=== PATIENT | female | born 1945 | race Caucasian/White ===

== ENCOUNTER → 2018-12-20 | Outpatient (CLI) | payer MEDICARE ==
--- NOTE | 2018-12-26 14:35 | MM ---
Reason for exam: screening (asymptomatic). Last mammogram was performed 18 years and 1 month ago. History: Patient is postmenopausal and has history of other cancer at age 53. Family history of breast cancer in cousin. 2 excisional biopsies of the right breast. Took estrogen for 6 years. Took progesterone for 6 years. Physical Findings: A clinical breast exam by your physician is recommended on an annual basis and results should be correlated with mammographic findings. MG 3D Screening Mammo W/Cad Bilateral CC and MLO view(s) were taken. Prior study comparison: November 30, 2017, mammogram. September 22, 2016, mammogram. The breast tissue is almost entirely fat. Secretory calcifications left breast. No significant changes when compared with prior studies. ASSESSMENT: Negative, BI-RAD 1 RECOMMENDATION: Routine screening mammogram of both breasts in 1 year.
== END | disposition home or self-care (01) ==
LOC: RADMAMWWP 10:19
PROVIDERS: ATTEND Obstetrics & Gynecology
DX: Z12.31 Encounter for screening mammogram for malignant neoplasm of breast (principal)
CPT/HCPCS: 77063; 77067

== ENCOUNTER → 2019-08-16 | Outpatient (CLI) | payer MEDICARE ==
[2019-08-16 16:51] LABS: Anion Gap 7.7 mmol/L (4.00-12.00); BUN/Creat Ratio 18.75 Ratio (12.00-20.00); Calcium 9.2 mg/dL (8.7-10.3); Carbon Dioxide 26.3 mmol/L (21.6-31.8); Chol/HDL Ratio 5.26; LDL Cholesterol,Calculated 108.6 mg/dL (0.0-131.0); Potassium 3.9 mmol/L (3.5-5.5); VLDL Calculation 57.4 mg/dL (5.00-40.00)
[2019-08-16 19:20] LABS: Hemoglobin A1C 7.6 % (4.0-6.0)
== END | disposition home or self-care (01) ==
LOC: LABWHC1 07:43
PROVIDERS: ATTEND Internal Medicine
DX: I10 Essential (primary) hypertension (principal); E11.9 Type 2 diabetes mellitus without complications; E78.5 Hyperlipidemia, unspecified
CPT/HCPCS: 36415; 80048; 80061; 83036

== ENCOUNTER → 2020-07-05 | Outpatient (CLI) | payer MEDICARE | END | disposition home or self-care (01) | LOC: LABWHC1 14:47 | PROVIDERS: ATTEND Internal Medicine | DX: Z20.828 Contact with and (suspected) exposure to other viral communicable diseases (principal) | CPT/HCPCS: U0003; C9803 ==

== ENCOUNTER 2020-11-27 17:14 | Emergency (ER) | payer MEDICARE ==
[2020-11-27 17:28] VITALS: BP 190/80; PULSE 88; RESP 18; TEMP 98.2
[2020-11-27] MEDS ORDERED: SODIUM CHLORIDE 0.9% 1,000 ML IV ONE (18:26)
--- NOTE | 2020-11-27 18:32 | ED ---
Abdominal Pain HPI - General Chief Complaint: Abdominal Pain Stated Complaint: Abd Pain Time Seen by Provider: 11/27/20 17:59 Source: patient Mode of arrival: wheelchair Limitations: no limitations - History of Present Illness Initial Comments: Patient is a 75 old female with past history of hypertension and diabetes who presents to the emergency department with reported abdominal pain. Patient states that she has had some lower abdominal cramping and abdominal distention over the past day. She took some milk of magnesia yesterday in an attempt to alleviate her symptoms. Reports that her pain has persisted through today. She did have a bowel movement she states was normal in color and consistency for her. She denies being constipated or having diarrhea. No black or bloody stools. Denies any changes in her urination. Denies any nausea or vomiting. Does have a history of previous bowel resection secondary to diverticulitis. No lower extremity numbness, tingling or weakness. No other alleviating, precipitating or modifying factors - Related Data Allergies Allergy/AdvReac Type Severity Reaction Status Date / Time azithromycin Allergy Unknown Verified 11/27/20 17:29 ciprofloxacin [From Cipro] Allergy Unknown Verified 11/27/20 17:29 meperidine [From Demerol] Allergy Unknown Verified 11/27/20 17:29 Penicillins Allergy Unknown Verified 11/27/20 17:29 Sulfa (Sulfonamide Allergy Unknown Verified 11/27/20 17:29 Antibiotics) Review of Systems ROS Statement: Those systems with pertinent positive or pertinent negative responses have been documented in the HPI. ROS Other: All systems not noted in ROS Statement are negative. Past Medical History Past Medical History: Diabetes Mellitus, Hypertension History of Any Multi-Drug Resistant Organisms: None Reported Past Surgical History: Cholecystectomy Past Psychological History: No Psychological Hx Reported Smoking Status: Former smoker Past Alcohol Use History: None Reported Past Drug Use History: None Reported General Exam Limitations: no limitations General appearance: alert, in no apparent distress Head exam: Present: atraumatic, normocephalic, normal inspection Eye exam: Present: normal appearance, PERRL, EOMI. Absent: scleral icterus, conjunctival injection, periorbital swelling ENT exam: Present: normal exam, mucous membranes moist Neck exam: Present: normal inspection. Absent: tenderness, meningismus, lymphadenopathy Respiratory exam: Present: normal lung sounds bilaterally. Absent: respiratory distress, wheezes, rales, rhonchi, stridor Cardiovascular Exam: Present: regular rate, normal rhythm, normal heart sounds. Absent: systolic murmur, diastolic murmur, rubs, gallop, clicks GI/Abdominal exam: Present: soft, tenderness (rlq, epigastric), normal bowel sounds. Absent: distended, guarding, rebound, rigid Extremities exam: Present: normal inspection, full ROM, normal capillary refill. Absent: tenderness, pedal edema, joint swelling, calf tenderness Back exam: Present: normal inspection Neurological exam: Present: alert, oriented X3, CN II-XII intact Psychiatric exam: Present: normal affect, normal mood Skin exam: Present: warm, dry, intact, normal color. Absent: rash Course Vital Signs 11/27/20 17:25 Temperature 98.2 F Pulse Rate 88 Respiratory 18 Rate Blood Pressure 190/80 O2 Sat by Pulse 96 Oximetry Medical Decision Making - Medical Decision Making Upon arrival patient was placed into room 10. A thorough history and physical e xam was performed. Peripheral IV is established and the patient is given 1 L of normal saline. I did offer the patient something for pain and nausea however she refused. Laboratory studies are conducted and reviewed. The patient's platelets are low at 96. Glucose 148. Urinalysis demonstrates 1+ protein. She is sent over for CT of her abdomen and pelvis without contrast as the patient reports that she cannot have contrast due to ALLERGY. CT demonstrates colonic diverticulosis without diverticulitis and a tiny amount of fluid around the spleen of uncertain significance. I did recommend hospital admission however the patient states that since she has been here she feels better and she wants to go home. I informed the patient that there could be some missed findings as the CT was performed without contrast. She does understand. Patient continues to want go home. She is instructed that she has a follow-up with her primary care physician in 2-4 days. If she has any new or worsening symptoms she needs to immediately back to the emergency department. Patient understood this. She was discharged home in stable condition - Lab Data Result diagrams: 11/27/20 18:47 11/27/20 18:47 Lab Results 11/27/20 11/27/20 11/27/20 Range/Units 18:40 18:47 18:47 WBC 5.8 (3.8-10.6) k/uL RBC 4.89 (3.80-5.40) m/uL Hgb 14.9 (11.4-16.0) gm/dL Hct 43.9 (34.0-46.0) % MCV 89.7 (80.0-100.0) fL MCH 30.5 (25.0-35.0) pg MCHC 34.0 (31.0-37.0) g/dL RDW 14.5 (11.5-15.5) % Plt Count 96 L (150-450) k/uL MPV 7.6 Neutrophils % 65 % Lymphocytes % 23 % Monocytes % 5 % Eosinophils % 2 % Basophils % 1 % Neutrophils # 3.8 (1.3-7.7) k/uL Lymphocytes # 1.4 (1.0-4.8) k/uL Monocytes # 0.3 (0-1.0) k/uL Eosinophils # 0.1 (0-0.7) k/uL Basophils # 0.1 (0-0.2) k/uL PT 10.9 (9.0-12.0) sec INR 1.1 (<1.2) APTT 24.2 (22.0-30.0) sec Sodium (137-145) mmol/L Potassium (3.5-5.1) mmol/L Chloride (98-107) mmol/L Carbon Dioxide (22-30) mmol/L Anion Gap mmol/L BUN (7-17) mg/dL Creatinine (0.52-1.04) mg/dL Est GFR (CKD-EPI)AfAm (>60 ml/min/1.73 sqM) Est GFR (CKD-EPI)NonAf (>60 ml/min/1.73 sqM) Glucose (74-99) mg/dL Plasma Lactic Acid Pipo (0.7-2.0) mmol/L Calcium (8.4-10.2) mg/dL Total Bilirubin (0.2-1.3) mg/dL AST (14-36) U/L ALT (4-34) U/L Alkaline Phosphatase (38-126) U/L Troponin I (0.000-0.034) ng/mL Total Protein (6.3-8.2) g/dL Albumin (3.5-5.0) g/dL Lipase (23-300) U/L Urine Color Light Yellow Urine Appearance Clear (Clear) Urine pH 6.5 (5.0-8.0) Ur Specific [place] 1.006 (1.001-1.035) Urine Protein 1+ H (Negative) Urine Glucose (UA) Negative (Negative) Urine Ketones Negative (Negative) Urine Blood Negative (Negative) Urine Nitrite Negative (Negative) Urine Bilirubin Negative (Negative) Urine Urobilinogen <2.0 (<2.0) mg/dL Ur Leukocyte Esterase Negative (Negative) Urine RBC 1 (0-5) /hpf Urine WBC 1 (0-5) /hpf Ur Squamous Epith Cells 1 (0-4) /hpf Amorphous Sediment Rare H (None) /hpf Hyaline Casts 1 (0-2) /lpf 11/27/20 11/27/20 11/27/20 Range/Units 18:47 18:47 18:47 WBC (3.8-10.6) k/uL RBC (3.80-5.40) m/uL Hgb (11.4-16.0) gm/dL Hct (34.0-46.0) % MCV (80.0-100.0) fL MCH (25.0-35.0) pg MCHC (31.0-37.0) g/dL RDW (11.5-15.5) % Plt Count (150-450) k/uL MPV Neutrophils % % Lymphocytes % % Monocytes % % Eosinophils % % Basophils % % Neutrophils # (1.3-7.7) k/uL Lymphocytes # (1.0-4.8) k/uL Monocytes # (0-1.0) k/uL Eosinophils # (0-0.7) k/uL Basophils # (0-0.2) k/uL PT (9.0-12.0) sec INR (<1.2) APTT (22.0-30.0) sec Sodium 138 (137-145) mmol/L Potassium 3.8 (3.5-5.1) mmol/L Chloride 101 (98-107) mmol/L Carbon Dioxide 26 (22-30) mmol/L Anion Gap 11 mmol/L BUN 13 (7-17) mg/dL Creatinine 0.61 (0.52-1.04) mg/dL Est GFR (CKD-EPI)AfAm >90 (>60 ml/min/1.73 sqM) Est GFR (CKD-EPI)NonAf 88 (>60 ml/min/1.73 sqM) Glucose 148 H (74-99) mg/dL Plasma Lactic Acid Pipo 1.8 (0.7-2.0) mmol/L Calcium 9.7 (8.4-10.2) mg/dL Total Bilirubin 1.1 (0.2-1.3) mg/dL AST 34 (14-36) U/L ALT 27 (4-34) U/L Alkaline Phosphatase 73 (38-126) U/L Troponin I <0.012 (0.000-0.034) ng/mL Total Protein 7.9 (6.3-8.2) g/dL Albumin 4.1 (3.5-5.0) g/dL Lipase 163 (23-300) U/L Urine Color Urine Appearance (Clear) Urine pH (5.0-8.0) Ur Specific [place] (1.001-1.035) Urine Protein (Negative) Urine Glucose (UA) (Negative) Urine Ketones (Negative) Urine Blood (Negative) Urine Nitrite (Negative) Urine Bilirubin (Negative) Urine Urobilinogen (<2.0) mg/dL Ur Leukocyte Esterase (Negative) Urine RBC (0-5) /hpf Urine WBC (0-5) /hpf Ur Squamous Epith Cells (0-4) /hpf Amorphous Sediment (None) /hpf Hyaline Casts (0-2) /lpf - EKG Data EKG Comments: EKG demonstrates a sinus rhythm with a ventricular rate of 81. ME interval 238. QRS 78. QTC of 457. No acute ST segment elevations or depressions Disposition Clinical Impression: Abdominal pain Disposition: HOME SELF-CARE Condition: Stable Instructions (If sedation given, give patient instructions): Abdominal Pain (ED) Additional Instructions: Please return to the emergency room should you have any new or worsening symptoms. Please follow-up with your doctor in 2-4 days Is patient prescribed a controlled substance at d/c from ED?: No Referrals: Maryuri Hollis MD [Primary Care Provider] - 1-2 days Time of Disposition: 20:11
[2020-11-27 18:50] LABS: Basophils # (A) 0.1 k/uL (0-0.2); Basophils % (A) 1 %; Eosinophils # (A) 0.1 k/uL (0-0.7); Eosinophils % (A) 2 %; HCT 43.9 % (34.0-46.0); HGB 14.9 gm/dL (11.4-16.0); Lymphocytes # (A) 1.4 k/uL (1.0-4.8); Lymphocytes % (A) 23 %; MCH 30.5 pg (25.0-35.0); MCV 89.7 fL (80.0-100.0); Mean Platelet Volume 7.6; Monocytes # (A) 0.3 k/uL (0-1.0); Monocytes % (A) 5 %; Neutrophils # (A) 3.8 k/uL (1.3-7.7); Neutrophils % (A) 65 %; RBC 4.89 m/uL (3.80-5.40); RDW 14.5 % (11.5-15.5); WBC 5.8 k/uL (3.8-10.6)
[2020-11-27 18:53] LABS: Amorphous Sediment,Urine Rare /hpf; Appearance,Urine Clear (Clear); Bilirubin,Urine Negative (Negative); Blood,Urine Negative (Negative); Color,Urine Light Yellow; Glucose,Urine (UA) Negative (Negative); Hyaline Casts,Urine 1 /lpf (0-2); Ketones,Urine Negative (Negative); Leukocyte Esterase,Urine Negative (Negative); Nitrite,Urine Negative (Negative); PH, Urine 6.5 (5.0-8.0); Protein,Urine 1+ (Negative); RBC,Urine 1 /hpf (0-5); Specific Gravity,Urine 1.006 (1.001-1.035); Squamous Epithelial Cell,Urine 1 /hpf (0-4); Urobilinogen,Urine <2.0 mg/dL (<2.0); WBC,Urine 1 /hpf (0-5)
[2020-11-27 18:56] LABS: Platelet Count 96 k/uL (150-450)
[2020-11-27 19:05] LABS: ALT 27 U/L (4-34); AST 34 U/L (14-36); African American GFR (CKD) >90 (>60 ml/min/1.73 sqM); Albumin 4.1 g/dL (3.5-5.0); Alkaline Phosphatase 73 U/L (38-126); Anion Gap 11 mmol/L; Blood Urea Nitrogen 13 mg/dL (7-17); Calcium 9.7 mg/dL (8.4-10.2); Carbon Dioxide 26 mmol/L (22-30); Chloride 101 mmol/L (98-107); Glucose 148 mg/dL (74-99); Lipase 163 U/L (23-300); Non-African American GFR(CKD) 88 (>60 ml/min/1.73 sqM); Potassium 3.8 mmol/L (3.5-5.1); Sodium 138 mmol/L (137-145); Total Bilirubin 1.1 mg/dL (0.2-1.3); Total Protein 7.9 g/dL (6.3-8.2)
[2020-11-27 19:06] LABS: INR 1.1 (<1.2); Partial Thromboplastin Time 24.2 sec (22.0-30.0); Prothrombin Time 10.9 sec (9.0-12.0)
--- NOTE | 2020-11-27 19:47 | CT ---
EXAMINATION TYPE: CT abdomen pelvis wo con DATE OF EXAM: 11/27/2020 COMPARISON: None HISTORY: abdominal discomfort CT DLP: 905.2 mGycm Automated exposure control for dose reduction was used. Images obtained from the diaphragm to the floor the pelvis without contrast. There is some patchy interstitial infiltrates at the lung bases. Heart is borderline enlarged. There is no pericardial effusion. There is no pleural effusion. There is interposition of the hepatic flexure of the colon. Liver shows no focal defect. Spleen is in tact. There is small calcified splenic granuloma. There is small amount of fluid around the spleen. T here is no pancreatic mass. The stomach is intact. There is no adrenal mass. Kidneys show normal size. There is no hydronephrosis. Ureters are not dilat ed. There is no retroperitoneal adenopathy. Bladder distends smoothly. There is no inguinal hernia. T here is no free fluid in the pelvis. There is no mesenteric edema. There is no ascites or free air. There are a few sigmoid diverticula and colonic diverticula without evidence of diverticulitis. Appen jovita is short and appears normal. There are spondylotic changes in the lumbar spine. There is lumbar levoscoliosis. There is no alba alpesh fracture. The bony pelvis is intact. Hip joints are intact. IMPRESSION: There is some colonic diverticulosis without diverticulitis. Tiny amount of fluid around the spleen o f uncertain significance.
== END 2020-11-27 20:59 | disposition home or self-care (01) ==
LOC: EC 17:14
DX: R10.30 Lower abdominal pain, unspecified (principal); K57.30 Diverticulosis of large intestine without perforation or abscess without bleeding; Z88.1 Allergy status to other antibiotic agents; Z88.5 Allergy status to narcotic agent; Z88.0 Allergy status to penicillin; Z88.2 Allergy status to sulfonamides; Z90.49 Acquired absence of other specified parts of digestive tract; Z87.891 Personal history of nicotine dependence
CPT/HCPCS: 36415; 74176; 80053; 81001; 83605; 83690; 84484; 85025; 85610; 85730; 93005; 96360; 99284

== ENCOUNTER → 2021-01-28 | Outpatient (CLI) | payer MEDICARE ==
--- NOTE | 2021-01-30 10:42 | MM ---
Reason for exam: screening (asymptomatic). Last mammogram was performed 2 years and 1 month ago. History: Patient is postmenopausal and has history of other cancer at age 53. Family history of breast cancer in cousin. 2 excisional biopsies of the right breast. Took estrogen for 6 years. Took progesterone for 6 years. Physical Findings: A clinical breast exam by your physician is recommended on an annual basis and results should be correlated with mammographic findings. MG 3D Screening Mammo W/Cad Bilateral CC and MLO view(s) were taken. Prior study comparison: December 20, 2018, bilateral MG 3d screening mammo w/cad. November 30, 2017, mammogram. There are scattered fibroglandular densities. Benign secretory calcifications on the left. No significant changes when compared with prior studies. ASSESSMENT: Negative, BI-RAD 1 RECOMMENDATION: Routine screening mammogram of both breasts in 1 year.
== END ==
LOC: RADMAMWWP 15:45
PROVIDERS: ATTEND Obstetrics & Gynecology
DX: Z12.31 Encounter for screening mammogram for malignant neoplasm of breast (principal); Z80.3 Family history of malignant neoplasm of breast
CPT/HCPCS: 77063; 77067

== ENCOUNTER → 2021-07-01 | Outpatient (CLI) | payer MEDICARE ==
[2021-07-01 15:30] LABS: HCT 42.7 % (34.0-46.0); HGB 14.8 gm/dL (11.4-16.0); MCH 32.1 pg (25.0-35.0); MCHC 34.6 g/dL (31.0-37.0); MCV 92.7 fL (80.0-100.0); Mean Platelet Volume 8.1; Platelet Count 116 k/uL (150-450); RDW 14.5 % (11.5-15.5); WBC 7.9 k/uL (3.8-10.6)
[2021-07-01 16:48] LABS: Band Neutrophils % 1 %; Eosinophils # (M) 0.24 k/uL (0-0.7); Lymphocytes # (M) 1.82 k/uL (1.0-4.8); Monocytes # (M) 0.47 k/uL (0-1.0); Neutrophils % (M) 67 %; Nucleated Red Blood Cells 0 /100 WBC (0-0); Total Cells Counted 100
== END | disposition home or self-care (01) ==
LOC: LABWHC1 14:13
PROVIDERS: ATTEND Internal Medicine
DX: D69.6 Thrombocytopenia, unspecified (principal)
CPT/HCPCS: 36415; 85025

== ENCOUNTER → 2021-08-18 | Outpatient (CLI) | payer MEDICARE ==
--- NOTE | 2021-08-18 08:00 | US ---
EXAMINATION TYPE: US abdomen complete DATE OF EXAM: 08/18/2021 COMPARISON: CT, US Aorta CLINICAL HISTORY: D69.6 Thrombocytopenia. Thrombocytopenia. Hx cholecystectomy, bowel resection. EXAM MEASUREMENTS: Liver Length: 12.0 cm Gallbladder Wall: Cholecystectomy. CBD: Not visualized. Spleen: 13.5 cm Right Kidney: 10.6 x 5.3 x 5.0 cm Left Kidney: 11.7 x 5.4 x 4.4 cm Very limited exam due to gas and patient body habitus. Pancreas: Obscured. Liver: Appears coarse. Limited visibility. Evidence for sonographic Crocker's sign: No Spleen: Appears slightly enlarged. Hyperechoic area seen: 0.5 x 0.5 x 0.6 cm. Right Kidney: Two anechoic areas seen laterally. #1: 1.8 x 1.7 x 1.5 cm. #2: 2.0 x 2.4 x 1.6 cm. Left Kidney: No hydronephrosis or masses seen Upper IVC: Appears wnl Abd Aorta: Prox visualized only, measures 2.5 cm, upper limits of normal. IMPRESSION: 1. Coarse hepatic echotexture may reflect a fatty hepatic infiltration. 2. Mild splenomegaly with a small hypoechoic area which is nonspecific. 3. Renal cystic lesions.
== END | disposition home or self-care (01) ==
LOC: RADUSWWP 06:54
PROVIDERS: ATTEND Internal Medicine Hematology & Oncology
DX: K76.89 Other specified diseases of liver (principal); R16.1 Splenomegaly, not elsewhere classified; N28.9 Disorder of kidney and ureter, unspecified; Z90.49 Acquired absence of other specified parts of digestive tract
CPT/HCPCS: 76700

== ENCOUNTER 2022-04-20 06:34 | Observation (INO) | payer MEDICARE ==
[2022-04-20] MEDS ORDERED: SODIUM CHLORIDE 0.9% 500 ML 500 ML IV STA (06:55)
--- NOTE | 2022-04-20 07:05 | ED ---
General Adult HPI - General Chief complaint: GI Bleed Stated complaint: Rectal bleeding Time Seen by Provider: 04/20/22 06:55 Source: patient, RN notes reviewed, old records reviewed Mode of arrival: wheelchair Limitations: no limitations - History of Present Illness Initial comments: 77-year-old female, alert and oriented 4, presents to the emergency room with complaints of bright red rectal bleeding. Patient states she got up to use the bathroom and the toilet bowl was full of blood. She states that this is happened twice. In between episodes she's had rectal bleeding and rectal pressure. She states walking to the bathroom she will have drips of blood on the floor. She denies any abdominal pain. No chest pain or shortness of breath. She states that she does have a history of hemorrhoids. She states she didn't feel rectal pressure and did try milk of magnesia thinking it may be constipation. She does have a history of thrombocytopenia with diverticulosis. Last colonoscopy was 2006 with no polyps. -: hour(s) Severity scale (1-10): 0 Associated Symptoms: denies other symptoms Treatments Prior to Arrival: other (Milk of magnesia) - Related Data Home Medications Medication Instructions Recorded Confirmed LORazepam [Ativan] 0.5 mg PO Q12H PRN 04/20/22 04/20/22 Magnesium Oxide 400 mg PO DAILY 04/20/22 04/20/22 Montelukast [Singulair] 10 mg PO HS 04/20/22 04/20/22 Multivitamins, Thera [Multivitamin 1 tab PO PC-SUPPER 04/20/22 04/20/22 (formulary)] Pioglitazone [Actos] 15 mg PO DAILY 04/20/22 04/20/22 atenoloL [Tenormin] 25 mg PO BID 04/20/22 04/20/22 hydroCHLOROthiazide 25 mg PO Q48H 04/20/22 04/20/22 metFORMIN HCL [Glucophage] 1,000 mg PO HS 04/20/22 04/20/22 Allergies Allergy/AdvReac Type Severity Reaction Status Date / Time azithromycin Allergy Unknown Verified 04/20/22 06:42 ciprofloxacin [From Cipro] Allergy Unknown Verified 04/20/22 06:42 meperidine [From Demerol] Allergy Unknown Verified 04/20/22 06:42 Penicillins Allergy Unknown Verified 04/20/22 06:42 sulfite Allergy Rash/Hives Verified 04/20/22 06:43 Review of Systems ROS Statement: Those systems with pertinent positive or pertinent negative responses have been documented in the HPI. ROS Other: All systems not noted in ROS Statement are negative. Past Medical History Past Medical History: Diabetes Mellitus, Hypertension Additional Past Medical History / Comment(s): cirrhosis, thrombocytopenia History of Any Multi-Drug Resistant Organisms: None Reported Past Surgical History: Cholecystectomy Past Psychological History: No Psychological Hx Reported Smoking Status: Former smoker Past Alcohol Use History: None Reported Past Drug Use History: None Reported General Exam Limitations: no limitations General appearance: alert, in no apparent distress Head exam: Present: atraumatic Eye exam: Present: normal appearance, EOMI. Absent: scleral icterus, conjunctival injection Neck exam: Present: normal inspection. Absent: tenderness, meningismus, lymphadenopathy, thyromegaly Respiratory exam: Present: normal lung sounds bilaterally. Absent: respiratory distress, accessory muscle use Cardiovascular Exam: Present: regular rate, normal rhythm GI/Abdominal exam: Present: soft, distended. Absent: tenderness, guarding, rebound, rigid Rectal exam: Present: normal rectal tone, bloody stool, hemorrhoids. Absent: fecal impaction, mass, tenderness Extremities exam: Present: normal capillary refill Back exam: Present: normal inspection. Absent: tenderness, CVA tenderness (R), CVA tenderness (L) Neurological exam: Present: alert, oriented X3 Psychiatric exam: Present: normal affect, normal mood Skin exam: Present: warm, dry, normal color. Absent: cyanosis, diaphoretic Course Vital Signs 04/20/22 06:35 Temperature 98.0 F Pulse Rate 89 Respiratory 18 Rate Blood Pressure 178/84 O2 Sat by Pulse 95 Oximetry EKG Findings - EKG Results: EKG: sinus rhythm (Ventricular rate of 78, NC interval 0.217, QRS 0.94, QTC 0.436) Medical Decision Making - Medical Decision Making Patient's hemoglobin is 14, hematocrit 43, occult blood positive. She does have a history of thrombocytopenia. Patient will be admitted with GI consult. She is agreeable to this plan of care. - Lab Data Result diagrams: 04/20/22 07:50 04/20/22 07:50 Lab Results 04/20/22 04/20/22 04/20/22 Range/Units 07:50 07:50 07:50 WBC 6.8 (3.8-10.6) k/uL RBC 4.63 (3.80-5.40) m/uL Hgb 14.6 (11.4-16.0) gm/dL Hct 43.2 (34.0-46.0) % MCV 93.4 (80.0-100.0) fL MCH 31.5 (25.0-35.0) pg MCHC 33.7 (31.0-37.0) g/dL RDW 14.6 (11.5-15.5) % Plt Count 97 L (150-450) k/uL MPV 8.2 Neutrophils % 72 % Lymphocytes % 15 % Monocytes % 5 % Eosinophils % 4 % Basophils % 1 % Neutrophils # 4.9 (1.3-7.7) k/uL Lymphocytes # 1.0 (1.0-4.8) k/uL Monocytes # 0.3 (0-1.0) k/uL Eosinophils # 0.3 (0-0.7) k/uL Basophils # 0.1 (0-0.2) k/uL Manual Slide Review Performed RBC Morphology Normal APTT 25.2 (22.0-30.0) sec Sodium (137-145) mmol/L Potassium (3.5-5.1) mmol/L Chloride (98-107) mmol/L Carbon Dioxide (22-30) mmol/L Anion Gap mmol/L BUN (7-17) mg/dL Creatinine (0.52-1.04) mg/dL Est GFR (CKD-EPI)AfAm (>60 ml/min/1.73 sqM) Est GFR (CKD-EPI)NonAf (>60 ml/min/1.73 sqM) Glucose (74-99) mg/dL Calcium (8.4-10.2) mg/dL Magnesium (1.6-2.3) mg/dL Total Bilirubin (0.2-1.3) mg/dL AST (14-36) U/L ALT (4-34) U/L Alkaline Phosphatase (38-126) U/L Troponin I (0.000-0.034) ng/mL Total Protein (6.3-8.2) g/dL Albumin (3.5-5.0) g/dL Stool Occult Blood Positive H (Negative) 04/20/22 04/20/22 Range/Units 07:50 07:50 WBC (3.8-10.6) k/uL RBC (3.80-5.40) m/uL Hgb (11.4-16.0) gm/dL Hct (34.0-46.0) % MCV (80.0-100.0) fL MCH (25.0-35.0) pg MCHC (31.0-37.0) g/dL RDW (11.5-15.5) % Plt Count (150-450) k/uL MPV Neutrophils % % Lymphocytes % % Monocytes % % Eosinophils % % Basophils % % Neutrophils # (1.3-7.7) k/uL Lymphocytes # (1.0-4.8) k/uL Monocytes # (0-1.0) k/uL Eosinophils # (0-0.7) k/uL Basophils # (0-0.2) k/uL Manual Slide Review RBC Morphology APTT (22.0-30.0) sec Sodium 134 L (137-145) mmol/L Potassium 3.8 (3.5-5.1) mmol/L Chloride 100 (98-107) mmol/L Carbon Dioxide 26 (22-30) mmol/L Anion Gap 8 mmol/L BUN 13 (7-17) mg/dL Creatinine 0.51 L (0.52-1.04) mg/dL Est GFR (CKD-EPI)AfAm >90 (>60 ml/min/1.73 sqM) Est GFR (CKD-EPI)NonAf >90 (>60 ml/min/1.73 sqM) Glucose 196 H (74-99) mg/dL Calcium 8.6 (8.4-10.2) mg/dL Magnesium 1.9 (1.6-2.3) mg/dL Total Bilirubin 1.4 H (0.2-1.3) mg/dL AST 33 (14-36) U/L ALT 27 (4-34) U/L Alkaline Phosphatase 67 (38-126) U/L Troponin I <0.012 (0.000-0.034) ng/mL Total Protein 6.9 (6.3-8.2) g/dL Albumin 3.8 (3.5-5.0) g/dL Stool Occult Blood (Negative) Disposition Clinical Impression: Gastrointestinal hemorrhage Disposition: ADMITTED IP TO THIS [facility] Condition: Good Decision Date: 04/20/22 Decision Time: 07:46
[2022-04-20 08:17] LABS: ALT 27 U/L (4-34); AST 33 U/L (14-36); African American GFR (CKD) >90 (>60 ml/min/1.73 sqM); Albumin 3.8 g/dL (3.5-5.0); Alkaline Phosphatase 67 U/L (38-126); Anion Gap 8 mmol/L; Blood Urea Nitrogen 13 mg/dL (7-17); Calcium 8.6 mg/dL (8.4-10.2); Carbon Dioxide 26 mmol/L (22-30); Chloride 100 mmol/L (98-107); Glucose 196 mg/dL (74-99); Magnesium 1.9 mg/dL (1.6-2.3); Non-African American GFR(CKD) >90 (>60 ml/min/1.73 sqM); Potassium 3.8 mmol/L (3.5-5.1); Sodium 134 mmol/L (137-145); Total Bilirubin 1.4 mg/dL (0.2-1.3); Total Protein 6.9 g/dL (6.3-8.2)
[2022-04-20 08:21] LABS: Basophils # (A) 0.1 k/uL (0-0.2); Basophils % (A) 1 %; Eosinophils # (A) 0.3 k/uL (0-0.7); Eosinophils % (A) 4 %; HCT 43.2 % (34.0-46.0); HGB 14.6 gm/dL (11.4-16.0); Lymphocytes % (A) 15 %; MCH 31.5 pg (25.0-35.0); MCHC 33.7 g/dL (31.0-37.0); MCV 93.4 fL (80.0-100.0); Mean Platelet Volume 8.2; Monocytes # (A) 0.3 k/uL (0-1.0); Monocytes % (A) 5 %; Neutrophils # (A) 4.9 k/uL (1.3-7.7); Neutrophils % (A) 72 %; RBC 4.63 m/uL (3.80-5.40); RDW 14.6 % (11.5-15.5); WBC 6.8 k/uL (3.8-10.6)
[2022-04-20] MEDS ORDERED: ACETAMINOPHEN TAB 325 MG TAB PO PRN (08:37)
[2022-04-20] MEDS ORDERED: NALOXONE 0.4 MG/ML 1 ML VIAL IV PRN (08:37)
[2022-04-20] MEDS ORDERED: SODIUM CHLORIDE 0.9% 1,000 ML IV SCH (08:45)
[2022-04-20 08:50] LABS: Platelet Count 97 k/uL (150-450); RBC Morphology Normal
[2022-04-20 12:07] LABS: Glucose,Whole Blood 235 mg/dL (75-99)
[2022-04-20] MEDS ORDERED: PEG 3350-NA SULF,BICARB,CL/KCL 4,000 ML BOTTLE PO ONE (14:02)
[2022-04-20 15:11] VITALS: BP 165/73; PULSE 63; RESP 18; TEMP 98.1
--- NOTE | 2022-04-20 15:33 | P.CONS ---
History of Present Illness - Reason for Consult Consult date: 04/20/22 Rectal bleeding Requesting physician: Howard Rankin - Chief Complaint Rectal bleeding - History of Present Illness This a pleasant 77-year-old female who presented to the emergency department this morning after having rectal bleeding. States that she has a history of constipation and yesterday took milk of magnesia and had several bowel movements. This morning she woke up felt like she had to go so she started straining and then noticed that she had bright red blood in the toilet and then some dripping on the floor. Patient does state that she has a history of hemor rhoids and recently saw Dr. Ricci for them. She states no plans on surgery. Her last colonoscopy she believes was in 2007. She denied any abdominal pain or cramping associated with the rectal bleeding. Denies any anticoagulation patient does have a history of cirrhosis of the liver from underlying fatty liver disease. WBC 6.8 hemoglobin 14.6 hematocrit 43 platelet count 97,000 total bilirubin 1.4 AST 33 ALT 27 alkaline phosphatase 67 stool occult blood positive Review of Systems REVIEW OF SYSTEMS: CARDIOPULMONARY: No chest pain or shortness of breath. Gastrointestinal: No abdominal pain or cramping.. No nausea or vomiting. No hematemesis, coffee-ground emesis. Bright red blood per rectum this morning after straining from her bowel movement. GENITOURINARY: No dysuria or hematuria. MUSCULOSKELETAL: Reports normal range of motion., Joint pain. SKIN: No rashes. No jaundice. ENDOCRINE: No chills, fevers. No excessive weight gain or loss. No polydipsia or polyuria. PSYCHIATRIC: Unremarkable. NEUROLOGY: No change in mental status. Denies dizziness, headache. ENT: Vision unremarkable. CONSTITUTIONAL: No recent weight loss. No fever, chills, night sweats. Past Medical History Past Medical History: Diabetes Mellitus, Hypertension Additional Past Medical History / Comment(s): cirrhosis, thrombocytopenia History of Any Multi-Drug Resistant Organisms: None Reported Past Surgical History: Cholecystectomy Past Psychological History: No Psychological Hx Reported Smoking Status: Former smoker Past Alcohol Use History: None Reported Past Drug Use History: None Reported Medications and Allergies Home Medications Medication Instructions Recorded Confirmed Type LORazepam [Ativan] 0.5 mg PO Q12H PRN 04/20/22 04/20/22 History Magnesium Oxide 400 mg PO DAILY 04/20/22 04/20/22 History Montelukast [Singulair] 10 mg PO HS 04/20/22 04/20/22 History Multivitamins, Thera [Multivitamin 1 tab PO PC-SUPPER 04/20/22 04/20/22 History (formulary)] Pioglitazone [Actos] 15 mg PO DAILY 04/20/22 04/20/22 History atenoloL [Tenormin] 25 mg PO BID 04/20/22 04/20/22 History hydroCHLOROthiazide 25 mg PO Q48H 04/20/22 04/20/22 History metFORMIN HCL [Glucophage] 1,000 mg PO HS 04/20/22 04/20/22 History Allergies Allergy/AdvReac Type Severity Reaction Status Date / Time azithromycin Allergy Unknown Verified 04/20/22 06:42 ciprofloxacin [From Cipro] Allergy Unknown Verified 04/20/22 06:42 meperidine [From Demerol] Allergy Unknown Verified 04/20/22 06:42 Penicillins Allergy Unknown Verified 04/20/22 06:42 sulfite Allergy Rash/Hives Verified 04/20/22 06:43 Physical Exam Vitals: Vital Signs Temp Pulse Resp BP Pulse Ox 04/20/22 06:35 98.0 F 89 18 178/84 95 Intake and Output 04/19/22 04/20/22 04/20/22 22:59 06:59 14:59 Other: Weight 89.811 kg General appearance: The patient is alert, oriented, appears in no acute di stress. HET: Head is normocephalic and atraumatic. Conjunctiva pink. Sclera anicteric. Neck: Supple without lymphadenopathy. Trachea midline. Heart: S1 S2. Regular rate and rhythm. Lungs: Clear to auscultation. Abdomen: Soft, nontender, nondistended with bowel sounds. No guarding or rigidity. Skin: No rashes. No jaundice. Extremities: Normal skin color and turgor. No pedal edema. Neurological: No focal deficits. Alert and oriented x3. Results CBC & Chem 7: 04/20/22 07:50 04/20/22 07:50 Labs: Abnormal Lab Results - Last 24 Hours (Table) 04/20/22 04/20/22 04/20/22 Range/Units 07:50 07:50 07:50 Plt Count 97 L (150-450) k/uL Sodium 134 L (137-145) mmol/L Creatinine 0.51 L (0.52-1.04) mg/dL Glucose 196 H (74-99) mg/dL Total Bilirubin 1.4 H (0.2-1.3) mg/dL Stool Occult Blood Positive H (Negative) Assessment and Plan (1) Rectal bleeding Narrative/Plan: 77-year-old female with a history of chronic constipation who used milk of magnesia yesterday with several bowel movements woke this morning when to go to the bathroom and had to strain. States after that she's noticed bright red blood in the toilet and 3-4 drops on the floor. She was concerned and came to the emergency department for further evaluation. Patient's last colonoscopy was in 2007. She recently was seen by Dr. Ricci for hemorrhoids however no planned surgery. Since her admission she had no further bleeding. She is not on any anticoagulation. Hemoglobin was stable at 14.6. Likely rectal bleeding is related to hemorrhoid, and or fissure however other possible etiologies need to be considered. And was to proceed with colonoscopy, however apparently patient had COVID-19 vaccine with ALLERGIC reaction causing swelling in her eyes and redness. It is advised by the CDC that if there is a cold vaccine ALLERGIC reaction no products with PEG should be given. This was discussed with the pharmacist. There is no other prep available at the hospital. Recommend outpatient colonoscopy as patient is stable and has not had any further rectal bleeding and again hemoglobin 14.6. Current Visit: Yes Status: Acute Code(s): K62.5 - HEMORRHAGE OF ANUS AND RECTUM SNOMED Code(s): 52850481 (2) Constipation Current Visit: Yes Status: Acute Code(s): K59.00 - CONSTIPATION, UNSPECIFIED SNOMED Code(s): 54059306 (3) Hemorrhoids Current Visit: Yes Status: Acute Code(s): K64.9 - UNSPECIFIED HEMORRHOIDS SNOMED Code(s): 06943211 Plan: 1. Continue symptomatic and supportive care 2. Patient may have regular diet 3. Avoid straining with bowel movements 4. Stool softener twice a day 5. Will plan for outpatient colonoscopy as patient is ALLERGIC to PEG solution prep for colonoscopy 6. Patient is cleared by gastroenterology for discharge Thank you for this consultation, we will continue to follow. Dr. Dylon Talamantes I agree with the dictator's note, documented as a scribe by Mary Coon.
[2022-04-20 16:24] LABS: HCT 43.6 % (34.0-46.0); HGB 14.3 gm/dL (11.4-16.0); MCH 31.2 pg (25.0-35.0); MCHC 32.8 g/dL (31.0-37.0); Mean Platelet Volume 8.1; Platelet Count 101 k/uL (150-450); RBC 4.59 m/uL (3.80-5.40); RDW 14.1 % (11.5-15.5); WBC 7.9 k/uL (3.8-10.6)
--- NOTE | 2022-04-20 17:10 | P.HPIM ---
History of Present Illness H&P Date: 04/20/22 Chief Complaint: BloodRectum Patient is a 77-year-old female with a past medical history of thrombus cytopenia, diabetes, hypertension, diverticulitis status post bowel resection who presents to the ED with bright red blood per rectum. Patient states that she was having constipation so took stool softeners. Then she had multiple bowel movements. She states that this morning she had to strain for a bowel movement. Then she noticed some bright red blood per rectum. Patient states that she does have a history of hemorrhoids and she recently saw general surgery who said no intervention. In the ED patient's hemoglobin was 14.8. Repeat hemoglobin was 14.6. Patient denies any further bright red blood per rectum. Patient has been seen by GI who said the road do a outpatient colonoscopy. Patient is requesting to be discharged. Patient is deemed stable for discharge. Patient was instructed following gastric oncology. Review of Systems 10 ROS reviewed and are negative except as noted in HPI Past Medical History Past Medical History: Diabetes Mellitus, Hypertension Additional Past Medical History / Comment(s): cirrhosis, thrombocytopenia History of Any Multi-Drug Resistant Organisms: None Reported Past Surgical History: Cholecystectomy Past Psychological History: No Psychological Hx Reported Smoking Status: Former smoker Past Alcohol Use History: None Reported Past Drug Use History: None Reported Medications and Allergies Home Medications Medication Instructions Recorded Confirmed Type LORazepam [Ativan] 0.5 mg PO Q12H PRN 04/20/22 04/20/22 History Magnesium Oxide 400 mg PO DAILY 04/20/22 04/20/22 History Montelukast [Singulair] 10 mg PO HS 04/20/22 04/20/22 History Multivitamins, Thera [Multivitamin 1 tab PO PC-SUPPER 04/20/22 04/20/22 History (formulary)] Pioglitazone [Actos] 15 mg PO DAILY 04/20/22 04/20/22 History atenoloL [Tenormin] 25 mg PO BID 04/20/22 04/20/22 History hydroCHLOROthiazide 25 mg PO Q48H 04/20/22 04/20/22 History metFORMIN HCL [Glucophage] 1,000 mg PO HS 04/20/22 04/20/22 History Allergies Allergy/AdvReac Type Severity Reaction Status Date / Time azithromycin Allergy Unknown Verified 04/20/22 06:42 ciprofloxacin [From Cipro] Allergy Unknown Verified 04/20/22 06:42 meperidine [From Demerol] Allergy Unknown Verified 04/20/22 06:42 Penicillins Allergy Unknown Verified 04/20/22 06:42 sulfite Allergy Rash/Hives Verified 04/20/22 06:43 Physical Exam Osteopathic Statement: *. No significant issues noted on an osteopathic structural exam other than those noted in the History and Physical/Consult. Vitals: Vital Signs Temp Pulse Pulse Resp BP BP Pulse Ox 04/20/22 15:00 98.1 F 63 18 165/73 98 04/20/22 11:45 97.7 F 77 16 173/71 95 04/20/22 06:35 98.0 F 89 18 178/84 95 Intake and Output 04/20/22 04/20/22 04/20/22 06:59 14:59 22:59 Intake Total 180 Balance 180 Intake: Oral 180 Other: Weight 89.811 kg 89.811 kg General: [Alert and oriented, well nourished, no acute distress]. Eye: [PERRL, EOMI, normal conjunctiva]. HENT: [Normocephalic, clear tympanic membranes, normal hearing, moist oral mucosa, no scleral icterus, no sinus tenderness]. Neck: [Supple, non-tender, no carotid bruits, no JVD, no lymphadenopathy]. Lungs: [Clear to auscultation and percussion, non-labored respiration]. Heart: [Normal rate, regular rhythm, no murmur, gallop or edema]. Abdomen: [Soft, non-tender, non-distended, normal bowel sounds, no masses]. Musculoskeletal: [Normal range of motion and strength, no tenderness or swelling]. Skin: [Skin is warm, dry and pink, no rashes or lesions]. Neurologic: [Awake, alert, and oriented X3, CN II-XII intact]. Psychiatric: [Cooperative, appropriate mood and affect]. Results CBC & Chem 7: 04/20/22 16:05 04/20/22 07:50 Labs: Abnormal Lab Results - Last 24 Hours (Table) 04/20/22 04/20/22 04/20/22 Range/Units 07:50 07:50 07:50 Plt Count 97 L (150-450) k/uL Sodium 134 L (137-145) mmol/L Creatinine 0.51 L (0.52-1.04) mg/dL Glucose 196 H (74-99) mg/dL POC Glucose (mg/dL) (75-99) mg/dL Total Bilirubin 1.4 H (0.2-1.3) mg/dL Stool Occult Blood Positive H (Negative) 04/20/22 04/20/22 Range/Units 12:03 16:05 Plt Count 101 L (150-450) k/uL Sodium (137-145) mmol/L Creatinine (0.52-1.04) mg/dL Glucose (74-99) mg/dL POC Glucose (mg/dL) 235 H (75-99) mg/dL Total Bilirubin (0.2-1.3) mg/dL Stool Occult Blood (Negative) Thrombosis Risk Factor Assmnt - Choose All That Apply Any of the Below Risk Factors Present?: Yes Each Factor Represents 1 point: Obesity (BMI >25) Other Risk Factors: Yes Each Risk Factor Represents 3 Points: Age 75 years or older Other congenital or acquired thrombophilia - If yes, enter type in comment: No Thrombosis Risk Factor Assessment Total Risk Factor Score: 4 Thrombosis Risk Factor Assessment Level: Moderate Risk Assessment and Plan Assessment: Bright red blood per rectum likely due to hemorrhoids -Hemoglobin stable -Patient cleared by GI for discharge Chronic conditions -Diabetes, thrombocytopenia, hypertension, and diverticulitis status post bowel resection Stable and patient will resume her home meds on discharge CODE STATUS:full code DVT prophylaxis: mechanical Discussed with: Patient, ER, rn Anticipated length of stay : same day discharge Anticipated discharge place: home A total of 30 minutes was spent on the care of this complex patient more than 50% of the time was spent in counseling and care coordination.
--- NOTE | 2022-04-20 17:11 | P.DS ---
Providers Date of admission: 04/20/22 09:36 Expected date of discharge: 04/20/22 Attending physician: Calli Erazo DO Consults: 04/20/22 08:37 Consult Physician Routine Consulting Provider: Karla Talamantes Consult Reason/Comments: GIB Do you want consulting provider notified?: Yes Primary care physician: Maryuri Hollis MD Hospital Course: Discharge Diagnosis: Rectal bleeding likely due to hemorrhoids Darvocet opinion Diabetes Hypertension Diverticulitis status post resection Hospital Course: Patient is a 77-year-old female with a past medical history of thrombus cytopenia, diabetes, hypertension, diverticulitis status post bowel resection who presents to the ED with bright red blood per rectum. Patient states that she was having constipation so took stool softeners. Then she had multiple bowel movements. She states that this morning she had to strain for a bowel movement. Then she noticed some bright red blood per rectum. Patient states that she does have a history of hemorrhoids and she recently saw general surgery who said no intervention. In the ED patient's hemoglobin was 14.8. Repeat hemoglobin was 14.6. Patient denies any further bright red blood per rectum. Patient has been seen by GI who said the road do a outpatient colonoscopy. Patient is requesting to be discharged. Patient is deemed stable for discharge. Patient was instructed following gastric oncology. Patient seen and examined at bedside.[] Vital signs reviewed and stable. General: [non toxic], [no distress], [appears at stated age] Derm: [warm], [dry] Head: [atraumatic], [normocephalic], [symmetric] Eyes: [EOMI], [no lid lag], [anicteric sclera] Mouth: [no lip lesion], [mucus membranes moist] Cardiovascular: [S1S2 reg], [no murmur], [positive posterior tibial pulse bilateral], Lungs: [CTA bilateral], [no rhonchi, no rales] , [no accessory muscle use] Abdominal: [soft], [ nontender to palpation], [no guarding], [no appreciable organomegaly] Ext: [no gross muscle atrophy], [no edema], [no contractures] Neuro: [ CN II-XI grossly intact], [no focal neuro deficits] Psych: [Alert], [oriented], [appropriate affect] A total of [25] minutes of time were spent preparing this complex discharge summary . Patient Condition at Discharge: Good Plan - Discharge Summary Discharge Rx Participant: Yes New Discharge Prescriptions: Continue Magnesium Oxide 400 mg PO DAILY LORazepam [Ativan] 0.5 mg PO Q12H PRN PRN Reason: Anxiety Multivitamins, Thera [Multivitamin (formulary)] 1 tab PO PC-SUPPER Montelukast [Singulair] 10 mg PO HS metFORMIN HCL [Glucophage] 1,000 mg PO HS hydroCHLOROthiazide 25 mg PO Q48H atenoloL [Tenormin] 25 mg PO BID Pioglitazone [Actos] 15 mg PO DAILY Discharge Medication List LORazepam [Ativan] 0.5 mg PO Q12H PRN 04/20/22 [History] Magnesium Oxide 400 mg PO DAILY 04/20/22 [History] Montelukast [Singulair] 10 mg PO HS 04/20/22 [History] Multivitamins, Thera [Multivitamin (formulary)] 1 tab PO PC-SUPPER 04/20/22 [History] Pioglitazone [Actos] 15 mg PO DAILY 04/20/22 [History] atenoloL [Tenormin] 25 mg PO BID 04/20/22 [History] hydroCHLOROthiazide 25 mg PO Q48H 04/20/22 [History] metFORMIN HCL [Glucophage] 1,000 mg PO HS 04/20/22 [History] Follow up Appointment(s)/Referral(s): Maryuri Hollis MD [Primary Care Provider] - 1-2 days (Office closed please call to make follow up appointment. Thank you!) Karla Talamantes MD [STAFF PHYSICIAN] - 1 Week (Office closed please call to make follow up appointment. Thank you!) Patient Instructions/Handouts: Rectal Bleeding (DC) Discharge Disposition: HOME SELF-CARE
[2022-04-20] MEDS ORDERED: DOCUSATE 100 MG CAP PO SCH (21:00)
== END 2022-04-20 17:37 | disposition home or self-care (01) ==
LOC: EC 06:34 → 6NMEDSUR 09:36
PROVIDERS: ADMIT Internal Medicine; ATTEND Internal Medicine
DX: K62.5 Hemorrhage of anus and rectum (principal); K64.9 Unspecified hemorrhoids; K59.09 Other constipation; D69.6 Thrombocytopenia, unspecified; E11.9 Type 2 diabetes mellitus without complications; I10 Essential (primary) hypertension; K74.60 Unspecified cirrhosis of liver; K76.0 Fatty (change of) liver, not elsewhere classified; E66.9 Obesity, unspecified; Z68.32 Body mass index [BMI] 32.0-32.9, adult; Z79.84 Long term (current) use of oral hypoglycemic drugs; Z79.899 Other long term (current) drug therapy; Z88.0 Allergy status to penicillin; Z88.1 Allergy status to other antibiotic agents; Z88.5 Allergy status to narcotic agent; Z91.048 Other nonmedicinal substance allergy status; Z90.49 Acquired absence of other specified parts of digestive tract; Z87.891 Personal history of nicotine dependence; Z88.7 Allergy status to serum and vaccine; Z87.19 Personal history of other diseases of the digestive system
CPT/HCPCS: 96360; 96361; 99285; 36415; 93005; 86900; 86901; 80053; 83735; 84484; 85025; 85027; 85730; 86850; 82272; G0378

== ENCOUNTER 2022-04-24 22:33 | Emergency (ER) | payer MEDICARE ==
[2022-04-24 22:45] VITALS: PULSE 74; RESP 16; TEMP 97.9
[2022-04-25 00:07] LABS: ALT 28 U/L (4-34); AST 32 U/L (14-36); African American GFR (CKD) >90 (>60 ml/min/1.73 sqM); Alkaline Phosphatase 75 U/L (38-126); Anion Gap 10 mmol/L; Basophils # (A) 0.1 k/uL (0-0.2); Basophils % (A) 1 %; Blood Urea Nitrogen 12 mg/dL (7-17); Calcium 9.1 mg/dL (8.4-10.2); Carbon Dioxide 24 mmol/L (22-30); Chloride 100 mmol/L (98-107); Eosinophils # (A) 0.4 k/uL (0-0.7); Eosinophils % (A) 5 %; Glucose 201 mg/dL (74-99); HCT 41.9 % (34.0-46.0); HGB 14.3 gm/dL (11.4-16.0); Lymphocytes # (A) 1.8 k/uL (1.0-4.8); Lymphocytes % (A) 25 %; MCH 31.7 pg (25.0-35.0); MCHC 34.1 g/dL (31.0-37.0); MCV 93.1 fL (80.0-100.0); Mean Platelet Volume 7.9; Monocytes # (A) 0.5 k/uL (0-1.0); Monocytes % (A) 6 %; Neutrophils # (A) 4.2 k/uL (1.3-7.7); Neutrophils % (A) 58 %; Non-African American GFR(CKD) 89 (>60 ml/min/1.73 sqM); Platelet Count 106 k/uL (150-450); Potassium 3.6 mmol/L (3.5-5.1); RDW 14.7 % (11.5-15.5); Sodium 134 mmol/L (137-145); Total Bilirubin 1.2 mg/dL (0.2-1.3); Total Protein 7.3 g/dL (6.3-8.2); WBC 7.2 k/uL (3.8-10.6)
--- NOTE | 2022-04-25 04:20 | ED ---
GI Bleed HPI - General Chief complaint: GI Bleed Stated complaint: Rectal Bleeding Time Seen by Provider: 04/25/22 02:52 Source: patient Mode of arrival: wheelchair Limitations: no limitations - History of Present Illness Initial comments: This patient is 77-year-old woman who presents to be evaluated for passing bright red blood with bowel movements. She was seen here 2 days ago for similar. The patient states she believes she has hemorrhoid that is bleeding with each bowel movement. She denies abdominal pain. No diarrhea or constipation. No perianal pain. She denies symptoms of anemia. There is no chest pain, dyspnea, palpitations, lightheadedness or orthostasis symptoms. Patient returns today basically because she has had a number of episodes of bleeding and is concerned her counts have dropped MD complaint: blood on toilet paper -: days(s) Severity scale (1-10): 0 Quality: painless Consistency: intermittent Improves with: none Worsens with: none Context: hemorrhoids Associated Symptoms: denies other symptoms Treatments Prior to Arrival: none - Related Data Home Medications Medication Instructions Recorded Confirmed LORazepam [Ativan] 0.5 mg PO Q12H PRN 04/20/22 04/20/22 Magnesium Oxide 400 mg PO DAILY 04/20/22 04/20/22 Montelukast [Singulair] 10 mg PO HS 04/20/22 04/20/22 Multivitamins, Thera [Multivitamin 1 tab PO PC-SUPPER 04/20/22 04/20/22 (formulary)] Pioglitazone [Actos] 15 mg PO DAILY 04/20/22 04/20/22 atenoloL [Tenormin] 25 mg PO BID 04/20/22 04/20/22 hydroCHLOROthiazide 25 mg PO Q48H 04/20/22 04/20/22 metFORMIN HCL [Glucophage] 1,000 mg PO HS 04/20/22 04/20/22 Previous Rx's Medication Instructions Recorded Hydrocortisone Pr Cream 1 applic RECTAL BID #28 gm 04/25/22 [Proctosol-Hc 2.5%] Allergies Allergy/AdvReac Type Severity Reaction Status Date / Time azithromycin Allergy Unknown Verified 04/24/22 22:42 ciprofloxacin [From Cipro] Allergy Unknown Verified 04/24/22 22:42 meperidine [From Demerol] Allergy Unknown Verified 04/24/22 22:42 Penicillins Allergy Unknown Verified 04/24/22 22:42 sulfite Allergy Rash/Hives Verified 04/24/22 22:42 Review of Systems ROS Statement: Those systems with pertinent positive or pertinent negative responses have been documented in the HPI. ROS Other: All systems not noted in ROS Statement are negative. Constitutional: Denies: fever, chills, weakness Respiratory: Denies: cough, dyspnea Cardiovascular: Denies: chest pain, palpitations, edema Gastrointestinal: Denies: abdominal pain, nausea, vomiting Musculoskeletal: Denies: back pain Skin: Denies: rash Neurological: Denies: headache Hematological/Lymphatic: Denies: easy bleeding Past Medical History Past Medical History: Diabetes Mellitus, Hypertension Additional Past Medical History / Comment(s): cirrhosis, thrombocytopenia History of Any Multi-Drug Resistant Organisms: None Reported Past Surgical History: Cholecystectomy Past Psychological History: No Psychological Hx Reported Smoking Status: Former smoker Past Alcohol Use History: None Reported Past Drug Use History: None Reported General Exam Limitations: no limitations General appearance: alert, in no apparent distress Head exam: Present: atraumatic, normocephalic Eye exam: Present: normal appearance. Absent: scleral icterus, conjunctival injection Neck exam: Present: normal inspection Respiratory exam: Present: normal lung sounds bilaterally. Absent: respiratory distress, wheezes, rales, rhonchi, stridor Cardiovascular Exam: Present: regular rate, normal rhythm, normal heart sounds. Absent: systolic murmur, diastolic murmur, rubs, gallop GI/Abdominal exam: Present: soft. Absent: distended, tenderness, guarding, rebound, rigid, mass Rectal exam: Present: normal rectal tone, hemorrhoids. Absent: black stool, bloody stool, fecal impaction, mass, tenderness Extremities exam: Present: normal inspection, normal capillary refill. Absent: pedal edema, calf tenderness Back exam: Present: normal inspection. Absent: CVA tenderness (R), CVA tenderness (L) Neurological exam: Present: alert Skin exam: Present: warm, dry, intact, normal color. Absent: rash Course Vital Signs 04/24/22 04/25/22 04/25/22 22:42 02:00 05:00 Temperature 97.9 F Pulse Rate 74 74 74 Respiratory 16 16 Rate Blood Pressure 197/85 182/84 178/74 O2 Sat by Pulse 97 96 Oximetry Medical Decision Making - Lab Data Result diagrams: 04/25/22 04:12 04/25/22 04:12 Lab Results 04/24/22 04/24/22 04/24/22 Range/Units 23:28 23:28 23:28 WBC 7.2 (3.8-10.6) k/uL RBC 4.50 (3.80-5.40) m/uL Hgb 14.3 (11.4-16.0) gm/dL Hct 41.9 (34.0-46.0) % MCV 93.1 (80.0-100.0) fL MCH 31.7 (25.0-35.0) pg MCHC 34.1 (31.0-37.0) g/dL RDW 14.7 (11.5-15.5) % Plt Count 106 L (150-450) k/uL MPV 7.9 Neutrophils % 58 % Lymphocytes % 25 % Monocytes % 6 % Eosinophils % 5 % Basophils % 1 % Neutrophils # 4.2 (1.3-7.7) k/uL Lymphocytes # 1.8 (1.0-4.8) k/uL Monocytes # 0.5 (0-1.0) k/uL Eosinophils # 0.4 (0-0.7) k/uL Basophils # 0.1 (0-0.2) k/uL APTT 25.3 (22.0-30.0) sec Sodium 134 L (137-145) mmol/L Potassium 3.6 (3.5-5.1) mmol/L Chloride 100 (98-107) mmol/L Carbon Dioxide 24 (22-30) mmol/L Anion Gap 10 mmol/L BUN 12 (7-17) mg/dL Creatinine 0.56 (0.52-1.04) mg/dL Est GFR (CKD-EPI)AfAm >90 (>60 ml/min/1.73 sqM) Est GFR (CKD-EPI)NonAf 89 (>60 ml/min/1.73 sqM) Glucose 201 H (74-99) mg/dL Calcium 9.1 (8.4-10.2) mg/dL Total Bilirubin 1.2 (0.2-1.3) mg/dL AST 32 (14-36) U/L ALT 28 (4-34) U/L Alkaline Phosphatase 75 (38-126) U/L Troponin I (0.000-0.034) ng/mL Total Protein 7.3 (6.3-8.2) g/dL Albumin 4.0 (3.5-5.0) g/dL Blood Type Blood Type Recheck Bld Type Recheck Status Antibody Screen Spec Expiration Date 04/24/22 04/25/22 04/25/22 Range/Units 23:28 04:12 04:12 WBC 8.3 (3.8-10.6) k/uL RBC 4.64 (3.80-5.40) m/uL Hgb 14.4 (11.4-16.0) gm/dL Hct 43.4 (34.0-46.0) % MCV 93.6 (80.0-100.0) fL MCH 31.0 (25.0-35.0) pg MCHC 33.2 (31.0-37.0) g/dL RDW 14.7 (11.5-15.5) % Plt Count 105 L (150-450) k/uL MPV 8.2 Neutrophils % 61 % Lymphocytes % 25 % Monocytes % 6 % Eosinophils % 4 % Basophils % 1 % Neutrophils # 5.0 (1.3-7.7) k/uL Lymphocytes # 2.0 (1.0-4.8) k/uL Monocytes # 0.5 (0-1.0) k/uL Eosinophils # 0.4 (0-0.7) k/uL Basophils # 0.1 (0-0.2) k/uL APTT 24.1 (22.0-30.0) sec Sodium (137-145) mmol/L Potassium (3.5-5.1) mmol/L Chloride (98-107) mmol/L Carbon Dioxide (22-30) mmol/L Anion Gap mmol/L BUN (7-17) mg/dL Creatinine (0.52-1.04) mg/dL Est GFR (CKD-EPI)AfAm (>60 ml/min/1.73 sqM) Est GFR (CKD-EPI)NonAf (>60 ml/min/1.73 sqM) Glucose (74-99) mg/dL Calcium (8.4-10.2) mg/dL Total Bilirubin (0.2-1.3) mg/dL AST (14-36) U/L ALT (4-34) U/L Alkaline Phosphatase (38-126) U/L Troponin I <0.012 (0.000-0.034) ng/mL Total Protein (6.3-8.2) g/dL Albumin (3.5-5.0) g/dL Blood Type Blood Type Recheck Bld Type Recheck Status Antibody Screen Spec Expiration Date 04/25/22 04/25/22 04/25/22 Range/Units 04:12 04:12 04:12 WBC (3.8-10.6) k/uL RBC (3.80-5.40) m/uL Hgb (11.4-16.0) gm/dL Hct (34.0-46.0) % MCV (80.0-100.0) fL MCH (25.0-35.0) pg MCHC (31.0-37.0) g/dL RDW (11.5-15.5) % Plt Count (150-450) k/uL MPV Neutrophils % % Lymphocytes % % Monocytes % % Eosinophils % % Basophils % % Neutrophils # (1.3-7.7) k/uL Lymphocytes # (1.0-4.8) k/uL Monocytes # (0-1.0) k/uL Eosinophils # (0-0.7) k/uL Basophils # (0-0.2) k/uL APTT (22.0-30.0) sec Sodium 136 L (137-145) mmol/L Potassium 3.4 L (3.5-5.1) mmol/L Chloride 101 (98-107) mmol/L Carbon Dioxide 27 (22-30) mmol/L Anion Gap 8 mmol/L BUN 10 (7-17) mg/dL Creatinine 0.53 (0.52-1.04) mg/dL Est GFR (CKD-EPI)AfAm >90 (>60 ml/min/1.73 sqM) Est GFR (CKD-EPI)NonAf >90 (>60 ml/min/1.73 sqM) Glucose 168 H (74-99) mg/dL Calcium 9.1 (8.4-10.2) mg/dL Total Bilirubin 1.4 H (0.2-1.3) mg/dL AST 35 (14-36) U/L ALT 29 (4-34) U/L Alkaline Phosphatase 77 (38-126) U/L Troponin I <0.012 (0.000-0.034) ng/mL Total Protein 7.7 (6.3-8.2) g/dL Albumin 4.2 (3.5-5.0) g/dL Blood Type A Negative Blood Type Recheck A Neg Bld Type Recheck Status No Antibody Screen NEGATIVE Spec Expiration Date 04/28/2022 - 2311 Disposition Clinical Impression: Hemorrhoids, Rectal bleeding Disposition: HOME SELF-CARE Condition: Poor Instructions (If sedation given, give patient instructions): Hemorrhoids (ED) Prescriptions: Hydrocortisone Pr Cream [Proctosol-Hc 2.5%] 1 applic RECTAL BID #28 gm Is patient prescribed a controlled substance at d/c from ED?: No Referrals: Maryuri Hollis MD [Primary Care Provider] - 1-2 days Marimar Osei DO [Doctor of Osteopathic Medicine] - 1-2 days
[2022-04-25 04:25] LABS: Basophils # (A) 0.1 k/uL (0-0.2); Basophils % (A) 1 %; Eosinophils # (A) 0.4 k/uL (0-0.7); Eosinophils % (A) 4 %; HCT 43.4 % (34.0-46.0); HGB 14.4 gm/dL (11.4-16.0); Lymphocytes % (A) 25 %; MCHC 33.2 g/dL (31.0-37.0); MCV 93.6 fL (80.0-100.0); Mean Platelet Volume 8.2; Monocytes # (A) 0.5 k/uL (0-1.0); Monocytes % (A) 6 %; Neutrophils % (A) 61 %; Platelet Count 105 k/uL (150-450); RBC 4.64 m/uL (3.80-5.40); RDW 14.7 % (11.5-15.5); WBC 8.3 k/uL (3.8-10.6)
[2022-04-25 04:40] LABS: ALT 29 U/L (4-34); AST 35 U/L (14-36); African American GFR (CKD) >90 (>60 ml/min/1.73 sqM); Albumin 4.2 g/dL (3.5-5.0); Alkaline Phosphatase 77 U/L (38-126); Anion Gap 8 mmol/L; Blood Urea Nitrogen 10 mg/dL (7-17); Calcium 9.1 mg/dL (8.4-10.2); Carbon Dioxide 27 mmol/L (22-30); Chloride 101 mmol/L (98-107); Glucose 168 mg/dL (74-99); Non-African American GFR(CKD) >90 (>60 ml/min/1.73 sqM); Potassium 3.4 mmol/L (3.5-5.1); Sodium 136 mmol/L (137-145); Total Bilirubin 1.4 mg/dL (0.2-1.3); Total Protein 7.7 g/dL (6.3-8.2)
[2022-04-25 05:44] VITALS: BP 178/74
== END 2022-04-25 05:44 | disposition home or self-care (01) ==
LOC: EC 22:33
DX: K62.5 Hemorrhage of anus and rectum (principal); K64.9 Unspecified hemorrhoids; E11.9 Type 2 diabetes mellitus without complications; I10 Essential (primary) hypertension; Z87.891 Personal history of nicotine dependence; Z88.1 Allergy status to other antibiotic agents; Z88.5 Allergy status to narcotic agent; Z88.0 Allergy status to penicillin; Z88.2 Allergy status to sulfonamides
CPT/HCPCS: 36415; 80053; 84484; 85025; 85730; 86850; 86900; 86901

== ENCOUNTER → 2022-05-08 | Day surgery (SDC) | payer MEDICARE ==
[2022-05-07 12:27] VITALS: BMI 31.9
[~2022-05-08] MED LIST: LACTATED RINGERS 1,000 ML IV SCH; LIDOCAINE 1% (10MG/ML) FOR IV START INTRADERMA PRN; LIDOCAINE 2% INJ 20 MG/ML (2 ML VIAL) ONE; PROPOFOL 10 MG/ML 20 ML VIAL IV ONE
[2022-05-08 13:24] VITALS: TEMP 97.5
[2022-05-08 13:30] LABS: Glucose,Whole Blood 124 mg/dL (75-99)
--- NOTE | 2022-05-08 14:33 | P.PCN ---
Date of Procedure: 05/08/22 Procedure(s) Performed: BRIEF HISTORY: Patient is a 77-year-old pleasant white female scheduled for an elective colonoscopy as a part of evaluation of recent episode of rectal bleeding that happened 2 weeks ago. She denies any in bowel habits. . PROCEDURE PERFORMED: Colonoscopy With snare polypectomy. PREOPERATIVE DIAGNOSIS [Intermittent rectal bleeding IV sedation per Anesthesia. PROCEDURE: After informed consent was obtained, the patient, was brought into the endoscopy unit. IV sedation was administered by Anesthesia under continuous monitoring. Digital rectal examination was normal. Initially the Olympus CF-160 flexible video colonoscope was then inserted in the rectum, gradually advanced into the cecum without any difficulty. Careful examination was performed as the scope was gradually being withdrawn. Ileocecal valve and the appendiceal orifice were visualized and appeared normal. Prep was fair. There was some sticky stool noted in several areas of the colon. . Mucosa of the cecum, appeared normal. In the ascending colon there was a 3 mm and 5 mm polyps removed by snare polypectomy. Rest of the ascending colon, transverse colon, descending colon, sigmoid colon, and rectum appeared normal. In the proximal rectum there was a 7 mm polyp removed by snare polypectomy. Scattered left sided diverticulosis seen. Retroflexion was performed in the rectum and small internal hemorrhoids were seen. The patient tolerated the procedure well. IMPRESSION: 4 mm and 5 mm ascending colon polyp status post polypectomy 7 mm rectal polyp status post polypectomy Scattered sigmoid diverticulosis Small internal. RECOMMENDATIONS: Findings of this examination were discussed with the patient [as well as a family. She was advised to follow with the biopsy results. She'll be on diet and take fiber supplements a regular basis. Follow-up in office if she has rectal bleeding
[2022-05-08 15:02] VITALS: BP 155/77; PULSE 69; RESP 17
== END ==
LOC: ORWHC2ENDO 11:18
PROVIDERS: ATTEND Internal Medicine Gastroenterology
DX: Z12.11 Encounter for screening for malignant neoplasm of colon (principal); K62.5 Hemorrhage of anus and rectum; D12.2 Benign neoplasm of ascending colon; K57.30 Diverticulosis of large intestine without perforation or abscess without bleeding; K62.1 Rectal polyp; K63.5 Polyp of colon
CPT/HCPCS: 45385; 88305; J2704; J2001

== ENCOUNTER → 2022-11-02 | Outpatient (CLI) | payer MEDICARE ==
--- NOTE | 2022-11-02 11:04 | US ---
EXAMINATION TYPE: US liver DATE OF EXAM: 11/02/2022 COMPARISON: CLINICAL HISTORY: K74.60 Unspecified cirrhosis of liver. GB removed. TECHNIQUE: Multiple sonographic images of the right upper quadrant are obtained. FINDINGS: EXAM MEASUREMENTS: Liver Length: 10.3 cm Right Kidney: 10.1 x 5.0 x 5.6 cm ASSOCIATE DIRECTOR FINANCE NOTES:Very limited exam due to patient body habitus and overlying bowel gas Pancreas: Head and tail not well seen. Echogenic in appearance. Body = 2.2 cm. Main pancreatic du ct= 4.4 mm Liver: Limited exam, suboptimal visualization of right lobe. Appears small in size Gallbladder: Surgically absent Evidence for sonographic Crocker's sign: neg CBD: Obscured by overlying bowel gas Right Kidney: Two cystic lesions seen. 1= Mid lower pole = 1.8 x 1.7 x 1.8 cm. 2- Upper lateral faviola e = 1.6 x 1.5 x 1.5 cm. IMPRESSION: 1. Limited visualization of the pancreas although the main pancreatic duct appears mildly prominent. Consider CT correlation with contrast. 2. Simple cysts of the kidneys.
== END | disposition home or self-care (01) ==
LOC: RADUSWWP 10:25
PROVIDERS: ATTEND Internal Medicine Gastroenterology
DX: K74.60 Unspecified cirrhosis of liver (principal); N28.1 Cyst of kidney, acquired; K86.89 Other specified diseases of pancreas
CPT/HCPCS: 76705

== ENCOUNTER → 2023-06-09 | Outpatient (CLI) | payer MEDICARE ==
--- NOTE | 2023-06-09 11:43 | US ---
EXAMINATION TYPE: US liver DATE OF EXAM: 06/09/2023 COMPARISON: CT 11/27/2020, 11/02/2022 CLINICAL INDICATION: Female, 78 years old with history of K74.60 cirrhosis liver; liver cirrhosis TECHNIQUE: Multiple sonographic images of the right upper quadrant are obtained. FINDINGS: EXAM MEASUREMENTS: Liver Length: 12.2 Gallbladder Wall: Surgically absent cm CBD: 0.4cm Right Kidney: 8.8x5.1x5.3cm MANAGER ACADEMIC NOTES: Pancreas: Tail obscured by overlying bowel gas, duct visualized again Liver: area noted within left/caudate lobe: 1.7x1.5x1.5cm cyst vs AV malformation (see previous exam ) difficult to assess due to limited cooperation with deep inspiration. Free fluid noted around liver Gallbladder: Surgically absent Evidence for sonographic Crocker's sign: No CBD: wnl Right Kidney: anechoic areas again seen sup/lat: 2.0x1.7x2.5cm mid/mid: 2.0x1.7x2.5cm exam slightly limited due to pt. limited mobility and cooperation with deep inspiration. IMPRESSION: 1. Abnormality within the which is indeterminate based on ultrasound imaging which measures up to 1. 7 cm is not definitively have a CT correlate on 11/27/2020. Unclear if this represents the inferior v mely cava or within the liver itself. Given cirrhosis further evaluation with MRI is recommended. Cons ider multiphase MRI liver mass protocol examination for complete characterization. 2. Hepatic cirrhosis.
== END | disposition home or self-care (01) ==
LOC: RADUSWWP 09:25
PROVIDERS: ATTEND Internal Medicine Gastroenterology
DX: K74.60 Unspecified cirrhosis of liver (principal)
CPT/HCPCS: 76705

== ENCOUNTER 2023-07-20 18:00 | Emergency (ER) | payer MEDICARE ==
[2023-07-20 18:09] VITALS: TEMP 98.9
[2023-07-20] MEDS ORDERED: FUROSEMIDE 10 MG/ML 4 ML VIAL IV STA (18:42)
--- NOTE | 2023-07-20 18:49 | ED ---
General Adult HPI - General Chief complaint: Extremity Problem,Nontraumatic Stated complaint: leg swelling, fluid leaking, dehydrated feeling Time Seen by Provider: 07/20/23 18:12 Source: patient, RN notes reviewed Mode of arrival: wheelchair Limitations: no limitations - History of Present Illness Initial comments: Patient is a pleasant 78-year-old female presenting to the emergency department with concerns for leg edema. Patient does have chronic leg edema that has been worse the last couple months. Patient now is expressing weeping from her legs. No pain. Patient denies shortness of breath or cough. Patient is on diuretic. No calf pain. - Related Data Home Medications Medication Instructions Recorded Confirmed LORazepam [Ativan] 0.5 mg PO Q12H PRN 04/20/22 03/11/23 Montelukast [Singulair] 10 mg PO HS 04/20/22 03/11/23 Multivitamins, Thera [Multivitamin 1 tab PO DAILY 04/20/22 03/11/23 (formulary)] Pioglitazone [Actos] 15 mg PO DAILY 04/20/22 03/11/23 atenoloL [Tenormin] 25 mg PO BID 04/20/22 03/11/23 hydroCHLOROthiazide 25 mg PO Q48H 04/20/22 03/11/23 metFORMIN HCL [Glucophage] 1,000 mg PO HS 04/20/22 03/11/23 Ibuprofen Oral Susp [Motrin Oral 200 mg PO DAILY PRN 05/07/22 03/11/23 Susp] Magnesium 200 mg PO DAILY 05/07/22 03/11/23 Previous Rx's Medication Instructions Recorded Furosemide [Lasix] 20 mg PO BID #5 tab 07/20/23 Allergies Allergy/AdvReac Type Severity Reaction Status Date / Time Iodinated Contrast Media Allergy Unknown face Verified 03/11/23 09:22 bright red and did not feel right. neomycin Allergy Unknown red face Verified 03/11/23 09:22 shellfish derived [Shrimp] Allergy Unknown face Verified 03/11/23 09:22 bright red, -felt funny. azithromycin Allergy red face Verified 03/11/23 09:22 ciprofloxacin [From Cipro] Allergy red face Verified 03/11/23 09:22 meperidine [From Demerol] Allergy red face Verified 03/11/23 09:22 Penicillins Allergy red face Verified 03/11/23 09:22 sulfite Allergy red face Verified 03/11/23 09:22 polyethylene glycol AdvReac Unknown Nausea & Verified 03/11/23 09:22 [From Golytely] Vomiting polyethylene glycol 3350 AdvReac Unknown Nausea & Verified 03/11/23 09:22 [From Golytely] Vomiting potassium chloride AdvReac Unknown Nausea & Verified 03/11/23 09:22 [From Golytely] Vomiting sodium [From Golytely] AdvReac Unknown Nausea & Verified 03/11/23 09:22 Vomiting sodium bicarbonate AdvReac Unknown Nausea & Verified 03/11/23 09:22 [From Golytely] Vomiting sodium chloride AdvReac Unknown Nausea & Verified 03/11/23 09:22 [From Golytely] Vomiting sodium sulfate AdvReac Unknown Nausea & Verified 03/11/23 09:22 [From Golytely] Vomiting COVID phizer vaccine Allergy Unknown Swelling Uncoded 03/11/23 09:22 face & eyes & red face. lobster Allergy Unknown bright Uncoded 03/11/23 09:22 red, "feels funny" Review of Systems ROS Statement: Those systems with pertinent positive or pertinent negative responses have been documented in the HPI. ROS Other: All systems not noted in ROS Statement are negative. Constitutional: Denies: fever Eyes: Denies: eye pain ENT: Denies: ear pain Respiratory: Reports: as per HPI. Denies: dyspnea Cardiovascular: Reports: edema. Denies: chest pain Endocrine: Reports: fatigue Gastrointestinal: Denies: abdominal pain Genitourinary: Denies: dysuria Neurological: Denies: weakness Past Medical History Past Medical History: Diabetes Mellitus, Hypertension Additional Past Medical History / Comment(s): cirrhosis, thrombocytopenia History of Any Multi-Drug Resistant Organisms: None Reported Past Surgical History: Cholecystectomy Past Psychological History: No Psychological Hx Reported Smoking Status: Former smoker Past Alcohol Use History: None Reported Past Drug Use History: None Reported General Exam Limitations: no limitations General appearance: alert, in no apparent distress Head exam: Present: normocephalic Eye exam: Present: normal appearance Neck exam: Present: normal inspection Respiratory exam: Present: rales Cardiovascular Exam: Present: regular rate, normal rhythm, systolic murmur GI/Abdominal exam: Present: soft. Absent: tenderness Extremities exam: Present: pedal edema (+4 bilateral). Absent: calf tenderness Neurological exam: Present: alert Psychiatric exam: Present: normal affect, normal mood Skin exam: Present: normal color Course Vital Signs 07/20/23 07/20/23 18:06 19:06 Temperature 98.9 F Pulse Rate 72 78 Respiratory 20 18 Rate Blood Pressure 178/90 166/74 O2 Sat by Pulse 99 95 Oximetry EKG Findings - EKG Results: EKG: interpreted by ERMD, sinus rhythm, normal axis, normal QRS, normal ST/T Medical Decision Making - Medical Decision Making Was pt. sent in by a medical professional or institution (, PA, EXTENSION COURSE COUNSELOR, urgent care, hospital, or snf...) When possible be specific @ -No Did you speak to anyone other than the patient for history (EMS, parent, family, police, friend...)? What history was obtained from this source @ -No Did you review nursing and triage notes (agree or disagree)? Why? @ -I reviewed and agree with nursing and triage notes Were old charts reviewed (outside hosp., previous admission, EMS record, old EKG, old radiological studies, urgent care reports/EKG's, snf records)? Report findings @ -His chest x-rays reviewed from 2010. Differential Diagnosis (chest pain, altered mental status, abdominal pain women, abdominal pain men, vaginal bleeding, weakness, fever, dyspnea, syncope, headache, dizziness, GI bleed, back pain, seizure, CVA, palpatations, mental health, musculoskeletal)? @ -Differential Weakness: Hypoglycemia, shock, sepsis, hyponatremia, anemia, infection, NV, ETOH, adverse medicine reaction, overdose, stroke, this is not meant to be an all-inclusive list. EKG interpreted by me (3pts min.). @ -As above X-rays interpreted by me (1pt min.). @ -Chest x-ray does show some coarse lung markings. Older x-rays reviewed. CT interpreted by me (1pt min.). @ -None done U/S interpreted by me (1pt. min.). @ -None done What testing was considered but not performed or refused? (CT, X-rays, U/S, la bs)? Why? @ -None What meds were considered but not given or refused? Why? @ -None Did you discuss the management of the patient with other professionals (professionals i.e. , PA, EXTENSION COURSE COUNSELOR, lab, RT, psych nurse, social service worker, radiographic technologist, teacher, donor relations officer, case management coordinator)? Give summary @ -No Was smoking cessation discussed for >3mins.? @ -No Was critical care preformed (if so, how long)? @ -No Were there social determinants of health that impacted care today? How? (Homelessness, low income, unemployed, alcoholism, drug addiction, transportation, low edu. Level, literacy, decrease access to med. care, half-way, rehab)? @ -No Was there de-escalation of care discussed even if they declined (Discuss DNR or withdrawal of care, Hospice)? DNR status @ -No What co-morbidities impacted this encounter? (DM, HTN, Smoking, COPD, CAD, Cancer, CVA, ARF, Chemo, Hep., AIDS, mental health diagnosis, sleep apnea, morbid obesity)? @ -None Was patient admitted / discharged? Hospital course, mention meds given and route, prescriptions, significant lab abnormalities, going to OR and other pertinent info. @ -Patient reevaluated and resting comfortably in bed. Patient still denies dyspnea. Patient offered hospital admission however refuses not feels necessary. Patient states she does have an appointment with her doctor in less than 2 days and will keep this. Patient is receptive to outpatient Lasix until follow-up. Undiagnosed new problem with uncertain prognosis? @ -No Drug Therapy requiring intensive monitoring for toxicity (Heparin, Nitro, Insulin, Cardizem)? @ -No Were any procedures done? @ -No Diagnosis/symptom? @ -Leg edema Acute, or Chronic, or Acute on Chronic? @ -Acute on chronic Uncomplicated (without systemic symptoms) or Complicated (systemic symptoms)? @ -default Side effects of treatment? @ -No Exacerbation, Progression, or Severe Exacerbation? @ -No Poses a threat to life or bodily function? How? (Chest pain, USA, NV, pneumonia, PE, COPD, DKA, ARF, appy, cholecystitis, CVA, Diverticulitis, Homicidal, Suicidal, threat to staff... and all critical care pts) @ -No - Lab Data Result diagrams: 07/20/23 18:52 07/20/23 18:52 Lab Results 07/20/23 07/20/23 07/20/23 Range/Units 18:52 18:52 18:52 WBC 5.5 (3.8-10.6) k/uL RBC 4.39 (3.80-5.40) m/uL Hgb 13.8 (11.4-16.0) gm/dL Hct 40.3 (34.0-46.0) % MCV 91.8 (80.0-100.0) fL MCH 31.5 (25.0-35.0) pg MCHC 34.3 (31.0-37.0) g/dL RDW 15.2 (11.5-15.5) % Plt Count 100 L (150-450) k/uL MPV 8.1 Neutrophils % 57 % Lymphocytes % 28 % Monocytes % 7 % Eosinophils % 4 % Basophils % 1 % Neutrophils # 3.1 (1.3-7.7) k/uL Lymphocytes # 1.5 (1.0-4.8) k/uL Monocytes # 0.4 (0-1.0) k/uL Eosinophils # 0.2 (0-0.7) k/uL Basophils # 0.0 (0-0.2) k/uL PT 12.2 H (9.0-12.0) sec INR 1.2 H (<1.2) APTT 26.4 (22.0-30.0) sec Sodium 130 L (137-145) mmol/L Potassium 3.6 (3.5-5.1) mmol/L Chloride 93 L (98-107) mmol/L Carbon Dioxide 28 (22-30) mmol/L Anion Gap 9 mmol/L BUN 11 (7-17) mg/dL Creatinine 0.46 L (0.52-1.04) mg/dL Est GFR (CKD-EPI)AfAm >90 (>60 ml/min/1.73 sqM) Est GFR (CKD-EPI)NonAf >90 (>60 ml/min/1.73 sqM) Glucose 148 H (74-99) mg/dL Plasma Lactic Acid Pipo (0.7-2.0) mmol/L Calcium 8.9 (8.4-10.2) mg/dL Magnesium 1.8 (1.6-2.3) mg/dL Total Bilirubin 1.4 H (0.2-1.3) mg/dL AST 42 H (14-36) U/L ALT 31 (4-34) U/L Alkaline Phosphatase 82 (38-126) U/L Troponin I (0.000-0.034) ng/mL NT-Pro-B Natriuret Pep 324 pg/mL Total Protein 7.4 (6.3-8.2) g/dL Albumin 3.6 (3.5-5.0) g/dL 07/20/23 07/20/23 Range/Units 18:52 18:52 WBC (3.8-10.6) k/uL RBC (3.80-5.40) m/uL Hgb (11.4-16.0) gm/dL Hct (34.0-46.0) % MCV (80.0-100.0) fL MCH (25.0-35.0) pg MCHC (31.0-37.0) g/dL RDW (11.5-15.5) % Plt Count (150-450) k/uL MPV Neutrophils % % Lymphocytes % % Monocytes % % Eosinophils % % Basophils % % Neutrophils # (1.3-7.7) k/uL Lymphocytes # (1.0-4.8) k/uL Monocytes # (0-1.0) k/uL Eosinophils # (0-0.7) k/uL Basophils # (0-0.2) k/uL PT (9.0-12.0) sec INR (<1.2) APTT (22.0-30.0) sec Sodium (137-145) mmol/L Potassium (3.5-5.1) mmol/L Chloride (98-107) mmol/L Carbon Dioxide (22-30) mmol/L Anion Gap mmol/L BUN (7-17) mg/dL Creatinine (0.52-1.04) mg/dL Est GFR (CKD-EPI)AfAm (>60 ml/min/1.73 sqM) Est GFR (CKD-EPI)NonAf (>60 ml/min/1.73 sqM) Glucose (74-99) mg/dL Plasma Lactic Acid Pipo 1.7 (0.7-2.0) mmol/L Calcium (8.4-10.2) mg/dL Magnesium (1.6-2.3) mg/dL Total Bilirubin (0.2-1.3) mg/dL AST (14-36) U/L ALT (4-34) U/L Alkaline Phosphatase (38-126) U/L Troponin I <0.012 (0.000-0.034) ng/mL NT-Pro-B Natriuret Pep pg/mL Total Protein (6.3-8.2) g/dL Albumin (3.5-5.0) g/dL Disposition Clinical Impression: Leg edema Disposition: HOME SELF-CARE Condition: Stable Instructions (If sedation given, give patient instructions): Leg Edema (ED) Additional Instructions: Prescription sent to pharmacy. Please do follow-up with your doctor morning as planned. Return for difficulty in breathing, fevers, increased leg swelling or redness or drainage, worsening symptoms or any other concerns. Prescriptions: Furosemide [Lasix] 20 mg PO BID #5 tab Is patient prescribed a controlled substance at d/c from ED?: No Referrals: None,Stated [Primary Care Provider] - 1-2 days Time of Disposition: 19:54
[2023-07-20 19:16] LABS: ALT 31 U/L (4-34); AST 42 U/L (14-36); African American GFR (CKD) >90 (>60 ml/min/1.73 sqM); Albumin 3.6 g/dL (3.5-5.0); Alkaline Phosphatase 82 U/L (38-126); Anion Gap 9 mmol/L; Blood Urea Nitrogen 11 mg/dL (7-17); Calcium 8.9 mg/dL (8.4-10.2); Carbon Dioxide 28 mmol/L (22-30); Chloride 93 mmol/L (98-107); Glucose 148 mg/dL (74-99); Magnesium 1.8 mg/dL (1.6-2.3); Non-African American GFR(CKD) >90 (>60 ml/min/1.73 sqM); Potassium 3.6 mmol/L (3.5-5.1); Sodium 130 mmol/L (137-145); Total Bilirubin 1.4 mg/dL (0.2-1.3); Total Protein 7.4 g/dL (6.3-8.2)
[2023-07-20 19:23] LABS: INR 1.2 (<1.2); Partial Thromboplastin Time 26.4 sec (22.0-30.0); Prothrombin Time 12.2 sec (9.0-12.0)
[2023-07-20 19:26] LABS: NT-Pro-B-Type Natriuretic Pept 324 pg/mL
[2023-07-20 19:30] LABS: Basophils % (A) 1 %; Eosinophils # (A) 0.2 k/uL (0-0.7); Eosinophils % (A) 4 %; HCT 40.3 % (34.0-46.0); HGB 13.8 gm/dL (11.4-16.0); Lymphocytes # (A) 1.5 k/uL (1.0-4.8); Lymphocytes % (A) 28 %; MCH 31.5 pg (25.0-35.0); MCHC 34.3 g/dL (31.0-37.0); MCV 91.8 fL (80.0-100.0); Mean Platelet Volume 8.1; Monocytes # (A) 0.4 k/uL (0-1.0); Monocytes % (A) 7 %; Neutrophils # (A) 3.1 k/uL (1.3-7.7); Neutrophils % (A) 57 %; Platelet Count 100 k/uL (150-450); RBC 4.39 m/uL (3.80-5.40); RDW 15.2 % (11.5-15.5); WBC 5.5 k/uL (3.8-10.6)
--- NOTE | 2023-07-20 19:39 | XR ---
EXAMINATION TYPE: XR chest 1V DATE OF EXAM: 07/20/2023 HISTORY: Shortness of breath. COMPARISON: 05/04/2011 TECHNIQUE: Single view of the chest is submitted. FINDINGS: Demonstrated are scattered senescent parenchymal change. Coarse markings are seen throughout both lung ferris some of which appear to be chronic in nature alt agnes superimposed atypical pneumonia is difficult to exclude. Correlate clinically. The heart is stable. Hilar and mediastinal structures are within normal limits. Degenerative changes are seen of the dorsal spine. IMPRESSION: 1. Coarse markings are seen throughout both lung ferris some of which appear to be chronic in nature although superimposed atypical pneumonia is difficult to exclude. Correlate clinically.
[2023-07-20 20:15] VITALS: BP 137/69; PULSE 64; RESP 16
== END 2023-07-20 20:34 | disposition home or self-care (01) ==
LOC: EC 18:00
DX: R60.0 Localized edema (principal); I10 Essential (primary) hypertension; E11.9 Type 2 diabetes mellitus without complications; Z79.84 Long term (current) use of oral hypoglycemic drugs; Z79.899 Other long term (current) drug therapy; Z87.891 Personal history of nicotine dependence; Z88.0 Allergy status to penicillin; Z88.1 Allergy status to other antibiotic agents; Z88.5 Allergy status to narcotic agent; Z88.8 Allergy status to other drugs, medicaments and biological substances; Z91.013 Allergy to seafood
CPT/HCPCS: 36415; 93005; 83880; 80053; 83605; 83735; 84484; 85025; 85610; 85730; 71045; 99284; 96374; J1940

== ENCOUNTER 2023-09-25 07:05 | Observation (INO) | payer MEDICARE ==
--- NOTE | 2023-09-25 07:25 | ED ---
Weakness HPI - General Chief complaint: Weakness Stated complaint: Weakness, Difficulty urinating, Constipation Time Seen by Provider: 09/25/23 07:12 Source: patient Mode of arrival: EMS - History of Present Illness Initial comments: 78-year-old female presents to the emergency room with complaints of increased weakness and bilateral lower extremity swelling for the past 2 weeks. Did see her primary care Dr Pedraza 2 days ago and had labs drawn. Patient states that she reviewed her labs this morning and found she has a sodium level of 126 with an elevated creatinine. Patient states increased weakness and shortness of breath prompted her to come to the emergency room today. She denies any chest pain. No fevers. No abdominal pain however does endorse constipation and difficulty urinating. Patient does have a history of diabetes, hypertension, thrombocytopenia, fatty liver disease. Does take hydrochlorothiazide daily, is ALLERGIC to Lasix. MD Complaint: generalized weakness -: week(s) (2) Location: generalized Severity scale (1-10): 0 Associated Symptoms: other (BLLE edema, SOB, constipation, difficulty urinating, gen weakness) - Related Data Home Medications Medication Instructions Recorded Confirmed LORazepam [Ativan] 0.5 mg PO Q12H PRN 04/20/22 03/11/23 Montelukast [Singulair] 10 mg PO HS 04/20/22 03/11/23 Multivitamins, Thera [Multivitamin 1 tab PO DAILY 04/20/22 03/11/23 (formulary)] Pioglitazone [Actos] 15 mg PO DAILY 04/20/22 03/11/23 atenoloL [Tenormin] 25 mg PO BID 04/20/22 03/11/23 hydroCHLOROthiazide 25 mg PO Q48H 04/20/22 03/11/23 metFORMIN HCL [Glucophage] 1,000 mg PO HS 04/20/22 03/11/23 Ibuprofen Oral Susp [Motrin Oral 200 mg PO DAILY PRN 05/07/22 03/11/23 Susp] Magnesium 200 mg PO DAILY 05/07/22 03/11/23 Previous Rx's Medication Instructions Recorded Furosemide [Lasix] 20 mg PO BID #5 tab 07/20/23 Allergies Allergy/AdvReac Type Severity Reaction Status Date / Time Iodinated Contrast Media Allergy Unknown face Verified 03/11/23 09:22 bright red and did not feel right. neomycin Allergy Unknown red face Verified 03/11/23 09:22 shellfish derived [Shrimp] Allergy Unknown face Verified 03/11/23 09:22 bright red, -felt funny. azithromycin Allergy red face Verified 03/11/23 09:22 ciprofloxacin [From Cipro] Allergy red face Verified 03/11/23 09:22 meperidine [From Demerol] Allergy red face Verified 03/11/23 09:22 Penicillins Allergy red face Verified 03/11/23 09:22 sulfite Allergy red face Verified 03/11/23 09:22 polyethylene glycol AdvReac Unknown Nausea & Verified 03/11/23 09:22 [From Golytely] Vomiting polyethylene glycol 3350 AdvReac Unknown Nausea & Verified 03/11/23 09:22 [From Golytely] Vomiting potassium chloride AdvReac Unknown Nausea & Verified 03/11/23 09:22 [From Golytely] Vomiting sodium [From Golytely] AdvReac Unknown Nausea & Verified 03/11/23 09:22 Vomiting sodium bicarbonate AdvReac Unknown Nausea & Verified 03/11/23 09:22 [From Golytely] Vomiting sodium chloride AdvReac Unknown Nausea & Verified 03/11/23 09:22 [From Golytely] Vomiting sodium sulfate AdvReac Unknown Nausea & Verified 03/11/23 09:22 [From Golytely] Vomiting COVID phizer vaccine Allergy Unknown Swelling Uncoded 03/11/23 09:22 face & eyes & red face. lobster Allergy Unknown bright Uncoded 03/11/23 09:22 red, "feels funny" Review of Systems ROS Statement: Those systems with pertinent positive or pertinent negative responses have been documented in the HPI. ROS Other: All systems not noted in ROS Statement are negative. Past Medical History Past Medical History: Diabetes Mellitus, Hypertension Additional Past Medical History / Comment(s): cirrhosis, thrombocytopenia History of Any Multi-Drug Resistant Organisms: None Reported Past Surgical History: Cholecystectomy Past Psychological History: No Psychological Hx Reported Smoking Status: Former smoker Past Alcohol Use History: None Reported Past Drug Use History: None Reported General Exam Limitations: no limitations General appearance: alert, in no apparent distress Head exam: Present: atraumatic Eye exam: Present: normal appearance. Absent: scleral icterus, conjunctival injection, periorbital swelling ENT exam: Present: mucous membranes moist Neck exam: Absent: tenderness, meningismus Respiratory exam: Present: rales. Absent: respiratory distress, chest wall tenderness, accessory muscle use Cardiovascular Exam: Present: regular rate GI/Abdominal exam: Present: soft. Absent: distended, tenderness Extremities exam: Present: normal capillary refill, pedal edema (pitting to thigh), other (bruising to left great toe, states stubbed toe) Back exam: Absent: tenderness, rash noted Neurological exam: Present: alert, oriented X3 Psychiatric exam: Present: normal affect, normal mood Skin exam: Present: warm, dry, normal color. Absent: cyanosis, diaphoretic Course Vital Signs 09/25/23 09/25/23 07:06 07:18 Temperature 97.5 F L Pulse Rate 81 Respiratory 21 24 Rate Blood Pressure 186/82 O2 Sat by Pulse 93 L Oximetry Medical Decision Making - Medical Decision Making Case discussed with Dr. Erazo who recommended CT of the abdomen. Patient will be admitted for diuresis. Case discussed with Dr. Schulz Was pt. sent in by a medical professional or institution (, PA, SET DECORATOR, urgent care, hospital, or penitentiary...) When possible be specific @ -[No] Did you speak to anyone other than the patient for history (EMS, parent, family, police, friend...)? What history was obtained from this source @ -[No] Did you review nursing and triage notes (agree or disagree)? Why? @ -[I reviewed and agree with nursing and triage notes] Were old charts reviewed (outside hosp., previous admission, EMS record, old EKG, old radiological studies, urgent care reports/EKG's, penitentiary records)? Report findings @ -Previous labs ultrasound and chest x-ray Differential Diagnosis (chest pain, altered mental status, abdominal pain women, abdominal pain men, vaginal bleeding, weakness, fever, dyspnea, syncope, he adache, dizziness, GI bleed, back pain, seizure, CVA, palpatations, mental health, musculoskeletal)? @ Differential Weakness: Hypoglycemia, shock, sepsis, hyponatremia, anemia, infection, ID, ETOH, adverse medicine reaction, overdose, stroke, this is not meant to be an all-inclusive list. EKG interpreted by me (3pts min.). @ -yes EKG interpreted by me shows sinus rhythm with first-degree block, ventricular rate of 72, MD interval 0.220, QRS 0.83, QTC 0.421 X-rays interpreted by me (1pt min.). @ -Yes bilateral pulmonary congestion CT interpreted by me (1pt min.). @ -[None done] U/S interpreted by me (1pt. min.). @ -[None done] What testing was considered but not performed or refused? (CT, X-rays, U/S, labs)? Why? @ -Ultrasound was treated however patient was unable to tolerate last exam therefore CT was ordered What meds were considered but not given or refused? Why? @ -[None] Did you discuss the management of the patient with other professionals (professionals i.e. , PA, SET DECORATOR, lab, RT, psych nurse, social media analyst, churn driller helper, teacher, casino surveillance officer, case resolution specialist)? Give summary @ -[No] Was smoking cessation discussed for >3mins.? @ -[No] Was critical care preformed (if so, how long)? @ -[No] Were there social determinants of health that impacted care today? How? (Homelessness, low income, unemployed, alcoholism, drug addiction, transportation, low edu. Level, literacy, decrease access to med. care, [facility], rehab)? @ -[No] Was there de-escalation of care discussed even if they declined (Discuss DNR or withdrawal of care, Hospice)? DNR status @ -[No] What co-morbidities impacted this encounter? (DM, HTN, Smoking, COPD, CAD, Cancer, CVA, ARF, Chemo, Hep., AIDS, mental health diagnosis, sleep apnea, morbid obesity)? @ -Patient does have a history of diabetes, hypertension, thrombocytopenia, fatty liver disease. Was patient admitted / discharged? Hospital course, mention meds given and route, prescriptions, significant lab abnormalities, going to OR and other pertinent info. @ -Admitted 78-year-old female presents to the emergency room with complaints of increased weakness and bilateral lower extremity swelling for the past 2 weeks. Did see her primary care Dr Pedraza 2 days ago and had labs drawn. Patient states that she reviewed her labs this morning and found she has a sodium level of 126 with an elevated creatinine. Patient states increased weakness and shortness of breath prompted her to come to the emergency room today. She denies any chest pain. No fevers. No abdominal pain however does endorse constipation and difficulty urinating. Patient does have a history of diabetes, hypertension, thrombocytopenia, fatty liver disease. Does take hydrochlorothiazide daily, is ALLERGIC to Lasix. States in the past has had IV Lasix and had no problem however when she was prescribed Lasix at home developed facial swelling and redness. EKG shows sinus rhythm with first-degree block, ventricular rate of 72, MD interval 0.220, QRS 0.83, QTC 0.421 Chest xr interpreted by me shows bilateral pulmonary vascular congestion consistent with congestive heart failure. Labs drawn on 09/23/2023 show sodium of 126, chloride 90, BNP 324 Labs today show sodium 127, chloride 88, creatinine 0.44, INR 1.2, total bili 2.4, BNP 614, albumin 3.9. Patient states has been diagnosed with cirrhosis for approximately a year. Ultrasound of the liver performed for Dr. Jones on 06/09/2023 reviewed noting abnormality within the liver 1.7 x 1.5 x 1.5 cm cyst versus AV malformation difficult to assess due to limited cooperation with deep inspiration. Free fluid noted around the liver. Gallbladder surgically absent. Child-Paula score 6 MELD- Na score 21 Undiagnosed new problem with uncertain prognosis? @ -[No] Drug Therapy requiring intensive monitoring for toxicity (Heparin, Nitro, Insulin, Cardizem)? @ -[No] Were any procedures done? @ -[No] Diagnosis/symptom? @ -Cirrhosis, hyponatremia, shortness of breath, weakness, thrombocytopenia Acute, or Chronic, or Acute on Chronic? @ -Acute on chronic Uncomplicated (without systemic symptoms) or Complicated (systemic symptoms)? @ -Complicated Side effects of treatment? @ -[No] Exacerbation, Progression, or Severe Exacerbation? @ -[No] Poses a threat to life or bodily function? How? (Chest pain, USA, ID, pneumonia, PE, COPD, DKA, ARF, appy, cholecystitis, CVA, Diverticulitis, Homicidal, Suicidal, threat to staff... and all critical care pts) @ -Yes shortness of breath could worsen to respiratory failure and - Lab Data Result diagrams: 09/25/23 07:18 09/25/23 07:18 Lab Results 09/25/23 09/25/23 09/25/23 Range/Units 07:18 07:18 07:18 WBC 7.5 (3.8-10.6) k/uL RBC 4.53 (3.80-5.40) m/uL Hgb 14.2 (11.4-16.0) gm/dL Hct 41.0 (34.0-46.0) % MCV 90.4 (80.0-100.0) fL MCH 31.3 (25.0-35.0) pg MCHC 34.6 (31.0-37.0) g/dL RDW 14.8 (11.5-15.5) % Plt Count 134 L (150-450) k/uL MPV 7.8 Neutrophils % 73 % Lymphocytes % 16 % Monocytes % 7 % Eosinophils % 2 % Basophils % 0 % Neutrophils # 5.4 (1.3-7.7) k/uL Lymphocytes # 1.2 (1.0-4.8) k/uL Monocytes # 0.5 (0-1.0) k/uL Eosinophils # 0.1 (0-0.7) k/uL Basophils # 0.0 (0-0.2) k/uL PT 12.7 H (10.0-12.5) sec INR 1.2 H (<1.2) APTT 25.5 (22.0-30.0) sec Sodium 127 L (137-145) mmol/L Potassium 3.7 (3.5-5.1) mmol/L Chloride 88 L (98-107) mmol/L Carbon Dioxide 29 (22-30) mmol/L Anion Gap 10 mmol/L BUN 14 (7-17) mg/dL Creatinine 0.44 L (0.52-1.04) mg/dL Est GFR (CKD-EPI)AfAm >90 (>60 ml/min/1.73 sqM) Est GFR (CKD-EPI)NonAf >90 (>60 ml/min/1.73 sqM) Glucose 116 H (74-99) mg/dL Calcium 9.4 (8.4-10.2) mg/dL Magnesium 1.9 (1.6-2.3) mg/dL Total Bilirubin 2.4 H (0.2-1.3) mg/dL AST 44 H (14-36) U/L ALT 37 H (4-34) U/L Alkaline Phosphatase 80 (38-126) U/L Troponin I (0.000-0.034) ng/mL NT-Pro-B Natriuret Pep 614 pg/mL Total Protein 7.9 (6.3-8.2) g/dL Albumin 3.9 (3.5-5.0) g/dL 09/25/23 Range/Units 07:18 WBC (3.8-10.6) k/uL RBC (3.80-5.40) m/uL Hgb (11.4-16.0) gm/dL Hct (34.0-46.0) % MCV (80.0-100.0) fL MCH (25.0-35.0) pg MCHC (31.0-37.0) g/dL RDW (11.5-15.5) % Plt Count (150-450) k/uL MPV Neutrophils % % Lymphocytes % % Monocytes % % Eosinophils % % Basophils % % Neutrophils # (1.3-7.7) k/uL Lymphocytes # (1.0-4.8) k/uL Monocytes # (0-1.0) k/uL Eosinophils # (0-0.7) k/uL Basophils # (0-0.2) k/uL PT (10.0-12.5) sec INR (<1.2) APTT (22.0-30.0) sec Sodium (137-145) mmol/L Potassium (3.5-5.1) mmol/L Chloride (98-107) mmol/L Carbon Dioxide (22-30) mmol/L Anion Gap mmol/L BUN (7-17) mg/dL Creatinine (0.52-1.04) mg/dL Est GFR (CKD-EPI)AfAm (>60 ml/min/1.73 sqM) Est GFR (CKD-EPI)NonAf (>60 ml/min/1.73 sqM) Glucose (74-99) mg/dL Calcium (8.4-10.2) mg/dL Magnesium (1.6-2.3) mg/dL Total Bilirubin (0.2-1.3) mg/dL AST (14-36) U/L ALT (4-34) U/L Alkaline Phosphatase (38-126) U/L Troponin I <0.012 (0.000-0.034) ng/mL NT-Pro-B Natriuret Pep pg/mL Total Protein (6.3-8.2) g/dL Albumin (3.5-5.0) g/dL - EKG Data -: EKG Interpreted by Me EKG shows normal: sinus rhythm (EKG shows sinus rhythm with first-degree block, ventricular rate of 72, MD interval 0.220, QRS 0.83, QTC 0.421; ) Disposition Clinical Impression: Hyponatremia, Thrombocytopenia, Cirrhosis of liver, Shortness of breath, Weakness Disposition: ADMITTED IP TO THIS HOSP Referrals: Manohar Pedraza MD [Primary Care Provider] - 1-2 days Decision Date: 09/25/23 Decision Time: 09:16
[2023-09-25 08:05] LABS: Basophils % (A) 0 %; Eosinophils # (A) 0.1 k/uL (0-0.7); Eosinophils % (A) 2 %; HGB 14.2 gm/dL (11.4-16.0); Lymphocytes # (A) 1.2 k/uL (1.0-4.8); Lymphocytes % (A) 16 %; MCH 31.3 pg (25.0-35.0); MCHC 34.6 g/dL (31.0-37.0); MCV 90.4 fL (80.0-100.0); Mean Platelet Volume 7.8; Monocytes # (A) 0.5 k/uL (0-1.0); Monocytes % (A) 7 %; Neutrophils # (A) 5.4 k/uL (1.3-7.7); Neutrophils % (A) 73 %; Platelet Count 134 k/uL (150-450); RBC 4.53 m/uL (3.80-5.40); RDW 14.8 % (11.5-15.5); WBC 7.5 k/uL (3.8-10.6)
[2023-09-25 08:23] LABS: ALT 37 U/L (4-34); AST 44 U/L (14-36); African American GFR (CKD) >90 (>60 ml/min/1.73 sqM); Albumin 3.9 g/dL (3.5-5.0); Alkaline Phosphatase 80 U/L (38-126); Anion Gap 10 mmol/L; Blood Urea Nitrogen 14 mg/dL (7-17); Calcium 9.4 mg/dL (8.4-10.2); Carbon Dioxide 29 mmol/L (22-30); Chloride 88 mmol/L (98-107); Glucose 116 mg/dL (74-99); Magnesium 1.9 mg/dL (1.6-2.3); Non-African American GFR(CKD) >90 (>60 ml/min/1.73 sqM); Potassium 3.7 mmol/L (3.5-5.1); Sodium 127 mmol/L (137-145); Total Bilirubin 2.4 mg/dL (0.2-1.3); Total Protein 7.9 g/dL (6.3-8.2)
[2023-09-25 08:24] LABS: INR 1.2 (<1.2); Partial Thromboplastin Time 25.5 sec (22.0-30.0); Prothrombin Time 12.7 sec (10.0-12.5)
[2023-09-25 08:30] LABS: NT-Pro-B-Type Natriuretic Pept 614 pg/mL
[2023-09-25] MEDS ORDERED: FUROSEMIDE 10 MG/ML 4 ML VIAL IV STA (09:15)
--- NOTE | 2023-09-25 09:56 | XR ---
EXAMINATION TYPE: XR chest 2V DATE OF EXAM: 09/25/2023 8:18 AM CLINICAL INDICATION:Female, 78 years old with history of Weakness; [facility] COMPARISON: 07/20/2023 and before TECHNIQUE: XR chest 2V Frontal and lateral views of the chest. FINDINGS: Lines/Tubes: EKG leads overlie the chest. No indwelling lines are seen. Lungs/Pleura: Coarsened interstitial markings diffusely, similar to previous, likely chronic changes. No definite consolidation, sizable effusion, or pneumothorax. Pulmonary vascularity: Unremarkable. Heart/mediastinum: Stable cardiomediastinal silhouette. Heart size upper normal. Partially calcified aorta. Musculoskeletal: No acute osseous abnormality suggested. Degenerative changes of the spine, and right more so than left shoulder. Asymmetric elevation right hemidiaphragm again seen.. Other findings: None IMPRESSION: Overall stable exam, with likely chronic lung changes. No clear evidence of acute cardiopulmonary dis ease.
[2023-09-25 10:33] LABS: Appearance,Urine Cloudy (Clear); Bacteria,Urine Rare /hpf; Bilirubin,Urine Negative (Negative); Blood,Urine Negative (Negative); Color,Urine Colorless; Glucose,Urine (UA) Negative (Negative); Ketones,Urine Negative (Negative); Leukocyte Esterase,Urine Trace (Negative); Nitrite,Urine Negative (Negative); PH, Urine 7.5 (5.0-8.0); Protein,Urine Negative (Negative); RBC,Urine 2 /hpf (0-5); Specific Gravity,Urine 1.009 (1.001-1.035); Urobilinogen,Urine <2.0 mg/dL (<2.0); WBC,Urine 11 /hpf (0-5)
[2023-09-25] MEDS ORDERED: NALOXONE 0.4 MG/ML 1 ML VIAL IV PRN (10:57)
--- NOTE | 2023-09-25 11:45 | CT ---
EXAMINATION TYPE: CT abdomen pelvis wo con CT DLP: 1175.4 mGycm, Automated exposure control for dose reduction was used. DATE OF EXAM: 09/25/2023 10:09 AM COMPARISON: None CLINICAL INDICATION:Female, 78 years old with history of cirrhosis; cirrhosis, trouble urinating, con stipation TECHNIQUE: Axial CT of the abdomen and pelvis. Sagittal and coronal reformats were created on a [employer] workstation. Contrast used: mL of , (none if empty) Oral contrast used: without Oral Contrast (none if empty) FINDINGS: Exam is limited by lack of contrast. Contrast LOWER CHEST: Heart is mildly enlarged. Heavy calcification of the mitral valve and to a lesser degree aortic valve. Moderate coronary arterial calcifications. Moderately severe fibrotic changes in the [place]. A few calcified nodules/lymph nodes are seen consistent with remote granulomatous disease. A few small emphysematous bullae are seen. ABDOMEN LIVER: Cirrhotic hepatic morphology. Colonic interposition again noted. GALLBLADDER AND BILE DUCTS: Gallbladder appears absent without clear pathologic dilatation of the erik iary tree. PANCREAS: Mild generalized haziness in the mesentery, including the peripancreatic fat. A coarse 2.1 x 1.1 cm calcification in the region of the pancreatic head, could be in the parenchyma or duct. Main pancreatic duct appears mildly prominent. SPLEEN: Scattered calcified granulomas. ADRENAL GLANDS: Unremarkable. KIDNEYS AND URETERS: No evidence of hydronephrosis or renal calculus. The ureters are unremarkable. A 1.9 cm exophytic hypodensity from the posterior right kidney again seen, most likely a cyst. There is probably a subtle parapelvic cyst in the posterior right kidney as well, grossly stable. Left-side d extrarenal pelvis again noted. PELVIS BLADDER: Unremarkable REPRODUCTIVE: Unremarkable. ABDOMEN & PELVIS STOMACH AND BOWEL: Stomach and duodenum appear nondistended. There is a small hiatal hernia with prom inent paraesophageal varices. Moderate stool throughout the proximal colon, with greater stool distal ly; the rectum is packed and distended with stool up to 7.9 cm. Appendix is not readily visualized. C olonic diverticula are present without definite evidence of diverticulitis currently.. PERITONEUM/RETROPERITONEUM: Moderate volume of abdominal pelvic ascites, greatest in the right and le ft upper quadrants. General haziness of the mesentery, could be related to edema. No free air is seen . VASCULATURE: Moderate calcification of the aorta and major branches. Aorta is tortuous without eviden ce of AAA. MUSCULOSKELETAL: Moderate multilevel degenerative disc disease throughout the spine with mild S-shape d scoliosis. No clearly acute bony abnormalities. LYMPH NODES: No gross evidence for lymphadenopathy. SOFT TISSUE/ABDOMINAL WALL: Moderate diffuse subcutaneous fat stranding consistent with body wall alfredo ma/anasarca. IMPRESSION: 1. Cirrhotic hepatic morphology. 2. Moderate volume of abdominopelvic ascites. 3. Mild generalized haziness in the mesentery, including the peripancreatic fat, could be related to edema. Correlate to exclude pancreatitis. 4. A coarse 2.1 x 1.1 cm calcification in the region of the pancreatic head, could be in the parench yma or duct. Main pancreatic duct appears mildly prominent. 5. Small hiatal hernia with prominent paraesophageal varices. 6. Moderate to large amount of colonic stool, greatest distally in the rectum. Correlate for constip ation/fecal impaction. 7. Moderate diffuse subcutaneous fat stranding consistent with body wall edema/anasarca. 8. Other chronic and likely incidental findings, as described above.
[2023-09-25] MEDS ORDERED: BUMETANIDE 1 MG TAB PO SCH (14:00)
[2023-09-25] MEDS ORDERED: DEXTROSE 50% SYRINGE 50 ML IVP PRN ×2 (16:54)
[2023-09-25] MEDS ORDERED: LACTULOSE 20 GM/30 ML CUP PO PRN (17:06)
[2023-09-25 17:07] LABS: Glucose,Whole Blood 161 mg/dL (70-110)
--- NOTE | 2023-09-25 17:09 | P.HPIM ---
History of Present Illness H&P Date: 09/25/23 78-year-old female with PMH of hypertension, diabetes mellitus, anxiety, cirrhosis presents to the ED for generalized weakness and increased lower extremity swelling that is being progressively getting worse over the past 2 weeks. 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 She reports constipation, last bowel movement 2 days ago. This prompted her to come to the ED. In the ED, vital signs were stable, BP elevated at 186/82. CBC showed platelet count of 134. INR was 1.2. CMP showed sodium of 127, chloride of 88, creatinine of 0.44, glucose of 116, total bilirubin of 2.4, AST of 44, ALT of 37. Troponin was less than 0.012. BNP 614. Urinalysis showed trace leukocyte esterase with 11 WBCs. Influenza, RSV, COVID-19 negative. EKG showed sinus rhythm with first-degree AV block. Chest x-ray showed no acute process. CT AP showed cirrhosis, ascites, 2.1 x 1.1 cm calcification in the pancreatic head, hiatal hernia, moderate to large amount of colonic stool. Patient is admitted for further management and workup of symptoms. Pertinent positives and negatives as discussed in HPI, a complete review of systems was performed and all other systems are negative. General: non toxic, no distress, appears at stated age Derm: warm, dry Head: atraumatic, normocephalic, symmetric Eyes: EOMI, no lid lag, anicteric sclera Mouth: no lip lesion, mucus membranes moist Cardiovascular: S1S2 reg, no murmur Lungs: Decreased breath sounds bilateral, no rhonchi, no rales , no accessory muscle use Abdominal: soft, distended, nontender to palpation, no guarding, no appreciable organomegaly Ext: no gross muscle atrophy, 2+ bilateral lower extremity edema, no contractures Neuro: no focal neuro deficits Psych: Alert, oriented, appropriate affect Decompensated cirrhosis Hypochloremic hyponatremia Constipation Chronic conditions: Hypertension, diabetes mellitus, anxiety Based on my assessment of this patient, this patient meets a high complexity level of care. Patient has a history of cirrhosis with severe exacerbation or progression of disease which poses a threat to life or bodily function. She presents with extensive LE edema along with hyponatremia and generalized weakness. Also has large stool burden on CT. Decompensated cirrhosis: Start Lasix 40 mg IV QD. Start Aldactone 25 mg PO QD. Continue Atenolol 25 mg PO QD. Hypochloremic hyponatremia: Appears chronically low. Likely SIADH. Discontinue HCTZ. Monitor carefully while on diuretics. Possible trial of vaptan drugs if continues to drop. Constipation: Lactulose or Milk of Mag PRN for constipation. Lovenox for DVT prophylaxis. FULL CODE. I have reviewed the following insurance consultant notes: I have reviewed the results of the following tests: As above. I have ordered the following tests: BMP. I have discussed the care of this patient with the following independent historian: I have independently interpreted the following test below: EKG as above. I have discussed the management of this patient with the following physician: Past Medical History Past Medical History: Diabetes Mellitus, Hypertension Additional Past Medical History / Comment(s): cirrhosis, thrombocytopenia History of Any Multi-Drug Resistant Organisms: None Reported Past Surgical History: Cholecystectomy Past Psychological History: No Psychological Hx Reported Smoking Status: Former smoker Past Alcohol Use History: None Reported Past Drug Use History: None Reported Medications and Allergies Home Medications Medication Instructions Recorded Confirmed Type LORazepam [Ativan] 0.25 mg PO DAILY 04/20/22 09/25/23 History Montelukast [Singulair] 10 mg PO DAILY 04/20/22 09/25/23 History Multivitamins, Thera [Multivitamin 1 tab PO DAILY 04/20/22 09/25/23 History (formulary)] atenoloL [Tenormin] 25 mg PO BID 04/20/22 09/25/23 History hydroCHLOROthiazide 25 mg PO Q48H 04/20/22 09/25/23 History metFORMIN HCL [Glucophage] 1,000 mg PO DAILY 04/20/22 09/25/23 History Magnesium 200 mg PO DAILY 05/07/22 09/25/23 History Bumetanide [Bumex] 1 mg PO DIRECTED 09/25/23 09/25/23 History LORazepam [Ativan] 0.5 mg PO HS 09/25/23 09/25/23 History Allergies Allergy/AdvReac Type Severity Reaction Status Date / Time Iodinated Contrast Media Allergy Unknown face Verified 09/25/23 12:47 bright red and did not feel right. neomycin Allergy Unknown red face Verified 09/25/23 12:47 shellfish derived [Shrimp] Allergy Unknown face Verified 09/25/23 12:47 bright red, -felt funny. azithromycin Allergy red face Verified 09/25/23 12:47 ciprofloxacin [From Cipro] Allergy red face Verified 09/25/23 12:47 meperidine [From Demerol] Allergy red face Verified 09/25/23 12:47 Penicillins Allergy red face Verified 09/25/23 12:47 sulfite Allergy red face Verified 09/25/23 12:47 polyethylene glycol AdvReac Unknown Nausea & Verified 09/25/23 12:47 [From Golytely] Vomiting polyethylene glycol 3350 AdvReac Unknown Nausea & Verified 09/25/23 12:47 [From Golytely] Vomiting potassium chloride AdvReac Unknown Nausea & Verified 09/25/23 12:47 [From Golytely] Vomiting sodium [From Golytely] AdvReac Unknown Nausea & Verified 09/25/23 12:47 Vomiting sodium bicarbonate AdvReac Unknown Nausea & Verified 09/25/23 12:47 [From Golytely] Vomiting sodium chloride AdvReac Unknown Nausea & Verified 09/25/23 12:47 [From Golytely] Vomiting sodium sulfate AdvReac Unknown Nausea & Verified 09/25/23 12:47 [From Golytely] Vomiting COVID phizer vaccine Allergy Unknown Swelling Uncoded 03/11/23 09:22 face & eyes & red face. lobster Allergy Unknown bright Uncoded 03/11/23 09:22 red, "feels funny" Physical Exam Vitals: Vital Signs Temp Pulse Resp BP Pulse Ox 09/25/23 16:49 97.7 F 75 18 171/73 94 L 09/25/23 11:49 65 18 144/69 99 09/25/23 10:11 65 22 165/88 96 09/25/23 07:18 24 09/25/23 07:06 97.5 F L 81 21 186/82 93 L Intake and Output 09/25/23 09/25/23 09/25/23 06:59 14:59 22:59 Other: Weight 90.718 kg Results CBC & Chem 7: 09/25/23 07:18 09/25/23 07:18 Labs: Abnormal Lab Results - Last 24 Hours (Table) 09/25/23 09/25/23 09/25/23 Range/Units 07:18 07:18 07:18 Plt Count 134 L (150-450) k/uL PT 12.7 H (10.0-12.5) sec INR 1.2 H (<1.2) Sodium 127 L (137-145) mmol/L Chloride 88 L (98-107) mmol/L Creatinine 0.44 L (0.52-1.04) mg/dL Glucose 116 H (74-99) mg/dL POC Glucose (mg/dL) (70-110) mg/dL Total Bilirubin 2.4 H (0.2-1.3) mg/dL AST 44 H (14-36) U/L ALT 37 H (4-34) U/L Urine Appearance (Clear) Ur Leukocyte Esterase (Negative) Urine WBC (0-5) /hpf Urine Bacteria (None) /hpf 09/25/23 09/25/23 Range/Units 07:33 17:04 Plt Count (150-450) k/uL PT (10.0-12.5) sec INR (<1.2) Sodium (137-145) mmol/L Chloride (98-107) mmol/L Creatinine (0.52-1.04) mg/dL Glucose (74-99) mg/dL POC Glucose (mg/dL) 161 H (70-110) mg/dL Total Bilirubin (0.2-1.3) mg/dL AST (14-36) U/L ALT (4-34) U/L Urine Appearance Cloudy H (Clear) Ur Leukocyte Esterase Trace H (Negative) Urine WBC 11 H (0-5) /hpf Urine Bacteria Rare H (None) /hpf
[2023-09-25] MEDS: INSULIN ASPART (NovoLOG) 100 UNIT/ML VIAL SQ SCH ×2 (17:19→21:10)
[2023-09-25] MEDS: LORazepam 0.5 MG TAB PO SCH (17:26)
[2023-09-25] MEDS: atenoloL 25 MG TAB PO SCH (17:26)
[2023-09-25 20:39] LABS: Glucose,Whole Blood 162 mg/dL (70-110)
[2023-09-26 05:43] LABS: Glucose,Whole Blood 126 mg/dL (70-110)
[2023-09-26] MEDS: INSULIN ASPART (NovoLOG) 100 UNIT/ML VIAL SQ SCH ×4 (05:53→20:36)
[2023-09-26] MEDS: atenoloL 25 MG TAB PO SCH ×2 (08:13→17:58)
[2023-09-26] MEDS: MONTELUKAST 10 MG TAB PO SCH (08:15)
[2023-09-26] MEDS: MULTIVITAMINS, THERA 1 EACH TAB PO SCH (08:15)
[2023-09-26] MEDS: MAGNESIUM OXIDE 400 MG TAB PO SCH (08:15)
[2023-09-26] MEDS: ENOXAPARIN 40 MG/0.4 ML SYRINGE SQ SCH (08:17)
[2023-09-26] MEDS: LORazepam 0.5 MG TAB PO SCH ×2 (08:20→17:57)
[2023-09-26] MEDS ORDERED: FUROSEMIDE 10 MG/ML 4 ML VIAL IV SCH (09:00)
[2023-09-26] MEDS ORDERED: metFORMIN 500 MG TAB PO SCH (09:00)
[2023-09-26] MEDS ORDERED: SPIRONOLACTONE 25 MG TAB PO SCH (09:00)
[2023-09-26] MEDS ORDERED: hydroCHLOROthiazide 25 MG TAB PO SCH (09:00)
[2023-09-26 12:33] LABS: African American GFR (CKD) >90 (>60 ml/min/1.73 sqM); Anion Gap 10 mmol/L; Blood Urea Nitrogen 15 mg/dL (7-17); Calcium 8.6 mg/dL (8.4-10.2); Carbon Dioxide 28 mmol/L (22-30); Chloride 87 mmol/L (98-107); Glucose 181 mg/dL (74-99); Non-African American GFR(CKD) >90 (>60 ml/min/1.73 sqM); Sodium 125 mmol/L (137-145)
[2023-09-26 12:35] LABS: Potassium 3.9 mmol/L (3.5-5.1)
[2023-09-26 12:43] LABS: Glucose,Whole Blood 168 mg/dL (70-110)
[2023-09-26] MEDS ORDERED: TOLVAPTAN 15 MG TABLET PO ONE (13:18)
--- NOTE | 2023-09-26 13:22 | P.PN ---
Subjective Progress Note Date: 09/26/23 78-year-old female with PMH of hypertension, diabetes mellitus, anxiety, cirrhosis presents to the ED for generalized weakness and increased lower extremity swelling that is being progressively getting worse over the past 2 weeks. 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 She reports constipation, last bowel movement 2 days ago. This prompted her to come to the ED. In the ED, vital signs were stable, BP elevated at 186/82. CBC showed platelet count of 134. INR was 1.2. CMP showed sodium of 127, chloride of 88, creatinine of 0.44, glucose of 116, total bilirubin of 2.4, AST of 44, ALT of 37. Troponin was less than 0.012. BNP 614. Urinalysis showed trace leukocyte esterase with 11 WBCs. Influenza, RSV, COVID-19 negative. EKG showed sinus rhythm with first-degree AV block. Chest x-ray showed no acute process. CT AP showed cirrhosis, ascites, 2.1 x 1.1 cm calcification in the pancreatic head, hiatal hernia, moderate to large amount of colonic stool. Patient is admitted for further management and workup of symptoms. 09/26 Patient was seen and examined. She continues to report constipation. Last BM 6 days ago. LE swelling slightly improved. Generally doing well. BMP Na 125, Cl 87, Cr 0.36, glucose 181. General: non toxic, no distress, appears at stated age Derm: warm, dry Head: atraumatic, normocephalic, symmetric Eyes: EOMI, no lid lag, anicteric sclera Mouth: no lip lesion, mucus membranes moist Cardiovascular: S1S2 reg, no murmur Lungs: Decreased breath sounds bilateral, no rhonchi, no rales , no accessory muscle use Abdominal: soft, distended, nontender to palpation, no guarding, no appreciable organomegaly Ext: no gross muscle atrophy, 2+ bilateral lower extremity edema, no contractures Neuro: no focal neuro deficits Psych: Alert, oriented, appropriate affect Decompensated cirrhosis Hypochloremic hyponatremia Constipation Chronic conditions: Hypertension, diabetes mellitus, anxiety Based on my assessment of this patient, this patient meets a moderate complexity level of care. Patient has a history of cirrhosis with severe exacerbation or progression of disease which poses a threat to life or bodily function. She presents with extensive LE edema along with hyponatremia and generalized weakness. Also has large stool burden on CT. Decompensated cirrhosis: Lasix 40 mg IV given today will discontinue due to hypoNa. Start Aldactone 25 mg PO QD. Continue Atenolol 25 mg PO QD. Hypochloremic hyponatremia: Appears chronically low. Likely SIADH. Discontinue HCTZ. DC Lasix after today's dose. Tolvaptan 15 mg PO x 1 today. Obtain U and SOsm, Ana. Constipation: Lactulose or Milk of Mag PRN for constipation. Lovenox for DVT prophylaxis. FULL CODE. I have reviewed the following weight loss sales consultant notes: I have reviewed the results of the following tests: As above. I have ordered the following tests: Serum and Urine Osm. Urine Na. BMP I have discussed the care of this patient with the following independent historian: I have independently interpreted the following test below: I have discussed the management of this patient with the following physician: Objective - Vital Signs Vital signs: Vital Signs Temp 98 F 09/26/23 07:15 Pulse 72 09/26/23 07:15 Resp 17 09/26/23 07:15 BP 154/79 09/26/23 07:15 Pulse Ox 94 L 09/26/23 07:15 FiO2 Intake & Output 09/25/23 09/26/23 09/26/23 18:59 06:59 18:59 Intake Total 680 Output Total 3000 375 Balance -3000 -375 680 Weight 90.718 kg 90.718 kg Intake: Oral 680 Output: Urine 3000 375 Other: Voiding Method Diaper External Catheter # Voids 2 - Labs CBC & Chem 7: 09/25/23 07:18 09/26/23 12:05 Labs: Abnormal Lab Results - Last 24 Hours (Table) 09/25/23 09/25/23 09/26/23 Range/Units 17:04 20:37 05:41 Sodium (137-145) mmol/L Chloride (98-107) mmol/L Creatinine (0.52-1.04) mg/dL Glucose (74-99) mg/dL POC Glucose (mg/dL) 161 H 162 H 126 H (70-110) mg/dL 09/26/23 09/26/23 Range/Units 12:05 12:34 Sodium 125 L (137-145) mmol/L Chloride 87 L (98-107) mmol/L Creatinine 0.36 L (0.52-1.04) mg/dL Glucose 181 H (74-99) mg/dL POC Glucose (mg/dL) 168 H (70-110) mg/dL
[2023-09-26] MEDS: LACTULOSE 20 GM/30 ML CUP PO SCH ×4 (13:32→20:41)
--- NOTE | 2023-09-26 16:14 | P.NPCON ---
History of Present Illness - Reason for Consult Consult date: 09/26/23 hyponatremia - Chief Complaint Generalized weakness - History of Present Illness 78-year-old female admitted to the hospital with the above complaints. Nephrology was consulted for hyponatremia. She has chronic hyponatremia with a baseline sodium of 130 to 134. On admission serum sodium was 127, dropped to 125 today. Normal renal function. Chest x-ray no pulmonary vascular congestion. Computed tomography scan shows ascites and anasarca along with liver cirrhosis. She was taking hydrochlorothiazide at home which was recently changed to Bumex which she never started as outpatient. She got one dose of Lasix yesterday made 3.5 L of urine. No history of malignancy or antipsychotics or antidepressant use. Review of Systems Constitutional: Reports as per HPI Past Medical History Past Medical History: Diabetes Mellitus, Hypertension Additional Past Medical History / Comment(s): cirrhosis, thrombocytopenia, scoliosis History of Any Multi-Drug Resistant Organisms: None Reported Past Surgical History: Cholecystectomy Past Psychological History: No Psychological Hx Reported Smoking Status: Former smoker Past Alcohol Use History: None Reported Past Drug Use History: None Reported Medications and Allergies Home Medications Medication Instructions Recorded Confirmed Type LORazepam [Ativan] 0.25 mg PO DAILY 04/20/22 09/25/23 History Montelukast [Singulair] 10 mg PO DAILY 04/20/22 09/25/23 History Multivitamins, Thera [Multivitamin 1 tab PO DAILY 04/20/22 09/25/23 History (formulary)] atenoloL [Tenormin] 25 mg PO BID 04/20/22 09/25/23 History hydroCHLOROthiazide 25 mg PO Q48H 04/20/22 09/25/23 History metFORMIN HCL [Glucophage] 1,000 mg PO DAILY 04/20/22 09/25/23 History Magnesium 200 mg PO DAILY 05/07/22 09/25/23 History Bumetanide [Bumex] 1 mg PO DIRECTED 09/25/23 09/25/23 History LORazepam [Ativan] 0.5 mg PO HS 09/25/23 09/25/23 History Allergies Allergy/AdvReac Type Severity Reaction Status Date / Time Iodinated Contrast Media Allergy Unknown face Verified 09/25/23 12:47 bright red and did not feel right. neomycin Allergy Unknown red face Verified 09/25/23 12:47 shellfish derived [Shrimp] Allergy Unknown face Verified 09/25/23 12:47 bright red, -felt funny. azithromycin Allergy red face Verified 09/25/23 12:47 ciprofloxacin [From Cipro] Allergy red face Verified 09/25/23 12:47 meperidine [From Demerol] Allergy red face Verified 09/25/23 12:47 Penicillins Allergy red face Verified 09/25/23 12:47 sulfite Allergy red face Verified 09/25/23 12:47 polyethylene glycol AdvReac Unknown Nausea & Verified 09/25/23 12:47 [From Golytely] Vomiting polyethylene glycol 3350 AdvReac Unknown Nausea & Verified 09/25/23 12:47 [From Golytely] Vomiting potassium chloride AdvReac Unknown Nausea & Verified 09/25/23 12:47 [From Golytely] Vomiting sodium [From Golytely] AdvReac Unknown Nausea & Verified 09/25/23 12:47 Vomiting sodium bicarbonate AdvReac Unknown Nausea & Verified 09/25/23 12:47 [From Golytely] Vomiting sodium chloride AdvReac Unknown Nausea & Verified 09/25/23 12:47 [From Golytely] Vomiting sodium sulfate AdvReac Unknown Nausea & Verified 09/25/23 12:47 [From Golytely] Vomiting COVID phizer vaccine Allergy Unknown Swelling Uncoded 03/11/23 09:22 face & eyes & red face. lobster Allergy Unknown bright Uncoded 03/11/23 09:22 red, "feels funny" Physical Exam Vitals: Vital Signs Temp Pulse Pulse Resp BP BP Pulse Ox 09/26/23 14:51 97.6 F 67 19 163/88 94 L 09/26/23 07:15 98 F 72 17 154/79 94 L 09/26/23 02:06 98.1 F 71 16 158/75 95 09/25/23 21:53 97.7 F 70 15 159/82 94 L 09/25/23 21:12 66 18 149/68 92 L 09/25/23 20:15 167/76 09/25/23 16:49 97.7 F 75 18 171/73 94 L Intake and Output 09/26/23 09/26/23 09/26/23 06:59 14:59 22:59 Intake Total 1180 Output Total 375 Balance -375 1180 Intake: Oral 1180 Output: Urine 375 Other: Voiding Method Diaper External Catheter # Voids 2 No acute distress S1-S2 heard Decreased breath sounds Abdomen soft, distended Edema Results - Lab Results Most recent lab results Calcium 8.6 mg/dL (8.4-10.2) 09/26/23 12:05 Magnesium 1.9 mg/dL (1.6-2.3) 09/25/23 07:18 09/25/23 07:18 09/26/23 12:05 Assessment and Plan Assessment: #1 acute on chronic hypervolemic hypotonic hyponatremia. -Worsen with hydrochlorothiazide. #2 chronic liver disease with ascites #3 essential hypertension Plan: #1 continue with Lasix, decrease to 20 mg IV twice a day. #2 continue with Aldactone for now #3 check urine electrolytes including urine osmolality. #4 labs in the morning
[2023-09-26 17:42] LABS: Glucose,Whole Blood 202 mg/dL (70-110)
[2023-09-26] MEDS: MAGNESIUM HYDROXIDE 2,400 MG/30 ML CUP PO PRN (17:57)
[2023-09-26 18:13] LABS: African American GFR (CKD) >90 (>60 ml/min/1.73 sqM); Anion Gap 9 mmol/L; Blood Urea Nitrogen 16 mg/dL (7-17); Calcium 8.8 mg/dL (8.4-10.2); Carbon Dioxide 29 mmol/L (22-30); Chloride 88 mmol/L (98-107); Glucose 178 mg/dL (74-99); Non-African American GFR(CKD) >90 (>60 ml/min/1.73 sqM); Potassium 3.6 mmol/L (3.5-5.1); Sodium 126 mmol/L (137-145); Uric Acid 2.8 mg/dL (3.7-7.4)
[2023-09-26] MEDS: FUROSEMIDE 10 MG/ML 2 ML VIAL IV SCH (20:35)
[2023-09-26 20:36] LABS: Glucose,Whole Blood 148 mg/dL (70-110)
[2023-09-27 06:11] LABS: Glucose,Whole Blood 114 mg/dL (70-110)
[2023-09-27] MEDS: INSULIN ASPART (NovoLOG) 100 UNIT/ML VIAL SQ SCH ×4 (06:12→22:19)
--- NOTE | 2023-09-27 08:42 | US ---
EXAMINATION TYPE: US abdomen limited DATE OF EXAM: 09/27/2023 COMPARISON: CT 09/25/2023 CLINICAL INDICATION: Female, 78 years old with history of ascites; Ascites TECHNIQUE: Multiple grayscale ultrasound images of both flanks were obtained for assessment of ascite s. FINDINGS/IMPRESSION: Small volume ascites identified.
--- NOTE | 2023-09-27 08:49 | P.PN ---
Subjective Patient is seen in follow-up for hyponatremia. Sodium level 126 yesterday. On IV Lasix. Also on Aldactone. Nonoliguric. Denies chest pain or shortness of breath. Vital signs are stable. General: No acute distress. HEENT: Head exam is unremarkable. LUNGS: No audible rhonchi or wheezes. HEART: Rate and Rhythm are regular. ABDOMEN: Distention noted. EXTREMITITES: 1+ edema. Objective - Vital Signs Vital signs: Vital Signs Temp 97.5 F L 09/27/23 07:20 Pulse 72 09/27/23 07:20 Resp 16 09/27/23 07:20 BP 163/80 09/27/23 07:20 Pulse Ox 98 09/27/23 07:20 FiO2 Intake & Output 09/26/23 09/27/23 09/27/23 18:59 06:59 18:59 Intake Total 1180 Output Total 500 Balance 1180 -500 Intake: Oral 1180 Output: Urine 500 Other: Voiding Method Diaper External Catheter # Voids 2 2 - Labs CBC & Chem 7: 09/25/23 07:18 09/26/23 17:14 Labs: Abnormal Lab Results - Last 24 Hours (Table) 09/26/23 09/26/23 09/26/23 Range/Units 12:05 12:05 12:34 Sodium 125 L (137-145) mmol/L Chloride 87 L (98-107) mmol/L Creatinine 0.36 L (0.52-1.04) mg/dL Glucose 181 H (74-99) mg/dL POC Glucose (mg/dL) 168 H (70-110) mg/dL Osmolality 268 L (280-301) mosm/kg Uric Acid (3.7-7.4) mg/dL 09/26/23 09/26/23 09/26/23 Range/Units 17:14 17:37 20:34 Sodium 126 L (137-145) mmol/L Chloride 88 L (98-107) mmol/L Creatinine 0.42 L (0.52-1.04) mg/dL Glucose 178 H (74-99) mg/dL POC Glucose (mg/dL) 202 H 148 H (70-110) mg/dL Osmolality 272 L (280-301) mosm/kg Uric Acid 2.8 L (3.7-7.4) mg/dL 09/27/23 Range/Units 06:10 Sodium (137-145) mmol/L Chloride (98-107) mmol/L Creatinine (0.52-1.04) mg/dL Glucose (74-99) mg/dL POC Glucose (mg/dL) 114 H (70-110) mg/dL Osmolality (280-301) mosm/kg Uric Acid (3.7-7.4) mg/dL Assessment and Plan Plan: Assessment: 1. Hypervolemic hyponatremia. Worsened with use of thiazide diuretic. Improving with diuresis. Urine osmolality 306 and repeat 403. 2. Nonalcoholic liver cirrhosis. 3. Volume overload. 4. Diabetes mellitus. 5. Benign hypertension. Plan: Maintain IV Lasix. Increase spironolactone to 25 mg twice daily. Low-salt diet and 1500 mL fluid restriction. Check abdominal ultrasound for ascites. Avoid thiazide diuretics. Follow-up morning labs. Add hydralazine 50 mg twice daily. Hold for systolic blood pressure less than 120.
[2023-09-27 08:52] LABS: Potassium,Urine Random 36.1 mmol/L (25.0-125.0)
[2023-09-27] MEDS: FUROSEMIDE 10 MG/ML 2 ML VIAL IV SCH ×2 (09:45→22:10)
[2023-09-27] MEDS: LORazepam 0.5 MG TAB PO SCH ×2 (09:45→18:18)
[2023-09-27] MEDS: atenoloL 25 MG TAB PO SCH ×2 (09:46→22:10)
[2023-09-27] MEDS: LACTULOSE 20 GM/30 ML CUP PO SCH ×2 (09:47→22:10)
[2023-09-27] MEDS: MAGNESIUM OXIDE 400 MG TAB PO SCH (09:49)
[2023-09-27] MEDS: MULTIVITAMINS, THERA 1 EACH TAB PO SCH (09:49)
[2023-09-27] MEDS: SPIRONOLACTONE 25 MG TAB PO SCH ×2 (09:49→22:10)
[2023-09-27 09:57] LABS: African American GFR (CKD) >90 (>60 ml/min/1.73 sqM); Anion Gap 8 mmol/L; Blood Urea Nitrogen 16 mg/dL (7-17); Calcium 8.7 mg/dL (8.4-10.2); Carbon Dioxide 31 mmol/L (22-30); Chloride 89 mmol/L (98-107); Glucose 130 mg/dL (74-99); Magnesium 1.9 mg/dL (1.6-2.3); Non-African American GFR(CKD) >90 (>60 ml/min/1.73 sqM); Potassium 3.4 mmol/L (3.5-5.1); Sodium 128 mmol/L (137-145)
[2023-09-27] MEDS ORDERED: POTASSIUM CHLORIDE ER 20 MEQ TAB.ER PO STA (10:19)
[2023-09-27] MEDS: hydrALAZINE HCL 50 MG TAB PO SCH ×2 (11:35→22:10)
[2023-09-27] MEDS: ENOXAPARIN 40 MG/0.4 ML SYRINGE SQ SCH (11:40)
[2023-09-27] MEDS: MONTELUKAST 10 MG TAB PO SCH (11:44)
[2023-09-27 12:23] LABS: Glucose,Whole Blood 175 mg/dL (70-110)
--- NOTE | 2023-09-27 12:50 | XR ---
EXAMINATION TYPE: XR chest 1V portable DATE OF EXAM: 09/27/2023 12:45 PM COMPARISON: Chest radiographs from 09/25/2023 TECHNIQUE: XR chest 1V portable Portable AP radiograph of the chest. CLINICAL INDICATION:Female, 78 years old with history of hypoxia; FINDINGS: Lungs/Pleura: No pneumothorax or pleural effusion. Linear scarring within the right midlung. Elevatio n of the right hemidiaphragm. Coarsened interstitial lung markings bilaterally again demonstrated. Pulmonary vascularity: Unremarkable. Heart/mediastinum: Cardiomediastinal silhouette is enlarged and stable. Atherosclerotic calcificatio ns are seen in the aorta. Musculoskeletal: No acute osseous pathology. IMPRESSION: Chronic changes without evidence for acute process.
[2023-09-27] MEDS ORDERED: diphenhydrAMINE 50 MG/ML 1 ML VIAL IVP STA (14:00)
[2023-09-27] MEDS ORDERED: methylPREDNISolone SOD SUCCI 125 MG/2 ML VIAL IV STA (14:00)
[2023-09-27] MEDS ORDERED: FAMOTIDINE 20 MG/2 ML VIAL IV STA (14:00)
--- NOTE | 2023-09-27 14:12 | P.PN ---
Subjective Progress Note Date: 09/27/23 78-year-old female with PMH of hypertension, diabetes mellitus, anxiety, cirrhosis presents to the ED for generalized weakness and increased lower extremity swelling that is being progressively getting worse over the past 2 weeks. 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 She reports constipation, last bowel movement 2 days ago. This prompted her to come to the ED. In the ED, vital signs were stable, BP elevated at 186/82. CBC showed platelet count of 134. INR was 1.2. CMP showed sodium of 127, chloride of 88, creatinine of 0.44, glucose of 116, total bilirubin of 2.4, AST of 44, ALT of 37. Troponin was less than 0.012. BNP 614. Urinalysis showed trace leukocyte esterase with 11 WBCs. Influenza, RSV, COVID-19 negative. EKG showed sinus rhythm with first-degree AV block. Chest x-ray showed no acute process. CT AP showed cirrhosis, ascites, 2.1 x 1.1 cm calcification in the pancreatic head, hiatal hernia, moderate to large amount of colonic stool. Patient is admitted for further management and workup of symptoms. 09/26 Patient was seen and examined. She continues to report constipation. Last BM 6 days ago. LE swelling slightly improved. Generally doing well. BMP Na 125, Cl 87, Cr 0.36, glucose 181. 09/27 Patient was seen and examined. Refused Lactulose yesterday for constipation. States she is feeling well. She was comfortable with discharge. Home O2 eval performed showing that she desaturates to 86% on RA. D-Dimer elevated at 5.85, plans for CTA chest with premedication for iodine allergy if patient will allow. CXR negative for acute pathology. Abd US shows small amount of ascites. BMP shows Na 128, K 3.4, Cl 89, bicarb 31, Cr 0.37, glu 130. UOsm 403. Ana < 20. General: non toxic, no distress, appears at stated age Derm: warm, dry Head: atraumatic, normocephalic, symmetric Eyes: EOMI, no lid lag, anicteric sclera Mouth: no lip lesion, mucus membranes moist Cardiovascular: S1S2 reg, no murmur Lungs: Decreased breath sounds bilateral, no rhonchi, no rales , no accessory muscle use Abdominal: soft, distended, nontender to palpation, no guarding, no appreciable organomegaly Ext: no gross muscle atrophy, 2+ bilateral lower extremity edema, no contractures Neuro: no focal neuro deficits Psych: Alert, oriented, appropriate affect Acute hypoxic respiratory failure Elevated D-Dimer Decompensated cirrhosis Hypochloremic hyponatremia Constipation Chronic conditions: Hypertension, diabetes mellitus, anxiety Based on my assessment of this patient, this patient meets a high complexity level of care. Patient has a history of cirrhosis with severe exacerbation or progression of disease which poses a threat to life or bodily function. She presents with extensive LE edema along with hyponatremia and generalized weakness. Also has large stool burden on CT. Acute hypoxic respiratory failure: Obtain CTA chest to rule out PE. Elevated D-Dimer Decompensated cirrhosis: Lasix 20 mg IV BID. Increase Aldactone to 25 mg PO BID. Continue Atenolol 25 mg PO QD. Hypochloremic hyponatremia: Appears chronically low. Likely SIADH. Discontinue HCTZ. Improving. Nephrology on board. Constipation: Lactulose or Milk of Mag PRN for constipation. Lovenox for DVT prophylaxis. FULL CODE. I have reviewed the following sales enablement consultant notes: Nephro note. I have reviewed the results of the following tests: BMP, D-Dimer, UOsm, SOsm, Ana. I have ordered the following tests: BMP. CTA chest. D-Dimer I have discussed the care of this patient with the following independent historian: I have independently interpreted the following test below: CXR as above. I have discussed the management of this patient with the following physician: Objective - Vital Signs Vital signs: Vital Signs Temp 97.5 F L 09/27/23 07:20 Pulse 72 09/27/23 07:20 Resp 16 09/27/23 07:20 BP 163/80 09/27/23 07:20 Pulse Ox 98 09/27/23 07:20 FiO2 Intake & Output 09/26/23 09/27/23 09/27/23 18:59 06:59 18:59 Intake Total 1180 118 Output Total 500 Balance 1180 -500 118 Intake: Oral 1180 118 Output: Urine 500 Other: Voiding Method Diaper External Catheter # Voids 2 2 - Labs CBC & Chem 7: 09/25/23 07:18 09/27/23 08:53 Labs: Abnormal Lab Results - Last 24 Hours (Table) 09/26/23 09/26/23 09/26/23 Range/Units 17:14 17:37 18:30 D-Dimer (<0.60) mg/L FEU Sodium 126 L (137-145) mmol/L Potassium (3.5-5.1) mmol/L Chloride 88 L (98-107) mmol/L Carbon Dioxide (22-30) mmol/L Creatinine 0.42 L (0.52-1.04) mg/dL Glucose 178 H (74-99) mg/dL POC Glucose (mg/dL) 202 H (70-110) mg/dL Osmolality 272 L (280-301) mosm/kg Uric Acid 2.8 L (3.7-7.4) mg/dL Ur Random Sodium <20 L (40-220) mmol/L 09/26/23 09/27/23 09/27/23 Range/Units 20:34 06:10 08:53 D-Dimer (<0.60) mg/L FEU Sodium 128 L (137-145) mmol/L Potassium 3.4 L (3.5-5.1) mmol/L Chloride 89 L (98-107) mmol/L Carbon Dioxide 31 H (22-30) mmol/L Creatinine 0.37 L (0.52-1.04) mg/dL Glucose 130 H (74-99) mg/dL POC Glucose (mg/dL) 148 H 114 H (70-110) mg/dL Osmolality (280-301) mosm/kg Uric Acid (3.7-7.4) mg/dL Ur Random Sodium (40-220) mmol/L 09/27/23 09/27/23 Range/Units 12:21 12:25 D-Dimer 5.85 H (<0.60) mg/L FEU Sodium (137-145) mmol/L Potassium (3.5-5.1) mmol/L Chloride (98-107) mmol/L Carbon Dioxide (22-30) mmol/L Creatinine (0.52-1.04) mg/dL Glucose (74-99) mg/dL POC Glucose (mg/dL) 175 H (70-110) mg/dL Osmolality (280-301) mosm/kg Uric Acid (3.7-7.4) mg/dL Ur Random Sodium (40-220) mmol/L
[2023-09-27 17:18] LABS: Glucose,Whole Blood 161 mg/dL (70-110)
[2023-09-27] MEDS ORDERED: MONTELUKAST 10 MG TAB PO SCH (21:00)
[2023-09-27 22:19] LABS: Glucose,Whole Blood 204 mg/dL (70-110)
[2023-09-28 06:35] LABS: Glucose,Whole Blood 121 mg/dL (70-110)
[2023-09-28] MEDS: INSULIN ASPART (NovoLOG) 100 UNIT/ML VIAL SQ SCH ×2 (06:39→12:32)
[2023-09-28 06:41] LABS: African American GFR (CKD) >90 (>60 ml/min/1.73 sqM); Anion Gap 6 mmol/L; Blood Urea Nitrogen 17 mg/dL (7-17); Calcium 8.6 mg/dL (8.4-10.2); Carbon Dioxide 31 mmol/L (22-30); Chloride 89 mmol/L (98-107); Glucose 122 mg/dL (74-99); Magnesium 2.1 mg/dL (1.6-2.3); Non-African American GFR(CKD) >90 (>60 ml/min/1.73 sqM); Potassium 3.6 mmol/L (3.5-5.1); Sodium 126 mmol/L (137-145)
[2023-09-28] MEDS: FUROSEMIDE 10 MG/ML 2 ML VIAL IV SCH (08:57)
[2023-09-28] MEDS: hydrALAZINE HCL 50 MG TAB PO SCH (08:58)
[2023-09-28] MEDS: LACTULOSE 20 GM/30 ML CUP PO SCH (08:58)
[2023-09-28] MEDS: MAGNESIUM OXIDE 400 MG TAB PO SCH (08:59)
[2023-09-28] MEDS: SPIRONOLACTONE 25 MG TAB PO SCH (08:59)
[2023-09-28] MEDS: MULTIVITAMINS, THERA 1 EACH TAB PO SCH (08:59)
[2023-09-28] MEDS: ENOXAPARIN 40 MG/0.4 ML SYRINGE SQ SCH (09:00)
[2023-09-28] MEDS: atenoloL 25 MG TAB PO SCH (09:06)
[2023-09-28] MEDS: LORazepam 0.5 MG TAB PO SCH (09:07)
--- NOTE | 2023-09-28 11:30 | P.DS ---
Providers Date of admission: 09/25/23 11:17 Expected date of discharge: 09/28/23 Attending physician: Calli Erazo, Consults: 09/26/23 13:32 Consult Physician Routine Consulting Provider: Coy Wilson Consult Reason/Comments: hypnatremia Do you want consulting provider notified?: Yes Primary care physician: Manohar Pedraza MD Hospital Course: 78-year-old female with PMH of hypertension, diabetes mellitus, anxiety, cirrhosis presents to the ED for generalized weakness and increased lower extremity swelling that is being progressively getting worse over the past 2 weeks. 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 She reports constipation, last bowel movement 2 days ago. This prompted her to come to the ED. In the ED, vital signs were stable, BP elevated at 186/82. CBC showed platelet count of 134. INR was 1.2. CMP showed sodium of 127, chloride of 88, creatinine of 0.44, glucose of 116, total bilirubin of 2.4, AST of 44, ALT of 37. Troponin was less than 0.012. BNP 614. Urinalysis showed trace leukocyte esterase with 11 WBCs. Influenza, RSV, COVID-19 negative. EKG showed sinus rhythm with first-degree AV block. Chest x-ray showed no acute process. CT AP showed cirrhosis, ascites, 2.1 x 1.1 cm calcification in the pancreatic head, hiatal hernia, moderate to large amount of colonic stool. Patient is admitted for further management and workup of symptoms. Patient was started on Lasix IV and admitted for further management and workup of hyponatremia and lower extremity swelling. 09/26 Patient was seen and examined. She continues to report constipation. Last BM 6 days ago. LE swelling slightly improved. Generally doing well. BMP Na 125, Cl 87, Cr 0.36, glucose 181. 09/27 Patient was seen and examined. Refused Lactulose yesterday for constipation. States she is feeling well. She was comfortable with discharge. Home O2 eval performed showing that she desaturates to 86% on RA. D-Dimer elevated at 5.85, plans for CTA chest with premedication for iodine allergy if patient will allow. CXR negative for acute pathology. Abd US shows small amount of ascites. BMP shows Na 128, K 3.4, Cl 89, bicarb 31, Cr 0.37, glu 130. UOsm 403. Ana < 20. Nephrology recommends continued diuresis, Hydralazine PRN for elevated BP, fluid restriction. 09/28 Patient was seen and examined. Refused CTA chest with premedication (iodine allergy) yesterday. Unable to lay flat for V/Q scan. She understands without additional workup she may have an untreated PE and is OK with that. We will order venous doppler to rule out DVT. Refusing Lactulose, Aldactone, Lovenox, insulin, Hydralazine and Lasix due to fear of allergy to new meds. We will repeat home O2 eval again today. Plans to discharge home after venous doppler. Advised fluid restriction and to continue Bumex at home. Discussed with Dr. Wilson at bedside as well. Pertinent studies include EKG, CXR, CT AP, Abd US. General: non toxic, no distress, appears at stated age Derm: warm, dry Head: atraumatic, normocephalic, symmetric Eyes: EOMI, no lid lag, anicteric sclera Mouth: no lip lesion, mucus membranes moist Cardiovascular: S1S2 reg, no murmur Lungs: Decreased breath sounds bilateral, no rhonchi, no rales , no accessory muscle use Ext: no gross muscle atrophy, 2+ bilateral lower extremity edema, no contractures Neuro: no focal neuro deficits Psych: Alert, oriented, appropriate affect Discharge Diagnosis: Acute hypoxic respiratory failure Elevated D-Dimer Decompensated cirrhosis Hypochloremic hyponatremia Constipation Chronic conditions: Hypertension, diabetes mellitus, anxiety This complex discharge took 35 minutes to complete. Patient Condition at Discharge: Fair Plan - Discharge Summary New Discharge Prescriptions: No Action LORazepam [Ativan] 0.25 mg PO DAILY Magnesium 200 mg PO DAILY LORazepam [Ativan] 0.5 mg PO HS Bumetanide [Bumex] 1 mg PO DIRECTED Multivitamins, Thera [Multivitamin (formulary)] 1 tab PO DAILY Montelukast [Singulair] 10 mg PO DAILY metFORMIN HCL [Glucophage] 1,000 mg PO DAILY hydroCHLOROthiazide 25 mg PO Q48H atenoloL [Tenormin] 25 mg PO BID Discharge Medication List LORazepam [Ativan] 0.25 mg PO DAILY 04/20/22 [History] Montelukast [Singulair] 10 mg PO DAILY 04/20/22 [History] Multivitamins, Thera [Multivitamin (formulary)] 1 tab PO DAILY 04/20/22 [History] atenoloL [Tenormin] 25 mg PO BID 04/20/22 [History] hydroCHLOROthiazide 25 mg PO Q48H 04/20/22 [History] metFORMIN HCL [Glucophage] 1,000 mg PO DAILY 04/20/22 [History] Magnesium 200 mg PO DAILY 05/07/22 [History] Bumetanide [Bumex] 1 mg PO DIRECTED 09/25/23 [History] LORazepam [Ativan] 0.5 mg PO HS 09/25/23 [History] Follow up Appointment(s)/Referral(s): Manohar Pedraza MD [Primary Care Provider] - 1-2 days
--- NOTE | 2023-09-28 12:04 | P.PN ---
Subjective Patient is seen in follow-up for hyponatremia. Sodium level stable at 126.. On IV Lasix and Aldactone but refusing to take due to concern for ALLERGIC reaction. Nonoliguric. Denies chest pain or shortness of breath. Vital signs are stable. General: No acute distress. HEENT: Head exam is unremarkable. LUNGS: No audible rhonchi or wheezes. HEART: Rate and Rhythm are regular. ABDOMEN: Distention noted. EXTREMITITES: 1+ edema. Objective - Vital Signs Vital signs: Vital Signs Temp 97.6 F 09/28/23 07:00 Pulse 61 09/28/23 07:00 Resp 18 09/28/23 07:00 BP 154/74 09/28/23 07:00 Pulse Ox 88 L 09/28/23 11:35 FiO2 Intake & Output 09/27/23 09/28/23 09/28/23 18:59 06:59 18:59 Intake Total 118 118 Output Total 600 Balance 118 -600 118 Intake: Oral 118 118 Output: Urine 600 Other: Voiding Method External Catheter Diaper External Catheter # Voids 3 1 - Labs CBC & Chem 7: 09/25/23 07:18 09/28/23 05:47 Labs: Abnormal Lab Results - Last 24 Hours (Table) 09/27/23 09/27/23 09/27/23 Range/Units 12:21 12:25 17:16 D-Dimer 5.85 H (<0.60) mg/L FEU Sodium (137-145) mmol/L Chloride (98-107) mmol/L Carbon Dioxide (22-30) mmol/L Creatinine (0.52-1.04) mg/dL Glucose (74-99) mg/dL POC Glucose (mg/dL) 175 H 161 H (70-110) mg/dL 09/27/23 09/28/23 09/28/23 Range/Units 22:18 05:47 06:33 D-Dimer (<0.60) mg/L FEU Sodium 126 L (137-145) mmol/L Chloride 89 L (98-107) mmol/L Carbon Dioxide 31 H (22-30) mmol/L Creatinine 0.40 L (0.52-1.04) mg/dL Glucose 122 H (74-99) mg/dL POC Glucose (mg/dL) 204 H 121 H (70-110) mg/dL Assessment and Plan Plan: Assessment: 1. Hypervolemic hyponatremia. Worsened with use of thiazide diuretic. Urine osmolality 306 and repeat 403. 2. Nonalcoholic liver cirrhosis. 3. Volume overload. 4. Diabetes mellitus. 5. Benign hypertension. Stable. Plan: Stop IV Lasix as patient refusing to take. Add Bumex 1 mg twice daily. Discussed importance of spironolactone with liver cirrhosis and volume overload. Refusing at this time. Low-salt diet and 1500 mL fluid restriction. Avoid thiazide diuretics. Check TSH. Also refusing Samsca. Discussed at length with attending physician.
[2023-09-28 12:07] LABS: Glucose,Whole Blood 191 mg/dL (70-110)
--- NOTE | 2023-09-28 12:55 | US ---
EXAMINATION TYPE: US venous doppler duplex LE BI DATE OF EXAM: 09/28/2023 11:55 AM COMPARISON: NONE CLINICAL INDICATION: Female, 78 years old with history of swelling ddimer; bilateal leg swelling x 1 year SIDE PERFORMED: Bilateral TECHNIQUE: The lower extremity deep venous system is examined utilizing real time linear array sonog nat with graded compression, doppler sonography and color-flow sonography. VESSELS IMAGED: Common Femoral Vein Deep Femoral Vein Greater Saphenous Vein * Femoral Vein Popliteal Vein Small Saphenous Vein * Proximal Calf Veins (* superficial vessels) Right Leg: Negative for DVT Left Leg: Negative for DVT edema noted throughout, post prominently at the posterior knee. Exam limited by body habitus and mark a IMPRESSION: 1. Bilateral lower extremity ultrasound negative for deep venous thrombosis. Facial soft tissue swell ing
[2023-09-28] MEDS ORDERED: MAGNESIUM HYDROXIDE 2,400 MG/30 ML CUP PO PRN (13:44)
[2023-09-28] MEDS: MAGNESIUM HYDROXIDE 2,400 MG/30 ML CUP PO PRN (13:51)
[2023-09-28 14:09] VITALS: BP 155/74; PULSE 68; RESP 17; TEMP 98
[2023-09-28] MEDS ORDERED: BUMETANIDE 1 MG TAB PO SCH (16:00)
== END 2023-09-28 16:45 | disposition home or self-care (01) ==
LOC: EC 07:05 → 6NMEDSUR 11:17
PROVIDERS: ADMIT Internal Medicine; ATTEND Internal Medicine
DX: J96.01 Acute respiratory failure with hypoxia (principal); E87.1 Hypo-osmolality and hyponatremia; D69.6 Thrombocytopenia, unspecified; K74.60 Unspecified cirrhosis of liver; R53.1 Weakness; R18.8 Other ascites; E11.9 Type 2 diabetes mellitus without complications; I10 Essential (primary) hypertension; F41.9 Anxiety disorder, unspecified; K59.00 Constipation, unspecified; R77.8 Other specified abnormalities of plasma proteins; Z20.822 Contact with and (suspected) exposure to COVID-19; Z87.891 Personal history of nicotine dependence; Z79.899 Other long term (current) drug therapy; Z79.84 Long term (current) use of oral hypoglycemic drugs; Z88.0 Allergy status to penicillin; Z88.1 Allergy status to other antibiotic agents
CPT/HCPCS: 96376 ×2; 96372 ×2; 96374; 99285; 36415; 94760; 93005; 97530; 97162; 97166; 85379; 84300; 83930; 83880; 80053; 80048 ×3; 84443; 84133; 83735 ×3; 84550; 84484; 85025; 85610; 85730; 81001; 83935; 87636; 71045; 71046; 76705; 93970; 74176; G0378 ×4; J1940 ×4; J1650 ×2

== ENCOUNTER 2023-12-05 20:13 | Inpatient (IN) | payer MEDICARE ==
[2023-12-05] MEDS ORDERED: FUROSEMIDE 10 MG/ML 4 ML VIAL IV STA (20:21)
[2023-12-05] MEDS ORDERED: NITROGLYCERIN OINT 1 INCH/GM PACKET TOPICAL STA (20:21)
--- NOTE | 2023-12-05 20:48 | ED ---
SOB HPI - General Chief Complaint: Shortness of Breath Stated Complaint: SOB Time Seen by Provider: 12/05/23 20:13 Source: EMS, RN notes reviewed Mode of arrival: EMS - History of Present Illness Initial Comments: 78-year-old female history of cirrhosis history of hypertension history diabetes history of thrombocytopenia history of peripheral edema in the past who presents today with complaints of shortness of breath with increasing peripheral edema going on for the past week or so. Shortness of breath got worse today. No fevers chills nausea vomiting sweats no chest pain. Is found to be hypoxemic on room air was placed on oxygen with improvement to 95% saturation. Per EMS report the lung sounds are clear but the patient does complain of exertional dyspnea and dyspnea at rest. This is a patient states she's had a rash on her left leg which she believes happened after getting picked by the clasp on an Leonel wrap within the last week. She's been cleaning it with Dial soap. MD Complaint: shortness of breath - Related Data Home Medications Medication Instructions Recorded Confirmed LORazepam [Ativan] 0.25 mg PO DAILY 04/20/22 12/05/23 Montelukast [Singulair] 10 mg PO HS 04/20/22 12/05/23 Multivitamins, Thera [Multivitamin 1 tab PO PC-SUPPER 04/20/22 12/05/23 (formulary)] atenoloL [Tenormin] 25 mg PO BID 04/20/22 12/05/23 metFORMIN HCL [Glucophage] 1,000 mg PO HS 04/20/22 12/05/23 Magnesium 200 mg PO DAILY 05/07/22 12/05/23 LORazepam [Ativan] 0.5 mg PO HS 09/25/23 12/05/23 Ibuprofen [Motrin Ib] 200 mg PO DAILY 12/05/23 12/05/23 hydroCHLOROthiazide [Hydrodiuril] 25 mg PO Q2D 12/05/23 12/05/23 Allergies Allergy/AdvReac Type Severity Reaction Status Date / Time Iodinated Contrast Media Allergy Unknown face Verified 12/05/23 21:14 bright red and did not feel right. neomycin Allergy Unknown red face Verified 12/05/23 21:14 shellfish derived [Shrimp] Allergy Unknown face Verified 12/05/23 21:14 bright red, -felt funny. azithromycin Allergy red face Verified 12/05/23 21:14 ciprofloxacin [From Cipro] Allergy red face Verified 12/05/23 21:14 meperidine [From Demerol] Allergy red face Verified 12/05/23 21:14 Penicillins Allergy red face Verified 12/05/23 21:14 sulfite Allergy red face Verified 12/05/23 21:14 polyethylene glycol AdvReac Unknown Nausea & Verified 12/05/23 21:14 [From Golytely] Vomiting polyethylene glycol 3350 AdvReac Unknown Nausea & Verified 12/05/23 21:14 [From Golytely] Vomiting potassium chloride AdvReac Unknown Nausea & Verified 12/05/23 21:14 [From Golytely] Vomiting sodium [From Golytely] AdvReac Unknown Nausea & Verified 12/05/23 21:14 Vomiting sodium bicarbonate AdvReac Unknown Nausea & Verified 12/05/23 21:14 [From Golytely] Vomiting sodium chloride AdvReac Unknown Nausea & Verified 12/05/23 21:14 [From Golytely] Vomiting sodium sulfate AdvReac Unknown Nausea & Verified 12/05/23 21:14 [From Golytely] Vomiting COVID phizer vaccine Allergy Unknown Swelling Uncoded 12/05/23 21:14 face & eyes & red face. lobster Allergy Unknown bright Uncoded 12/05/23 21:14 red, "feels funny" Review of Systems ROS Statement: Those systems with pertinent positive or pertinent negative responses have been documented in the HPI. ROS Other: All systems not noted in ROS Statement are negative. Past Medical History Past Medical History: Diabetes Mellitus, Hypertension Additional Past Medical History / Comment(s): cirrhosis, thrombocytopenia, scoliosis History of Any Multi-Drug Resistant Organisms: None Reported Past Surgical History: Cholecystectomy Past Psychological History: No Psychological Hx Reported Smoking Status: Former smoker Past Alcohol Use History: None Reported Past Drug Use History: None Reported General Exam - General Exam Comments Initial Comments: Physical well-developed well-nourished awake alert oriented 4 female General appearance: alert, in no apparent distress Head exam: Present: atraumatic, normocephalic, normal inspection Eye exam: Present: normal appearance, PERRL, EOMI. Absent: scleral icterus, co njunctival injection, periorbital swelling ENT exam: Present: normal exam, mucous membranes moist Neck exam: Present: normal inspection, full ROM, other (No stridor JVD or bruits). Absent: tenderness, meningismus, lymphadenopathy Respiratory exam: Present: rales, accessory muscle use, decreased breath sounds. Absent: respiratory distress, wheezes, rhonchi, stridor Cardiovascular Exam: Present: regular rate, normal rhythm, normal heart sounds. Absent: systolic murmur, diastolic murmur, rubs, gallop, clicks GI/Abdominal exam: Present: soft, normal bowel sounds. Absent: distended, tenderness, guarding, rebound, rigid Extremities exam: Present: full ROM, normal capillary refill, pedal edema, other (Erythematous rash seen to the left leg no increased temperature. Some weeping). Absent: tenderness, joint swelling, calf tenderness Back exam: Present: normal inspection Neurological exam: Present: alert, oriented X3, CN II-XII intact Psychiatric exam: Present: normal affect, normal mood Skin exam: Present: warm, dry, intact, normal color. Absent: rash Course Vital Signs 12/05/23 12/05/23 20:15 21:08 Temperature 98.0 F Pulse Rate 98 80 Respiratory 22 20 Rate Blood Pressure 170/87 155/64 O2 Sat by Pulse 95 100 Oximetry Medical Decision Making - Medical Decision Making I did discuss the findings the patient and her was present my recommendation the patient was that she come into the hospital for IV Lasix she states that she has problems oral with Lasix for now with IV Lasix. She does not want any antibiotics for her leg at this time. I did discuss case with Dr. Carr patient will be admitted. Clinically patient appears be consistent with congestive heart failure. BMP was within normal limits however. X-rays and clinical findings however correlate.Was pt. sent in by a medical professional or institution (, PA, COMMODITY MERCHANT, urgent care, hospital, or shelter...) When pos sible be specific @ -No Did you speak to anyone other than the patient for history (EMS, parent, family, police, friend...)? What history was obtained from this source @ -EMS personnel Did you review nursing and triage notes (agree or disagree)? Why? @ -I reviewed and agree with nursing and triage notes Were old charts reviewed (outside hosp., previous admission, EMS record, old E KG, old radiological studies, urgent care reports/EKG's, shelter records)? Report findings @ -Recent old charts were reviewed Differential Diagnosis (chest pain, altered mental status, abdominal pain women, abdominal pain men, vaginal bleeding, weakness, fever, dyspnea, syncope, headache, dizziness, GI bleed, back pain, seizure, CVA, palpatations, mental health, musculoskeletal)? @ -CHF, renal insufficiency, infectious etiology. EKG interpreted by me (3pts min.). @ -EKG interpreted by me sinus rhythm with first-degree AV block ventricular rate of 88 [place] interval 232. QRS duration 76 QT since QTC 335/401 X-rays interpreted by me (1pt min.). @ -Chest x-ray interpreted by me evidence of increased pulmonary vascular congestion CT interpreted by me (1pt min.). @ -None done U/S interpreted by me (1pt. min.). @ -None done What testing was considered but not performed or refused? (CT, X-rays, U/S, labs)? Why? @ -None What meds were considered but not given or refused? Why? @ -None Did you discuss the management of the patient with other professionals (professionals i.e. , PA, COMMODITY MERCHANT, lab, RT, psych nurse, director social welfare, detective captain, teacher, licensing officer, telephonic case manager)? Give summary @ -Dr. Carr Was smoking cessation discussed for >3mins.? @ -No Was critical care preformed (if so, how long)? @ -No Were there social determinants of health that impacted care today? How? (Homelessness, low income, unemployed, alcoholism, drug addiction, transportation, low edu. Level, literacy, decrease access to med. care, skilled nursing, rehab)? @ -No Was there de-escalation of care discussed even if they declined (Discuss DNR or withdrawal of care, Hospice)? DNR status @ -No What co-morbidities impacted this encounter? (DM, HTN, Smoking, COPD, CAD, Cancer, CVA, ARF, Chemo, Hep., AIDS, mental health diagnosis, sleep apnea, morbid obesity)? @ -Type 2 diabetes, hypertension, prior history of peripheral edema, forward smoker Was patient admitted / discharged? Hospital course, mention meds given and route, prescriptions, significant lab abnormalities, going to OR and other pertinent info. @ -hospital course patient was admitted for inpatient evaluation and treatment of fluid retention evidence of pulmonary edema/CHF hyponatremia. Lactic acid elevation is likely due to fluid status. No infectious etiology is identified at this time. Undiagnosed new problem with uncertain prognosis? @ -No Drug Therapy requiring intensive monitoring for toxicity (Heparin, Nitro, Insulin, Cardizem)? @ -No Were any procedures done? @ -No Diagnosis/symptom? @ -Congestive heart failure, acute hyponatremia dyspnea peripheral edema lower extremity rash Acute, or Chronic, or Acute on Chronic? @ -Acute Uncomplicated (without systemic symptoms) or Complicated (systemic symptoms)? @ -default Side effects of treatment? @ -No Exacerbation, Progression, or Severe Exacerbation? @ -No Poses a threat to life or bodily function? How? (Chest pain, USA, AR, pneumonia, PE, COPD, DKA, ARF, appy, cholecystitis, CVA, Diverticulitis, Homicidal, S uicidal, threat to staff... and all critical care pts) @ -Potential, CHF, dyspnea hyponatremia - Lab Data Result diagrams: 12/05/23 20:35 12/05/23 20:35 Lab Results 12/05/23 12/05/23 12/05/23 Range/Units 20:35 20:35 20:35 WBC 5.5 (3.8-10.6) k/uL RBC 4.48 (3.80-5.40) m/uL Hgb 14.1 (11.4-16.0) gm/dL Hct 40.4 (34.0-46.0) % MCV 90.3 (80.0-100.0) fL MCH 31.5 (25.0-35.0) pg MCHC 34.9 (31.0-37.0) g/dL RDW 15.1 (11.5-15.5) % Plt Count 107 L (150-450) k/uL MPV 7.4 Neutrophils % 73 % Lymphocytes % 16 % Monocytes % 6 % Eosinophils % 1 % Basophils % 1 % Neutrophils # 4.0 (1.3-7.7) k/uL Lymphocytes # 0.9 L (1.0-4.8) k/uL Monocytes # 0.3 (0-1.0) k/uL Eosinophils # 0.1 (0-0.7) k/uL Basophils # 0.0 (0-0.2) k/uL Poikilocytosis Slight PT 13.3 H (10.0-12.5) sec INR 1.3 H (<1.2) APTT 22.8 (22.0-30.0) sec Sodium 124 L (137-145) mmol/L Potassium 4.2 (3.5-5.1) mmol/L Chloride 91 L (98-107) mmol/L Carbon Dioxide 24 (22-30) mmol/L Anion Gap 9 mmol/L BUN 18 H (7-17) mg/dL Creatinine 0.43 L (0.52-1.04) mg/dL Est GFR (CKD-EPI)AfAm >90 (>60 ml/min/1.73 sqM) Est GFR (CKD-EPI)NonAf >90 (>60 ml/min/1.73 sqM) Glucose 219 H (74-99) mg/dL Plasma Lactic Acid Pipo (0.7-2.0) mmol/L Calcium 8.6 (8.4-10.2) mg/dL Magnesium 1.8 (1.6-2.3) mg/dL Total Bilirubin 1.7 H (0.2-1.3) mg/dL AST 38 H (14-36) U/L ALT 35 H (4-34) U/L Alkaline Phosphatase 85 (38-126) U/L Troponin I (0.000-0.034) ng/mL NT-Pro-B Natriuret Pep 381 pg/mL Total Protein 6.9 (6.3-8.2) g/dL Albumin 3.1 L (3.5-5.0) g/dL Influenza Type A (PCR) (Not Detectd) Influenza Type B (PCR) (Not Detectd) RSV (PCR) (Not Detectd) SARS-CoV-2 (PCR) (Not Detectd) 12/05/23 12/05/23 12/05/23 Range/Units 20:35 20:35 20:35 WBC (3.8-10.6) k/uL RBC (3.80-5.40) m/uL Hgb (11.4-16.0) gm/dL Hct (34.0-46.0) % MCV (80.0-100.0) fL MCH (25.0-35.0) pg MCHC (31.0-37.0) g/dL RDW (11.5-15.5) % Plt Count (150-450) k/uL MPV Neutrophils % % Lymphocytes % % Monocytes % % Eosinophils % % Basophils % % Neutrophils # (1.3-7.7) k/uL Lymphocytes # (1.0-4.8) k/uL Monocytes # (0-1.0) k/uL Eosinophils # (0-0.7) k/uL Basophils # (0-0.2) k/uL Poikilocytosis PT (10.0-12.5) sec INR (<1.2) APTT (22.0-30.0) sec Sodium (137-145) mmol/L Potassium (3.5-5.1) mmol/L Chloride (98-107) mmol/L Carbon Dioxide (22-30) mmol/L Anion Gap mmol/L BUN (7-17) mg/dL Creatinine (0.52-1.04) mg/dL Est GFR (CKD-EPI)AfAm (>60 ml/min/1.73 sqM) Est GFR (CKD-EPI)NonAf (>60 ml/min/1.73 sqM) Glucose (74-99) mg/dL Plasma Lactic Acid Pipo 2.2 H* (0.7-2.0) mmol/L Calcium (8.4-10.2) mg/dL Magnesium (1.6-2.3) mg/dL Total Bilirubin (0.2-1.3) mg/dL AST (14-36) U/L ALT (4-34) U/L Alkaline Phosphatase (38-126) U/L Troponin I <0.012 (0.000-0.034) ng/mL NT-Pro-B Natriuret Pep pg/mL Total Protein (6.3-8.2) g/dL Albumin (3.5-5.0) g/dL Influenza Type A (PCR) Not Detected (Not Detectd) Influenza Type B (PCR) Not Detected (Not Detectd) RSV (PCR) Not Detected (Not Detectd) SARS-CoV-2 (PCR) Not Detected (Not Detectd) - EKG Data -: EKG Interpreted by Me EKG Comments: EKG interpreted by me sinus rhythm with first-degree AV block rate 88 [place] interval 232 QRS duration 76 QT/QTC 355/401 - Radiology Data Interpreted by me: Imaging troponin I immediate evidence of increased pulmonary vascular congestion Disposition Clinical Impression: Acute dyspnea, Acute congestive heart failure, Acute hyponatremia, Peripheral edema, Rash Disposition: ADMITTED IP TO THIS HOSP Condition: Fair Referrals: Manohar Pedraza MD [Primary Care Provider] - 1-2 days Decision Date: 12/05/23 Decision Time: 22:49
--- NOTE | 2023-12-05 21:00 | XR ---
EXAMINATION TYPE: XR chest 2V DATE OF EXAM: 12/05/2023 COMPARISON: 09/27/2023 HISTORY: 78 year-old female shortness of breath, difficulty breathing TECHNIQUE: AP and lateral views FINDINGS: Low lung volumes. Heart mildly enlarged. Diffuse interstitial opacities. No pleural effusion. IMPRESSION: Diffuse interstitial opacities and mild cardiomegaly. Correlate for CHF versus atypical pneumonias. T here may be a component of underlying chronic interstitial lung disease.
[2023-12-05 21:08] LABS: Basophils % (A) 1 %; Eosinophils # (A) 0.1 k/uL (0-0.7); Eosinophils % (A) 1 %; HCT 40.4 % (34.0-46.0); HGB 14.1 gm/dL (11.4-16.0); Lymphocytes # (A) 0.9 k/uL (1.0-4.8); Lymphocytes % (A) 16 %; MCH 31.5 pg (25.0-35.0); MCHC 34.9 g/dL (31.0-37.0); MCV 90.3 fL (80.0-100.0); Mean Platelet Volume 7.4; Monocytes # (A) 0.3 k/uL (0-1.0); Monocytes % (A) 6 %; Neutrophils % (A) 73 %; Platelet Count 107 k/uL (150-450); Poikilocytosis Slight; RBC 4.48 m/uL (3.80-5.40); RDW 15.1 % (11.5-15.5); WBC 5.5 k/uL (3.8-10.6)
[2023-12-05 21:27] LABS: ALT 35 U/L (4-34); AST 38 U/L (14-36); African American GFR (CKD) >90 (>60 ml/min/1.73 sqM); Albumin 3.1 g/dL (3.5-5.0); Alkaline Phosphatase 85 U/L (38-126); Anion Gap 9 mmol/L; Blood Urea Nitrogen 18 mg/dL (7-17); Calcium 8.6 mg/dL (8.4-10.2); Carbon Dioxide 24 mmol/L (22-30); Chloride 91 mmol/L (98-107); Glucose 219 mg/dL (74-99); Magnesium 1.8 mg/dL (1.6-2.3); Non-African American GFR(CKD) >90 (>60 ml/min/1.73 sqM); Potassium 4.2 mmol/L (3.5-5.1); Sodium 124 mmol/L (137-145); Total Bilirubin 1.7 mg/dL (0.2-1.3); Total Protein 6.9 g/dL (6.3-8.2)
[2023-12-05 21:35] LABS: NT-Pro-B-Type Natriuretic Pept 381 pg/mL
[2023-12-05 21:46] LABS: INR 1.3 (<1.2); Partial Thromboplastin Time 22.8 sec (22.0-30.0); Prothrombin Time 13.3 sec (10.0-12.5)
[2023-12-05] MEDS ORDERED: diphenhydrAMINE 50 MG/ML 1 ML VIAL IVP STA (22:53)
[2023-12-05] MEDS: FUROSEMIDE 10 MG/ML 4 ML VIAL IV SCH (22:56)
[2023-12-05] MEDS ORDERED: hydroCHLOROthiazide 25 MG TAB PO SCH (23:00)
[2023-12-05] MEDS: SODIUM CHLORIDE 0.9% 1,000 ML IV SCH (23:24)
[2023-12-06] MEDS ORDERED: DEXTROSE 50% SYRINGE 50 ML IVP PRN ×2 (02:05)
[2023-12-06] MEDS ORDERED: LORazepam 0.5 MG TAB PO STA (02:13)
[2023-12-06 02:41] LABS: Glucose,Whole Blood 178 mg/dL (70-110)
--- NOTE | 2023-12-06 02:52 | P.HPIM ---
History of Present Illness H&P Date: 12/06/23 Chief Complaint: exertional dyspnea 78 year old female with RODRIGUEZ, DM patient brought in by EMS due to worsening progressive exertional dyspnea over the past couple days, she reports worsening swelling of her legs bilaterally with weeping edema , increase dyspnea with exertion, and unable to lay flat (orthopnea) denies any chest pain , cough, fever, chills, nausea vomiting, or falls. she uses a walker normally to ambulate. she takes diuretics at home, but claims to be allergic to oral lasix. she claims to eat very low salt diet. she denies history of congestive heart failure , reports history of RODRIGUEZ with cirrhosis , denies any GI bleeding she is unaware of a rash on her face, and believes it started after coming to the hospital , however her RN noticed it upon arrival of the patient . patient denies any facial pain or trauma. patient claims having no urine output for the past 2 days. denies abd pain , or changes in bowel habits. denies any known sick contacts, recent travel or hospital stay denies tobacco smoking, illicit drugs or alcohol review of systems Pertinent positives as noted in HPI. All other systems were reviewed and are negative on exam Constitutional: No acute distress, conversant, pleasant Eyes: scleral jaundice , moist conjunctiva, Pupils equal round reactive to light ENMT: NC/AT Oropharynx clear, no erythema, or exudates Neck: Supple, no masses, positive JVD No carotid bruits No thyromegaly Lungs: decrease breath sounds at lung bases with inspiratory rales over mid and lower lungs bilaterally Clear to percussion Normal respiratory effort, no accessory muscle use Cardiovascular: Heart regular in rate and rhythm, No murmurs, gallops, or rubs +3 bilateral peripheral edema Abdominal: mild abd distention Nontender, no guarding, rebound or rigidity Abdomen moving with respiration Normoactive bowel sounds Skin: erythematus rash with scaling over bialteral mid face, extending from around the eyes down into her midface and cheeks. bilaterally , no open wound , no drainage Extremities: No digital cyanosis No clubbing Pedal pulses difficult to assess due to pedal edema , capillary refill immediate Radial pulses intact and symmetrical No calf tenderness Psychiatric: Alert and oriented to person, place and time Appropriate affect Neuro Muscles Strength 4/5 in bilateral upper extremities and 3/5 in bilateral lower extremities Sensation to light touch grossly present throughout Cranial nerves II-XII grossly intact Past Medical History Past Medical History: Diabetes Mellitus, Hypertension Additional Past Medical History / Comment(s): cirrhosis, thrombocytopenia, scoliosis History of Any Multi-Drug Resistant Organisms: None Reported Past Surgical History: Cholecystectomy Past Psychological History: No Psychological Hx Reported Smoking Status: Former smoker Past Alcohol Use History: None Reported Past Drug Use History: None Reported Medications and Allergies Home Medications Medication Instructions Recorded Confirmed Type LORazepam [Ativan] 0.25 mg PO DAILY 04/20/22 12/05/23 History Montelukast [Singulair] 10 mg PO HS 04/20/22 12/05/23 History Multivitamins, Thera [Multivitamin 1 tab PO PC-SUPPER 04/20/22 12/05/23 History (formulary)] atenoloL [Tenormin] 25 mg PO BID 04/20/22 12/05/23 History metFORMIN HCL [Glucophage] 1,000 mg PO HS 04/20/22 12/05/23 History Magnesium 200 mg PO DAILY 05/07/22 12/05/23 History LORazepam [Ativan] 0.5 mg PO HS 09/25/23 12/05/23 History Ibuprofen [Motrin Ib] 200 mg PO DAILY 12/05/23 12/05/23 History hydroCHLOROthiazide [Hydrodiuril] 25 mg PO Q2D 12/05/23 12/05/23 History Allergies Allergy/AdvReac Type Severity Reaction Status Date / Time Iodinated Contrast Media Allergy Unknown face Verified 12/05/23 21:14 bright red and did not feel right. neomycin Allergy Unknown red face Verified 12/05/23 21:14 shellfish derived [Shrimp] Allergy Unknown face Verified 12/05/23 21:14 bright red, -felt funny. azithromycin Allergy red face Verified 12/05/23 21:14 ciprofloxacin [From Cipro] Allergy red face Verified 12/05/23 21:14 meperidine [From Demerol] Allergy red face Verified 12/05/23 21:14 Penicillins Allergy red face Verified 12/05/23 21:14 sulfite Allergy red face Verified 12/05/23 21:14 polyethylene glycol AdvReac Unknown Nausea & Verified 12/05/23 21:14 [From Golytely] Vomiting polyethylene glycol 3350 AdvReac Unknown Nausea & Verified 12/05/23 21:14 [From Golytely] Vomiting potassium chloride AdvReac Unknown Nausea & Verified 12/05/23 21:14 [From Golytely] Vomiting sodium [From Golytely] AdvReac Unknown Nausea & Verified 12/05/23 21:14 Vomiting sodium bicarbonate AdvReac Unknown Nausea & Verified 12/05/23 21:14 [From Golytely] Vomiting sodium chloride AdvReac Unknown Nausea & Verified 12/05/23 21:14 [From Golytely] Vomiting sodium sulfate AdvReac Unknown Nausea & Verified 12/05/23 21:14 [From Golytely] Vomiting COVID phizer vaccine Allergy Unknown Swelling Uncoded 12/05/23 21:14 face & eyes & red face. lobster Allergy Unknown bright Uncoded 12/05/23 21:14 red, "feels funny" Physical Exam Vitals: Vital Signs Temp Pulse Resp BP Pulse Ox 12/06/23 02:00 77 20 119/54 98 12/05/23 23:00 70 20 119/54 99 12/05/23 21:08 80 20 155/64 100 12/05/23 20:15 98.0 F 98 22 170/87 95 Intake and Output 12/05/23 12/05/23 12/06/23 14:59 22:59 06:59 Other: Weight 99.79 kg Results CBC & Chem 7: 12/05/23 20:35 12/05/23 20:35 Labs: Abnormal Lab Results - Last 24 Hours (Table) 12/05/23 12/05/23 12/05/23 Range/Units 20:35 20:35 20:35 Plt Count 107 L (150-450) k/uL Lymphocytes # 0.9 L (1.0-4.8) k/uL PT 13.3 H (10.0-12.5) sec INR 1.3 H (<1.2) Sodium 124 L (137-145) mmol/L Chloride 91 L (98-107) mmol/L BUN 18 H (7-17) mg/dL Creatinine 0.43 L (0.52-1.04) mg/dL Glucose 219 H (74-99) mg/dL Plasma Lactic Acid Pipo (0.7-2.0) mmol/L Total Bilirubin 1.7 H (0.2-1.3) mg/dL AST 38 H (14-36) U/L ALT 35 H (4-34) U/L Albumin 3.1 L (3.5-5.0) g/dL 12/05/23 Range/Units 20:35 Plt Count (150-450) k/uL Lymphocytes # (1.0-4.8) k/uL PT (10.0-12.5) sec INR (<1.2) Sodium (137-145) mmol/L Chloride (98-107) mmol/L BUN (7-17) mg/dL Creatinine (0.52-1.04) mg/dL Glucose (74-99) mg/dL Plasma Lactic Acid Pipo 2.2 H* (0.7-2.0) mmol/L Total Bilirubin (0.2-1.3) mg/dL AST (14-36) U/L ALT (4-34) U/L Albumin (3.5-5.0) g/dL Assessment and Plan Assessment: 78 year old female with chronic hyponatremia , liver cirrhosis due to RODRIGUEZ, DM , coming in with progressive exertional dyspnea , I discussed the case with ED doc and I accepted the admission for acute on chronic hypoxemia , advanced liver cirrhosis , hyponatremia and fluid overload with anticipated length of stay > 2 midnights acute on chronic hypoxic respiratory failure 2/2 fluid overload and pulmonary edema fluid overload , pulmonary edema , hypervolemic hyponatremia liver cirrhosis 2/2 RODRIGUEZ fluid restriction to 1.5 L daily IV lasix 40 mg q8hr daily weight check echocardiogram bilirubin 1.7 AST 38 ALT 35 Na 124 , K 4.2 bun 18 Cr 0.4 acute respiratory viral panel negative for covid , flu and RSV CXR suggestive of pulmonary edema EKG no acute ST changes trops negative add spironolactone 25 mg po daily DC HCTZ WBC 5.5 , Hgb 14 unremarkable dermatitis of the face hydrocortisone 1% cream trial no fever, no leukocytosis DM , insulin sliding scale full code DVT PPX heparin sc tid
[2023-12-06] MEDS: HYDROCORTISONE 1% CREAM 30 GM TUBE TOPICAL PRN ×2 (06:39→08:30)
[2023-12-06] MEDS: FUROSEMIDE 10 MG/ML 4 ML VIAL IV SCH ×3 (06:39→22:47)
[2023-12-06 06:42] LABS: Glucose,Whole Blood 140 mg/dL (70-110)
[2023-12-06] MEDS: INSULIN ASPART (NovoLOG) 100 UNIT/ML VIAL SQ SCH ×4 (06:49→22:41)
[2023-12-06 08:03] LABS: African American GFR (CKD) >90 (>60 ml/min/1.73 sqM); Anion Gap 10 mmol/L; Blood Urea Nitrogen 17 mg/dL (7-17); Calcium 8.6 mg/dL (8.4-10.2); Carbon Dioxide 26 mmol/L (22-30); Chloride 92 mmol/L (98-107); Glucose 147 mg/dL (74-99); Non-African American GFR(CKD) >90 (>60 ml/min/1.73 sqM); Potassium 3.6 mmol/L (3.5-5.1); Sodium 128 mmol/L (137-145)
[2023-12-06] MEDS: MAGNESIUM OXIDE 400 MG TAB PO SCH (08:26)
[2023-12-06] MEDS: atenoloL 25 MG TAB PO SCH ×2 (08:26→21:16)
[2023-12-06] MEDS: HEPARIN SODIUM,PORCINE 5,000 UNIT/ML 1 ML VIAL SQ SCH ×3 (08:26→15:49)
[2023-12-06] MEDS: LORazepam 0.5 MG TAB PO SCH (08:27)
[2023-12-06] MEDS: IBUPROFEN 200 MG TAB PO SCH (08:42)
[2023-12-06] MEDS: SPIRONOLACTONE 25 MG TAB PO SCH (08:42)
[2023-12-06 12:24] LABS: Glucose,Whole Blood 209 mg/dL (70-110)
--- NOTE | 2023-12-06 14:11 | P.PN ---
Subjective Progress Note Date: 12/06/23 Hospital course: Patient is a very pleasant 78-year-old female with a past medical history of liver cirrhosis secondary to RODRIGUEZ, hypertension, and phy-wmddrfy-bstcavnbj diabetes mellitus. She presented to the emergency department on 12/05/23 with a chief complaint of shortness of breath. Patient reported progressively worsening exertional dyspnea over the past few days accompanied by increased swelling in bilateral lower extremities. Patient reports lower extremity edema so severe in her legs continuously weeping and her shortness of breath is now resulted in orthopnea. She underwent full evaluation in the emergency department. Vital signs upon arrival show blood pressure 170/87, heart rate 98, respiratory rate 20, temp 98.0F, and SpO2 of 95% on 3 L O2 via nasal cannula. EKG completed showing normal sinus rhythm at 80 bpm with a first-degree AV block with FL interval of 232 ms otherwise no significant T-wave or ST abnormalities showing no signs of acute ischemia. Chest x-ray completed in radiology report stating diffuse interstitial opacities with cardiomegaly concerning for CHF versus atypical pneumonia with a component of underlying chronic interstitial lung disease. Labs completed and reviewed. CBC showing thrombocytopenia with platelet count of 107, this is chronic and at baseline levels. BMP showing hyponatremia with sodium 124, hypochloremia with chloride of 91, bicarb of 24, and anion gap of 9 with renal function is follows BUN 18, creatinine 0.43, GFR greater than 90. Initially lactic acid elevated at 2.2 with repeat of 1.4. Liver profile showing elevated total bili of 1.7, AST 38, ALT of 35, alkaline phosphatase of 85. Troponin less than 0.012 and proBNP of 381. Coagulation profile showing elevated PT of 13.3 and INR 1.3. Patient was admitted under our services. MELD score upon arrival 11 points showing a 6% estimated 3 month mort ality. Physical exam: Vital signs reviewed and stable. General: Nontoxic, no distress and appears stated age. Derm: Skin warm and dry, normal coloration for ethnicity. Rash on face/upper cheeks with scaling Head: Atraumatic, normocephalic and symmetric. Eyes: EOMs intact, no lid lag, and anicteric sclera Mouth: no lip lesions, mucus membranes moist Cardiovascular: regular rate and rhythm with normal S1S2, no murmur, positive posterior tibial pulses bilaterally, and cap refill < 2 seconds. Lungs: Respirations even, regular, and unlabored on room air. Lungs diminished with no rhonchi, no rales, no wheezing, and no accessory muscle usage. Abdominal: soft, nontender to palpation, no guarding, no appreciable organomegaly Ext: ROM intact. No gross muscle atrophy, 3+ pitting bilateral lower extremity edema, no contractures Neuro: Speech clear, face symmetrical and CN II-XII grossly intact with no noted focal neuro deficits Psych: Alert and oriented to person, place, time, and situation. Appropriate and pleasant affect. Assessment and Plan of Care: 78 year old female with chronic hyponatremia secondary to liver cirrhosis due to RDORIGUEZ. Patient presented to the emergency department with a chief complaint of progressive exertional dyspnea. Patient was admitted for acute on chronic hypoxia, decompensated liver cirrhosis, and acute on chronic hyponatremia resulting from fluid overload with anticipated length of stay > 2 midnights Acute on chronic hypoxic respiratory failure secondary to fluid overload and pulmonary edema Fluid overload , pulmonary edema , hypervolemic hyponatremia Decompensated Liver cirrhosis secondary to RODRIGUEZ Acute on chronic hyponatremia secondary to fluid volume overload, improving with diuresis and fluid restriction -Continue fluid restriction 1.5 L daily -Continue IV lasix 40 mg IVP q8hr along with Aldactone 25 mg daily -Continued close monitoring of I's and O's and daily weights -Echocardiogram to be completed Dermatitis of the face -Continue hydrocortisone 1% cream 3 times daily [id number]-[id number] diabetes mellitus with hyperglycemia -Metformin was held and patient placed on glycemic protocol with NovoLog sliding scale. Morning glucose improved currently 147. CODE STATUS: Full code DVT prophylaxis: Heparin Anticipated discharge date: Clinical course to determine Anticipated discharge place: Clinical course to determine Patient was seen independently by Nurse Pracitioner. This document was prepared using [employer] dictation software. Please allow for errors in flat ironer, while rare they do occur. Objective - Vital Signs Vital signs: Vital Signs Temp 97.5 F L 12/06/23 08:42 Pulse 80 12/06/23 08:42 Resp 20 12/06/23 08:42 BP 153/74 12/06/23 08:42 Pulse Ox 97 12/06/23 08:42 FiO2 Intake & Output 12/05/23 12/06/23 12/06/23 18:59 06:59 18:59 Weight 99.79 kg - Labs CBC & Chem 7: 12/05/23 20:35 12/06/23 07:33 Labs: Abnormal Lab Results - Last 24 Hours (Table) 12/05/23 12/05/23 12/05/23 Range/Units 20:35 20:35 20:35 Plt Count 107 L (150-450) k/uL Lymphocytes # 0.9 L (1.0-4.8) k/uL PT 13.3 H (10.0-12.5) sec INR 1.3 H (<1.2) Sodium 124 L (137-145) mmol/L Chloride 91 L (98-107) mmol/L BUN 18 H (7-17) mg/dL Creatinine 0.43 L (0.52-1.04) mg/dL Glucose 219 H (74-99) mg/dL POC Glucose (mg/dL) (70-110) mg/dL Plasma Lactic Acid Pipo (0.7-2.0) mmol/L Total Bilirubin 1.7 H (0.2-1.3) mg/dL AST 38 H (14-36) U/L ALT 35 H (4-34) U/L Albumin 3.1 L (3.5-5.0) g/dL 12/05/23 12/06/23 12/06/23 Range/Units 20:35 02:35 06:38 Plt Count (150-450) k/uL Lymphocytes # (1.0-4.8) k/uL PT (10.0-12.5) sec INR (<1.2) Sodium (137-145) mmol/L Chloride (98-107) mmol/L BUN (7-17) mg/dL Creatinine (0.52-1.04) mg/dL Glucose (74-99) mg/dL POC Glucose (mg/dL) 178 H 140 H (70-110) mg/dL Plasma Lactic Acid Pipo 2.2 H* (0.7-2.0) mmol/L Total Bilirubin (0.2-1.3) mg/dL AST (14-36) U/L ALT (4-34) U/L Albumin (3.5-5.0) g/dL 12/06/23 Range/Units 07:33 Plt Count (150-450) k/uL Lymphocytes # (1.0-4.8) k/uL PT (10.0-12.5) sec INR (<1.2) Sodium 128 L (137-145) mmol/L Chloride 92 L (98-107) mmol/L BUN (7-17) mg/dL Creatinine 0.42 L (0.52-1.04) mg/dL Glucose 147 H (74-99) mg/dL POC Glucose (mg/dL) (70-110) mg/dL Plasma Lactic Acid Pipo (0.7-2.0) mmol/L Total Bilirubin (0.2-1.3) mg/dL AST (14-36) U/L ALT (4-34) U/L Albumin (3.5-5.0) g/dL
[2023-12-06 16:09] LABS: Glucose,Whole Blood 226 mg/dL (70-110)
[2023-12-06] MEDS ORDERED: LORazepam 1 MG TAB PO STA (17:09)
[2023-12-06] MEDS: MULTIVITAMINS, THERA 1 EACH TAB PO SCH (18:14)
[2023-12-06 19:11] LABS: African American GFR (CKD) >90 (>60 ml/min/1.73 sqM); Anion Gap 9 mmol/L; Blood Urea Nitrogen 19 mg/dL (7-17); Calcium 8.5 mg/dL (8.4-10.2); Carbon Dioxide 27 mmol/L (22-30); Chloride 89 mmol/L (98-107); Glucose 209 mg/dL (74-99); Non-African American GFR(CKD) >90 (>60 ml/min/1.73 sqM); Potassium 3.9 mmol/L (3.5-5.1); Sodium 125 mmol/L (137-145)
[2023-12-06] MEDS ORDERED: metFORMIN 500 MG TAB PO SCH (21:00)
[2023-12-06] MEDS: MONTELUKAST 10 MG TAB PO SCH (21:16)
[2023-12-06] MEDS: SODIUM CHLORIDE 0.9% 1,000 ML IV SCH (22:47)
[2023-12-07] MEDS: HEPARIN SODIUM,PORCINE 5,000 UNIT/ML 1 ML VIAL SQ SCH ×3 (00:02→17:07)
[2023-12-07] MEDS: LORazepam 0.5 MG TAB PO SCH ×3 (00:47→19:46)
[2023-12-07 06:49] LABS: Glucose,Whole Blood 129 mg/dL (70-110)
[2023-12-07] MEDS: INSULIN ASPART (NovoLOG) 100 UNIT/ML VIAL SQ SCH ×4 (07:00→21:30)
[2023-12-07] MEDS: FUROSEMIDE 10 MG/ML 4 ML VIAL IV SCH ×3 (08:47→19:29)
[2023-12-07 09:01] LABS: HCT 32.5 % (34.0-46.0); HGB 11.3 gm/dL (11.4-16.0); MCH 31.8 pg (25.0-35.0); MCHC 34.8 g/dL (31.0-37.0); MCV 91.4 fL (80.0-100.0); Platelet Count 147 k/uL (150-450); Poikilocytosis Slight; RBC 3.56 m/uL (3.80-5.40); RDW 15.6 % (11.5-15.5); WBC 10.5 k/uL (3.8-10.6)
[2023-12-07 09:02] LABS: ALT 40 U/L (4-34); AST 58 U/L (14-36); African American GFR (CKD) >90 (>60 ml/min/1.73 sqM); Albumin 2.8 g/dL (3.5-5.0); Alkaline Phosphatase 73 U/L (38-126); Anion Gap 6 mmol/L; Blood Urea Nitrogen 20 mg/dL (7-17); Calcium 8.5 mg/dL (8.4-10.2); Carbon Dioxide 30 mmol/L (22-30); Chloride 90 mmol/L (98-107); Glucose 154 mg/dL (74-99); Magnesium 1.8 mg/dL (1.6-2.3); Non-African American GFR(CKD) >90 (>60 ml/min/1.73 sqM); Potassium 3.9 mmol/L (3.5-5.1); Sodium 126 mmol/L (137-145); Total Protein 6.4 g/dL (6.3-8.2)
[2023-12-07] MEDS: MAGNESIUM OXIDE 400 MG TAB PO SCH (10:56)
[2023-12-07] MEDS: SPIRONOLACTONE 25 MG TAB PO SCH (10:56)
[2023-12-07] MEDS: atenoloL 25 MG TAB PO SCH ×2 (10:56→19:45)
[2023-12-07] MEDS: IBUPROFEN 200 MG TAB PO SCH (10:56)
[2023-12-07 12:25] LABS: Glucose,Whole Blood 184 mg/dL (70-110)
--- NOTE | 2023-12-07 13:20 | P.PN ---
Subjective Progress Note Date: 12/07/23 Hospital course: Patient is a very pleasant 78-year-old female with a past medical history of liver cirrhosis secondary to RODRIGUEZ, hypertension, and blt-fcnffcx-yxwvjwrgd diabetes mellitus. She presented to the emergency department on 12/05/23 with a chief complaint of shortness of breath. Patient reported progressively worsening exertional dyspnea over the past few days accompanied by increased swelling in bilateral lower extremities. Patient reports lower extremity edema so severe in her legs continuously weeping and her shortness of breath is now resulted in orthopnea. She underwent full evaluation in the emergency department. Vital signs upon arrival show blood pressure 170/87, heart rate 98, respiratory rate 20, temp 98.0F, and SpO2 of 95% on 3 L O2 via nasal cannula. EKG completed showing normal sinus rhythm at 80 bpm with a first-degree AV block with VT interval of 232 ms otherwise no significant T-wave or ST abnormalities showing no signs of acute ischemia. Chest x-ray completed in radiology report stating diffuse interstitial opacities with cardiomegaly concerning for CHF versus atypical pneumonia with a component of underlying chronic interstitial lung disease. Labs completed and reviewed. CBC showing thrombocytopenia with platelet count of 107, this is chronic and at baseline levels. BMP showing hyponatremia with sodium 124, hypochloremia with chloride of 91, bicarb of 24, and anion gap of 9 with renal function is follows BUN 18, creatinine 0.43, GFR greater than 90. Initially lactic acid elevated at 2.2 with repeat of 1.4. Liver profile showing elevated total bili of 1.7, AST 38, ALT of 35, alkaline phosphatase of 85. Troponin less than 0.012 and proBNP of 381. Coagulation profile showing elevated PT of 13.3 and INR 1.3. Patient was admitted under our services. MELD score upon arrival 11 points showing a 6% estimated 3 month mort ality. Physical exam: Patient seen and fully evaluated at bedside this morning. Patient reports feeling anxious, patient has been refusing many medications throughout her hospitalization. Discussed with patient and patient's stating she does not like the way they make her feel and that they make her eyes feel puffy. Patient educated on the importance of medication compliance and risks of noncompliance to and including as patient is in significant fluid overload and in need of diuretics. Vital signs reviewed and stable. General: Nontoxic, no distress and appears stated age. Derm: Skin warm and dry, normal coloration for ethnicity. Rash on face/upper cheeks with scaling Head: Atraumatic, normocephalic and symmetric. Eyes: EOMs intact, no lid lag, and anicteric sclera Mouth: no lip lesions, mucus membranes moist Cardiovascular: regular rate and rhythm with normal S1S2, no murmur, positive posterior tibial pulses bilaterally, and cap refill < 2 seconds. Lungs: Respirations even, regular, and unlabored on room air. Lungs diminished with diffuse crackles bilaterally. Abdominal: soft, nontender to palpation, no guarding, no appreciable organomegaly Ext: ROM intact. No gross muscle atrophy, 3+ pitting bilateral lower extremity edema, no contractures Neuro: Speech clear, face symmetrical and CN II-XII grossly intact with no noted focal neuro deficits Psych: Alert and oriented to person, place, time, and situation. Appropriate and pleasant affect. Assessment and Plan of Care: 78 year old female with chronic hyponatremia secondary to liver cirrhosis due to RODRIGUEZ. Patient presented to the emergency department with a chief complaint of progressive exertional dyspnea. Patient was admitted for acute on chronic hypoxia, decompensated liver cirrhosis, and acute on chronic hyponatremia resulting from fluid overload. Acute on chronic hypoxic respiratory failure secondary to fluid overload and pulmonary edema Fluid overload , pulmonary edema , hypervolemic hyponatremia Decompensated Liver cirrhosis secondary to RODRIGUEZ Acute on chronic hyponatremia secondary to fluid volume overload, improving with diuresis and fluid restriction Hyperbilirubinemia with Elevated liver enzymes secondary to RODRIGUEZ Bicytopenia secondary to above -Continue fluid restriction 1.5 L daily -Continue IV lasix 40 mg IVP q8hr along with Aldactone 25 mg daily -Continued close monitoring of I's and O's and daily weights -Awaiting Echocardiogram to be completed -Cardiology consulted, appreciate recommendations Dermatitis of the face -Continue hydrocortisone 1% cream 3 times daily Iqz-fhwmdsi-abugjgwtu diabetes mellitus with hyperglycemia -Metformin was held and patient placed on glycemic protocol with NovoLog sliding scale. Morning glucose improved currently 154. Data reviewed: Morning labs reviewed. CBC showing continued bicytopenia with hemoglobin of 11.3 and platelet count of 147. BMP showing sodium 126, chloride 90, BUN 20, creatinine 0.46, GFR greater than 90. Liver profile showing elevated total bili of 3.0, AST of 58, and ALT of 40. Vital signs reviewed and stable. Blood pressure 130/70, heart rate 75, respiratory rate 24, temp 98.2F, SpO2 is 96% on 2 L. CODE STATUS: Full code DVT prophylaxis: Heparin Anticipated discharge date: Clinical course to determine Anticipated discharge place: Clinical course to determine Patient was seen independently by Nurse Pracitioner. This document was prepared using [employer] dictation software. Please allow for errors in bass mechanism maker, while rare they do occur. Objective - Vital Signs Vital signs: Vital Signs Temp 98.7 F 12/07/23 03:00 Pulse 71 12/07/23 03:00 Resp 24 12/07/23 03:00 BP 132/61 12/07/23 03:00 Pulse Ox 96 12/07/23 03:00 FiO2 Intake & Output 12/06/23 12/07/23 12/07/23 18:59 06:59 18:59 Output Total 1500 Balance -1500 Output: Urine 1500 - Labs CBC & Chem 7: 12/07/23 08:18 12/07/23 08:18 Labs: Abnormal Lab Results - Last 24 Hours (Table) 12/06/23 12/06/23 12/06/23 Range/Units 07:33 12:23 15:51 Sodium 128 L (137-145) mmol/L Chloride 92 L (98-107) mmol/L BUN (7-17) mg/dL Creatinine 0.42 L (0.52-1.04) mg/dL Glucose 147 H (74-99) mg/dL POC Glucose (mg/dL) 209 H 226 H (70-110) mg/dL 12/06/23 12/07/23 Range/Units 18:20 06:47 Sodium 125 L (137-145) mmol/L Chloride 89 L (98-107) mmol/L BUN 19 H (7-17) mg/dL Creatinine 0.47 L (0.52-1.04) mg/dL Glucose 209 H (74-99) mg/dL POC Glucose (mg/dL) 129 H (70-110) mg/dL
--- NOTE | 2023-12-07 16:35 | CA ---
Transthoracic Echo Report Name: Estee Campuzano Age: 78 Gender: F : 1945 Exam Date: 12/07/2023 12:00 Exam Location: [facility] Ht (in): 63 Wt (lb): 220 Ordering Physician: Val Bateman MD Attending/Referring Phys: [id number], Bhavana Bindery Machine Feeder Offbearer Charlee Nieves RDCS Procedure CPT: Indications: lvef Cardiac Hx: Technical Quality: Good Contrast 1: Total Dose (mL): Contrast 2: Total Dose (mL): MEASUREMENTS (Male / Female) Normal Values 2D ECHO LV Diastolic Diameter PLAX 5.3 cm 4.2 - 5.9 / 3.9 - 5.3 cm LV Systolic Diameter PLAX 3.3 cm IVS Diastolic Thickness 1.1 cm 0.6 - 1.0 / 0.6 - 0.9 cm LVPW Diastolic Thickness 1.3 cm 0.6 - 1.0 / 0.6 - 0.9 cm LV Relative Wall Thickness 0.5 RV Internal Dim ED PLAX 3.0 cm LA Systolic Diameter LX 4.1 cm 3.0 - 4.0 / 2.7 - 3.8 cm LV Diastolic Volume MOD 4C 107.9 cm??? LV Systolic Volume MOD 4C 32.3 cm??? LV Ejection Fraction MOD 4C 70.1 % LV Cardiac Index MOD 4C 1964.8 cm???/min???m??? LV Diastolic Length 4C 8.4 cm LV Systolic Length 4C 6.4 cm LV Diastolic Volume MOD 2C 87.8 cm??? LV Systolic Volume MOD 2C 31.2 cm??? LV Ejection Fraction MOD 2C 64.5 % LV Cardiac Index MOD 2C 1470.3 cm???/min???m??? LV Diastolic Length 2C 8.0 cm LV Systolic Length 2C 6.4 cm LA Volume 74.0 cm??? 18 - 58 / 22 - 52 cm??? LA Volume Index 34.3 cm???/m??? 16 - 28 cm???/m??? M-MODE Aortic Root Diameter MM 3.2 cm MV E Point Septal Separation 1.1 cm DOPPLER AV Peak Velocity 220.8 cm/s AV Peak Gradient 19.5 mmHg AV Mean Velocity 145.3 cm/s AV Mean Gradient 9.8 mmHg AV Velocity Time Integral 57.0 cm LVOT Peak Velocity 143.0 cm/s LVOT Peak Gradient 8.2 mmHg MV Peak Velocity 192.6 cm/s MV Peak Gradient 14.8 mmHg MV Mean Velocity 99.2 cm/s MV Mean Gradient 4.7 mmHg MV Velocity Time Integral 64.1 cm MV Area PHT 2.3 cm??? Mitral E Point Velocity 166.7 cm/s Mitral A Point Velocity 102.5 cm/s Mitral E to A Ratio 1.6 MV Deceleration Time 331.6 ms MV E' Velocity 4.3 cm/s Mitral E to MV E' Ratio 38.9 TR Peak Velocity 325.9 cm/s TR Peak Gradient 42.5 mmHg Right Ventricular Systolic Press 45.3 mmHg FINDINGS Left Ventricle Left ventricular ejection fraction is estimated at 55-60 %. Left ventricular cavity size normal. Mildly increased septal wall thickness. Mildly increased posterior wall thickness. Right Ventricle Normal right ventricular size. Moderate pulmonary hypertension. Right Atrium Normal right atrial size. Left Atrium Mildly increased left atrial diameter. Moderately increased left atrial volume. Mildly increased left atrial area. Mitral Valve Mitral valve thickened. Mild mitral annular calcification. Mild mitral regurgitation. Aortic Valve Trileaflet aortic valve. Aortic valve sclerosis. Mild aortic stenosis with a peak gradient of 20 mmHg and a mean gradient of 10 mmHg. Tricuspid Valve Structurally normal tricuspid valve. [id number] tricuspid regurgitation. Pulmonic Valve Structurally normal pulmonic valve. Mild pulmonic regurgitation. Pericardium No pericardial effusion. Aorta Normal size aortic root and proximal ascending aorta. CONCLUSIONS Normal LV systolic function Mild mitral regurgitation Mild aortic stenosis Mild to moderate tricuspid regurgitation Moderate pulmonary hypertension Previewed by: Dr. Hilario Talamantes MD (Electronically Signed) Final Date: 07 December 2023 16:35
[2023-12-07 16:45] LABS: Glucose,Whole Blood 301 mg/dL (70-110)
[2023-12-07] MEDS: MULTIVITAMINS, THERA 1 EACH TAB PO SCH (17:06)
[2023-12-07] MEDS ORDERED: PETROLATUM, WHITE OINT 50 GM TUBE TOPICAL PRN (18:26)
[2023-12-07] MEDS: MONTELUKAST 10 MG TAB PO SCH (19:47)
[2023-12-07] MEDS: HYDROCORTISONE 1% CREAM 30 GM TUBE TOPICAL PRN (19:48)
[2023-12-07 20:06] LABS: Glucose,Whole Blood 119 mg/dL (70-110)
[2023-12-08] MEDS: HEPARIN SODIUM,PORCINE 5,000 UNIT/ML 1 ML VIAL SQ SCH ×4 (00:19→23:43)
[2023-12-08 06:20] LABS: Glucose,Whole Blood 80 mg/dL (70-110)
[2023-12-08] MEDS: FUROSEMIDE 10 MG/ML 4 ML VIAL IV SCH (06:25)
[2023-12-08] MEDS: INSULIN ASPART (NovoLOG) 100 UNIT/ML VIAL SQ SCH ×4 (06:25→20:17)
[2023-12-08] MEDS: MAGNESIUM OXIDE 400 MG TAB PO SCH ×2 (08:45→10:22)
[2023-12-08] MEDS: atenoloL 25 MG TAB PO SCH ×2 (08:46→20:17)
[2023-12-08] MEDS: IBUPROFEN 200 MG TAB PO SCH ×2 (08:46→08:50)
[2023-12-08] MEDS: LORazepam 0.5 MG TAB PO SCH ×2 (08:46→20:17)
[2023-12-08] MEDS: TORSEMIDE 20 MG TAB PO SCH (08:47)
--- NOTE | 2023-12-08 11:06 | P.CRDCN ---
History of Present Illness History of present illness: HISTORY OF PRESENT ILLNESS: This is a 78-year-old female with a past medical history significant for liver cirrhosis, chronic hypoxic respiratory failure on home oxygen, hypertension, and diabetes. 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 We have been asked to see the patient in consultation for congestive heart failure. Patient examined at the bedside. Patient presented to the hospital with a chief complaint of shortness of breath and increased lower extremity edema. The patient was started on IV Lasix. The patient received one dose of IV Lasix and states that she had began to have puffy eyes afterwards. She states that she took her own Benadryl out of her purse afterwards. She has since refused all IV Lasix. The patient states that she is unable to tolerate Bumex or Aldactone. She states that she has not been on Demadex before and is willing to try this. The patient states that she has been taking hydrochlorothiazide at home and is able to tolerate this. However she is hyponatremic this admission. She also reports following a low-sodium diet at home. * EKG reveals sinus mechanism with no signs of acute ischemia * Chest xray diffuse interstitial opacities and mild primarily. Correlate for CHF versus atypical pneumonia. * Laboratory data: Pro BNP 381. Troponin negative 1. * Current home cardiac medications include atenolol 25 mg twice a day and he scored thiazide 25 mg every 2 days * Echocardiogram completed revealing ejection fraction 55-60%, mild MR, mild AST, [id number] tricuspid regurgitation, moderate pulmonary hypertension REVIEW OF SYSTEMS: At the time of my exam: CONSTITUTIONAL: Denies fever or chills. HEENT: Denies blurred vision, vision changes, or eye pain. Denies hemoptysis CARDIOVASCULAR: Denies chest pain. Denies orthopnea. Denies PND. Denies palpitations RESPIRATORY: Denies shortness of breath. GASTROINTESTINAL: Denies abdominal pain. Denies nausea or vomiting. HEMATOLOGIC: Denies bleeding disorders. GENITOURINARY: Denies any blood in urine. SKIN: Denies pruitis. Denies rash. PHYSICAL EXAM: VITAL SIGNS: Reviewed. GENERAL: Well-developed in no acute distress. HEENT: Head is normocephalic. Pupils are equal, round. Sclerae anicteric. Mucous membranes of the mouth are moist. Neck supple. No JVD or thyromegaly LUNGS: Respirations even and unlabored. Lungs essentially clear to auscultation bilaterally. HEART: Regular rate and rhythm. S1 and S2 heard. Systolic murmur noted. ABDOMEN: Soft. Nondistended. Nontender. EXTREMITIES: Normal range of motion. No clubbing or cyanosis. Peripheral pulses intact. 2+ bilateral lower extremity edema with erythema noted NEUROLOGIC: Awake and alert. Oriented x 3. ASSESSMENT: Shortness of breath with increased lower extremity edema Acute heart failure with preserved ejection fraction History of liver cirrhosis Chronic hypoxic respiratory failure on home oxygen Hypertension Diabetes PLAN: The patient received one dose of IV Lasix and states that she had began to have puffy eyes afterwards. She states that she took her own Benadryl out of her purse afterwards. She has since refused all IV Lasix. The patient states that she is unable to tolerate Bumex or Aldactone. She states that she has not been on Demadex before and is willing to try this. However after rounding, the patient refused to take Demadex. She is also refusing to have her lower extremities wrapped. There are limited options as the patient is refusing all medications and is refusing to try new medications that she has not received before. Medication compliance discussed with the patient who verbalized understanding. We will follow as needed. Please with questions or concerns Nurse practitioner note has been reviewed by physician. Signing provider agrees with the documented findings, assessment, and plan of care. Past Medical History Past Medical History: Diabetes Mellitus, Hypertension Additional Past Medical History / Comment(s): cirrhosis, thrombocytopenia, s coliosis, diveticulosis History of Any Multi-Drug Resistant Organisms: None Reported Past Surgical History: Cholecystectomy Additional Past Surgical History / Comment(s): colectomy Past Anesthesia/Blood Transfusion Reactions: No Reported Reaction Past Psychological History: No Psychological Hx Reported Smoking Status: Former smoker Past Alcohol Use History: None Reported Past Drug Use History: None Reported Medications and Allergies Home Medications Medication Instructions Recorded Confirmed Type LORazepam [Ativan] 0.25 mg PO DAILY 04/20/22 12/05/23 History Montelukast [Singulair] 10 mg PO HS 04/20/22 12/05/23 History Multivitamins, Thera [Multivitamin 1 tab PO PC-SUPPER 04/20/22 12/05/23 History (formulary)] atenoloL [Tenormin] 25 mg PO BID 04/20/22 12/05/23 History metFORMIN HCL [Glucophage] 1,000 mg PO HS 04/20/22 12/05/23 History Magnesium 200 mg PO DAILY 05/07/22 12/05/23 History LORazepam [Ativan] 0.5 mg PO HS 09/25/23 12/05/23 History Ibuprofen [Motrin Ib] 200 mg PO DAILY 12/05/23 12/05/23 History hydroCHLOROthiazide [Hydrodiuril] 25 mg PO Q2D 12/05/23 12/05/23 History Allergies Allergy/AdvReac Type Severity Reaction Status Date / Time Iodinated Contrast Media Allergy Unknown face Verified 12/05/23 21:14 bright red and did not feel right. neomycin Allergy Unknown red face Verified 12/05/23 21:14 shellfish derived [Shrimp] Allergy Unknown face Verified 12/05/23 21:14 bright red, -felt funny. azithromycin Allergy red face Verified 12/05/23 21:14 ciprofloxacin [From Cipro] Allergy red face Verified 12/05/23 21:14 meperidine [From Demerol] Allergy red face Verified 12/05/23 21:14 Penicillins Allergy red face Verified 12/05/23 21:14 sulfite Allergy red face Verified 12/05/23 21:14 polyethylene glycol AdvReac Unknown Nausea & Verified 12/05/23 21:14 [From Golytely] Vomiting polyethylene glycol 3350 AdvReac Unknown Nausea & Verified 12/05/23 21:14 [From Golytely] Vomiting potassium chloride AdvReac Unknown Nausea & Verified 12/05/23 21:14 [From Golytely] Vomiting sodium [From Golytely] AdvReac Unknown Nausea & Verified 12/05/23 21:14 Vomiting sodium bicarbonate AdvReac Unknown Nausea & Verified 12/05/23 21:14 [From Golytely] Vomiting sodium chloride AdvReac Unknown Nausea & Verified 12/05/23 21:14 [From Golytely] Vomiting sodium sulfate AdvReac Unknown Nausea & Verified 12/05/23 21:14 [From Golytely] Vomiting COVID phizer vaccine Allergy Unknown Swelling Uncoded 12/05/23 21:14 face & eyes & red face. lobster Allergy Unknown bright Uncoded 12/05/23 21:14 red, "feels funny" Physical Exam Vitals: Vital Signs Temp Pulse Resp BP BP Pulse Ox 12/08/23 04:00 98.1 F 69 16 147/73 100 12/07/23 23:37 98.3 F 59 L 18 136/71 98 12/07/23 19:33 98.1 F 74 18 183/46 94 L 12/07/23 16:00 98.2 F 74 28 H 166/79 98 12/07/23 12:00 88 24 158/84 90 L 12/07/23 07:59 75 24 Intake and Output 12/07/23 12/08/23 12/08/23 22:59 06:59 14:59 Intake Total 180 540 Balance 180 540 Intake: Oral 180 540 Other: Voiding Method External Catheter External Catheter # Voids 0 1 # Bowel Movements 0 Weight 99.79 kg 94.5 kg Results 12/07/23 08:18 12/07/23 08:18 Cardiac Enzymes 12/07/23 Range/Units 08:18 AST 58 H (14-36) U/L CBC 12/07/23 Range/Units 08:18 WBC 10.5 (3.8-10.6) k/uL RBC 3.56 L (3.80-5.40) m/uL Hgb 11.3 L (11.4-16.0) gm/dL Hct 32.5 L (34.0-46.0) % Plt Count 147 L (150-450) k/uL Comprehensive Metabolic Panel 12/07/23 Range/Units 08:18 Sodium 126 L (137-145) mmol/L Potassium 3.9 (3.5-5.1) mmol/L Chloride 90 L (98-107) mmol/L Carbon Dioxide 30 (22-30) mmol/L BUN 20 H (7-17) mg/dL Creatinine 0.46 L (0.52-1.04) mg/dL Glucose 154 H (74-99) mg/dL Calcium 8.5 (8.4-10.2) mg/dL AST 58 H (14-36) U/L ALT 40 H (4-34) U/L Alkaline Phosphatase 73 (38-126) U/L Total Protein 6.4 (6.3-8.2) g/dL Albumin 2.8 L (3.5-5.0) g/dL Current Medications Generic Name Dose Route Start Last Admin Trade Name Freq PRN Reason Stop Dose Admin Atenolol 25 mg 12/06/23 09:00 12/07/23 19:45 Atenolol 25 Mg Tab PO 25 mg BID [place] Administration Dextrose/Water 25 ml 12/06/23 02:05 Dextrose 50% Syringe 50 Ml IVP PER PROTOCOL PRN Hypoglycemia Protocol Dextrose/Water 50 ml 12/06/23 02:05 Dextrose 50% Syringe 50 Ml IVP PER PROTOCOL PRN Hypoglycemia Protocol Furosemide 40 mg 12/05/23 23:00 12/08/23 06:25 Furosemide 10 Mg/Ml 4 Ml Vial IV Not Given Q8H [place] Heparin Sodium (Porcine) 5,000 unit 12/06/23 08:00 12/08/23 00:19 Heparin Sodium,Porcine 5,000 Unit/Ml 1 Ml Vial SQ Not Given Q8HR [place] Hydrocortisone 1 applic 12/06/23 09:00 12/07/23 19:48 Hydrocortisone 1% Cream 30 Gm Tube TOPICAL 1 applic TID PRN Administration Skin Irritation Protocol Sodium Chloride 1,000 mls @ 20 mls/hr 12/05/23 23:00 12/06/23 22:47 Saline 0.9% IV Not Given .Q24H [place] Ibuprofen 200 mg 12/06/23 09:00 12/07/23 10:56 Ibuprofen 200 Mg Tab PO Not Given DAILY [place] Insulin Aspart 0 unit 12/06/23 07:30 12/08/23 06:25 Insulin Aspart (Novolog) 100 Unit/Ml Vial SQ Not Given ACHS [place] Protocol Lorazepam 0.5 mg 12/06/23 21:00 12/07/23 19:46 Lorazepam 0.5 Mg Tab PO 0.5 mg HS [place] Administration Lorazepam 0.25 mg 12/06/23 09:00 12/07/23 10:56 Lorazepam 0.5 Mg Tab PO 0.25 mg DAILY [place] Administration Magnesium Oxide 200 mg 12/06/23 09:00 12/07/23 10:56 Magnesium Oxide 400 Mg Tab PO Not Given DAILY [place] Montelukast Sodium 10 mg 12/06/23 21:00 12/07/23 19:47 Montelukast 10 Mg Tab PO 10 mg HS [place] Administration Multivitamins 1 each 12/06/23 18:30 12/07/23 17:06 Multivitamins, Thera 1 Each Tab PO Not Given PC-SUPPER [facility] Petrolatum 1 applic 12/07/23 18:26 Petrolatum, White Oint 50 Gm Tube TOPICAL BID PRN Dry Skin Protocol Spironolactone 25 mg 12/06/23 09:00 12/07/23 10:56 Spironolactone 25 Mg Tab PO Not Given DAILY [place] Intake and Output 12/07/23 12/08/23 12/08/23 22:59 06:59 14:59 Intake Total 180 540 Balance 180 540 Intake: Oral 180 540 Other: Voiding Method External Catheter External Catheter # Voids 0 1 # Bowel Movements 0 Weight 99.79 kg 94.5 kg 12/07/23 08:18 12/07/23 08:18
[2023-12-08 11:34] LABS: Glucose,Whole Blood 209 mg/dL (70-110)
[2023-12-08] MEDS: SODIUM CHLORIDE 0.9% 1,000 ML IV SCH ×2 (11:48→23:43)
[2023-12-08 11:52] VITALS: BMI 36.8
--- NOTE | 2023-12-08 13:49 | P.PN ---
Subjective Progress Note Date: 12/08/23 Hospital course: Patient is a very pleasant 78-year-old female with a past medical history of liver cirrhosis secondary to RODRIGUEZ, hypertension, and [id number] diabetes mellitus. She presented to the emergency department on 12/05/23 with a chief complaint of shortness of breath. Patient reported progressively worsening exertional dyspnea over the past few days accompanied by increased swelling in bilateral lower extremities. Patient reports lower extremity edema so severe in her legs continuously weeping and her shortness of breath is now resulted in orthopnea. She underwent full evaluation in the emergency department. Vital signs upon arrival show blood pressure 170/87, heart rate 98, respiratory rate 20, temp 98.0F, and SpO2 of 95% on 3 L O2 via nasal cannula. EKG completed showing normal sinus rhythm at 80 bpm with a first-degree AV block with IL interval of 232 ms otherwise no significant T-wave or ST abnormalities showing no signs of acute ischemia. Chest x-ray completed in radiology report stating diffuse interstitial opacities with cardiomegaly concerning for CHF versus atypical pneumonia with a component of underlying chronic interstitial lung disease. Labs completed and reviewed. CBC showing thrombocytopenia with platelet count of 107, this is chronic and at baseline levels. BMP showing hyponatremia with sodium 124, hypochloremia with chloride of 91, bicarb of 24, and anion gap of 9 with renal function is follows BUN 18, creatinine 0.43, GFR greater than 90. Initially lactic acid elevated at 2.2 with repeat of 1.4. Liver profile showing elevated total bili of 1.7, AST 38, ALT of 35, alkaline phosphatase of 85. Troponin less than 0.012 and proBNP of 381. Coagulation profile showing elevated PT of 13.3 and INR 1.3. Patient was admitted under our services. MELD score upon arrival 11 points showing a 6% estimated 3 month mortality. Echocardiogram was completed revealing preserved EF of 55-60% with mild mitral regurgitation, mild to moderate tricuspid regurgitation, mild aortic stenosis, and moderate pulmonary hypertension. Physical exam: Patient seen and fully evaluated at bedside this morning. Patient continues to refuse many medications throughout her hospitalization including diuretics and insulin. Again had discussion with patient regarding importance of medication as we cannot help her if she is not willing to try or take medications as brisa mmended. Patient states that Lasix, Bumex, and Aldactone all cause her to have a rash on her face and swelling around her eyes, however patient presented to the hospital with facial dermatitis believed to be secondary to xerosis cutitis as there was and still is scaling present to rash on face. Patient again educated on the importance of medication compliance and risks of noncompliance up to and including as she remains in significant fluid overload and in need of diuretics. Cognitive evaluation to be completed. Vital signs reviewed and stable. General: Nontoxic, no distress and appears stated age. Derm: Skin warm and dry, normal coloration for ethnicity. Rash on face/upper cheeks with scaling Head: Atraumatic, normocephalic and symmetric. Eyes: EOMs intact, no lid lag, and anicteric sclera Mouth: no lip lesions, mucus membranes moist Cardiovascular: regular rate and rhythm with normal S1S2, no murmur, positive posterior tibial pulses bilaterally, and cap refill < 2 seconds. Lungs: Respirations even, regular, and unlabored on room air. Lungs diminished. No wheezes, rhonchi, or rales noted. Abdominal: soft, nontender to palpation, no guarding, no appreciable orga nomegaly Ext: ROM intact. No gross muscle atrophy, 2-3+ pitting bilateral lower extremity edema, no contractures. venous stasis dematitis. Neuro: Speech clear, face symmetrical and CN II-XII grossly intact with no noted focal neuro deficits Psych: Alert and oriented to person, place, time, and situation. Appropriate and pleasant affect. Assessment and Plan of Care: 78 year old female with chronic hyponatremia secondary to liver cirrhosis due to RODRIGUEZ. Patient presented to the emergency department with a chief complaint of progressive exertional dyspnea. Patient was admitted for acute on chronic hypoxia, decompensated liver cirrhosis, and acute on chronic hyponatremia resulting from fluid overload. Acute on chronic hypoxic respiratory failure secondary to fluid overload and pulmonary edema Fluid overload , pulmonary edema , hypervolemic hyponatremia Decompensated Liver cirrhosis secondary to RODRIGUEZ Acute HFpEF Acute on chronic hyponatremia secondary to fluid volume overload, improving with diuresis and fluid restriction Medication noncompliance Hyperbilirubinemia with Elevated liver enzymes secondary to RODRIGUEZ Bicytopenia secondary to above -Continue fluid restriction 1.5 L daily -Cardiology following, Lasix and Aldactone discontinued as patient has refused these medications since admission. Cardiology starting patient on torsemide 20 mg daily. -Continued close monitoring of I's and O's and daily weights -Echocardiogram was completed revealing preserved EF of 55-60% with mild mitral regurgitation, mild to moderate tricuspid regurgitation, mild aortic stenosis, and moderate pulmonary hypertension. -Again patient has had difficult time with medication compliance since admission, refusing all diuretics, heparin for DVT prophylaxis and insulin for hyperglycemia. Consult placed to speech and language pathologist to perform cognitive evaluation. Once thorough cognitive evaluation is completed it can be determined if patient has mental capacity to independently make decisions. 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 -Continue hydrocortisone 1% cream 3 times daily along with Aquaphor twice daily [id number] diabetes mellitus with hyperglycemia -Metformin was held and patient placed on glycemic protocol with NovoLog sliding scale. Morning glucose improved currently 154. Data and imaging reviewed: Echocardiogram was completed and report reviewed revealing preserved EF of 55- 60% with mild mitral regurgitation, mild to moderate tricuspid regurgitation, mild aortic stenosis, and moderate pulmonary hypertension. Vital signs reviewed. Blood pressure 123/72, heart rate 60, respiratory rate 18, temp 97.63 Fahrenheit, SpO2 of 90% on 2 L. CODE STATUS: Full code DVT prophylaxis: Heparin Anticipated discharge date: Clinical course to determine Anticipated discharge place: Clinical course to determine Patient was seen independently by Nurse Pracitioner. This document was prepared using [employer] dictation software. Please allow for errors in parent partner, while rare they do occur. Sriram Rees NP rendered care for this patient independently, reviewed the findings and plan as documented in the note above. I did not physically speak with or examine the patient on this date. Objective - Vital Signs Vital signs: Vital Signs Temp 98.1 F 12/08/23 04:00 Pulse 69 12/08/23 04:00 Resp 16 12/08/23 04:00 BP 147/73 12/08/23 04:00 Pulse Ox 100 12/08/23 04:00 FiO2 Intake & Output 12/07/23 12/08/23 12/08/23 18:59 06:59 18:59 Intake Total 180 540 Balance 180 540 Weight 99.79 kg 94.5 kg Intake: Oral 180 540 Other: Voiding Method External Catheter External Catheter # Voids 1 # Bowel Movements 0 - Labs CBC & Chem 7: 12/10/23 07:20 12/10/23 07:20 Labs: Abnormal Lab Results - Last 24 Hours (Table) 12/07/23 12/07/23 12/07/23 Range/Units 08:18 08:18 12:24 RBC 3.56 L (3.80-5.40) m/uL Hgb 11.3 L (11.4-16.0) gm/dL Hct 32.5 L (34.0-46.0) % RDW 15.6 H (11.5-15.5) % Plt Count 147 L (150-450) k/uL Sodium 126 L (137-145) mmol/L Chloride 90 L (98-107) mmol/L BUN 20 H (7-17) mg/dL Creatinine 0.46 L (0.52-1.04) mg/dL Glucose 154 H (74-99) mg/dL POC Glucose (mg/dL) 184 H (70-110) mg/dL Total Bilirubin 3.0 H (0.2-1.3) mg/dL AST 58 H (14-36) U/L ALT 40 H (4-34) U/L Albumin 2.8 L (3.5-5.0) g/dL 12/07/23 12/07/23 Range/Units 16:44 20:04 RBC (3.80-5.40) m/uL Hgb (11.4-16.0) gm/dL Hct (34.0-46.0) % RDW (11.5-15.5) % Plt Count (150-450) k/uL Sodium (137-145) mmol/L Chloride (98-107) mmol/L BUN (7-17) mg/dL Creatinine (0.52-1.04) mg/dL Glucose (74-99) mg/dL POC Glucose (mg/dL) 301 H 119 H (70-110) mg/dL Total Bilirubin (0.2-1.3) mg/dL AST (14-36) U/L ALT (4-34) U/L Albumin (3.5-5.0) g/dL Microbiology - Last 24 Hours (Table) 12/05/23 21:40 Blood Culture - Preliminary Blood 12/05/23 21:40 Blood Culture - Preliminary Blood
[2023-12-08] MEDS ORDERED: ZINC OXIDE PASTE (Z-GUARD) 1 APPLIC TOPICAL PRN (14:01)
[2023-12-08 16:24] LABS: Glucose,Whole Blood 223 mg/dL (70-110)
[2023-12-08] MEDS: MULTIVITAMINS, THERA 1 EACH TAB PO SCH (18:31)
[2023-12-08] MEDS: MONTELUKAST 10 MG TAB PO SCH (20:17)
[2023-12-08 20:23] LABS: Glucose,Whole Blood 324 mg/dL (70-110)
[2023-12-09 05:59] LABS: Glucose,Whole Blood 182 mg/dL (70-110)
[2023-12-09] MEDS: INSULIN ASPART (NovoLOG) 100 UNIT/ML VIAL SQ SCH ×4 (06:02→20:30)
[2023-12-09 08:09] LABS: HCT 30.6 % (34.0-46.0); HGB 10.2 gm/dL (11.4-16.0); MCH 31.3 pg (25.0-35.0); MCHC 33.4 g/dL (31.0-37.0); MCV 93.5 fL (80.0-100.0); Mean Platelet Volume 7.7; Platelet Count 144 k/uL (150-450); RBC 3.28 m/uL (3.80-5.40); RDW 15.2 % (11.5-15.5); WBC 9.4 k/uL (3.8-10.6)
[2023-12-09] MEDS: atenoloL 25 MG TAB PO SCH ×2 (08:16→20:17)
[2023-12-09] MEDS: LORazepam 0.5 MG TAB PO SCH ×2 (08:16→20:17)
[2023-12-09] MEDS: TORSEMIDE 20 MG TAB PO SCH (08:16)
[2023-12-09 08:18] LABS: ALT 34 U/L (4-34); AST 40 U/L (14-36); African American GFR (CKD) >90 (>60 ml/min/1.73 sqM); Albumin 2.5 g/dL (3.5-5.0); Alkaline Phosphatase 64 U/L (38-126); Anion Gap 6 mmol/L; Blood Urea Nitrogen 25 mg/dL (7-17); Calcium 8.2 mg/dL (8.4-10.2); Carbon Dioxide 29 mmol/L (22-30); Chloride 93 mmol/L (98-107); Glucose 153 mg/dL (74-99); Non-African American GFR(CKD) >90 (>60 ml/min/1.73 sqM); Potassium 4.2 mmol/L (3.5-5.1); Sodium 128 mmol/L (137-145); Total Bilirubin 1.5 mg/dL (0.2-1.3); Total Protein 5.8 g/dL (6.3-8.2)
[2023-12-09] MEDS: IBUPROFEN 200 MG TAB PO SCH (09:19)
[2023-12-09] MEDS: HEPARIN SODIUM,PORCINE 5,000 UNIT/ML 1 ML VIAL SQ SCH ×3 (09:19→23:18)
[2023-12-09] MEDS: MAGNESIUM OXIDE 400 MG TAB PO SCH (09:19)
[2023-12-09 11:23] LABS: Glucose,Whole Blood 250 mg/dL (70-110)
--- NOTE | 2023-12-09 12:03 | P.PN ---
Subjective Progress Note Date: 12/09/23 Hospital course: Patient is a very pleasant 78-year-old female with a past medical history of l iver cirrhosis secondary to RODRIGUEZ, hypertension, and dbt-zcnwjis-swsmczjeq diabetes mellitus. She presented to the emergency department on 12/05/23 with a chief complaint of shortness of breath. Patient reported progressively worsening exertional dyspnea over the past few days accompanied by increased swelling in bilateral lower extremities. Patient reports lower extremity edema so severe in her legs continuously weeping and her shortness of breath is now resulted in orthopnea. She underwent full evaluation in the emergency department. Vital signs upon arrival show blood pressure 170/87, heart rate 98, respiratory rate 20, temp 98.0F, and SpO2 of 95% on 3 L O2 via nasal cannula. EKG completed showing normal sinus rhythm at 80 bpm with a first-degree AV block with AZ interval of 232 ms otherwise no significant T-wave or ST abnormalities showing no signs of acute ischemia. Chest x-ray completed in radiology report stating diffuse interstitial opacities with cardiomegaly concerning for CHF versus atypical pneumonia with a component of underlying chronic interstitial lung disease. Labs completed and reviewed. CBC showing thrombocytopenia with platelet count of 107, this is chronic and at baseline levels. BMP showing hyponatremia with sodium 124, hypochloremia with chloride of 91, bicarb of 24, and anion gap of 9 with renal function is follows BUN 18, creatinine 0.43, GFR greater than 90. Initially lactic acid elevated at 2.2 with repeat of 1.4. Liver profile showing elevated total bili of 1.7, AST 38, ALT of 35, alkaline phosphatase of 85. Troponin less than 0.012 and proBNP of 381. Coagulation profile showing elevated PT of 13.3 and INR 1.3. Patient was admitted under our services. MELD score upon arrival 11 points showing a 6% estimated 3 month mortality. Echocardiogram was completed revealing preserved EF of 55-60% with mild mitral regurgitation, mild to moderate tricuspid regurgitation, mild aortic stenosis, and moderate pulmonary hypertension. Patient seen and examined at bedside. No acute events overnight. She did take her morning diuretics. Physical exam: Vital signs reviewed and stable. General: Nontoxic, no distress and appears stated age. Derm: Skin warm and dry, normal coloration for ethnicity. Rash on face/upper cheeks with scaling Head: Atraumatic, normocephalic and symmetric. Eyes: EOMs intact, no lid lag, and anicteric sclera Mouth: no lip lesions, mucus membranes moist Cardiovascular: regular rate and rhythm with normal S1S2, no murmur, positive posterior tibial pulses bilaterally, and cap refill < 2 seconds. Lungs: Respirations even, regular, and unlabored on room air. Lungs diminished. No wheezes, rhonchi, or rales noted. Abdominal: soft, nontender to palpation, no guarding, no appreciable organomegaly Ext: ROM intact. No gross muscle atrophy, 2-3+ pitting bilateral lower extremity edema, no contractures. venous stasis dematitis. Neuro: Speech clear, face symmetrical and CN II-XII grossly intact with no noted focal neuro deficits Psych: Alert and oriented to person, place, time, and situation. Appropriate and pleasant affect. Assessment and Plan of Care: 78 year old female with chronic hyponatremia secondary to liver cirrhosis due to RODRIGUEZ. Patient presented to the emergency department with a chief complaint of progressive exertional dyspnea. Patient was admitted for acute on chronic hypoxia, decompensated liver cirrhosis, and acute on chronic hyponatremia resulting from fluid overload. Acute on chronic hypoxic respiratory failure secondary to fluid overload and pulmonary edema Fluid overload , pulmonary edema , hypervolemic hyponatremia Decompensated Liver cirrhosis secondary to RODRIGUEZ Acute HFpEF Acute on chronic hyponatremia secondary to fluid volume overload, improving with diuresis and fluid restriction Medication noncompliance Hyperbilirubinemia with Elevated liver enzymes secondary to RODRIGUEZ Bicytopenia secondary to above -Continue fluid restriction 1.5 L daily -Cardiology following, patient talked her torsemide 20 mg today, monitor electrolytes -Continued close monitoring of I's and O's and daily weights -Echocardiogram was completed revealing preserved EF of 55-60% with mild mitral regurgitation, mild to moderate tricuspid regurgitation, mild aortic stenosis, and moderate pulmonary hypertension. 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 -Continue hydrocortisone 1% cream 3 times daily along with Aquaphor twice daily Xpg-gphnagm-bedamaaqx diabetes mellitus with hyperglycemia -Sliding scale insulin, monitor for hypoglycemia -Patient is noncompliant with medication Data and imaging reviewed: Hemoglobin 10.2, sodium 128, creatinine 0.49, total bili 1.5, blood sugars range between 182-324 CODE STATUS: Full code DVT prophylaxis: Heparin, patient is refusing Anticipated discharge date: Clinical course to determine Anticipated discharge place: Clinical course to determine Objective - Vital Signs Vital signs: Vital Signs Temp 97.4 F L 12/09/23 08:05 Pulse 58 L 12/09/23 08:05 Resp 18 12/09/23 08:05 BP 143/65 12/09/23 08:05 Pulse Ox 99 12/09/23 08:05 FiO2 Intake & Output 12/08/23 12/09/23 12/09/23 18:59 06:59 18:59 Intake Total 480 240 340 Output Total 103 Balance 377 240 340 Weight 94.5 kg 97 kg Intake: Oral 480 240 340 Output: Urine 101 Stool 2 Other: Voiding Method External Catheter External Catheter External Catheter # Voids 1 1 # Bowel Movements 2 - Labs CBC & Chem 7: 12/09/23 07:12 12/09/23 07:12 Labs: Abnormal Lab Results - Last 24 Hours (Table) 12/08/23 12/08/23 12/09/23 Range/Units 16:23 20:19 05:58 RBC (3.80-5.40) m/uL Hgb (11.4-16.0) gm/dL Hct (34.0-46.0) % Plt Count (150-450) k/uL Sodium (137-145) mmol/L Chloride (98-107) mmol/L BUN (7-17) mg/dL Creatinine (0.52-1.04) mg/dL Glucose (74-99) mg/dL POC Glucose (mg/dL) 223 H 324 H 182 H (70-110) mg/dL Calcium (8.4-10.2) mg/dL Total Bilirubin (0.2-1.3) mg/dL AST (14-36) U/L Total Protein (6.3-8.2) g/dL Albumin (3.5-5.0) g/dL 12/09/23 12/09/23 12/09/23 Range/Units 07:12 07:12 11:22 RBC 3.28 L (3.80-5.40) m/uL Hgb 10.2 L (11.4-16.0) gm/dL Hct 30.6 L (34.0-46.0) % Plt Count 144 L (150-450) k/uL Sodium 128 L (137-145) mmol/L Chloride 93 L (98-107) mmol/L BUN 25 H (7-17) mg/dL Creatinine 0.49 L (0.52-1.04) mg/dL Glucose 153 H (74-99) mg/dL POC Glucose (mg/dL) 250 H (70-110) mg/dL Calcium 8.2 L (8.4-10.2) mg/dL Total Bilirubin 1.5 H (0.2-1.3) mg/dL AST 40 H (14-36) U/L Total Protein 5.8 L (6.3-8.2) g/dL Albumin 2.5 L (3.5-5.0) g/dL Microbiology - Last 24 Hours (Table) 12/05/23 21:40 Blood Culture - Preliminary Blood 12/05/23 21:40 Blood Culture - Preliminary Blood
[2023-12-09 16:13] LABS: Glucose,Whole Blood 239 mg/dL (70-110)
[2023-12-09] MEDS: MULTIVITAMINS, THERA 1 EACH TAB PO SCH (17:02)
[2023-12-09 19:54] LABS: Glucose,Whole Blood 299 mg/dL (70-110)
[2023-12-09] MEDS: MONTELUKAST 10 MG TAB PO SCH (20:17)
[2023-12-09] MEDS ORDERED: FUROSEMIDE 10 MG/ML 4 ML VIAL IV STA (20:38)
[2023-12-09] MEDS: SODIUM CHLORIDE 0.9% 1,000 ML IV SCH (22:52)
[2023-12-10 06:03] LABS: Glucose,Whole Blood 170 mg/dL (70-110)
[2023-12-10] MEDS: INSULIN ASPART (NovoLOG) 100 UNIT/ML VIAL SQ SCH ×2 (06:07→13:23)
[2023-12-10 08:19] LABS: Basophils # (A) 0.1 k/uL (0-0.2); Basophils % (A) 1 %; Eosinophils # (A) 0.3 k/uL (0-0.7); Eosinophils % (A) 3 %; HCT 33.1 % (34.0-46.0); HGB 11.1 gm/dL (11.4-16.0); Lymphocytes # (A) 1.2 k/uL (1.0-4.8); Lymphocytes % (A) 12 %; MCHC 33.7 g/dL (31.0-37.0); Monocytes # (A) 0.7 k/uL (0-1.0); Monocytes % (A) 7 %; Neutrophils # (A) 7.4 k/uL (1.3-7.7); Neutrophils % (A) 74 %; Platelet Count 158 k/uL (150-450); RDW 15.4 % (11.5-15.5)
[2023-12-10 08:31] LABS: African American GFR (CKD) >90 (>60 ml/min/1.73 sqM); Anion Gap 10 mmol/L; Blood Urea Nitrogen 24 mg/dL (7-17); Calcium 8.4 mg/dL (8.4-10.2); Carbon Dioxide 27 mmol/L (22-30); Chloride 92 mmol/L (98-107); Glucose 209 mg/dL (74-99); Non-African American GFR(CKD) >90 (>60 ml/min/1.73 sqM); Potassium 4.4 mmol/L (3.5-5.1); Sodium 129 mmol/L (137-145)
[2023-12-10] MEDS: atenoloL 25 MG TAB PO SCH (09:24)
[2023-12-10] MEDS: TORSEMIDE 20 MG TAB PO SCH (09:24)
[2023-12-10] MEDS: LORazepam 0.5 MG TAB PO SCH (09:24)
[2023-12-10] MEDS: IBUPROFEN 200 MG TAB PO SCH (09:30)
[2023-12-10] MEDS: HEPARIN SODIUM,PORCINE 5,000 UNIT/ML 1 ML VIAL SQ SCH (09:30)
[2023-12-10] MEDS: MAGNESIUM OXIDE 400 MG TAB PO SCH (09:31)
[2023-12-10 10:15] VITALS: BP 164/80; PULSE 74; RESP 19; TEMP 97.8
--- NOTE | 2023-12-10 11:26 | P.DS ---
Providers Date of admission: 12/05/23 22:50 Expected date of discharge: 12/10/23 Attending physician: Val Bateman MD Primary care physician: Manohar Pedraza MD Hospital Course: Discharge Diagnosis: Acute on chronic hypoxic respiratory failure secondary to fluid overload and pulmonary edema Fluid overload , pulmonary edema , hypervolemic hyponatremia Decompensated Liver cirrhosis secondary to RODRIGUEZ Acute HFpEF Medication noncompliance Hyperbilirubinemia with Elevated liver enzymes secondary to RODRIGUEZ Bicytopenia secondary to above xerosis cutitis Hrg-hlearam-rdogrszcu diabetes mellitus with hyperglycemia Hospital Course: Patient is a very pleasant 78-year-old female with a past medical history of liver cirrhosis secondary to RODRIGUEZ, hypertension, and gju-ftigcok-ttglbdops diabetes mellitus. She presented to the emergency department on 12/05/23 with a chief complaint of shortness of breath. Patient reported progressively worsening exertional dyspnea over the past few days accompanied by increased swelling in bilateral lower extremities. Patient reports lower extremity edema so severe in her legs continuously weeping and her shortness of breath is now resulted in orthopnea. She underwent full evaluation in the emergency department. Vital signs upon arrival show blood pressure 170/87, heart rate 98, respiratory rate 20, temp 98.0F, and SpO2 of 95% on 3 L O2 via nasal cannula. EKG completed showing normal sinus rhythm at 80 bpm with a first-degree AV block with [place] interval of 232 ms otherwise no significant T-wave or ST abnormalities showing no signs of acute ischemia. Chest x-ray completed in radiology report stating diffuse interstitial opacities with cardiomegaly concerning for CHF versus atypical pneumonia with a component of underlying chronic interstitial lung disease. Labs completed and reviewed. CBC showing thrombocytopenia with platelet count of 107, this is chronic and at baseline levels. BMP showing hyponatremia with sodium 124, hypochloremia with chloride of 91, bicarb of 24, and anion gap of 9 with renal function is follows BUN 18, creatinine 0.43, GFR greater than 90. Initially lactic acid elevated at 2.2 with repeat of 1.4. Liver profile showing elevated total bili of 1.7, AST 38, ALT of 35, alkaline phosphatase of 85. Troponin less than 0.012 and proBNP of 381. Coagulation profile showing elevated PT of 13.3 and INR 1.3. Patient was admitted for hypoxic respiratory failure secondary to decompensated liver cirrhosis and diastolic heart failure exacerbation. MELD score upon arrival 11 points showing a 6% estimated 3 month mortality. Echocardiogram was completed revealing preserved EF of 55-60% with mild mitral regurgitation, mild to moderate tricuspid regurgitation, mild aortic stenosis, and moderate pulmonary hypertension. Cardiology was consulted. Patient was started on IV diuretics which she refused due to concern for facial dermatitis. Throughout her hospitalization patient had refused almost all of her medications. She agreed to take torsemide on certain occasions. Patient is extremely debilitated, requires help getting out of the bed into the chair and also use bedside commode. Initially she did not want any home health care or physical therapy however, now she agrees to get those at home. She refuses to go to subacute rehab. Overall, patient has poor prognosis given medication noncompliance. She is at a high risk for readmission. This was communicated with the patient. Patient seen and examined at bedside. Vital signs reviewed and stable. General: Nontoxic, no distress and appears stated age. Derm: Skin warm and dry, normal coloration for ethnicity. Rash on face/upper cheeks with scaling Head: Atraumatic, normocephalic and symmetric. Eyes: EOMs intact, no lid lag, and anicteric sclera Mouth: no lip lesions, mucus membranes moist Cardiovascular: regular rate and rhythm with normal S1S2, no murmur, positive posterior tibial pulses bilaterally, and cap refill < 2 seconds. Lungs: Respirations even, regular, and unlabored on room air. Lungs diminished. No wheezes, rhonchi, or rales noted. Abdominal: soft, nontender to palpation, no guarding, no appreciable organomegaly Ext: ROM intact. No gross muscle atrophy, 2-3+ pitting bilateral lower extremity edema, no contractures. venous stasis dematitis. Neuro: Speech clear, face symmetrical and CN II-XII grossly intact with no noted focal neuro deficits Psych: Alert and oriented to person, place, time, and situation. Appropriate and pleasant affect. A total of 33 minutes of time were spent preparing this complex discharge summary. Patient was discharged on 12/10/23 at 1043. Patient Condition at Discharge: Stable Plan - Discharge Summary Discharge Rx Participant: No New Discharge Prescriptions: New Torsemide [Demadex] 20 mg PO DAILY #90 tab Continue LORazepam [Ativan] 0.25 mg PO DAILY Magnesium 200 mg PO DAILY LORazepam [Ativan] 0.5 mg PO HS Multivitamins, Thera [Multivitamin (formulary)] 1 tab PO PC-SUPPER Montelukast [Singulair] 10 mg PO HS metFORMIN HCL [Glucophage] 1,000 mg PO HS atenoloL [Tenormin] 25 mg PO BID Ibuprofen [Motrin Ib] 200 mg PO DAILY Discontinued hydroCHLOROthiazide [Hydrodiuril] 25 mg PO Q2D Discharge Medication List LORazepam [Ativan] 0.25 mg PO DAILY 04/20/22 [History] Montelukast [Singulair] 10 mg PO HS 04/20/22 [History] Multivitamins, Thera [Multivitamin (formulary)] 1 tab PO PC-SUPPER 04/20/22 [History] atenoloL [Tenormin] 25 mg PO BID 04/20/22 [History] metFORMIN HCL [Glucophage] 1,000 mg PO HS 04/20/22 [History] Magnesium 200 mg PO DAILY 05/07/22 [History] LORazepam [Ativan] 0.5 mg PO HS 09/25/23 [History] Ibuprofen [Motrin Ib] 200 mg PO DAILY 12/05/23 [History] Torsemide [Demadex] 20 mg PO DAILY #90 tab 12/10/23 [Rx] Follow up Appointment(s)/Referral(s): Manohar Pedraza MD [Primary Care Provider] - 1-2 days [facility], [NON-STAFF] - Patient Instructions/Handouts: Heart Failure (DC), Low-Sodium Diet (DC) Activity/Diet/Wound Care/Special Instructions: Please see your PCP. Discharge Disposition: HOME WITH HOME HEALTH SERVICES
== END 2023-12-10 13:57 | disposition home health service (06) | DRG 291 ==
LOC: EC 20:13 → 3SCARD 22:50
PROVIDERS: ADMIT Internal Medicine; ATTEND Internal Medicine
DX: I11.0 Hypertensive heart disease with heart failure (principal); I50.33 Acute on chronic diastolic (congestive) heart failure; J96.21 Acute and chronic respiratory failure with hypoxia; E87.1 Hypo-osmolality and hyponatremia; K74.60 Unspecified cirrhosis of liver; K75.81 Nonalcoholic steatohepatitis (NASH); L30.9 Dermatitis, unspecified; E11.65 Type 2 diabetes mellitus with hyperglycemia; Z11.52 Encounter for screening for COVID-19; D69.6 Thrombocytopenia, unspecified; E87.8 Other disorders of electrolyte and fluid balance, not elsewhere classified; I27.20 Pulmonary hypertension, unspecified; I08.3 Combined rheumatic disorders of mitral, aortic and tricuspid valves; I44.0 Atrioventricular block, first degree; L85.3 Xerosis cutis; E87.70 Fluid overload, unspecified; Z79.84 Long term (current) use of oral hypoglycemic drugs; Z79.899 Other long term (current) drug therapy; M41.9 Scoliosis, unspecified; Z91.148 Patient's other noncompliance with medication regimen for other reason; R79.1 Abnormal coagulation profile; Z99.81 Dependence on supplemental oxygen; Z91.041 Radiographic dye allergy status; Z91.013 Allergy to seafood; Z88.1 Allergy status to other antibiotic agents; Z88.0 Allergy status to penicillin; Z88.5 Allergy status to narcotic agent; Z90.49 Acquired absence of other specified parts of digestive tract
CPT/HCPCS: 36415; 71046; 80048; 80053; 83036; 83605; 83735; 83880; 84484; 85025; 85027; 85610; 85730; 87040; 87636; 93306; 94760; 96374; 96375; 96376; 99285

== ENCOUNTER 2023-12-22 08:33 | Observation (INO) | payer MEDICARE ==
[2023-12-22] MEDS ORDERED: SODIUM CHLORIDE 0.9% 1,000 ML IV STA (09:02)
[2023-12-22 09:23] LABS: Appearance,Urine Cloudy (Clear); Bacteria,Urine Few /hpf; Bilirubin,Urine Negative (Negative); Blood,Urine Negative (Negative); Budding Yeast,Urine Occasional /hpf; Color,Urine Light Yellow; Glucose,Urine (UA) Negative (Negative); Ketones,Urine Negative (Negative); Leukocyte Esterase,Urine Small (Negative); Mucus,Urine Rare /hpf; Nitrite,Urine Negative (Negative); Protein,Urine Negative (Negative); RBC,Urine 1 /hpf (0-5); Specific Gravity,Urine 1.013 (1.001-1.035); Squamous Epithelial Cell,Urine 3 /hpf (0-4); WBC,Urine 10 /hpf (0-5)
--- NOTE | 2023-12-22 09:23 | ED ---
Weakness HPI - General Chief complaint: Weakness Stated complaint: weakness Time Seen by Provider: 12/22/23 08:48 Source: patient, RN notes reviewed, old records reviewed, Caregiver Mode of arrival: EMS Limitations: no limitations, altered mental status - History of Present Illness Initial comments: 78-year-old female who is a poor strain moderately poor story presented today for evaluation of weakness. Debility unable to live at home under current c onditions. Patient was recently admitted to the hospital thought she can live at home but is no longer able to take care of herself at [facility] Complaint: generalized weakness, lack of energy, difficulty walking -: days(s) Location: generalized Severity: severe Severity scale (1-10): 10 Consistency: constant Improves with: none Worsens with: none Context: recent illness, history of similar Associated Symptoms: denies other symptoms - Related Data Home Medications Medication Instructions Recorded Confirmed LORazepam [Ativan] 0.25 mg PO DAILY 04/20/22 12/22/23 Montelukast [Singulair] 10 mg PO HS 04/20/22 12/22/23 Multivitamins, Thera [Multivitamin 1 tab PO PC-SUPPER 04/20/22 12/22/23 (formulary)] atenoloL [Tenormin] 25 mg PO BID 04/20/22 12/22/23 metFORMIN HCL [Glucophage] 1,000 mg PO HS 04/20/22 12/22/23 Magnesium 200 mg PO DAILY 05/07/22 12/22/23 LORazepam [Ativan] 0.5 mg PO HS 09/25/23 12/22/23 Ibuprofen [Motrin Ib] 200 mg PO DAILY 12/05/23 12/22/23 Previous Rx's Medication Instructions Recorded Torsemide [Demadex] 20 mg PO DAILY #90 tab 12/10/23 Allergies Allergy/AdvReac Type Severity Reaction Status Date / Time Iodinated Contrast Media Allergy Unknown face Verified 12/22/23 09:40 bright red and did not feel right. neomycin Allergy Unknown red face Verified 12/22/23 09:40 shellfish derived [Shrimp] Allergy Unknown face Verified 12/22/23 09:40 bright red, -felt funny. azithromycin Allergy red face Verified 12/22/23 09:40 ciprofloxacin [From Cipro] Allergy red face Verified 12/22/23 09:40 meperidine [From Demerol] Allergy red face Verified 12/22/23 09:40 Penicillins Allergy red face Verified 12/22/23 09:40 sulfite Allergy red face Verified 12/22/23 09:40 polyethylene glycol AdvReac Unknown Nausea & Verified 12/22/23 09:40 [From Golytely] Vomiting polyethylene glycol 3350 AdvReac Unknown Nausea & Verified 12/22/23 09:40 [From Golytely] Vomiting potassium chloride AdvReac Unknown Nausea & Verified 12/22/23 09:40 [From Golytely] Vomiting sodium [From Golytely] AdvReac Unknown Nausea & Verified 12/22/23 09:40 Vomiting sodium bicarbonate AdvReac Unknown Nausea & Verified 12/22/23 09:40 [From Golytely] Vomiting sodium chloride AdvReac Unknown Nausea & Verified 12/22/23 09:40 [From Golytely] Vomiting sodium sulfate AdvReac Unknown Nausea & Verified 12/22/23 09:40 [From Golytely] Vomiting COVID phizer vaccine Allergy Unknown Swelling Uncoded 12/22/23 09:40 face & eyes & red face. lobster Allergy Unknown bright Uncoded 12/22/23 09:40 red, "feels funny" Review of Systems ROS Statement: Those systems with pertinent positive or pertinent negative responses have been documented in the HPI. ROS Other: All systems not noted in ROS Statement are negative. Past Medical History Past Medical History: Heart Failure, Diabetes Mellitus, Hypertension Additional Past Medical History / Comment(s): cirrhosis, thrombocytopenia, scoliosis, diveticulosis History of Any Multi-Drug Resistant Organisms: None Reported Past Surgical History: Cholecystectomy Additional Past Surgical History / Comment(s): colectomy Past Anesthesia/Blood Transfusion Reactions: No Reported Reaction Past Psychological History: No Psychological Hx Reported Smoking Status: Former smoker Past Alcohol Use History: None Reported Past Drug Use History: None Reported General Exam Limitations: no limitations Course Vital Signs 12/22/23 12/22/23 12/22/23 08:41 08:49 10:28 Temperature 97.8 F Pulse Rate 64 64 63 Respiratory 22 16 0 L Rate Blood Pressure 129/64 129/59 145/69 O2 Sat by Pulse 96 98 95 Oximetry - Reevaluation(s) Reevaluation #1: 12/22/23 15:04 Medical record is reviewed Reevaluation #2: 12/22/23 15:05 Patient symptoms are unchanged here in the ER Reevaluation #3: 12/22/23 15:05 Patient informed of results questions answered Reevaluation #4: 12/22/23 15:04 Was pt. sent in by a medical professional or institution (AMRY Brizuela, ORTHODONTIC ASSISTANT, urgent care, hospital, or assisted...) When possible be specific @ -no Did you speak to anyone other than the patient for history (EMS, parent, family, police, friend...)? What history was obtained from this source @ -no Did you review nursing and triage notes (agree or disagree)? Why? @ -agree Are old charts reviewed (outside hosp., previous admission, EMS record, old EKG, old radiological studies, urgent care reports/EKG's, assisted records)? Report findings @ -yes Differential Diagnosis (chest pain, altered mental status, abdominal pain women, abdominal pain men, vaginal bleeding, weakness, fever, dyspnea, syncope, headache, dizziness, GI bleed, back pain, seizure, CVA, palpatations, mental health, musculoskeletal)? @ -prior EKG interpreted by me (3pts min.). @ -yes X-rays interpreted by me (1pt min.). @ -yes negative for acute disease CT interpreted by me (1pt min.). @ -no U/S interpreted by me (1pt. min.). @ -no What testing was considered but not performed or refused? (CT, X-rays, U/S, labs)? Why? @ -none What meds were considered but not given or refused? Why? @ -none Did you discuss the management of the patient with other professionals (professionals i.e. MARY Brizuela, ORTHODONTIC ASSISTANT, lab, RT, psych nurse, social work instructor, patrol community service officer, teacher, attendance officer, correctional casework specialist)? Give summary @ -no Was smoking cessation discussed for >3mins.? @ -no Was critical care preformed (if so, how long)? @ -no Were there social determinants of health that impacted care today? How? (Homelessness, low income, unemployed, alcoholism, drug addiction, transportation, low edu. Level, literacy, decrease access to med. care, nursing home, rehab)? @ -none Was there de-escalation of care discussed even if they declined (Discuss DNR or withdrawal of care, Hospice)? DNR status @ -no What co-morbidities impacted this encounter? (DM, HTN, Smoking, COPD, CAD, Cancer, CVA, ARF, Chemo, Hep., AIDS, mental health diagnosis, sleep apnea, morbid obesity)? @ -none Was patient admitted / discharged? Hospital course, mention meds given and route, prescriptions, significant lab abnormalities, going to OR and other pertinent info. @ - Undiagnosed new problem with uncertain prognosis? @ -no Drug Therapy requiring intensive monitoring for toxicity (Heparin, Nitro, Insulin, Cardizem)? @ -no Were any procedures done? @ -no Diagnosis/symptom? @ - Acute, or Chronic, or Acute on Chronic? @ -Acute Uncomplicated (without systemic symptoms) or Complicated (systemic symptoms)? @ -Complicated Side effects of treatment? @ -no Exacerbation, Progression, or Severe Exacerbation? @ -exacerbation Poses a threat to life or bodily function? How? (Chest pain, USA, MN, pneumonia, PE, COPD, DKA, ARF, appy, cholecystitis, CVA, Diverticulitis, Homicidal, Suicidal, threat to staff... and all critical care pts) @ -yes Reevaluation #5: 12/22/23 15:05 Differential Dizziness: Benign paroxysmal positional Vertigo, Menieres disease, otitis media, acoustic neuroma, vertebrobasilar insufficiency, cerebellar stroke, encephalitis, hypovolemic, arrhythmia, coronary artery syndrome, anemia, this is not meant to be an all-inclusive list 12/22/23 15:05 Differential Weakness: Hypoglycemia, shock, sepsis, hyponatremia, anemia, infection, MN, ETOH, adverse medicine reaction, overdose, stroke, this is not meant to be an all-inclusive list. - Consultations Consultation #1: With magdy who agrees to admit this patient EKG Findings - EKG Comments: EKG Findings:: EKG is SVT 56 QRS 83 QTc 442 - EKG Results: EKG: interpreted by ERMD Medical Decision Making - Medical Decision Making 78 female to the ER today for evaluation of severe weakness and inability. Patient will be admitted for further evaluation management - Lab Data Result diagrams: 12/22/23 09:07 12/22/23 09:07 Lab Results 12/22/23 12/22/23 12/22/23 Range/Units 09:07 09:07 09:07 WBC 9.7 (3.8-10.6) k/uL RBC 3.63 L (3.80-5.40) m/uL Hgb 11.4 (11.4-16.0) gm/dL Hct 33.5 L (34.0-46.0) % MCV 92.3 (80.0-100.0) fL MCH 31.4 (25.0-35.0) pg MCHC 34.0 (31.0-37.0) g/dL RDW 15.3 (11.5-15.5) % Plt Count 156 (150-450) k/uL MPV 8.3 Neutrophils % 77 % Lymphocytes % 12 % Monocytes % 5 % Eosinophils % 1 % Basophils % 0 % Neutrophils # 7.4 (1.3-7.7) k/uL Lymphocytes # 1.2 (1.0-4.8) k/uL Monocytes # 0.5 (0-1.0) k/uL Eosinophils # 0.1 (0-0.7) k/uL Basophils # 0.0 (0-0.2) k/uL PT 13.1 H (10.0-12.5) sec INR 1.2 H (<1.2) APTT 24.0 (22.0-30.0) sec Sodium (137-145) mmol/L Potassium (3.5-5.1) mmol/L Chloride (98-107) mmol/L Carbon Dioxide (22-30) mmol/L Anion Gap mmol/L BUN (7-17) mg/dL Creatinine (0.52-1.04) mg/dL Est GFR (CKD-EPI)AfAm (>60 ml/min/1.73 sqM) Est GFR (CKD-EPI)NonAf (>60 ml/min/1.73 sqM) Glucose (74-99) mg/dL Lactic Ac Sepsis Rflx Plasma Lactic Acid Pipo (0.7-2.0) mmol/L Calcium (8.4-10.2) mg/dL Phosphorus (2.5-4.5) mg/dL Magnesium (1.6-2.3) mg/dL Total Bilirubin (0.2-1.3) mg/dL AST (14-36) U/L ALT (4-34) U/L Alkaline Phosphatase (38-126) U/L Troponin I (0.000-0.034) ng/mL Total Protein (6.3-8.2) g/dL Albumin (3.5-5.0) g/dL TSH (0.465-4.680) mIU/L Urine Color Light Yellow Urine Appearance Cloudy H (Clear) Urine pH 7.0 (5.0-8.0) Ur Specific [place] 1.013 (1.001-1.035) Urine Protein Negative (Negative) Urine Glucose (UA) Negative (Negative) Urine Ketones Negative (Negative) Urine Blood Negative (Negative) Urine Nitrite Negative (Negative) Urine Bilirubin Negative (Negative) Urine Urobilinogen 3.0 (<2.0) mg/dL Ur Leukocyte Esterase Small H (Negative) Urine RBC 1 (0-5) /hpf Urine WBC 10 H (0-5) /hpf Ur Squamous Epith Cells 3 (0-4) /hpf Urine Bacteria Few H (None) /hpf Urine Mucus Rare H (None) /hpf Urine Yeast (Budding) Occasional H (None) /hpf 12/22/23 12/22/23 12/22/23 Range/Units 09:07 09:07 09:07 WBC (3.8-10.6) k/uL RBC (3.80-5.40) m/uL Hgb (11.4-16.0) gm/dL Hct (34.0-46.0) % MCV (80.0-100.0) fL MCH (25.0-35.0) pg MCHC (31.0-37.0) g/dL RDW (11.5-15.5) % Plt Count (150-450) k/uL MPV Neutrophils % % Lymphocytes % % Monocytes % % Eosinophils % % Basophils % % Neutrophils # (1.3-7.7) k/uL Lymphocytes # (1.0-4.8) k/uL Monocytes # (0-1.0) k/uL Eosinophils # (0-0.7) k/uL Basophils # (0-0.2) k/uL PT (10.0-12.5) sec INR (<1.2) APTT (22.0-30.0) sec Sodium 135 L (137-145) mmol/L Potassium 3.6 (3.5-5.1) mmol/L Chloride 100 (98-107) mmol/L Carbon Dioxide 29 (22-30) mmol/L Anion Gap 6 mmol/L BUN 34 H (7-17) mg/dL Creatinine 0.59 (0.52-1.04) mg/dL Est GFR (CKD-EPI)AfAm >90 (>60 ml/min/1.73 sqM) Est GFR (CKD-EPI)NonAf 87 (>60 ml/min/1.73 sqM) Glucose 151 H (74-99) mg/dL Lactic Ac Sepsis Rflx Plasma Lactic Acid Pipo 2.2 H* (0.7-2.0) mmol/L Calcium 8.9 (8.4-10.2) mg/dL Phosphorus 3.9 (2.5-4.5) mg/dL Magnesium 2.0 (1.6-2.3) mg/dL Total Bilirubin 2.0 H (0.2-1.3) mg/dL AST 52 H (14-36) U/L ALT 41 H (4-34) U/L Alkaline Phosphatase 75 (38-126) U/L Troponin I <0.012 (0.000-0.034) ng/mL Total Protein 6.7 (6.3-8.2) g/dL Albumin 2.9 L (3.5-5.0) g/dL TSH 2.250 (0.465-4.680) mIU/L Urine Color Urine Appearance (Clear) Urine pH (5.0-8.0) Ur Specific [place] (1.001-1.035) Urine Protein (Negative) Urine Glucose (UA) (Negative) Urine Ketones (Negative) Urine Blood (Negative) Urine Nitrite (Negative) Urine Bilirubin (Negative) Urine Urobilinogen (<2.0) mg/dL Ur Leukocyte Esterase (Negative) Urine RBC (0-5) /hpf Urine WBC (0-5) /hpf Ur Squamous Epith Cells (0-4) /hpf Urine Bacteria (None) /hpf Urine Mucus (None) /hpf Urine Yeast (Budding) (None) /hpf 12/22/23 Range/Units 09:55 WBC (3.8-10.6) k/uL RBC (3.80-5.40) m/uL Hgb (11.4-16.0) gm/dL Hct (34.0-46.0) % MCV (80.0-100.0) fL MCH (25.0-35.0) pg MCHC (31.0-37.0) g/dL RDW (11.5-15.5) % Plt Count (150-450) k/uL MPV Neutrophils % % Lymphocytes % % Monocytes % % Eosinophils % % Basophils % % Neutrophils # (1.3-7.7) k/uL Lymphocytes # (1.0-4.8) k/uL Monocytes # (0-1.0) k/uL Eosinophils # (0-0.7) k/uL Basophils # (0-0.2) k/uL PT (10.0-12.5) sec INR (<1.2) APTT (22.0-30.0) sec Sodium (137-145) mmol/L Potassium (3.5-5.1) mmol/L Chloride (98-107) mmol/L Carbon Dioxide (22-30) mmol/L Anion Gap mmol/L BUN (7-17) mg/dL Creatinine (0.52-1.04) mg/dL Est GFR (CKD-EPI)AfAm (>60 ml/min/1.73 sqM) Est GFR (CKD-EPI)NonAf (>60 ml/min/1.73 sqM) Glucose (74-99) mg/dL Lactic Ac Sepsis Rflx Y Plasma Lactic Acid Pipo (0.7-2.0) mmol/L Calcium (8.4-10.2) mg/dL Phosphorus (2.5-4.5) mg/dL Magnesium (1.6-2.3) mg/dL Total Bilirubin (0.2-1.3) mg/dL AST (14-36) U/L ALT (4-34) U/L Alkaline Phosphatase (38-126) U/L Troponin I (0.000-0.034) ng/mL Total Protein (6.3-8.2) g/dL Albumin (3.5-5.0) g/dL TSH (0.465-4.680) mIU/L Urine Color Urine Appearance (Clear) Urine pH (5.0-8.0) Ur Specific [place] (1.001-1.035) Urine Protein (Negative) Urine Glucose (UA) (Negative) Urine Ketones (Negative) Urine Blood (Negative) Urine Nitrite (Negative) Urine Bilirubin (Negative) Urine Urobilinogen (<2.0) mg/dL Ur Leukocyte Esterase (Negative) Urine RBC (0-5) /hpf Urine WBC (0-5) /hpf Ur Squamous Epith Cells (0-4) /hpf Urine Bacteria (None) /hpf Urine Mucus (None) /hpf Urine Yeast (Budding) (None) /hpf - Radiology Data Radiology results: report reviewed ('s x-rays negative for acute disease maybe mild CHF), image reviewed Disposition Clinical Impression: Weakness, Acute congestive heart failure, Lactic acidosis Disposition: ADMITTED IP TO THIS HOSP Condition: Fair Is patient prescribed a controlled substance at d/c from ED?: No Time of Disposition: 12:15
[2023-12-22 09:39] LABS: Basophils % (A) 0 %; Eosinophils # (A) 0.1 k/uL (0-0.7); Eosinophils % (A) 1 %; HCT 33.5 % (34.0-46.0); HGB 11.4 gm/dL (11.4-16.0); Lymphocytes # (A) 1.2 k/uL (1.0-4.8); Lymphocytes % (A) 12 %; MCH 31.4 pg (25.0-35.0); MCV 92.3 fL (80.0-100.0); Mean Platelet Volume 8.3; Monocytes # (A) 0.5 k/uL (0-1.0); Monocytes % (A) 5 %; Neutrophils # (A) 7.4 k/uL (1.3-7.7); Neutrophils % (A) 77 %; Platelet Count 156 k/uL (150-450); RBC 3.63 m/uL (3.80-5.40); RDW 15.3 % (11.5-15.5); WBC 9.7 k/uL (3.8-10.6)
[2023-12-22 09:52] LABS: INR 1.2 (<1.2); Prothrombin Time 13.1 sec (10.0-12.5)
[2023-12-22 10:00] LABS: ALT 41 U/L (4-34); AST 52 U/L (14-36); African American GFR (CKD) >90 (>60 ml/min/1.73 sqM); Albumin 2.9 g/dL (3.5-5.0); Alkaline Phosphatase 75 U/L (38-126); Anion Gap 6 mmol/L; Blood Urea Nitrogen 34 mg/dL (7-17); Calcium 8.9 mg/dL (8.4-10.2); Carbon Dioxide 29 mmol/L (22-30); Chloride 100 mmol/L (98-107); Glucose 151 mg/dL (74-99); Non-African American GFR(CKD) 87 (>60 ml/min/1.73 sqM); Phosphorus 3.9 mg/dL (2.5-4.5); Potassium 3.6 mmol/L (3.5-5.1); Sodium 135 mmol/L (137-145); Total Protein 6.7 g/dL (6.3-8.2)
--- NOTE | 2023-12-22 11:32 | XR ---
EXAMINATION TYPE: XR chest 2V DATE OF EXAM: 12/22/2023 11:27 AM CLINICAL INDICATION:Female, 78 years old with history of weak; COMPARISON: Chest radiographs from 12/05/2023 TECHNIQUE: XR chest 2V Frontal and lateral views of the chest. FINDINGS: Lungs/Pleura: There is no evidence of pleural effusion, focal consolidation, or pneumothorax. Pulmonary vascularity: Pulmonary vascular congestion. Heart/mediastinum: Cardiomediastinal silhouette is enlarged and stable. Musculoskeletal: No acute osseous pathology. IMPRESSION: Cardiomegaly and mild pulmonary vascular congestion. Correlate with BNP for congestive heart failure.
[2023-12-22] MEDS ORDERED: MORPHINE SULFATE 4 MG/ML SYRINGE IV PRN (12:14)
[2023-12-22] MEDS ORDERED: NALOXONE 0.4 MG/ML 1 ML VIAL IV PRN (12:14)
[2023-12-22] MEDS ORDERED: ONDANSETRON 4 MG/2 ML VIAL IVP PRN (12:14)
[2023-12-22] MEDS ORDERED: DEXTROSE 50% SYRINGE 50 ML IVP PRN ×2 (14:02)
--- NOTE | 2023-12-22 16:20 | P.HPIM ---
History of Present Illness H&P Date: 12/22/23 History of Presenting Illness: Patient is a very pleasant 78-year-old female with a past medical history of liver cirrhosis secondary to RODRIGUEZ, hypertension, chronic hypoxic respiratory failure home oxygen dependent on 2 L, llz-wbvzvhy-kjpjnjnbr diabetes mellitus, and medication noncompliance. She is very well-known to our services and recently discharged on 12/10/2023 after admission for acute on chronic respiratory failure with diastolic heart failure exacerbation and decompensated liver cirrhosis secondary to RODRIGUEZ. During this admission patient refused most all of her medications and was strongly encouraged to go to subacute rehab due to extremely debilitated condition, however patient reportedly refused at this time. Patient returned to the emergency department today secondary to complaints of continued generalized weakness and per ED physician patient is now requesting assistance with placement in rehab. She denies experiencing any fev ers, chills, headache, lightheadedness, dizziness, chest pain, palpitations, increased shortness of breath, cough or congestion, sore throat, abdominal pain, nausea, vomiting, or experiencing any changes in her difficulties with urinary or bowel function. She does report chronic constipation and reports last bowel movement being today. Patient states she has been taking her torsemide as prescribed and despite still having moderate lower extremity edema she feels she has had significant improvement in her swelling. Patient underwent full evaluation in the emergency department.vital signs upon arrival show blood pressure 129/64, heart rate 64, respiratory rate 22, temp 97.8 F, and SpO2 of 96% on 2 L O2 via nasal cannula. EKG showing bradycardic rhythm at 56 bpm. Chest x-ray completed showing cardiomegaly with mild pulmonary vascular congestion. Labs completed and reviewed. CBC unremarkable with hemoglobin of 11.4, WBC count of 9.7, and platelet count of 156.. Coagulation profile showing elevated PT of 13.1 and INR 1.2. BMP revealing prerenal azotemia with BUN of 34 otherwise normal findings with sodium 135, potassium 3.6, chloride 100, bicarb 29, and anion gap of 6. Liver profile showing hyperbilirubinemia with total bili of 2.0, AST of 52, and ALT of 41. Troponin negative at less than 0.012. Lactate elevated at 2.2. TSH 2.250. Urinalysis negative for infection. P atient was given a 1 L bolus of 0.9% normal saline in the emergency department. She was then admitted under our services to observation unit for assistance with placement. MELD score at time of admission 11 points. Review of systems: Pertinent positives and negatives as discussed in HPI, a complete review of systems was performed and all other systems are negative. Physical exam: Vital signs reviewed and stable. General: Nontoxic, no distress and appears stated age. Derm: Skin warm and dry, normal coloration for ethnicity. Head: Atraumatic, normocephalic and symmetric. Eyes: EOMs intact, no lid lag, and anicteric sclera Mouth: no lip lesions, mucus membranes moist Cardiovascular: regular rate and rhythm with normal S1S2, systolic murmur, positive posterior tibial pulses bilaterally, and cap refill < 2 seconds. Lungs: Respirations even, regular, and unlabored . Lungs diminished. No wheez es, rhonchi, or rales noted. Abdominal: soft, nontender to palpation, no guarding, no appreciable or ganomegaly Ext: ROM intact. No gross muscle atrophy, 2-3+ pitting bilateral lower extremity edema with venous stasis dematitis. Neuro: Speech clear, face symmetrical and CN II-XII grossly intact with no noted focal neuro deficits Psych: Alert and oriented to person, place, time, and situation. Appropriate and pleasant affect. Assessment and Plan of Care: Generalized weakness and fatigue with physical debilitation, multifactorial secondary to worsening chronic debilitating conditions Patient admitted to observation unit for assistance with placement. Consult placed to case management for assistance with placement in long-term facility, patient and patient's family [facility] to [facility]OT Fall precautions in place Telemetry monitoring Prerenal azotemia Lactic acidosis, no signs of infection likely secondary to cirrhosis and daily metformin use Prerenal azotemia is likely secondary to daily diuretic use with torsemide. Patient received a 1 L bolus of 0.9% normal saline in the emergency department and did not take her morning torsemide. We will resume torsemide 20 mg daily tomorrow morning and monitor BMP closely for improvement in renal function. Lactic acidosis is likely secondary to cirrhosis and daily metformin use, patient showing no signs/symptoms of infectious process. Chronic hypoxic respiratory failure secondary to fluid overload resulting from chronic diastolic heart failure and decompensated liver cirrhosis Decompensated Liver cirrhosis secondary to RODRIGUEZ Chronic HFpEF with EF of 55 to 60% Hyperbilirubinemia with Elevated liver enzymes secondary to RODRIGUEZ Patient placed on telemetry monitoring Patient to continue daily medication regimen with atenolol 25 mg twice daily, and furosemide 20 mg daily. Troponin was negative at less than 0.012 and proBNP was 525. Bilirubin 2.0, AST 52, ALT 41, and alkaline phosphatase of 75. INR elevated at 1.2. MELD score at time of admission is 11 points. Patient will need to follow-up outpatient as scheduled with her family service aide and bridge expert for long-term monitoring/management of these chronic conditions. Medication noncompliance Patient has longstanding history of medication noncompliance, she reports she has been compliant with current medication regimen since most recent discharge from hospital. Pka-aqwqzqr-ynaskdpox diabetes mellitus with hyperglycemia -Metformin held and patient placed on glycemic protocol with NovoLog sliding scale. Data and imaging reviewed: As stated above in HPI The patient is admitted with an anticipated less than 2 midnight stay for evaluation of generalized weakness and physical debilitation needing placement in long-term facility CODE STATUS: Full code DVT prophylaxis: Heparin Anticipated discharge date: 1 to 2 days pending placement Anticipated discharge place: Subacute rehab Patient was seen independently by Nurse Practitioner. This document was prepared using [employer] dictation software. Please allow for errors in clinical technician while rare they do occur. Sriram Rees NP rendered care for this patient independently, reviewed the findings and plan as documented in the note above. I did not physically speak with or examine the patient on this date. Past Medical History Past Medical History: Heart Failure, Diabetes Mellitus, Hypertension Additional Past Medical History / Comment(s): cirrhosis, thrombocytopenia, scoliosis, diveticulosis History of Any Multi-Drug Resistant Organisms: None Reported Past Surgical History: Cholecystectomy Additional Past Surgical History / Comment(s): colectomy Past Anesthesia/Blood Transfusion Reactions: No Reported Reaction Past Psychological History: No Psychological Hx Reported Smoking Status: Former smoker Past Alcohol Use History: None Reported Past Drug Use History: None Reported Medications and Allergies Home Medications Medication Instructions Recorded Confirmed Type Montelukast [Singulair] 10 mg PO HS 04/20/22 12/22/23 History Multivitamins, Thera [Multivitamin 1 tab PO PC-SUPPER 04/20/22 12/22/23 History (formulary)] atenoloL [Tenormin] 25 mg PO BID 04/20/22 12/22/23 History metFORMIN HCL [Glucophage] 1,000 mg PO HS 04/20/22 12/22/23 History Magnesium 200 mg PO DAILY 05/07/22 12/22/23 History Ibuprofen [Motrin Ib] 200 mg PO DAILY 12/05/23 12/22/23 History Torsemide [Demadex] 20 mg PO DAILY #90 tab 12/10/23 12/22/23 Rx LORazepam [Ativan] 0.25 mg PO DAILY #2 tab 12/23/23 Rx LORazepam [Ativan] 0.5 mg PO HS #2 tab 12/23/23 Rx Pantoprazole [Protonix] 40 mg PO DAILY tab 12/23/23 Rx Allergies Allergy/AdvReac Type Severity Reaction Status Date / Time Iodinated Contrast Media Allergy Unknown face Verified 12/22/23 09:40 bright red and did not feel right. neomycin Allergy Unknown red face Verified 12/22/23 09:40 shellfish derived [Shrimp] Allergy Unknown face Verified 12/22/23 09:40 bright red, -felt funny. azithromycin Allergy red face Verified 12/22/23 09:40 ciprofloxacin [From Cipro] Allergy red face Verified 12/22/23 09:40 meperidine [From Demerol] Allergy red face Verified 12/22/23 09:40 Penicillins Allergy red face Verified 12/22/23 09:40 sulfite Allergy red face Verified 12/22/23 09:40 polyethylene glycol AdvReac Unknown Nausea & Verified 12/22/23 09:40 [From Golytely] Vomiting polyethylene glycol 3350 AdvReac Unknown Nausea & Verified 12/22/23 09:40 [From Golytely] Vomiting potassium chloride AdvReac Unknown Nausea & Verified 12/22/23 09:40 [From Golytely] Vomiting sodium [From Golytely] AdvReac Unknown Nausea & Verified 12/22/23 09:40 Vomiting sodium bicarbonate AdvReac Unknown Nausea & Verified 12/22/23 09:40 [From Golytely] Vomiting sodium chloride AdvReac Unknown Nausea & Verified 12/22/23 09:40 [From Golytely] Vomiting sodium sulfate AdvReac Unknown Nausea & Verified 12/22/23 09:40 [From Golytely] Vomiting COVID phizer vaccine Allergy Unknown Swelling Uncoded 12/22/23 09:40 face & eyes & red face. lobster Allergy Unknown bright Uncoded 12/22/23 09:40 red, "feels funny" Physical Exam Vitals: Vital Signs Temp Pulse Resp BP Pulse Ox 12/22/23 10:28 63 0 L 145/69 95 12/22/23 08:49 64 16 129/59 98 12/22/23 08:41 97.8 F 64 22 129/64 96 Intake and Output 12/21/23 12/22/23 12/22/23 22:59 06:59 14:59 Other: Weight 88.451 kg Results CBC & Chem 7: 12/23/23 03:17 12/23/23 03:17 Labs: Abnormal Lab Results - Last 24 Hours (Table) 12/22/23 12/22/23 12/22/23 Range/Units 09:07 09:07 09:07 RBC 3.63 L (3.80-5.40) m/uL Hct 33.5 L (34.0-46.0) % PT 13.1 H (10.0-12.5) sec INR 1.2 H (<1.2) Sodium (137-145) mmol/L BUN (7-17) mg/dL Glucose (74-99) mg/dL Plasma Lactic Acid Pipo (0.7-2.0) mmol/L Total Bilirubin (0.2-1.3) mg/dL AST (14-36) U/L ALT (4-34) U/L Albumin (3.5-5.0) g/dL Urine Appearance Cloudy H (Clear) Ur Leukocyte Esterase Small H (Negative) Urine WBC 10 H (0-5) /hpf Urine Bacteria Few H (None) /hpf Urine Mucus Rare H (None) /hpf Urine Yeast (Budding) Occasional H (None) /hpf 12/22/23 12/22/23 12/22/23 Range/Units 09:07 09:07 12:42 RBC (3.80-5.40) m/uL Hct (34.0-46.0) % PT (10.0-12.5) sec INR (<1.2) Sodium 135 L (137-145) mmol/L BUN 34 H (7-17) mg/dL Glucose 151 H (74-99) mg/dL Plasma Lactic Acid Pipo 2.2 H* 2.2 H* (0.7-2.0) mmol/L Total Bilirubin 2.0 H (0.2-1.3) mg/dL AST 52 H (14-36) U/L ALT 41 H (4-34) U/L Albumin 2.9 L (3.5-5.0) g/dL Urine Appearance (Clear) Ur Leukocyte Esterase (Negative) Urine WBC (0-5) /hpf Urine Bacteria (None) /hpf Urine Mucus (None) /hpf Urine Yeast (Budding) (None) /hpf
[2023-12-22] MEDS ORDERED: IBUPROFEN 200 MG TAB PO PRN (16:43)
[2023-12-22 18:04] LABS: Glucose,Whole Blood 131 mg/dL (70-110)
[2023-12-22] MEDS: INSULIN ASPART (NovoLOG) 100 UNIT/ML VIAL SQ SCH ×2 (18:07→22:03)
[2023-12-22] MEDS ORDERED: MULTIVITAMINS, THERA 1 EACH TAB PO SCH (18:30)
[2023-12-22] MEDS: HEPARIN SODIUM,PORCINE 5,000 UNIT/ML 1 ML VIAL SQ SCH (20:02)
[2023-12-22] MEDS: atenoloL 25 MG TAB PO SCH (20:02)
[2023-12-22] MEDS ORDERED: MONTELUKAST 10 MG TAB PO SCH (21:00)
[2023-12-22] MEDS ORDERED: LORazepam 0.5 MG TAB PO SCH (21:00)
[2023-12-22 22:20] LABS: Glucose,Whole Blood 254 mg/dL (70-110)
[2023-12-23 05:51] LABS: Glucose,Whole Blood 205 mg/dL (70-110)
[2023-12-23] MEDS: INSULIN ASPART (NovoLOG) 100 UNIT/ML VIAL SQ SCH ×2 (05:53→12:38)
[2023-12-23] MEDS ORDERED: PANTOPRAZOLE 40 MG/10 ML VIAL IV SCH (09:00)
[2023-12-23] MEDS ORDERED: TORSEMIDE 20 MG TAB PO SCH (09:00)
[2023-12-23] MEDS ORDERED: LORazepam 0.5 MG TAB PO SCH (09:00)
[2023-12-23 09:01] LABS: ALT 43 U/L (8-44); AST 57 U/L (13-35); Albumin/Globulin Ratio 0.88 Ratio (1.60-3.17); Alkaline Phosphatase 69 U/L (41-126); Blood Urea Nitrogen 30.8 mg/dL (9.0-27.0); Carbon Dioxide 27.4 mmol/L (21.6-31.8); Chloride 100 mmol/L (96-109); Globulin 3.4 g/dL (1.6-3.3); Glucose 165 mg/dL (70-110); Lipase 19 U/L (14-63); Magnesium 2.1 mg/dL (1.5-2.4); Phosphorus 3.6 mg/dL (2.4-5.1); Potassium 3.8 mmol/L (3.5-5.5); Sodium 139 mmol/L (135-145); Total Bilirubin 1.5 mg/dL (0.3-1.2); Total Protein 6.4 g/dL (6.2-8.2)
[2023-12-23] MEDS: HEPARIN SODIUM,PORCINE 5,000 UNIT/ML 1 ML VIAL SQ SCH ×2 (09:25→09:30)
[2023-12-23] MEDS: atenoloL 25 MG TAB PO SCH (09:25)
[2023-12-23 10:00] LABS: Basophils # (A) 0.03 X 10*3/uL (0.00-0.10); Basophils % (A) 0.3 %; Eosinophils # (A) 0.12 X 10*3/uL (0.04-0.35); Eosinophils % (A) 1.2 %; HCT 33.2 % (37.2-46.3); HGB 10.8 g/dL (12.0-15.0); Lymphocytes # (A) 1.34 X 10*3/uL (0.90-5.00); Lymphocytes % (A) 13.3 %; MCH 30.7 pg (27.0-32.0); MCHC 32.5 g/dL (32.0-37.0); MCV 94.3 FL (80.0-97.0); Monocytes # (A) 0.88 X 10*3/uL (0.20-1.00); Monocytes % (A) 8.7 %; NRBC Per 100 WBC 0 X 10*3/uL (0.00-0.01); Neutrophils # (A) 7.66 X 10*3/uL (1.80-7.70); Neutrophils % (A) 76.2 %; Platelet Count 161 X 10*3/uL (140-440); RBC 3.52 X 10*6/uL (4.10-5.20); RBC Morphology Normal (Normal); RDW 15.6 % (11.5-14.5); WBC 10.06 X 10*3/uL (4.50-10.00)
[2023-12-23 12:23] LABS: Glucose,Whole Blood 172 mg/dL (70-110)
[2023-12-23 14:18] VITALS: BP 105/65; PULSE 60; RESP 17; TEMP 97.5
--- NOTE | 2023-12-23 14:20 | P.DS ---
Providers Date of admission: 12/22/23 12:14 Expected date of discharge: 12/23/23 Attending physician: Susanna Levin MD Primary care physician: Manohar Pedraza MD Hospital Course: Discharge Diagnosis: Generalized weakness and fatigue with physical debilitation, multifactorial secondary to worsening chronic debilitating conditions. Patient being discharged to [facility]. Prerenal azotemia, improving Lactic acidosis, no signs of infection likely secondary to cirrhosis and daily metformin use. Lactic acidosis resolved. Chronic hypoxic respiratory failure secondary to fluid overload resulting from chronic diastolic heart failure and decompensated liver cirrhosis Decompensated Liver cirrhosis secondary to RODRIGUEZ Chronic HFpEF with EF of 55 to 60% Hyperbilirubinemia with Elevated liver enzymes secondary to RODRIGUEZ History of medication noncompliance Irx-ggmuzeb-whpruyyve diabetes mellitus with hyperglycemia Hospital Course: Patient is a very pleasant 78-year-old female with a past medical history of liver cirrhosis secondary to RODRIGUEZ, hypertension, chronic hypoxic respiratory failure home oxygen dependent on 2 L, eig-bhkaurf-qbsywiwyd diabetes mellitus, and medication noncompliance. She is very well-known to our services and recently discharged on 12/10/2023 after admission for acute on chronic respiratory failure with diastolic heart failure exacerbation and decompensated liver cirrhosis secondary to RODRIGUEZ. During this admission patient refused most all of her medications and was strongly encouraged to go to subacute rehab due to extremely debilitated condition, however patient reportedly refused at this time. Patient returned to the emergency department today secondary to complaints of continued generalized weakness and per ED physician patient is now requesting assistance with placement in rehab. She denies experiencing any fevers, chills, headache, lightheadedness, dizziness, chest pain, palpitations, increased shortness of breath, cough or congestion, sore throat, abdominal pain, nausea, vomiting, or experiencing any changes in her difficulties with urinary or bowel function. She does report chronic constipation and reports last bowel movement being today. Patient states she has been taking her torsemide as prescribed and despite still having moderate lower extremity edema she feels she has had significant improvement in her swelling. Patient underwent full evaluation in the emergency department.vital signs upon arrival show blood pressure 129/64, heart rate 64, respiratory rate 22, temp 97.8 F, and SpO2 of 96% on 2 L O2 via nasal cannula. EKG showing bradycardic rhythm at 56 bpm. Chest x-ray completed showing cardiomegaly with mild pulmonary vascular congestion. Labs completed and reviewed. CBC unremarkable with hemoglobin of 11.4, WBC count of 9.7, and platelet count of 156.. Coagulation profile showing elevated PT of 13.1 and INR 1.2. BMP revealing prerenal azotemia with BUN of 34 otherwise normal findings with sodium 135, potassium 3.6, chloride 100, bicarb 29, and anion gap of 6. Liver profile showing hyperbilirubinemia with total bili of 2.0, AST of 52, and ALT of 41. Troponin negative at less than 0.012. Lactate elevated at 2.2. TSH 2.250. Urinalysis negative for infection. Patient was given a 1 L bolus of 0.9% normal saline in the emergency department. She was then admitted under our services to observation unit for assistance with placement. MELD score at time of admission 11 points. Patient monitored overnight. Lactic acidosis resolving. She was evaluated by physical and Occu pational Therapy. Discussed with social work and arrangements have been made for [facility] facility admission. Patient has been accepted to [facility] and is medically stable for discharge to [facility] facility at this time. Physical exam: Vital signs reviewed and stable. General: Nontoxic, no distress and appears stated age. Derm: Skin warm and dry, normal coloration for ethnicity. Head: Atraumatic, normocephalic and symmetric. Eyes: EOMs intact, no lid lag, and anicteric sclera Mouth: no lip lesions, mucus membranes moist Cardiovascular: regular rate and rhythm with normal S1S2, systolic murmur, positive posterior tibial pulses bilaterally, and cap refill < 2 seconds. Lungs: Respirations even, regular, and unlabored . Lungs diminished. No wheezes, rhonchi, or rales noted. Abdominal: soft, nontender to palpation, no guarding, no appreciable organomegaly Ext: ROM intact. No gross muscle atrophy, 2-3+ pitting bilateral lower extremity edema with venous stasis dematitis. Neuro: Speech clear, face symmetrical and CN II-XII grossly intact with no noted focal neuro deficits Psych: Alert and oriented to person, place, time, and situation. Appropriate and pleasant affect. A total of 35 minutes of time were spent preparing this complex discharge summary. Pt was discharged on 12/23/2023 at 2:14 PM. Patient was seen independently by Nurse Practitioner. This document was prepared using [employer] dictation software. Please allow for errors in yardage control clerk while rare they do occur. Sriram Rees NP rendered care for this patient independently, reviewed the findings and plan as documented in the note above. I did not physically speak with or examine the patient on this date. Patient Condition at Discharge: Fair Plan - Discharge Summary Discharge Rx Participant: No New Discharge Prescriptions: New Pantoprazole [Protonix] 40 mg PO DAILY tab Continue Magnesium 200 mg PO DAILY Torsemide [Demadex] 20 mg PO DAILY #90 tab Multivitamins, Thera [Multivitamin (formulary)] 1 tab PO PC-SUPPER Montelukast [Singulair] 10 mg PO HS metFORMIN HCL [Glucophage] 1,000 mg PO HS atenoloL [Tenormin] 25 mg PO BID Ibuprofen [Motrin Ib] 200 mg PO DAILY LORazepam [Ativan] 0.25 mg PO DAILY #2 tab LORazepam [Ativan] 0.5 mg PO HS #2 tab Discharge Medication List Montelukast [Singulair] 10 mg PO HS 04/20/22 [History] Multivitamins, Thera [Multivitamin (formulary)] 1 tab PO PC-SUPPER 04/20/22 [History] atenoloL [Tenormin] 25 mg PO BID 04/20/22 [History] metFORMIN HCL [Glucophage] 1,000 mg PO HS 04/20/22 [History] Magnesium 200 mg PO DAILY 05/07/22 [History] Ibuprofen [Motrin Ib] 200 mg PO DAILY 12/05/23 [History] Torsemide [Demadex] 20 mg PO DAILY #90 tab 12/10/23 [Rx] LORazepam [Ativan] 0.25 mg PO DAILY #2 tab 12/23/23 [Rx] LORazepam [Ativan] 0.5 mg PO HS #2 tab 12/23/23 [Rx] Pantoprazole [Protonix] 40 mg PO DAILY tab 12/23/23 [Rx] Follow up Appointment(s)/Referral(s): Manohar Pedraza MD [Primary Care Provider] - 1-2 days Activity/Diet/Wound Care/Special Instructions: Activity: As tolerated. Walk with walker at all times t with supervision/assistance. Diet: Heart healthy and carb consistent diet. Avoid salts, or foods with hidden salts such as canned or boxed foods and frozen dinners. Extra salt makes your heart work harder and traps the fluid in your body for longer. 1800 mL fluid restriction daily. Special Instructions: Take all of your medications as directed and remember to keep all of your doctor's appointments and follow-up as needed. Recommend TANO hose/compression stockings to BLE to assist with swelling and elevating legs/feet when not in use. Patient currently declining using compression stockings or TANO hose. Thank you for allowing us to participate in your care, it was truly a pleasure having you for our patient!!! Discharge Disposition: TRANSFER TO SNF/ECF
[2023-12-24] MEDS ORDERED: PANTOPRAZOLE 40 MG TABLET PO SCH (09:00)
== END 2023-12-23 15:45 ==
LOC: EC 08:33 → 6NMEDSUR 12:14
PROVIDERS: ADMIT Internal Medicine; ATTEND Internal Medicine
DX: R53.1 Weakness (principal); I11.0 Hypertensive heart disease with heart failure; I50.32 Chronic diastolic (congestive) heart failure; K75.81 Nonalcoholic steatohepatitis (NASH); K74.60 Unspecified cirrhosis of liver; E11.65 Type 2 diabetes mellitus with hyperglycemia; E87.20 Acidosis, unspecified; J96.11 Chronic respiratory failure with hypoxia; R74.8 Abnormal levels of other serum enzymes; Z91.148 Patient's other noncompliance with medication regimen for other reason; Z87.891 Personal history of nicotine dependence; Z99.81 Dependence on supplemental oxygen; Z79.84 Long term (current) use of oral hypoglycemic drugs; Z79.899 Other long term (current) drug therapy; Z88.0 Allergy status to penicillin; Z88.1 Allergy status to other antibiotic agents; Z88.2 Allergy status to sulfonamides; Z88.5 Allergy status to narcotic agent
CPT/HCPCS: 96361 ×3; 96374; 99285; 36415; 93005; 97162; 97166; 83880; 80053 ×2; 83605 ×2; 83690; 83735 ×2; 84100 ×2; 84443; 84484; 85025 ×2; 85610; 85730; 81001; 71046; G0378 ×2; C9113

== ENCOUNTER 2023-12-28 13:01 | Inpatient (IN) | payer MEDICARE ==
[2023-12-28 13:10] LABS: Glucose,Whole Blood 137 mg/dL (70-110)
--- NOTE | 2023-12-28 13:32 | ED ---
General Adult HPI - General Chief complaint: Altered Mental Status Stated complaint: AMS Time Seen by Provider: 12/28/23 13:09 Source: EMS, RN notes reviewed, old records reviewed Mode of arrival: EMS Limitations: altered mental status - History of Present Illness Initial comments: Patient is a 78-year-old female presenting to the emergency department for change in mental status. Last normal yesterday. Patient found this morning around 6 AM altered and rechecked around noon, still altered. Patient is unable to provide any history or complaints. - Related Data Home Medications Medication Instructions Recorded Confirmed Montelukast [Singulair] 10 mg PO HS 04/20/22 12/22/23 Multivitamins, Thera [Multivitamin 1 tab PO PC-SUPPER 04/20/22 12/22/23 (formulary)] atenoloL [Tenormin] 25 mg PO BID 04/20/22 12/22/23 metFORMIN HCL [Glucophage] 1,000 mg PO HS 04/20/22 12/22/23 Magnesium 200 mg PO DAILY 05/07/22 12/22/23 Ibuprofen [Motrin Ib] 200 mg PO DAILY 12/05/23 12/22/23 Previous Rx's Medication Instructions Recorded Torsemide [Demadex] 20 mg PO DAILY #90 tab 12/10/23 LORazepam [Ativan] 0.25 mg PO DAILY #2 tab 12/23/23 LORazepam [Ativan] 0.5 mg PO HS #2 tab 12/23/23 Pantoprazole [Protonix] 40 mg PO DAILY tab 12/23/23 Allergies Allergy/AdvReac Type Severity Reaction Status Date / Time Iodinated Contrast Media Allergy Unknown face Verified 12/28/23 13:15 bright red and did not feel right. neomycin Allergy Unknown red face Verified 12/28/23 13:15 shellfish derived [Shrimp] Allergy Unknown face Verified 12/28/23 13:15 bright red, -felt funny. azithromycin Allergy red face Verified 12/28/23 13:15 ciprofloxacin [From Cipro] Allergy red face Verified 12/28/23 13:15 COVID-19 (SARS-CoV-2) Allergy Unknown Verified 12/28/23 13:15 vaccine, monique meperidine [From Demerol] Allergy red face Verified 12/28/23 13:15 Penicillins Allergy red face Verified 12/28/23 13:15 sulfite Allergy red face Verified 12/28/23 13:15 polyethylene glycol AdvReac Unknown Nausea & Verified 12/28/23 13:15 [From Golytely] Vomiting polyethylene glycol 3350 AdvReac Unknown Nausea & Verified 12/28/23 13:15 [From Golytely] Vomiting potassium chloride AdvReac Unknown Nausea & Verified 12/28/23 13:15 [From Golytely] Vomiting sodium [From Golytely] AdvReac Unknown Nausea & Verified 12/28/23 13:15 Vomiting sodium bicarbonate AdvReac Unknown Nausea & Verified 12/28/23 13:15 [From Golytely] Vomiting sodium chloride AdvReac Unknown Nausea & Verified 12/28/23 13:15 [From Golytely] Vomiting sodium sulfate AdvReac Unknown Nausea & Verified 12/28/23 13:15 [From Golytely] Vomiting COVID phizer vaccine Allergy Unknown Swelling Uncoded 12/28/23 13:15 face & eyes & red face. lobster Allergy Unknown bright Uncoded 12/28/23 13:15 red, "feels funny" Review of Systems ROS Statement: Those systems with pertinent positive or pertinent negative responses have been documented in the HPI. ROS Other: All systems not noted in ROS Statement are negative. Limitations: ROS unobtainable due to patients medical condition Past Medical History Past Medical History: Heart Failure, Diabetes Mellitus, Hypertension Additional Past Medical History / Comment(s): cirrhosis, thrombocytopenia, scoliosis, diveticulosis History of Any Multi-Drug Resistant Organisms: None Reported Past Surgical History: Cholecystectomy Additional Past Surgical History / Comment(s): colectomy Past Anesthesia/Blood Transfusion Reactions: No Reported Reaction Past Psychological History: No Psychological Hx Reported Smoking Status: Former smoker Past Alcohol Use History: None Reported Past Drug Use History: None Reported General Exam Limitations: altered mental status General appearance: lethargic Head exam: Present: atraumatic Eye exam: Present: normal appearance, PERRL ENT exam: Present: normal oropharynx Neck exam: Present: normal inspection. Absent: tenderness, meningismus Respiratory exam: Present: normal lung sounds bilaterally Cardiovascular Exam: Present: regular rate, normal rhythm GI/Abdominal exam: Present: soft. Absent: tenderness Extremities exam: Present: pedal edema Neurological exam: Present: altered, other (Nonverbal. Withdrawals all extr emities to pain. Does not follow commands.) Expanded Eye Response: (2) open to pain Motor Response: (4) withdraws to pain Verbal Response: (3) inappropriate words Psychiatric exam: Present: flat affect Skin exam: Present: normal color Course Vital Signs 12/28/23 12/28/23 13:05 14:53 Temperature 97.6 F Pulse Rate 67 79 Respiratory 16 22 Rate Blood Pressure 121/52 145/69 O2 Sat by Pulse 100 97 Oximetry EKG Findings - EKG Results: EKG: interpreted by ERMD, sinus rhythm, normal axis, normal QRS, normal ST/T Medical Decision Making - Medical Decision Making Was pt. sent in by a medical professional or institution (, PA, [employer]YWALL APPLICATION SUPERVISOR, urgent care, hospital, or long term...) When possible be specific @ -Patient was sent from long term Did you speak to anyone other than the patient for history (EMS, parent, family, police, friend...)? What history was obtained from this source @ -Nurse provides history as patient is nonverbal Did you review nursing and triage notes (agree or disagree)? Why? @ -I reviewed and agree with nursing and triage notes Were old charts reviewed (outside hosp., previous admission, EMS record, old EKG, old radiological studies, urgent care reports/EKG's, long term records)? Report findings @ -Transfer sheets reviewed Differential Diagnosis (chest pain, altered mental status, abdominal pain women, abdominal pain men, vaginal bleeding, weakness, fever, dyspnea, syncope, headache, dizziness, GI bleed, back pain, seizure, CVA, palpatations, mental health, musculoskeletal)? @ -Differential Altered Mental Status: Hypoglycemia, DKA, hypercapnia, ETOH, overdose, CO poisoning, trauma, myxedema coma, HTN encephalopathy, infection, encephalitis, psychosis, intercranial hemorrhage, hepatic encephalopathy, meningitis, CVA, this is not meant to be an all-inclusive list EKG interpreted by me (3pts min.). @ -As above X-rays interpreted by me (1pt min.). @ -Chest x-ray shows cardiomegaly CT interpreted by me (1pt min.). @ -CT brain reveals questionable area left cerebellum. Cannot rule out underlying mass or lacunar infarct. U/S interpreted by me (1pt. min.). @ -None done What testing was considered but not performed or refused? (CT, X-rays, U/S, labs)? Why? @ -Considered further imaging however this will be deferred to neurology What meds were considered but not given or refused? Why? @ -None Did you discuss the management of the patient with other professionals (professionals i.e. , PA, [employer]YWALL APPLICATION SUPERVISOR, lab, RT, psych nurse, rn social work, city assessor, teacher, sheriff officer, case filler)? Give summary @ -Case discussed with Dr. Abernathy who will admit covering Dr. Wallace. Was smoking cessation discussed for >3mins.? @ -No Was critical care preformed (if so, how long)? @ -No Were there social determinants of health that impacted care today? How? (Homelessness, low income, unemployed, alcoholism, drug addiction, transportation, low edu. Level, literacy, decrease access to med. care, residential, rehab)? @ -No Was there de-escalation of care discussed even if they declined (Discuss DNR or withdrawal of care, Hospice)? DNR status @ -No What co-morbidities impacted this encounter? (DM, HTN, Smoking, COPD, CAD, Cancer, CVA, ARF, Chemo, Hep., AIDS, mental health diagnosis, sleep apnea, morbid obesity)? @ -None Was patient admitted / discharged? Hospital course, mention meds given and route, prescriptions, significant lab abnormalities, going to OR and other pertinent info. @ -Patient reevaluated and slightly improved. Patient does have increase in ammonia levels and will be provided lactulose and evaluated for improvement with this. Patient has a possible urinary tract infection and will be treated for this however this is unlikely to be the cause of her symptoms. There is also questionable changes on computed tomography scan of brain. Neurology will be consulted for further evaluation and possible MRI. Admission orders written Undiagnosed new problem with uncertain prognosis? @ -No Drug Therapy requiring intensive monitoring for toxicity (Heparin, Nitro, Insulin, Cardizem)? @ -No Were any procedures done? @ -No Diagnosis/symptom? @ -Altered mental status Acute, or Chronic, or Acute on Chronic? @ -Acute Uncomplicated (without systemic symptoms) or Complicated (systemic symptoms)? @ -default Side effects of treatment? @ -No Exacerbation, Progression, or Severe Exacerbation? @ -No Poses a threat to life or bodily function? How? (Chest pain, [place], [place], pneumonia, PE, COPD, DKA, ARF, appy, cholecystitis, CVA, Diverticulitis, Homicidal, Suicidal, threat to staff... and all critical care pts) @ -No - Lab Data Result diagrams: 12/28/23 13:29 12/28/23 13:29 Lab Results 12/28/23 12/28/23 12/28/23 Range/Units 13:08 13:29 13:29 WBC 10.2 (3.8-10.6) k/uL RBC 3.79 L (3.80-5.40) m/uL Hgb 12.2 (11.4-16.0) gm/dL Hct 35.1 (34.0-46.0) % MCV 92.5 (80.0-100.0) fL MCH 32.2 (25.0-35.0) pg MCHC 34.8 (31.0-37.0) g/dL RDW 15.5 (11.5-15.5) % Plt Count 140 L (150-450) k/uL MPV 7.7 Neutrophils % 81 % Lymphocytes % 11 % Monocytes % 4 % Eosinophils % 1 % Basophils % 0 % Neutrophils # 8.2 H (1.3-7.7) k/uL Lymphocytes # 1.1 (1.0-4.8) k/uL Monocytes # 0.4 (0-1.0) k/uL Eosinophils # 0.2 (0-0.7) k/uL Basophils # 0.0 (0-0.2) k/uL PT 13.0 H (10.0-12.5) sec INR 1.2 H (<1.2) APTT 22.1 (22.0-30.0) sec Sample Site ABG pH (7.35-7.45) ABG pCO2 (35-45) mmHg ABG pO2 (83-108) mmHg ABG HCO3 (21-25) mmol/L ABG Total CO2 (19-24) mmol/L ABG O2 Saturation (94-97) % ABG Base Excess mmol/L Wolfgang Test FiO2 % Sodium (137-145) mmol/L Potassium (3.5-5.1) mmol/L Chloride (98-107) mmol/L Carbon Dioxide (22-30) mmol/L Anion Gap mmol/L BUN (7-17) mg/dL Creatinine (0.52-1.04) mg/dL Est GFR (CKD-EPI)AfAm (>60 ml/min/1.73 sqM) Est GFR (CKD-EPI)NonAf (>60 ml/min/1.73 sqM) Glucose (74-99) mg/dL POC Glucose (mg/dL) 137 H (70-110) mg/dL POC Glu Valve Fitter ID [place] Calcium (8.4-10.2) mg/dL Total Bilirubin (0.2-1.3) mg/dL AST (14-36) U/L ALT (4-34) U/L Alkaline Phosphatase (38-126) U/L Ammonia (<30) umol/L Troponin I (0.000-0.034) ng/mL NT-Pro-B Natriuret Pep pg/mL Total Protein (6.3-8.2) g/dL Albumin (3.5-5.0) g/dL Urine Color Urine Appearance (Clear) Urine pH (5.0-8.0) Ur Specific [place] (1.001-1.035) Urine Protein (Negative) Urine Glucose (UA) (Negative) Urine Ketones (Negative) Urine Blood (Negative) Urine Nitrite (Negative) Urine Bilirubin (Negative) Urine Urobilinogen (<2.0) mg/dL Ur Leukocyte Esterase (Negative) Urine WBC (0-5) /hpf Urine Bacteria (None) /hpf Urine Mucus (None) /hpf 12/28/23 12/28/23 12/28/23 Range/Units 13:29 13:29 13:29 WBC (3.8-10.6) k/uL RBC (3.80-5.40) m/uL Hgb (11.4-16.0) gm/dL Hct (34.0-46.0) % MCV (80.0-100.0) fL MCH (25.0-35.0) pg MCHC (31.0-37.0) g/dL RDW (11.5-15.5) % Plt Count (150-450) k/uL MPV Neutrophils % % Lymphocytes % % Monocytes % % Eosinophils % % Basophils % % Neutrophils # (1.3-7.7) k/uL Lymphocytes # (1.0-4.8) k/uL Monocytes # (0-1.0) k/uL Eosinophils # (0-0.7) k/uL Basophils # (0-0.2) k/uL PT (10.0-12.5) sec INR (<1.2) APTT (22.0-30.0) sec Sample Site ABG pH (7.35-7.45) ABG pCO2 (35-45) mmHg ABG pO2 (83-108) mmHg ABG HCO3 (21-25) mmol/L ABG Total CO2 (19-24) mmol/L ABG O2 Saturation (94-97) % ABG Base Excess mmol/L Wolfgang Test FiO2 % Sodium 134 L (137-145) mmol/L Potassium 4.4 (3.5-5.1) mmol/L Chloride 103 (98-107) mmol/L Carbon Dioxide 25 (22-30) mmol/L Anion Gap 6 mmol/L BUN 33 H (7-17) mg/dL Creatinine 0.54 (0.52-1.04) mg/dL Est GFR (CKD-EPI)AfAm >90 (>60 ml/min/1.73 sqM) Est GFR (CKD-EPI)NonAf 89 (>60 ml/min/1.73 sqM) Glucose 148 H (74-99) mg/dL POC Glucose (mg/dL) (70-110) mg/dL POC Glu Valve Fitter ID Calcium 8.8 (8.4-10.2) mg/dL Total Bilirubin 2.6 H (0.2-1.3) mg/dL AST 67 H (14-36) U/L ALT 50 H (4-34) U/L Alkaline Phosphatase 79 (38-126) U/L Ammonia 56 H (<30) umol/L Troponin I (0.000-0.034) ng/mL NT-Pro-B Natriuret Pep 821 pg/mL Total Protein 7.1 (6.3-8.2) g/dL Albumin 3.1 L (3.5-5.0) g/dL Urine Color Yellow Urine Appearance Cloudy H (Clear) Urine pH 7.0 (5.0-8.0) Ur Specific [place] 1.015 (1.001-1.035) Urine Protein Negative (Negative) Urine Glucose (UA) Negative (Negative) Urine Ketones Negative (Negative) Urine Blood Negative (Negative) Urine Nitrite Negative (Negative) Urine Bilirubin Negative (Negative) Urine Urobilinogen 6.0 (<2.0) mg/dL Ur Leukocyte Esterase Small H (Negative) Urine WBC 19 H (0-5) /hpf Urine Bacteria Few H (None) /hpf Urine Mucus Rare H (None) /hpf 12/28/23 12/28/23 Range/Units 13:29 14:05 WBC (3.8-10.6) k/uL RBC (3.80-5.40) m/uL Hgb (11.4-16.0) gm/dL Hct (34.0-46.0) % MCV (80.0-100.0) fL MCH (25.0-35.0) pg MCHC (31.0-37.0) g/dL RDW (11.5-15.5) % Plt Count (150-450) k/uL MPV Neutrophils % % Lymphocytes % % Monocytes % % Eosinophils % % Basophils % % Neutrophils # (1.3-7.7) k/uL Lymphocytes # (1.0-4.8) k/uL Monocytes # (0-1.0) k/uL Eosinophils # (0-0.7) k/uL Basophils # (0-0.2) k/uL PT (10.0-12.5) sec INR (<1.2) APTT (22.0-30.0) sec Sample Site Left Radial ABG pH 7.52 H (7.35-7.45) ABG pCO2 35 (35-45) mmHg ABG pO2 92 (83-108) mmHg ABG HCO3 29 H (21-25) mmol/L ABG Total CO2 30 H (19-24) mmol/L ABG O2 Saturation 98.1 H (94-97) % ABG Base Excess 5.8 mmol/L Wolfgang Test Yes FiO2 28 % Sodium (137-145) mmol/L Potassium (3.5-5.1) mmol/L Chloride (98-107) mmol/L Carbon Dioxide (22-30) mmol/L Anion Gap mmol/L BUN (7-17) mg/dL Creatinine (0.52-1.04) mg/dL Est GFR (CKD-EPI)AfAm (>60 ml/min/1.73 sqM) Est GFR (CKD-EPI)NonAf (>60 ml/min/1.73 sqM) Glucose (74-99) mg/dL POC Glucose (mg/dL) (70-110) mg/dL POC Glu Valve Fitter ID Calcium (8.4-10.2) mg/dL Total Bilirubin (0.2-1.3) mg/dL AST (14-36) U/L ALT (4-34) U/L Alkaline Phosphatase (38-126) U/L Ammonia (<30) umol/L Troponin I <0.012 (0.000-0.034) ng/mL NT-Pro-B Natriuret Pep pg/mL Total Protein (6.3-8.2) g/dL Albumin (3.5-5.0) g/dL Urine Color Urine Appearance (Clear) Urine pH (5.0-8.0) Ur Specific [place] (1.001-1.035) Urine Protein (Negative) Urine Glucose (UA) (Negative) Urine Ketones (Negative) Urine Blood (Negative) Urine Nitrite (Negative) Urine Bilirubin (Negative) Urine Urobilinogen (<2.0) mg/dL Ur Leukocyte Esterase (Negative) Urine WBC (0-5) /hpf Urine Bacteria (None) /hpf Urine Mucus (None) /hpf Disposition Clinical Impression: Altered mental status Disposition: ADMITTED IP TO THIS HOSP Is patient prescribed a controlled substance at d/c from ED?: No Referrals: Tony Ramirez DO [Primary Care Provider] - 1-2 days Time of Disposition: 15:46
[2023-12-28 13:55] LABS: Appearance,Urine Cloudy (Clear); Bacteria,Urine Few /hpf; Bilirubin,Urine Negative (Negative); Blood,Urine Negative (Negative); Color,Urine Yellow; Glucose,Urine (UA) Negative (Negative); Ketones,Urine Negative (Negative); Leukocyte Esterase,Urine Small (Negative); Mucus,Urine Rare /hpf; Nitrite,Urine Negative (Negative); Protein,Urine Negative (Negative); Specific Gravity,Urine 1.015 (1.001-1.035); WBC,Urine 19 /hpf (0-5)
[2023-12-28 14:01] LABS: Basophils % (A) 0 %; Eosinophils # (A) 0.2 k/uL (0-0.7); Eosinophils % (A) 1 %; HCT 35.1 % (34.0-46.0); HGB 12.2 gm/dL (11.4-16.0); Lymphocytes # (A) 1.1 k/uL (1.0-4.8); Lymphocytes % (A) 11 %; MCH 32.2 pg (25.0-35.0); MCHC 34.8 g/dL (31.0-37.0); MCV 92.5 fL (80.0-100.0); Mean Platelet Volume 7.7; Monocytes # (A) 0.4 k/uL (0-1.0); Monocytes % (A) 4 %; Neutrophils # (A) 8.2 k/uL (1.3-7.7); Neutrophils % (A) 81 %; Platelet Count 140 k/uL (150-450); RBC 3.79 m/uL (3.80-5.40); RDW 15.5 % (11.5-15.5); WBC 10.2 k/uL (3.8-10.6)
[2023-12-28 14:10] LABS: ABG Base Excess 5.8 mmol/L; ABG HCO3 29 mmol/L (21-25); ABG Oxygen Saturation 98.1 % (94-97); ABG PCO2 35 mmHg (35-45); ABG PH 7.52 (7.35-7.45); ABG PO2 92 mmHg (83-108); ABG TCO2 30 mmol/L (19-24); Allen Test Performed? Yes
[2023-12-28 14:19] LABS: ALT 50 U/L (4-34); African American GFR (CKD) >90 (>60 ml/min/1.73 sqM); Albumin 3.1 g/dL (3.5-5.0); Anion Gap 6 mmol/L; Blood Urea Nitrogen 33 mg/dL (7-17); Calcium 8.8 mg/dL (8.4-10.2); Carbon Dioxide 25 mmol/L (22-30); Chloride 103 mmol/L (98-107); Glucose 148 mg/dL (74-99); Non-African American GFR(CKD) 89 (>60 ml/min/1.73 sqM); Sodium 134 mmol/L (137-145); Total Bilirubin 2.6 mg/dL (0.2-1.3)
[2023-12-28 14:20] LABS: INR 1.2 (<1.2); Partial Thromboplastin Time 22.1 sec (22.0-30.0)
--- NOTE | 2023-12-28 14:22 | XR ---
EXAMINATION TYPE: XR chest 1V portable DATE OF EXAM: 12/28/2023 COMPARISON: 12/22/2023 INDICATION: Acute mental status changes TECHNIQUE: Single frontal view of the chest is obtained. FINDINGS: The heart size is prominent. The pulmonary vasculature is normal. The lungs are clear. There is elevation of the right diaphragm. Chronic rotator cuff tears are likely present bilaterally. IMPRESSION: 1. Organomegaly
[2023-12-28 14:27] LABS: AST 67 U/L (14-36); Alkaline Phosphatase 79 U/L (38-126); NT-Pro-B-Type Natriuretic Pept 821 pg/mL; Potassium 4.4 mmol/L (3.5-5.1); Total Protein 7.1 g/dL (6.3-8.2)
--- NOTE | 2023-12-28 14:28 | CT ---
EXAMINATION TYPE: CT brain wo con DATE OF EXAM: 12/28/2023 COMPARISON: 05/04/2011 INDICATION: ams DLP: 1225 mGycm, Automated exposure control for dose reduction was used. CONTRAST: None CT of the brain is performed utilizing 3 mm thick sections through the posterior fossa and 3 mm thick sections through the remaining calvarium. Study is performed within 24 hours of arrival to the hosp [place]. No abnormal hyperdensity is present to suggest an acute intracranial hemorrhage. There is a 1.2 cm hypodense heterogenous area within the posterior left cerebellum. Underlying mass s hould be considered. Lacunar infarct could be within the differential. Additional workup is recommend ed. Consider contrast MRI. This is an interval finding from 2010. No large acute infarcts are evident. Ventricles and sulci are appropriate for the patient age. Paranasal sinuses and mastoid air cells within the [id number]-[id number] are clear. IMPRESSION: 1. 1.2 cm hypodense dense heterogenous area left cerebellum. Underlying mass should be considered. Developing lacunar infarct could be within the differential. Additional workup with contrast-enhanced MRI is recommended.
[2023-12-28] MEDS ORDERED: NALOXONE 0.4 MG/ML 1 ML VIAL IV PRN (15:38)
[2023-12-28] MEDS ORDERED: ONDANSETRON 4 MG/2 ML VIAL IVP PRN (15:38)
[2023-12-28] MEDS ORDERED: DEXTROSE 50% SYRINGE 50 ML IVP PRN ×2 (15:54)
[2023-12-28] MEDS: ASPIRIN 300 MG SUPP RECTAL STA (16:26)
--- NOTE | 2023-12-28 16:49 | P.HPIM ---
History of Present Illness H&P Date: 12/28/23 History of Presenting Illness: Patient is a very pleasant 78-year-old female with a past medical history of liver cirrhosis secondary to RODRIGUEZ, hypertension, chronic hypoxic respiratory failure home oxygen dependent on 2 L, [id number] diabetes mellitus, and medication noncompliance. She is very well-known to our services and recently discharged on 12/23/2023 to [facility] after admission for a generalized weakness and fatigue with physical debilitation believed to result from her multiple comorbidities.. Patient returned to the emergency department today from [facility] via EMS secondary to complaints of acute alteration in mental status. Per ED report patient was last known normal yesterday evening and was found this morning at 6 AM confused and altered and upon recheck at rehab facility at noon patient remained altered so she was sent to the emergency department for evaluation. Vital signs upon arrival show blood pressure 121/52, heart rate 67, respiratory rate 16, temp 97.6 F axillary, and SpO2 of 100% on 2 L. Blood glucose upon arrival was 137. EKG showing normal sinus rhythm [address] head without contrast revealing a 1.2 cm hypodense heterogeneous area to the left cerebellum, underlying mass or developing lacunar infarct cannot be ruled out. X-ray also completed showing cardiomegaly and elevation of right diaphragm with findings of chronic rotator cuff tears bilaterally, otherwise negative for acute cardiopulmonary process. Labs were completed and reviewed. CBC showing thrombocytopenia with platelet count of 140. BMP revealing hyponatremia with sodium of 134 and prerenal azotemia with BUN of 33. Liver profile showing hyperbilirubinemia with total bili of 2.6 and elevated liver enzymes with AST of 67 and ALT of 50. Ammonia level is also elevated at 56. Troponin negative at less than 0.012. VBG completed showing metabolic alkalosis with pH 7.52, bicarb 29, CO2 of 30, and O2 sat of 98.1. Urinalysis was negative for concerns of infection. NG tube was inserted in the emergency department and patient started on lactulose for treatment of her hyperammonemia. Patient admitted under our services at this time with consultation to neurology for evaluation secondary to concerns of acute CVA and hyperammonemia.. At time of examination, patient was alert and laying on her left side. She had some garbled speech otherwise only able to state her name. Patient showing frustration when being asked questions and was rubbing her head. She was unable to follow commands. Per nursing staff at bedside patient's just stepped out to grab something to eat and will be back shortly. Review of systems: Pertinent positives and negatives as discussed in HPI, a complete review of systems was performed and all other systems are negative. Physical exam: Vital signs reviewed and stable. General: Nontoxic and appears stated age. Derm: Skin warm and dry, normal coloration for ethnicity. Head: Atraumatic, normocephalic and symmetric. Eyes: EOMs appear to be intact, patient not following commands so it is indeterminant if the patient is able to focus on object and follow. No lid lag, and anicteric sclera. Pupils equal and round. Mouth: no lip lesions, mucus membranes moist Cardiovascular: regular rate and rhythm with normal S1S2, systolic murmur, positive posterior tibial pulses bilaterally, and cap refill < 2 seconds. Lungs: Respirations even, regular, and unlabored . Lungs diminished. No wheezes, rhonchi, or rales noted. Abdominal: soft, nontender to palpation, no guarding, Ext: ROM intact. No gross muscle atrophy, 1-2+ pitting bilateral lower extremity edema with venous stasis dematitis and ulcers in healing stages. Neuro/Psych: Patient with some garbled speech, she is able to state her name only, she is unable to follow commands at this time. Patient appears to be moving bilateral upper and lower extremities but unable to assess for s ymmetrical movement and strength secondary to patient's inability to follow commands at this time. Assessment and Plan of Care: Acute alteration in mental status, concerns for acute ischemic CVA -CT head without contrast revealing a 1.2 cm hypodense heterogeneous area to the left cerebellum, underlying mass or developing lacunar infarct cannot be ruled out. -Aspirin 300 mg rectally x 1 dose -Consult neurology secondary to concerns of acute CVA, last known normal was reported to be yesterday night. -NIH stroke scale with neuro checks every 15 minutes x 4, every 30 minutes x 2, then hourly x 2, and then every 8 hours -Patient started on aspirin 81 mg daily and atorvastatin 40 mg daily. -Resume atenolol tomorrow a.m, as we will hold tonight to allow for permissive hypertension over next 24 hours. -PT/OT consulted -Swallow evaluation. Consult was placed to speech and language pathologist. -Fall precautions. Maintain safety and provide pt with assistance as needed. -Echocardiogram recently completed 12/07/23 revealed preserved EF of 55 to 60% with moderate pulmonary hypertension. -TSH, Lipid profile, and Hgb A1c Decompensated Liver cirrhosis secondary to RODRIGUEZ Hyperammonemia, secondary to above Metabolic alkalosis, secondary to above Hyperbilirubinemia with Elevated liver enzymes secondary to RODRIGUEZ -NG tube was inserted in the emergency department and patient started on lactu lose for treatment of her hyperammonemia. Order placed for repeat liver profile and ammonia levels tomorrow morning. -MELD score at time of admission 15 points. Chronic hypoxic respiratory failure secondary to fluid overload resulting from chronic diastolic heart failure and decompensated liver cirrhosis Chronic HFpEF with EF of 55 to 60% Patient placed on telemetry monitoring We will likely resume atenolol 25 mg twice daily starting tomorrow morning to allow for at least 24 hours of permissive hypertension secondary to concerns of acute ischemic CVA. We will continue to hold torsemide at this time as patient is NPO and was started on gentle IV fluid hydration pending completion of swallow evaluation by speech and language pathologist. Troponin was negative at less than 0.012 and proBNP was 821. Bilirubin 2.6, AST 67, ALT 50, and alkaline phosphatase of 79. INR elevated at 1.2. MELD score at time of admission is 15 points. Prerenal azotemia Prerenal azotemia is likely secondary to daily diuretic use with torsemide. Patient was started on gentle IV fluid hydration with 0.9% normal saline at 75 mL/h. -We will continue to hold torsemide at this time as patient is NPO and needs swallow evaluation completed by speech and language pathologist. [id number] diabetes mellitus -Metformin held and patient placed on glycemic protocol with NovoLog sliding scale. Data and imaging reviewed: As stated above in HPI The patient is admitted with an anticipated less than 2 midnight stay for evalu ation of acute alteration in mental status likely CVA CODE STATUS: Full code DVT prophylaxis: Lovenox Anticipated discharge date: clinical course to determine Anticipated discharge place: clinical course to determine Patient was seen independently by Nurse Practitioner. This document was prepared using [employer] dictation software. Please allow for errors in shaker tender while rare they do occur. Sriram Rees NP rendered care for this patient independently, reviewed the findings and plan as documented in the note above. I did not physically speak with or examine the patient on this date. Past Medical History Past Medical History: Heart Failure, Diabetes Mellitus, Hypertension Additional Past Medical History / Comment(s): cirrhosis, thrombocytopenia, scoliosis, diveticulosis History of Any Multi-Drug Resistant Organisms: None Reported Past Surgical History: Cholecystectomy Additional Past Surgical History / Comment(s): colectomy Past Anesthesia/Blood Transfusion Reactions: No Reported Reaction Past Psychological History: No Psychological Hx Reported Smoking Status: Former smoker Past Alcohol Use History: None Reported Past Drug Use History: None Reported Medications and Allergies Home Medications Medication Instructions Recorded Confirmed Type Montelukast [Singulair] 10 mg PO HS 04/20/22 12/28/23 History Multivitamins, Thera [Multivitamin 1 tab PO PC-SUPPER 04/20/22 12/28/23 History (formulary)] atenoloL [Tenormin] 25 mg PO BID 04/20/22 12/28/23 History metFORMIN HCL [Glucophage] 1,000 mg PO HS 04/20/22 12/28/23 History Magnesium 200 mg PO DAILY 05/07/22 12/28/23 History Ibuprofen [Motrin Ib] 200 mg PO DAILY 12/05/23 12/28/23 History Torsemide [Demadex] 20 mg PO DAILY #90 tab 12/10/23 12/28/23 Rx LORazepam [Ativan] 0.25 mg PO DAILY #2 tab 12/23/23 12/28/23 Rx LORazepam [Ativan] 0.5 mg PO HS #2 tab 12/23/23 12/28/23 Rx INSULIN ASPART (NovoLOG) [NovoLOG See Protocol SQ ACHS 12/28/23 12/28/23 History (formulary)] Lanolin/Mineral Oil [Eucerin 1 applic TOPICAL BID 12/28/23 12/28/23 History Original Lotion] Omeprazole [PriLOSEC] 20 mg PO DAILY 12/28/23 12/28/23 History Allergies Allergy/AdvReac Type Severity Reaction Status Date / Time Iodinated Contrast Media Allergy Unknown face Verified 12/28/23 16:57 bright red and did not feel right. neomycin Allergy Unknown red face Verified 12/28/23 16:57 shellfish derived [Shrimp] Allergy Unknown face Verified 12/28/23 16:57 bright red, -felt funny. azithromycin Allergy red face Verified 12/28/23 16:57 ciprofloxacin [From Cipro] Allergy red face Verified 12/28/23 16:57 COVID-19 (SARS-CoV-2) Allergy Unknown Verified 12/28/23 16:57 vaccine, monique meperidine [From Demerol] Allergy red face Verified 12/28/23 16:57 Penicillins Allergy red face Verified 12/28/23 16:57 sulfite Allergy red face Verified 12/28/23 16:57 polyethylene glycol AdvReac Unknown Nausea & Verified 12/28/23 16:57 [From Golytely] Vomiting polyethylene glycol 3350 AdvReac Unknown Nausea & Verified 12/28/23 16:57 [From Golytely] Vomiting potassium chloride AdvReac Unknown Nausea & Verified 12/28/23 16:57 [From Golytely] Vomiting sodium [From Golytely] AdvReac Unknown Nausea & Verified 12/28/23 16:57 Vomiting sodium bicarbonate AdvReac Unknown Nausea & Verified 12/28/23 16:57 [From Golytely] Vomiting sodium chloride AdvReac Unknown Nausea & Verified 12/28/23 16:57 [From Golytely] Vomiting sodium sulfate AdvReac Unknown Nausea & Verified 12/28/23 16:57 [From Golytely] Vomiting COVID phizer vaccine Allergy Unknown Swelling Uncoded 12/28/23 13:15 face & eyes & red face. lobster Allergy Unknown bright Uncoded 12/28/23 13:15 red, "feels funny" Physical Exam Osteopathic Statement: *. No significant issues noted on an osteopathic st ructural exam other than those noted in the History and Physical/Consult. Vitals: Vital Signs Temp Pulse Resp BP Pulse Ox 12/28/23 14:53 79 22 145/69 97 12/28/23 13:05 97.6 F 67 16 121/52 100 Intake and Output 12/28/23 12/28/23 12/28/23 06:59 14:59 22:59 Other: Weight 72.575 kg Results CBC & Chem 7: 12/28/23 13:29 12/28/23 13:29 Labs: Abnormal Lab Results - Last 24 Hours (Table) 12/28/23 12/28/23 12/28/23 Range/Units 13:08 13:29 13:29 RBC 3.79 L (3.80-5.40) m/uL Plt Count 140 L (150-450) k/uL Neutrophils # 8.2 H (1.3-7.7) k/uL PT 13.0 H (10.0-12.5) sec INR 1.2 H (<1.2) ABG pH (7.35-7.45) ABG HCO3 (21-25) mmol/L ABG Total CO2 (19-24) mmol/L ABG O2 Saturation (94-97) % Sodium (137-145) mmol/L BUN (7-17) mg/dL Glucose (74-99) mg/dL POC Glucose (mg/dL) 137 H (70-110) mg/dL Total Bilirubin (0.2-1.3) mg/dL AST (14-36) U/L ALT (4-34) U/L Ammonia (<30) umol/L Albumin (3.5-5.0) g/dL Urine Appearance (Clear) Ur Leukocyte Esterase (Negative) Urine WBC (0-5) /hpf Urine Bacteria (None) /hpf Urine Mucus (None) /hpf 12/28/23 12/28/23 12/28/23 Range/Units 13:29 13:29 13:29 RBC (3.80-5.40) m/uL Plt Count (150-450) k/uL Neutrophils # (1.3-7.7) k/uL PT (10.0-12.5) sec INR (<1.2) ABG pH (7.35-7.45) ABG HCO3 (21-25) mmol/L ABG Total CO2 (19-24) mmol/L ABG O2 Saturation (94-97) % Sodium 134 L (137-145) mmol/L BUN 33 H (7-17) mg/dL Glucose 148 H (74-99) mg/dL POC Glucose (mg/dL) (70-110) mg/dL Total Bilirubin 2.6 H (0.2-1.3) mg/dL AST 67 H (14-36) U/L ALT 50 H (4-34) U/L Ammonia 56 H (<30) umol/L Albumin 3.1 L (3.5-5.0) g/dL Urine Appearance Cloudy H (Clear) Ur Leukocyte Esterase Small H (Negative) Urine WBC 19 H (0-5) /hpf Urine Bacteria Few H (None) /hpf Urine Mucus Rare H (None) /hpf 12/28/23 Range/Units 14:05 RBC (3.80-5.40) m/uL Plt Count (150-450) k/uL Neutrophils # (1.3-7.7) k/uL PT (10.0-12.5) sec INR (<1.2) ABG pH 7.52 H (7.35-7.45) ABG HCO3 29 H (21-25) mmol/L ABG Total CO2 30 H (19-24) mmol/L ABG O2 Saturation 98.1 H (94-97) % Sodium (137-145) mmol/L BUN (7-17) mg/dL Glucose (74-99) mg/dL POC Glucose (mg/dL) (70-110) mg/dL Total Bilirubin (0.2-1.3) mg/dL AST (14-36) U/L ALT (4-34) U/L Ammonia (<30) umol/L Albumin (3.5-5.0) g/dL Urine Appearance (Clear) Ur Leukocyte Esterase (Negative) Urine WBC (0-5) /hpf Urine Bacteria (None) /hpf Urine Mucus (None) /hpf
[2023-12-28] MEDS: SODIUM CHLORIDE 0.9% 1,000 ML IV SCH (17:47)
[2023-12-28] MEDS: INSULIN ASPART (NovoLOG) 100 UNIT/ML VIAL SQ SCH (18:19)
[2023-12-28 18:29] LABS: Glucose,Whole Blood 152 mg/dL (70-110)
--- NOTE | 2023-12-28 19:20 | XR ---
EXAM: XR chest 1V portable CLINICAL INDICATION:Female, 78 years old with history of Confirm NG tube placement; [facility] COMPARISON: Earlier today 2:00 PM TECHNIQUE: Chest single view. FINDINGS: Extrinsic structures limit assessment. Lines/tubes/devices: NG/OG tube placed, traverses below the diaphragm, with the tip over the proximal stomach and sidehole above the GE junction. EKG leads are present. Cardiomediastinum: Difficult to assess. Heart size is likely upper normal to mildly enlarged. Mediastinum appears somewh at prominent. Vasculature: No pulmonary vascular congestion. Lungs/pleura: No consolidation, sizeable effusion, or visible pneumothorax. Prominent interstitial lung markings, l ikely chronic changes with mild superimposed edema or pneumonitis possible. Platelike atelectasis in the right mid and left mid to lower lung zones. Bones/soft tissues: Bony thorax appears grossly unchanged as seen. Regional soft tissues appear unremarkable. Elevation o f the right hemidiaphragm redemonstrated. IMPRESSION: 1. NG/OG tube placed, traverses below the diaphragm, with the tip over the proximal stomach and side hole above the GE junction. Recommend several centimeters of advancement followed by reimaging. 2. Chronic interstitial changes. Mild platelike atelectasis bilaterally.
[2023-12-28 21:13] LABS: Glucose,Whole Blood 148 mg/dL (70-110)
[2023-12-28] MEDS: LACTULOSE 20 GM/30 ML CUP PO SCH (23:12)
[2023-12-28] MEDS: LORazepam 2 MG/ML INJ IV PRN (23:22)
--- NOTE | 2023-12-29 00:03 | XR ---
EXAM: XR chest 1V portable CLINICAL INDICATION:Female, 78 years old with history of placement ng tube; [facility] COMPARISON: 12/28/2023 at 6:55 PM and 1219 PM TECHNIQUE: Chest single view. FINDINGS: NG tube appears minimally advanced in position, tip remains over the region of the proximal stomach. Cardiomediastinal silhouette is stable. Diffusely coarsened interstitium again noted bilaterally. Mil d platelike atelectasis in the right mid and left mid to lower lung zone, with slight improvement of the latter. No new or worsening airspace disease, sizable effusion, or pneumothorax seen. Osseous str uctures appear grossly stable as seen. Right hemidiaphragm again is elevated. IMPRESSION: NG tube appears minimally advanced in position. Recommend further advancement to be in the distal sto mach.
[2023-12-29 03:19] LABS: Glucose,Whole Blood 143 mg/dL (70-110)
[2023-12-29 04:39] LABS: Basophils % (A) 0 %; Eosinophils # (A) 0.1 k/uL (0-0.7); Eosinophils % (A) 1 %; HCT 33.9 % (34.0-46.0); HGB 12.2 gm/dL (11.4-16.0); Lymphocytes # (A) 1.3 k/uL (1.0-4.8); Lymphocytes % (A) 10 %; MCH 32.9 pg (25.0-35.0); MCV 91.5 fL (80.0-100.0); Mean Platelet Volume 9.6; Monocytes # (A) 0.9 k/uL (0-1.0); Monocytes % (A) 7 %; Neutrophils # (A) 10.3 k/uL (1.3-7.7); Neutrophils % (A) 78 %; Platelet Count 128 k/uL (150-450); RBC 3.71 m/uL (3.80-5.40); RDW 15.9 % (11.5-15.5); WBC 13.1 k/uL (3.8-10.6)
[2023-12-29 04:53] LABS: ALT 51 U/L (4-34); AST 61 U/L (14-36); African American GFR (CKD) >90 (>60 ml/min/1.73 sqM); Albumin 2.6 g/dL (3.5-5.0); Alkaline Phosphatase 72 U/L (38-126); Anion Gap 7 mmol/L; Blood Urea Nitrogen 33 mg/dL (7-17); Calcium 8.8 mg/dL (8.4-10.2); Carbon Dioxide 22 mmol/L (22-30); Chloride 107 mmol/L (98-107); Glucose 150 mg/dL (74-99); Magnesium 1.9 mg/dL (1.6-2.3); Non-African American GFR(CKD) >90 (>60 ml/min/1.73 sqM); Potassium 4.2 mmol/L (3.5-5.1); Sodium 136 mmol/L (137-145); Total Bilirubin 2.3 mg/dL (0.2-1.3); Total Protein 6.5 g/dL (6.3-8.2)
--- NOTE | 2023-12-29 08:24 | US ---
EXAMINATION TYPE: US carotid duplex BILAT DATE OF EXAM: 12/28/2023 COMPARISON: NONE CLINICAL INDICATION: Female, 78 years old with history of stroke; Stroke Extremely limited due to pt position and pt altered mental status TECHNIQUE: Carotid duplex ultrasound examination. Indirect Doppler criteria was utilized. FINDINGS: EXAM MEASUREMENTS: RIGHT: Peak Systolic Velocity (PSV) cm/sec ----- Right CCA: 82.0 ----- Right ICA: 219.8 ----- Right ECA: 180.5 ICA/CCA ratio: 2.7 RIGHT: End Diastole cm/sec ----- Right CCA: 24.7 ----- Right ICA: 20.0 ----- Right ECA: 20.9 LEFT: Peak Systolic Velocity (PSV) cm/sec ----- Left CCA: 74.0 ----- Left ICA: 90.1 ----- Left ECA: 104.3 ICA/CCA ratio: 1.2 LEFT: End Diastole cm/sec ----- Left CCA: 12.9 ----- Left ICA: 13.7 ----- Left ECA: 11.1 VERTEBRALS (direction of flow): Right Vertebral: Not seen Left Vertebral: Antegrade Rhythm: Normal [place] [employer] NOTES: Plaque seen in bilateral bulbs and prox ICA's. Incidental finding: echogenic material rapidly moving around the Right IJV and causing artifact whe n attempting to get color imaging and Doppler in right CCA. IMPRESSION: 1. Echogenic material is seen within the right IJV which limits evaluation. This is suspicious for l oose carotid plaque and increases risk for stroke. Suspect 50-69% stenosis at the origin of the right ICA. Vascular surgery consultation is recommended. 2. No ultrasound evidence for hemodynamically significant stenosis of the visualized left carotid ar terial system. 3. Right vertebral artery is not visualized. Criteria for Assigning % of Stenosis / Diameter reduction (Estimation based on the indirect measurements of the internal carotid artery velocities (ICA PSV). 1. Normal (no stenosis)=ICA PSV < 125 cm/s: ratio < 2.0: ICA EDV<40 cm/s. 2. Less than 50% stenosis=ICA PSV < 125 cm/s: ratio < 2.0: ICA EDV<40 cm/s. 3. 50 to 69% stenosis=ICA PSV of 125 to 230 cm/s: ration 2.0 ? 4.0: ICA EDV 40-100 cm/s. 4. Greater than 70% stenosis to near occlusion= ICA PSV > 230 cm/s: ratio > 4.0: ICA EDV > 100 cm/s. 5. Near occlusion= ICA PSV velocities may be low or undetectable: variable ratio and ICA EDV. 6. Total occlusion=unable to detect flow.
[2023-12-29] MEDS: ATORVASTATIN 40 MG TAB NG-TUBE SCH (08:59)
[2023-12-29] MEDS: atenoloL 25 MG TAB PO SCH (08:59)
[2023-12-29] MEDS: ENOXAPARIN 40 MG/0.4 ML SYRINGE SQ SCH (09:00)
[2023-12-29] MEDS: PANTOPRAZOLE 40 MG/10 ML VIAL IVP SCH (09:00)
[2023-12-29] MEDS: ASPIRIN 81 MG NG-TUBE SCH (09:23)
[2023-12-29 10:34] LABS: Glucose,Whole Blood 148 mg/dL (70-110)
--- NOTE | 2023-12-29 11:22 | CA ---
Transthoracic Echo Report Name: Estee Campuzano Age: 78 Gender: F : 1945 Exam Date: 12/29/2023 10:38 Exam Location: [facility] Ht (in): 64 Wt (lb): 160 Ordering Physician: Gabe Cameron MD Attending/Referring Phys: Sounding Device Operator Isma Sanchez RD Procedure CPT: Indications: stroke Cardiac Hx: Technical Quality: Technically difficult study Contrast 1: Total Dose (mL): Contrast 2: Total Dose (mL): MEASUREMENTS (Male / Female) Normal Values 2D ECHO LV Diastolic Diameter PLAX 4.5 cm 4.2 - 5.9 / 3.9 - 5.3 cm LV Systolic Diameter PLAX 2.8 cm IVS Diastolic Thickness 1.1 cm 0.6 - 1.0 / 0.6 - 0.9 cm LVPW Diastolic Thickness 1.1 cm 0.6 - 1.0 / 0.6 - 0.9 cm LV Relative Wall Thickness 0.5 RV Internal Dim ED PLAX 2.5 cm LVOT Diameter 2.0 cm Aortic Root Diameter 2.8 cm LA Systolic Diameter LX 3.6 cm 3.0 - 4.0 / 2.7 - 3.8 cm LV Diastolic Volume MOD BP 45.2 cm??? 67 - 155 / 56 - 104 cm??? LV Systolic Volume MOD BP 16.8 cm??? - 58 / 19 - 49 cm??? LV Ejection Fraction MOD BP 63.0 % >= 55 % LV Cardiac Index MOD BP 1370.2 cm???/min???m??? LV Diastolic Volume MOD 4C 46.5 cm??? LV Systolic Volume MOD 4C 14.5 cm??? LV Ejection Fraction MOD 4C 68.8 % LV Cardiac Index MOD 4C 1539.0 cm???/min???m??? LV Diastolic Length 4C 6.9 cm LV Systolic Length 4C 6.4 cm LV Diastolic Volume MOD 2C 41.1 cm??? LV Systolic Volume MOD 2C 15.7 cm??? LV Ejection Fraction MOD 2C 61.8 % LV Cardiac Index MOD 2C 1221.9 cm???/min???m??? LV Diastolic Length 2C 6.3 cm LV Systolic Length 2C 5.2 cm LA Volume 53.1 cm??? 18 - 58 / 22 - 52 cm??? LA Volume Index 29.0 cm???/m??? 16 - 28 cm???/m??? DOPPLER AV Peak Velocity 196.7 cm/s AV Peak Gradient 15.5 mmHg AV Mean Velocity 137.5 cm/s AV Mean Gradient 9.1 mmHg AV Velocity Time Integral 38.8 cm LVOT Peak Velocity 137.1 cm/s LVOT Peak Gradient 7.5 mmHg LVOT Velocity Time Integral 30.8 cm LVOT Stroke Volume 93.2 cm??? LVOT Stroke Volume Index 52.4 ml/m??? LVOT Cardiac Index 4482.9 cm???/min???m??? AV Area Cont Eq vti 2.4 cm??? AV Area Cont Eq pk 2.1 cm??? MV Peak Velocity 165.1 cm/s MV Peak Gradient 10.9 mmHg MV Mean Velocity 80.0 cm/s MV Mean Gradient 3.3 mmHg MV Velocity Time Integral 47.1 cm MR Peak Velocity 457.3 cm/s MR Peak Gradient 83.6 mmHg Mitral E Point Velocity 101.5 cm/s Mitral A Point Velocity 133.8 cm/s Mitral E to A Ratio 0.8 MV Deceleration Time 367.2 ms TR Peak Velocity 285.8 cm/s TR Peak Gradient 32.7 mmHg Right Ventricular Systolic Press 37.7 mmHg PV Peak Velocity 157.1 cm/s PV Peak Gradient 9.9 mmHg FINDINGS Left Ventricle Normal LV size. Mild concentric LVH. Left ventricular ejection fraction is estimated at 55-60 %. Right Ventricle Normal right ventricular size. RVSP= 38mmHg. Right Atrium Normal right atrial size. Left Atrium Mild left atrial dilatation. LA volume index= 30ml/m2 Mitral Valve Moderate mitral annulus calcification. Mild MR. Aortic Valve Mild AV calcification/sclerosis. Peak AV gradient=19mmHg. Mean gradient= 10 mmHg. Tricuspid Valve Structurally normal tricuspid valve. Mild TR. Pulmonic Valve Pulmonic valve not well visualized. No pulmonic regurgitation. Pericardium No pericardial effusion Aorta Normal size aortic root. CONCLUSIONS Difficult patient management. Bubble study appears mildly positive within 5 cardiac beats of agitated saline injection.Left ventricular ejection fraction is estimated at 55-60 %. Mild concentric LVH. RVSP= 38mmHg. Mild left atrial dilatation. Mild MR. Calcific aortic valve with mild aortic stenosis Previewed by: Dr Otoniel Rodriguez (Electronically Signed) Final Date: 29 December 2023 11:22
[2023-12-29 11:44] LABS: Chol/HDL Ratio 2.95 Ratio; LDL Cholesterol,Calculated 79.2 mg/dL (0.0-131.0); VLDL Calculation 14.74 mg/dL (5.00-40.00)
--- NOTE | 2023-12-29 12:28 | P.PN ---
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 On initial presentation, patient was saturating 100% on 2 L, rest of the vital signs were within normal limits. EKG showed sinus rhythm, CT head without contrast revealed 1.2 cm hypodense heterogenous area within the left cerebellum, underlying mass or developing lacunar infarct cannot be ruled out. Chest x-ray showed left hemidiaphragm. CBC showed thrombocytopenia with platelet of 140. BMP showed prerenal azotemia with BUN of 33. Total bili was 2.6, AST 67, ALT 50, ammonia 56, metabolic alkalosis with pH of 7.52, bicarb 29, CO2 30. Urinalysis negative. Patient given lactulose in the ED via NG tube. Patient admitted for acute encephalopathy. Neurology consulted. Subjective: Patient seen and examined at bedside. No acute events overnight. She did pull out her NG tube. Pertinent positives and negatives as discussed above, a complete review of systems was performed and all other systems are negative. Vitals Signs Reviewed. General: Nontoxic, no distress, appears at stated age Derm: Warm, dry Head: Atraumatic, normocephalic, symmetric Eyes: EOMI, no lid lag, anicteric sclera Mouth: No lip lesion, mucus membranes moist Cardiovascular: S1S2 reg, systolic murmur Lungs: CTA bilateral, no rhonchi, no rales, no accessory muscle use Abdominal: Soft, nontender to palpation, no guarding, no appreciable organomegaly Ext: No gross muscle atrophy, bilateral lower extremity pitting edema with chronic venous stasis dermatitis, no contractures Neuro: CN II-XI grossly intact, no focal neuro deficits Psych: Alert, orientedx1, appropriate affect Data Reviewed Today: Pertinent Labs: WBC 13.1, hemoglobin 12.2, platelet 128, sodium 136, BUN 33, glucose 150, total bili 2.3, AST 61, ALT 51, lactic acid 2.8, TSH 1.85, ammonia 47 Imaging: Echocardiogram from this morning showed mildly positive bubble study, LVEF of 55 to 60%, RVSP 38 Assessment and Plan: Active: Acute encephalopathy, metabolic versus hepatic versus secondary to CVA 1.2 cm hypodense heterogenous area within the left cerebellum, noted on CT History of liver cirrhosis secondary to Banegas Hyperbilirubinemia Hyperammonemia Metabolic alkalosis Leukocytosis Lactic acidosis, likely type B -Discussed management with neurology, EEG pending, brain MRI with and without pending -Continue lactulose 30 g 3 times daily, if no bowel movements, will consider suppository -Patient did 1 dose of ceftriaxone in the ED -Abdominal ultrasound to evaluate for ascites, if present, will need paracentesis, and probably empiric IV antibiotics -Patient may be dehydrated given metabolic alkalosis, hold diuretics, on normal saline at 75 cc an hour Type 2 diabetes -Sliding scale insulin, monitor for hypoglycemia Chronic: Hypertension Dyslipidemia DVT ppx: lovenox Code status: FC Anticipated discharge place: pending clinical course Anticipated discharge time: pending clinical course Objective - Vital Signs Vital signs: Vital Signs Temp 98.6 F 12/29/23 09:29 Pulse 82 12/29/23 10:35 Resp 20 12/29/23 10:35 BP 117/51 12/29/23 09:29 Pulse Ox 98 12/29/23 10:35 FiO2 Intake & Output 12/28/23 12/29/23 12/29/23 18:59 06:59 18:59 Output Total 210 450 Balance -210 -450 Weight 72.575 kg Output: Urine 210 450 Uretheral (Carrillo) 210 450 - Labs CBC & Chem 7: 12/29/23 04:13 12/29/23 04:13 Labs: Abnormal Lab Results - Last 24 Hours (Table) 12/28/23 12/28/23 12/28/23 Range/Units 13:08 13:29 13:29 WBC (3.8-10.6) k/uL RBC 3.79 L (3.80-5.40) m/uL Hct (34.0-46.0) % RDW (11.5-15.5) % Plt Count 140 L (150-450) k/uL Neutrophils # 8.2 H (1.3-7.7) k/uL PT 13.0 H (10.0-12.5) sec INR 1.2 H (<1.2) ABG pH (7.35-7.45) ABG HCO3 (21-25) mmol/L ABG Total CO2 (19-24) mmol/L ABG O2 Saturation (94-97) % Sodium (137-145) mmol/L BUN (7-17) mg/dL Glucose (74-99) mg/dL POC Glucose (mg/dL) 137 H (70-110) mg/dL Hemoglobin A1c (<=6.0) % Plasma Lactic Acid Pipo (0.7-2.0) mmol/L Total Bilirubin (0.2-1.3) mg/dL AST (14-36) U/L ALT (4-34) U/L Ammonia (<30) umol/L Albumin (3.5-5.0) g/dL Urine Appearance (Clear) Ur Leukocyte Esterase (Negative) Urine WBC (0-5) /hpf Urine Bacteria (None) /hpf Urine Mucus (None) /hpf 12/28/23 12/28/23 12/28/23 Range/Units 13:29 13:29 13:29 WBC (3.8-10.6) k/uL RBC (3.80-5.40) m/uL Hct (34.0-46.0) % RDW (11.5-15.5) % Plt Count (150-450) k/uL Neutrophils # (1.3-7.7) k/uL PT (10.0-12.5) sec INR (<1.2) ABG pH (7.35-7.45) ABG HCO3 (21-25) mmol/L ABG Total CO2 (19-24) mmol/L ABG O2 Saturation (94-97) % Sodium 134 L (137-145) mmol/L BUN 33 H (7-17) mg/dL Glucose 148 H (74-99) mg/dL POC Glucose (mg/dL) (70-110) mg/dL Hemoglobin A1c (<=6.0) % Plasma Lactic Acid Pipo (0.7-2.0) mmol/L Total Bilirubin 2.6 H (0.2-1.3) mg/dL AST 67 H (14-36) U/L ALT 50 H (4-34) U/L Ammonia 56 H (<30) umol/L Albumin 3.1 L (3.5-5.0) g/dL Urine Appearance Cloudy H (Clear) Ur Leukocyte Esterase Small H (Negative) Urine WBC 19 H (0-5) /hpf Urine Bacteria Few H (None) /hpf Urine Mucus Rare H (None) /hpf 12/28/23 12/28/23 12/28/23 Range/Units 14:05 18:14 18:18 WBC (3.8-10.6) k/uL RBC (3.80-5.40) m/uL Hct (34.0-46.0) % RDW (11.5-15.5) % Plt Count (150-450) k/uL Neutrophils # (1.3-7.7) k/uL PT (10.0-12.5) sec INR (<1.2) ABG pH 7.52 H (7.35-7.45) ABG HCO3 29 H (21-25) mmol/L ABG Total CO2 30 H (19-24) mmol/L ABG O2 Saturation 98.1 H (94-97) % Sodium (137-145) mmol/L BUN (7-17) mg/dL Glucose (74-99) mg/dL POC Glucose (mg/dL) 152 H (70-110) mg/dL Hemoglobin A1c (<=6.0) % Plasma Lactic Acid Pipo 2.8 H* (0.7-2.0) mmol/L Total Bilirubin (0.2-1.3) mg/dL AST (14-36) U/L ALT (4-34) U/L Ammonia (<30) umol/L Albumin (3.5-5.0) g/dL Urine Appearance (Clear) Ur Leukocyte Esterase (Negative) Urine WBC (0-5) /hpf Urine Bacteria (None) /hpf Urine Mucus (None) /hpf 12/28/23 12/28/23 12/29/23 Range/Units 21:11 21:12 00:14 WBC (3.8-10.6) k/uL RBC (3.80-5.40) m/uL Hct (34.0-46.0) % RDW (11.5-15.5) % Plt Count (150-450) k/uL Neutrophils # (1.3-7.7) k/uL PT (10.0-12.5) sec INR (<1.2) ABG pH (7.35-7.45) ABG HCO3 (21-25) mmol/L ABG Total CO2 (19-24) mmol/L ABG O2 Saturation (94-97) % Sodium (137-145) mmol/L BUN (7-17) mg/dL Glucose (74-99) mg/dL POC Glucose (mg/dL) 148 H (70-110) mg/dL Hemoglobin A1c (<=6.0) % Plasma Lactic Acid Pipo 3.1 H* 2.7 H* (0.7-2.0) mmol/L Total Bilirubin (0.2-1.3) mg/dL AST (14-36) U/L ALT (4-34) U/L Ammonia (<30) umol/L Albumin (3.5-5.0) g/dL Urine Appearance (Clear) Ur Leukocyte Esterase (Negative) Urine WBC (0-5) /hpf Urine Bacteria (None) /hpf Urine Mucus (None) /hpf 12/29/23 12/29/23 12/29/23 Range/Units 03:16 04:13 04:13 WBC 13.1 H (3.8-10.6) k/uL RBC 3.71 L (3.80-5.40) m/uL Hct 33.9 L (34.0-46.0) % RDW 15.9 H (11.5-15.5) % Plt Count 128 L (150-450) k/uL Neutrophils # 10.3 H (1.3-7.7) k/uL PT (10.0-12.5) sec INR (<1.2) ABG pH (7.35-7.45) ABG HCO3 (21-25) mmol/L ABG Total CO2 (19-24) mmol/L ABG O2 Saturation (94-97) % Sodium (137-145) mmol/L BUN (7-17) mg/dL Glucose (74-99) mg/dL POC Glucose (mg/dL) 143 H (70-110) mg/dL Hemoglobin A1c 6.5 H (<=6.0) % Plasma Lactic Acid Pipo (0.7-2.0) mmol/L Total Bilirubin (0.2-1.3) mg/dL AST (14-36) U/L ALT (4-34) U/L Ammonia (<30) umol/L Albumin (3.5-5.0) g/dL Urine Appearance (Clear) Ur Leukocyte Esterase (Negative) Urine WBC (0-5) /hpf Urine Bacteria (None) /hpf Urine Mucus (None) /hpf 12/29/23 12/29/23 12/29/23 Range/Units 04:13 04:13 06:15 WBC (3.8-10.6) k/uL RBC (3.80-5.40) m/uL Hct (34.0-46.0) % RDW (11.5-15.5) % Plt Count (150-450) k/uL Neutrophils # (1.3-7.7) k/uL PT (10.0-12.5) sec INR (<1.2) ABG pH (7.35-7.45) ABG HCO3 (21-25) mmol/L ABG Total CO2 (19-24) mmol/L ABG O2 Saturation (94-97) % Sodium 136 L (137-145) mmol/L BUN 33 H (7-17) mg/dL Glucose 150 H (74-99) mg/dL POC Glucose (mg/dL) (70-110) mg/dL Hemoglobin A1c (<=6.0) % Plasma Lactic Acid Pipo 2.9 H* (0.7-2.0) mmol/L Total Bilirubin 2.3 H (0.2-1.3) mg/dL AST 61 H (14-36) U/L ALT 51 H (4-34) U/L Ammonia 47 H (<30) umol/L Albumin 2.6 L (3.5-5.0) g/dL Urine Appearance (Clear) Ur Leukocyte Esterase (Negative) Urine WBC (0-5) /hpf Urine Bacteria (None) /hpf Urine Mucus (None) /hpf 12/29/23 12/29/23 Range/Units 08:54 10:32 WBC (3.8-10.6) k/uL RBC (3.80-5.40) m/uL Hct (34.0-46.0) % RDW (11.5-15.5) % Plt Count (150-450) k/uL Neutrophils # (1.3-7.7) k/uL PT (10.0-12.5) sec INR (<1.2) ABG pH (7.35-7.45) ABG HCO3 (21-25) mmol/L ABG Total CO2 (19-24) mmol/L ABG O2 Saturation (94-97) % Sodium (137-145) mmol/L BUN (7-17) mg/dL Glucose (74-99) mg/dL POC Glucose (mg/dL) 148 H (70-110) mg/dL Hemoglobin A1c (<=6.0) % Plasma Lactic Acid Pipo 2.8 H* (0.7-2.0) mmol/L Total Bilirubin (0.2-1.3) mg/dL AST (14-36) U/L ALT (4-34) U/L Ammonia (<30) umol/L Albumin (3.5-5.0) g/dL Urine Appearance (Clear) Ur Leukocyte Esterase (Negative) Urine WBC (0-5) /hpf Urine Bacteria (None) /hpf Urine Mucus (None) /hpf
--- NOTE | 2023-12-29 13:29 | MR ---
EXAMINATION TYPE: MR brain wo con DATE OF EXAM: 12/29/2023 COMPARISON: CT brain 12/28/2023 HISTORY: Confusion, abnormal CT, CVA vs mass. CONTRAST: Performed utilizing 0 mL intravenous Gadavist gadolinium contrast. TECHNIQUE: Multiplanar, multiecho imaging on a 3.0 Lizz magnet is performed through the brain. Stud y is performed within 24 hours of arrival to the hospital. The craniovertebral junction is normal. The pituitary is normal. Diffusion-weighted imaging is performed. There is a 1.5 cm ring in the posterior medial left cerebellum on diffusion. On T1 and T2 sequences t here is some hypointensity centrally. This ring is slightly hyperintense on T2-weighted images with c entral isointensity. This area appears somewhat larger on FLAIR images. Differential remains small co ntusion versus mass. There are multiple scattered punctate areas of hyperintensity on T2 and Inversion Recovery weighted s equences which are non-specific but can be related to chronic microvascular ischemic changes within t he deep white matter. Ventricles and sulci are mildly prominent for the patient age. IMPRESSION: 1. A suspected mass with mild vasogenic edema in the inferior medial left cerebellum. Differential ho wever does still include a 1.5 cm contusion. Finding correlates with the CT examination. 2. Chronic appearing multiple scattered white matter ischemic type changes in deep white matter.
--- NOTE | 2023-12-29 14:02 | US ---
EXAMINATION TYPE: US abdomen limited DATE OF EXAM: 12/29/2023 COMPARISON: NONE CLINICAL INDICATION: Female, 78 years old with history of assess for ascities; Small amount of ascites noted within the abdomen. IMPRESSION: Mild ascites.
--- NOTE | 2023-12-29 15:33 | P.CNNES ---
History of Present Illness Consult date: 12/29/23 Requesting physician: Sriram Rees Reason for Consult: cva History of Present Illness: This is an 78-year-old woman who presented emergency department from [facility] via EMS secondary due to altered mental status. Neurology is consulted for stroke. History was obtained from medical records since the patient is a poor historian. It seems that the patient was brought back from [facility] via EMS because of altered mental status at. Last known normal was the 12/27/2023 and is seems today at around 6 AM she was confused altered. Patient has a known history of liver cirrhosis secondary due to Banegas, chronic hypoxic respiratory failure on home oxygen, non-insulin diabetic, hypertension and is noncompliant with medication. She was here in the past for generalized weakness fatigue and debilitation and it was the believed in the past that was from her multiple comorbidities. It seems that on the this hospital visit she had CT of the head which shows a 1.2 cm hypodense heterogeneous area in the left cerebellum and possible underlying mass or developing lacunar infarct cannot be ruled out it's reported so neurology was consulted as a result of that. Some the other workup during this hospital visit consisted of: Ammonia is a 56, sodium is 134, BUN is 33, AST of 67 ALT 50. Total Bilitrubin is 2.6 Plasma lactic acid 2.8 and latest is 3.5 Lipid panel is triglycerides 73, cholesterol of 142, LDL 79 and HDL 48 TSH is 1.85 Hemoglobin A1c is 6.5 I personally reviewed the CT and I agreed the patient does have hypodensity in the left cerebellum Carotid duplex was reported as echogenic material is seen within the right eye IVD which limits evaluation. There is suspicion for loose carotid plaque and increased risk for stroke. Suspect 50-69 stenosis at the origin of the right ICA. Vascular surgery consultation is recommended. No ultrasound evidence for hemodynamically significant stenosis of the visualized left carotid arterial system. Right vertebral artery is not visualized. 2D echo: Was reported as difficult patient management. Bubble study appears mildly positive within cardiac beats of agitation saline injection. Left ventricular ejection fraction is estimated 55-60%. Mild concentric left ventricular hypertrophy. Calcified aortic valve with mild aortic stenosis. Review of Systems Limited but the positive and negative as per HPI. Past Medical History Past Medical History: Heart Failure, Diabetes Mellitus, Hypertension Additional Past Medical History / Comment(s): cirrhosis, thrombocytopenia, scoliosis, diveticulosis History of Any Multi-Drug Resistant Organisms: None Reported Past Surgical History: Cholecystectomy Additional Past Surgical History / Comment(s): colectomy Past Anesthesia/Blood Transfusion Reactions: No Reported Reaction Past Psychological History: No Psychological Hx Reported Smoking Status: Former smoker Past Alcohol Use History: None Reported Past Drug Use History: None Reported Medications and Allergies Home Medications Medication Instructions Recorded Confirmed Type Montelukast [Singulair] 10 mg PO HS 04/20/22 12/28/23 History Multivitamins, Thera [Multivitamin 1 tab PO PC-SUPPER 04/20/22 12/28/23 History (formulary)] atenoloL [Tenormin] 25 mg PO BID 04/20/22 12/28/23 History metFORMIN HCL [Glucophage] 1,000 mg PO HS 04/20/22 12/28/23 History Magnesium 200 mg PO DAILY 05/07/22 12/28/23 History Ibuprofen [Motrin Ib] 200 mg PO DAILY 12/05/23 12/28/23 History Torsemide [Demadex] 20 mg PO DAILY #90 tab 12/10/23 12/28/23 Rx LORazepam [Ativan] 0.25 mg PO DAILY #2 tab 12/23/23 12/28/23 Rx LORazepam [Ativan] 0.5 mg PO HS #2 tab 12/23/23 12/28/23 Rx INSULIN ASPART (NovoLOG) [NovoLOG See Protocol SQ ACHS 12/28/23 12/28/23 History (formulary)] Lanolin/Mineral Oil [Eucerin 1 applic TOPICAL BID 12/28/23 12/28/23 History Original Lotion] Omeprazole [PriLOSEC] 20 mg PO DAILY 12/28/23 12/28/23 History Allergies Allergy/AdvReac Type Severity Reaction Status Date / Time Iodinated Contrast Media Allergy Unknown face Verified 12/28/23 16:57 bright red and did not feel right. neomycin Allergy Unknown red face Verified 12/28/23 16:57 shellfish derived [Shrimp] Allergy Unknown face Verified 12/28/23 16:57 bright red, -felt funny. azithromycin Allergy red face Verified 12/28/23 16:57 ciprofloxacin [From Cipro] Allergy red face Verified 12/28/23 16:57 COVID-19 (SARS-CoV-2) Allergy Unknown Verified 12/28/23 16:57 vaccine, monique meperidine [From Demerol] Allergy red face Verified 12/28/23 16:57 Penicillins Allergy red face Verified 12/28/23 16:57 sulfite Allergy red face Verified 12/28/23 16:57 polyethylene glycol AdvReac Unknown Nausea & Verified 12/28/23 16:57 [From Golytely] Vomiting polyethylene glycol 3350 AdvReac Unknown Nausea & Verified 12/28/23 16:57 [From Golytely] Vomiting potassium chloride AdvReac Unknown Nausea & Verified 12/28/23 16:57 [From Golytely] Vomiting sodium [From Golytely] AdvReac Unknown Nausea & Verified 12/28/23 16:57 Vomiting sodium bicarbonate AdvReac Unknown Nausea & Verified 12/28/23 16:57 [From Golytely] Vomiting sodium chloride AdvReac Unknown Nausea & Verified 12/28/23 16:57 [From Golytely] Vomiting sodium sulfate AdvReac Unknown Nausea & Verified 12/28/23 16:57 [From Golytely] Vomiting COVID phizer vaccine Allergy Unknown Swelling Uncoded 12/28/23 13:15 face & eyes & red face. lobster Allergy Unknown bright Uncoded 12/28/23 13:15 red, "feels funny" Physical Examination - Vital Signs Vital Signs: Vital Signs Temp Pulse Resp BP Pulse Ox 12/29/23 14:45 74 18 114/58 96 12/29/23 10:35 82 20 98 12/29/23 09:29 98.6 F 88 20 117/51 100 12/29/23 06:07 87 17 132/81 94 L 12/29/23 05:36 86 19 123/51 92 L 12/29/23 03:42 95 18 100/59 94 L 12/29/23 02:15 94 17 126/57 12/29/23 01:37 96 18 125/63 93 L 12/29/23 00:24 98 19 136/66 12/28/23 23:25 97 17 124/64 12/28/23 21:03 101 H 19 93 L 12/28/23 19:57 92 19 144/73 94 L Intake and Output 12/29/23 12/29/23 12/29/23 06:59 14:59 22:59 Output Total 210 450 Balance -210 -450 Output: Urine 210 450 Uretheral (Carrillo) 210 450 General: Patient lying in bed and is not in acute distress. Upon seeing her sleeping on right side head. Cardio: Significant edema in lower extremities. Integumentary: Has erythema in the distal lower extremities. Neuro: Very limited because of overall condition/cooperation. Patient was initially sleeping but she was awake and able to voice at. She is very hypophonic. She's oriented to self. She stated the year as 1923. L with option she correctly stated that she is in the hospital and she correctly stated that she is in the [facility]. She is slow responding to questions but she is following simple commands. Pupils are round equal reactive to light. Pupils are round 2-3 mm bilaterally. No facial weakness. Visual ferris appear normal throughout. Extraocular movement is intact throughout. As I stated patient is a fair hypophonic and somewhat slow. Motor the strength is limited assessment individual muscle strength because of her overall condition but she is able to the bilateral upper extremity above gravity equally. She has significant edema in the lowers erythema but was wiggling the toes. Sensation is normal to touch throughout. Reflexes 2+ in the uppers lowers is limited because of edema Plantars are mute bilaterally Results - Laboratory Findings CBC and BMP: 12/29/23 04:13 12/29/23 04:13 Abnormal Lab Findings: Abnormal Labs 12/28/23 12/28/23 12/28/23 13:08 13:29 13:29 WBC RBC 3.79 L Hct RDW Plt Count 140 L Neutrophils # 8.2 H PT 13.0 H INR 1.2 H ABG pH ABG HCO3 ABG Total CO2 ABG O2 Saturation Sodium BUN Glucose POC Glucose (mg/dL) 137 H Hemoglobin A1c Plasma Lactic Acid Pipo Total Bilirubin AST ALT Ammonia Albumin Urine Appearance Ur Leukocyte Esterase Urine WBC Urine Bacteria Urine Mucus 12/28/23 12/28/23 12/28/23 13:29 13:29 13:29 WBC RBC Hct RDW Plt Count Neutrophils # PT INR ABG pH ABG HCO3 ABG Total CO2 ABG O2 Saturation Sodium 134 L BUN 33 H Glucose 148 H POC Glucose (mg/dL) Hemoglobin A1c Plasma Lactic Acid Pipo Total Bilirubin 2.6 H AST 67 H ALT 50 H Ammonia 56 H Albumin 3.1 L Urine Appearance Cloudy H Ur Leukocyte Esterase Small H Urine WBC 19 H Urine Bacteria Few H Urine Mucus Rare H 12/28/23 12/28/23 12/28/23 14:05 18:14 18:18 WBC RBC Hct RDW Plt Count Neutrophils # PT INR ABG pH 7.52 H ABG HCO3 29 H ABG Total CO2 30 H ABG O2 Saturation 98.1 H Sodium BUN Glucose POC Glucose (mg/dL) 152 H Hemoglobin A1c Plasma Lactic Acid Pipo 2.8 H* Total Bilirubin AST ALT Ammonia Albumin Urine Appearance Ur Leukocyte Esterase Urine WBC Urine Bacteria Urine Mucus 12/28/23 12/28/23 12/29/23 21:11 21:12 00:14 WBC RBC Hct RDW Plt Count Neutrophils # PT INR ABG pH ABG HCO3 ABG Total CO2 ABG O2 Saturation Sodium BUN Glucose POC Glucose (mg/dL) 148 H Hemoglobin A1c Plasma Lactic Acid Pipo 3.1 H* 2.7 H* Total Bilirubin AST ALT Ammonia Albumin Urine Appearance Ur Leukocyte Esterase Urine WBC Urine Bacteria Urine Mucus 12/29/23 12/29/23 12/29/23 03:16 04:13 04:13 WBC 13.1 H RBC 3.71 L Hct 33.9 L RDW 15.9 H Plt Count 128 L Neutrophils # 10.3 H PT INR ABG pH ABG HCO3 ABG Total CO2 ABG O2 Saturation Sodium BUN Glucose POC Glucose (mg/dL) 143 H Hemoglobin A1c 6.5 H Plasma Lactic Acid Pipo Total Bilirubin AST ALT Ammonia Albumin Urine Appearance Ur Leukocyte Esterase Urine WBC Urine Bacteria Urine Mucus 12/29/23 12/29/23 12/29/23 04:13 04:13 06:15 WBC RBC Hct RDW Plt Count Neutrophils # PT INR ABG pH ABG HCO3 ABG Total CO2 ABG O2 Saturation Sodium 136 L BUN 33 H Glucose 150 H POC Glucose (mg/dL) Hemoglobin A1c Plasma Lactic Acid Pipo 2.9 H* Total Bilirubin 2.3 H AST 61 H ALT 51 H Ammonia 47 H Albumin 2.6 L Urine Appearance Ur Leukocyte Esterase Urine WBC Urine Bacteria Urine Mucus 12/29/23 12/29/23 12/29/23 08:54 10:32 14:11 WBC RBC Hct RDW Plt Count Neutrophils # PT INR ABG pH ABG HCO3 ABG Total CO2 ABG O2 Saturation Sodium BUN Glucose POC Glucose (mg/dL) 148 H Hemoglobin A1c Plasma Lactic Acid Pipo 2.8 H* 3.5 H* Total Bilirubin AST ALT Ammonia Albumin Urine Appearance Ur Leukocyte Esterase Urine WBC Urine Bacteria Urine Mucus Assessment and Plan Assessment: This is an 78-year-old woman who presented from [facility] because of altered mental status. 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 Hypodensity over the left cerebellum rule out acute stroke versus mass. Encephalopathy due to multifactorial one of them is hepatic encephalopathy and p ossible stroke versus a mass White ICA O 50-60% stenosis or carotid duplex History of cirrhosis with secondary Banegas. Patient has elevated the ammonia with the slight elevation of liver function tests Significant edema in the lower extremity with erythema Hypertension Chronic hypoxic respiratory failure on home oxygen [id number] diabetes mellitus Medication noncompliance Plan: MRI of the brain without which changed to within without I consulted the vascular surgery team regarding the abnormality of the ultrasound over the right ICA. Patient was given aspirin 300 mg suppository yesterday and I'm restarting her on aspirin 81 mg daily as well as Lipitor 40 mg daily. I ordered a routine EEG The echo shows possible PFO Every 4 hours neuro checks Cardiac monitoring PT OT and SOFTWARE DEVELOPMENT SPECIALIST are consulted We'll defer the rest of the medical measure the primary and other specialists For DVT prophylaxis the patient is on Lovenox The plan was discussed with the patient's primary team multiple times. Thank you for the consultation Time with Patient: Greater than 30
[2023-12-29 17:11] LABS: Glucose,Whole Blood 195 mg/dL (70-110)
[2023-12-29] MEDS ORDERED: DEXAMETHASONE SOD PHOSPHATE 4 MG/ML 1 ML VIAL IVP PRN (18:56)
[2023-12-29 20:13] LABS: Glucose,Whole Blood 274 mg/dL (70-110)
[2023-12-29] MEDS: MONTELUKAST 10 MG TAB PO SCH (20:58)
[2023-12-29] MEDS: levETIRAcetam IV 500 MG/5 ML VIAL IVP SCH (20:59)
--- NOTE | 2023-12-30 00:03 | EEG ---
ELECTROENCEPHALOGRAM REPORT CLINICAL HISTORY: This is an 78-year-old woman with altered mental status. The video EEG is obtained to evaluate for seizure epileptiform activity. RELEVANT MEDICATIONS: The patient is on Ativan 0.5 mg p.r.n. EEG TYPE: The EEG type is a routine 21-channel EEG with video using the 10/20 electrode placement system. DESCRIPTION: Wakefulness is only obtained. The background consists of ebi-ag-anrlyuix voltage of 4.5 to 5 Hz theta activity, at times consists of nonrhythmic delta activity. There is no physiological stage 2 sleep architecture. There is no focal slowing. There is diffuse [id number] myogenic artifact. Interictal and ictal is none, but is limited because of myogenic artifact. ACTIVATION PROCEDURE: Photic stimulation, hyperventilation is not performed. CLINICAL INTERPRETATION: This is an abnormal routine EEG. The background slowing is suggestive of severe encephalopathy. The study is limited because of diffuse myogenic artifact. There is no epileptiform discharge or seizure on the EEG. Clinical correlation is recommended. FE / APN: [id number] / IVELISSE
[2023-12-30 04:04] LABS: Glucose,Whole Blood 169 mg/dL (70-110)
[2023-12-30 05:37] LABS: Anisocytosis Slight; Basophils % (A) 0 %; Eosinophils # (A) 0.2 k/uL (0-0.7); Eosinophils % (A) 2 %; HCT 30.7 % (34.0-46.0); HGB 10.3 gm/dL (11.4-16.0); Lymphocytes # (A) 1.3 k/uL (1.0-4.8); Lymphocytes % (A) 13 %; MCH 31.3 pg (25.0-35.0); MCHC 33.6 g/dL (31.0-37.0); MCV 93.2 fL (80.0-100.0); Mean Platelet Volume 8.2; Monocytes # (A) 0.6 k/uL (0-1.0); Monocytes % (A) 6 %; Neutrophils # (A) 7.7 k/uL (1.3-7.7); Neutrophils % (A) 74 %; Platelet Count 141 k/uL (150-450); RDW 16.1 % (11.5-15.5); WBC 10.3 k/uL (3.8-10.6)
[2023-12-30 05:47] LABS: ALT 45 U/L (4-34); AST 62 U/L (14-36); African American GFR (CKD) >90 (>60 ml/min/1.73 sqM); Albumin 2.3 g/dL (3.5-5.0); Alkaline Phosphatase 61 U/L (38-126); Anion Gap 1 mmol/L; Blood Urea Nitrogen 34 mg/dL (7-17); Calcium 8.1 mg/dL (8.4-10.2); Carbon Dioxide 27 mmol/L (22-30); Chloride 104 mmol/L (98-107); Glucose 157 mg/dL (74-99); Non-African American GFR(CKD) 88 (>60 ml/min/1.73 sqM); Potassium 3.7 mmol/L (3.5-5.1); Sodium 132 mmol/L (137-145); Total Bilirubin 2.1 mg/dL (0.2-1.3); Total Protein 5.7 g/dL (6.3-8.2)
[2023-12-30] MEDS ORDERED: NON FORMULARY DRUG (Omeprazole 20 MG Capsule.Dr) PO SCH (09:00)
[2023-12-30] MEDS: ASPIRIN 81 MG PO SCH (10:00)
[2023-12-30] MEDS: ATORVASTATIN 40 MG TAB PO SCH (10:00)
[2023-12-30 11:28] LABS: Glucose,Whole Blood 327 mg/dL (70-110)
[2023-12-30] MEDS ORDERED: BARIUM SULFATE 2% - 450 ML ORAL.SUSP BOTTLE PO PRN (12:01)
[2023-12-30] MEDS: INSULIN ASPART (NovoLOG) 100 UNIT/ML VIAL SQ SCH (12:33)
--- NOTE | 2023-12-30 13:58 | P.PN ---
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 On initial presentation, patient was saturating 100% on 2 L, rest of the vital signs were within normal limits. EKG showed sinus rhythm, CT head without contrast revealed 1.2 cm hypodense heterogenous area within the left cerebellum, underlying mass or developing lacunar infarct cannot be ruled out. Chest x-ray showed left hemidiaphragm. CBC showed thrombocytopenia with platelet of 140. BMP showed prerenal azotemia with BUN of 33. Total bili was 2.6, AST 67, ALT 50, ammonia 56, metabolic alkalosis with pH of 7.52, bicarb 29, CO2 30. Urinalysis negative. Patient given lactulose in the ED via NG tube. Patient admitted for acute encephalopathy. Neurology consulted. MRI brain showed suspected mass with mild vasogenic edema in the inferior medial left cerebellum. EEG did not show any epileptiform discharges. Started on steroids. Oncology also consulted. Subjective: Patient seen and examined at bedside. No acute events overnight. Mental status improved. Pertinent positives and negatives as discussed above, a complete review of systems was performed and all other systems are negative. Vitals Signs Reviewed. General: Nontoxic, no distress, appears at stated age Derm: Warm, dry Head: Atraumatic, normocephalic, symmetric Eyes: EOMI, no lid lag, anicteric sclera Mouth: No lip lesion, mucus membranes moist Cardiovascular: S1S2 reg, systolic murmur Lungs: CTA bilateral, no rhonchi, no rales, no accessory muscle use Abdominal: Soft, nontender to palpation, no guarding, no appreciable organomegaly Ext: No gross muscle atrophy, bilateral lower extremity pitting edema with chronic venous stasis dermatitis, no contractures Neuro: CN II-XI grossly intact, no focal neuro deficits Psych: Alert, orientedx3, appropriate affect Data Reviewed Today: Pertinent Labs: WBC 10.3, hemoglobin 10.3, platelet 141, sodium 132, creatinine 0.57, lactate 2.1, total bili 2.1, AST 62, ALT 45, ALP 61, blood sugars range between 1 57-3 27. 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 Abdominal ultrasound does show mild ascites, denies any abdominal pain. Hold off any further antibiotics. -Patient may be dehydrated given metabolic alkalosi at the time of presentation s, hold diuretics, continue on normal saline at 75 cc an hour Type 2 diabetes -Sliding scale insulin, monitor for hypoglycemia Chronic: Hypertension Dyslipidemia DVT ppx: lovenox Code status: Anticipated discharge place: pending clinical course Anticipated discharge time: pending clinical course Objective - Vital Signs Vital signs: Vital Signs Temp 98 F 12/30/23 12:00 Pulse 52 L 12/30/23 12:00 Resp 20 12/30/23 12:00 BP 112/63 12/30/23 12:00 Pulse Ox 99 12/30/23 12:00 FiO2 Intake & Output 12/29/23 12/30/23 12/30/23 18:59 06:59 18:59 Intake Total 59 240 Output Total 450 325 Balance -391 -325 240 Intake: Oral 59 240 Output: Urine 450 325 Uretheral (Carrillo) 450 Other: Voiding Method Indwelling Catheter Indwelling Catheter # Voids 1 - Labs CBC & Chem 7: 12/30/23 05:24 12/30/23 05:24 Labs: Abnormal Lab Results - Last 24 Hours (Table) 12/29/23 12/29/23 12/29/23 Range/Units 14:11 17:09 18:46 RBC (3.80-5.40) m/uL Hgb (11.4-16.0) gm/dL Hct (34.0-46.0) % RDW (11.5-15.5) % Plt Count (150-450) k/uL Sodium (137-145) mmol/L BUN (7-17) mg/dL Glucose (74-99) mg/dL POC Glucose (mg/dL) 195 H (70-110) mg/dL Plasma Lactic Acid Pipo 3.5 H* 5.1 H* (0.7-2.0) mmol/L Calcium (8.4-10.2) mg/dL Total Bilirubin (0.2-1.3) mg/dL AST (14-36) U/L ALT (4-34) U/L Total Protein (6.3-8.2) g/dL Albumin (3.5-5.0) g/dL 12/29/23 12/29/23 12/30/23 Range/Units 20:11 21:48 01:05 RBC (3.80-5.40) m/uL Hgb (11.4-16.0) gm/dL Hct (34.0-46.0) % RDW (11.5-15.5) % Plt Count (150-450) k/uL Sodium (137-145) mmol/L BUN (7-17) mg/dL Glucose (74-99) mg/dL POC Glucose (mg/dL) 274 H (70-110) mg/dL Plasma Lactic Acid Pipo 3.2 H* 2.3 H* (0.7-2.0) mmol/L Calcium (8.4-10.2) mg/dL Total Bilirubin (0.2-1.3) mg/dL AST (14-36) U/L ALT (4-34) U/L Total Protein (6.3-8.2) g/dL Albumin (3.5-5.0) g/dL 12/30/23 12/30/23 12/30/23 Range/Units 04:01 05:24 05:24 RBC 3.30 L (3.80-5.40) m/uL Hgb 10.3 L (11.4-16.0) gm/dL Hct 30.7 L (34.0-46.0) % RDW 16.1 H (11.5-15.5) % Plt Count 141 L (150-450) k/uL Sodium 132 L (137-145) mmol/L BUN 34 H (7-17) mg/dL Glucose 157 H (74-99) mg/dL POC Glucose (mg/dL) 169 H (70-110) mg/dL Plasma Lactic Acid Pipo (0.7-2.0) mmol/L Calcium 8.1 L (8.4-10.2) mg/dL Total Bilirubin 2.1 H (0.2-1.3) mg/dL AST 62 H (14-36) U/L ALT 45 H (4-34) U/L Total Protein 5.7 L (6.3-8.2) g/dL Albumin 2.3 L (3.5-5.0) g/dL 12/30/23 12/30/23 12/30/23 Range/Units 05:24 11:22 11:57 RBC (3.80-5.40) m/uL Hgb (11.4-16.0) gm/dL Hct (34.0-46.0) % RDW (11.5-15.5) % Plt Count (150-450) k/uL Sodium (137-145) mmol/L BUN (7-17) mg/dL Glucose (74-99) mg/dL POC Glucose (mg/dL) 327 H (70-110) mg/dL Plasma Lactic Acid Pipo 2.1 H* 5.0 H* (0.7-2.0) mmol/L Calcium (8.4-10.2) mg/dL Total Bilirubin (0.2-1.3) mg/dL AST (14-36) U/L ALT (4-34) U/L Total Protein (6.3-8.2) g/dL Albumin (3.5-5.0) g/dL Microbiology - Last 24 Hours (Table) 12/28/23 16:15 Blood Culture - Preliminary Blood 12/28/23 16:00 Blood Culture - Preliminary Blood
[2023-12-30 16:53] LABS: Glucose,Whole Blood 231 mg/dL (70-110)
--- NOTE | 2023-12-30 17:04 | P.GSCN ---
History of Present Illness Consult date: 12/30/23 Reason for Consult: Right ICA stenosis, review ultrasound Requesting physician: Gabe Cameron History of present illness: This is a 78-year-old white female who is being seen today in consultation for right ICA stenosis and review of carotid ultrasound. HPI is obtained from patient's chart as patient is uncooperative and will not answer questions or allow us to examine her. Apparently according to the emergency department note patient was brought in for change in mental status and was brought in on 12/28/2023. It is unclear as to what type of altered mental status changes she was having. When we asked patient why she came in she said stroke. That is all she would say. She has a past medical history including heart failure, diabetes mellitus, hypertension, cirrhosis of the liver, and thrombocytopenia. She had a brain CT as part of her evaluation in the emergency department that reported a 1.2 cm hypodense heterogeneous area left cerebellum. Underlying mass should be considered. Developing lacunar infarct could be within the differential. She also had a brain MRI again stating suspected mass with mild vasogenic edema in the inferior medial left cerebellum. Differential however does still include a 1.5 cm contusion. Carotid Doppler reports echogenic material seen in the right IJ V which limits evaluation. Suspicious for loose carotid plaque and increases risk for stroke. Suspect 50 to 69% stenosis origin of the right ICA. No ultrasound evidence of hemodynamically significant stenosis of the visualized left carotid arterial system right vertebral artery not visualized. Vascular surgery was consulted for right carotid stenosis and ultrasound findings. Review of Systems ROS unobtainable: due to mental status Past Medical History Past Medical History: Heart Failure, Diabetes Mellitus, Hypertension Additional Past Medical History / Comment(s): cirrhosis, thrombocytopenia, scol iosis, diveticulosis History of Any Multi-Drug Resistant Organisms: None Reported Past Surgical History: Cholecystectomy Additional Past Surgical History / Comment(s): colectomy Past Anesthesia/Blood Transfusion Reactions: No Reported Reaction Past Psychological History: No Psychological Hx Reported Smoking Status: Former smoker Past Alcohol Use History: None Reported Past Drug Use History: None Reported Medications and Allergies Home Medications Medication Instructions Recorded Confirmed Type Montelukast [Singulair] 10 mg PO HS 04/20/22 12/28/23 History Multivitamins, Thera [Multivitamin 1 tab PO PC-SUPPER 04/20/22 12/28/23 History (formulary)] atenoloL [Tenormin] 25 mg PO BID 04/20/22 12/28/23 History metFORMIN HCL [Glucophage] 1,000 mg PO HS 04/20/22 12/28/23 History Magnesium 200 mg PO DAILY 05/07/22 12/28/23 History Ibuprofen [Motrin Ib] 200 mg PO DAILY 12/05/23 12/28/23 History Torsemide [Demadex] 20 mg PO DAILY #90 tab 12/10/23 12/28/23 Rx LORazepam [Ativan] 0.25 mg PO DAILY #2 tab 12/23/23 12/28/23 Rx LORazepam [Ativan] 0.5 mg PO HS #2 tab 12/23/23 12/28/23 Rx INSULIN ASPART (NovoLOG) [NovoLOG See Protocol SQ ACHS 12/28/23 12/28/23 History (formulary)] Lanolin/Mineral Oil [Eucerin 1 applic TOPICAL BID 12/28/23 12/28/23 History Original Lotion] Omeprazole [PriLOSEC] 20 mg PO DAILY 12/28/23 12/28/23 History Allergies Allergy/AdvReac Type Severity Reaction Status Date / Time Iodinated Contrast Media Allergy Unknown face Verified 12/28/23 16:57 bright red and did not feel right. neomycin Allergy Unknown red face Verified 12/28/23 16:57 shellfish derived [Shrimp] Allergy Unknown face Verified 12/28/23 16:57 bright red, -felt funny. azithromycin Allergy red face Verified 12/28/23 16:57 ciprofloxacin [From Cipro] Allergy red face Verified 12/28/23 16:57 COVID-19 (SARS-CoV-2) Allergy Unknown Verified 12/28/23 16:57 vaccine, monique meperidine [From Demerol] Allergy red face Verified 12/28/23 16:57 Penicillins Allergy red face Verified 12/28/23 16:57 sulfite Allergy red face Verified 12/28/23 16:57 polyethylene glycol AdvReac Unknown Nausea & Verified 12/28/23 16:57 [From Golytely] Vomiting polyethylene glycol 3350 AdvReac Unknown Nausea & Verified 12/28/23 16:57 [From Golytely] Vomiting potassium chloride AdvReac Unknown Nausea & Verified 12/28/23 16:57 [From Golytely] Vomiting sodium [From Golytely] AdvReac Unknown Nausea & Verified 12/28/23 16:57 Vomiting sodium bicarbonate AdvReac Unknown Nausea & Verified 12/28/23 16:57 [From Golytely] Vomiting sodium chloride AdvReac Unknown Nausea & Verified 12/28/23 16:57 [From Golytely] Vomiting sodium sulfate AdvReac Unknown Nausea & Verified 12/28/23 16:57 [From Golytely] Vomiting COVID phizer vaccine Allergy Unknown Swelling Uncoded 12/28/23 13:15 face & eyes & red face. lobster Allergy Unknown bright Uncoded 12/28/23 13:15 red, "feels funny" Surgical - Exam Vital Signs Temp Pulse Resp BP Pulse Ox 97.6 F 67 16 121/52 100 12/28/23 13:05 12/28/23 13:05 12/28/23 13:05 12/28/23 13:05 12/28/23 13:05 General appearance: The patient is lying on her side with a blanket over her head, she is uncooperative with exam. And not answering questions. HET: Head appears normocephalic and atraumatic. Neck: Supple. Heart: Deferred. Lungs: Equal expansion, normal respiratory effort. Abdomen: Appears soft,nondistended. Extremities: Normal skin color and turgor. Neurological: Deferred. Patient uncooperative unable to do a full neurological exam. Results - Labs 12/30/23 05:24 12/30/23 05:24 Abnormal Lab Results - Last 24 Hours (Table) 12/29/23 12/29/23 12/29/23 Range/Units 04:13 08:54 10:32 RBC (3.80-5.40) m/uL Hgb (11.4-16.0) gm/dL Hct (34.0-46.0) % RDW (11.5-15.5) % Plt Count (150-450) k/uL Sodium (137-145) mmol/L BUN (7-17) mg/dL Glucose (74-99) mg/dL POC Glucose (mg/dL) 148 H (70-110) mg/dL Hemoglobin A1c 6.5 H (<=6.0) % Plasma Lactic Acid Pipo 2.8 H* (0.7-2.0) mmol/L Calcium (8.4-10.2) mg/dL Total Bilirubin (0.2-1.3) mg/dL AST (14-36) U/L ALT (4-34) U/L Total Protein (6.3-8.2) g/dL Albumin (3.5-5.0) g/dL 12/29/23 12/29/23 12/29/23 Range/Units 14:11 17:09 18:46 RBC (3.80-5.40) m/uL Hgb (11.4-16.0) gm/dL Hct (34.0-46.0) % RDW (11.5-15.5) % Plt Count (150-450) k/uL Sodium (137-145) mmol/L BUN (7-17) mg/dL Glucose (74-99) mg/dL POC Glucose (mg/dL) 195 H (70-110) mg/dL Hemoglobin A1c (<=6.0) % Plasma Lactic Acid Pipo 3.5 H* 5.1 H* (0.7-2.0) mmol/L Calcium (8.4-10.2) mg/dL Total Bilirubin (0.2-1.3) mg/dL AST (14-36) U/L ALT (4-34) U/L Total Protein (6.3-8.2) g/dL Albumin (3.5-5.0) g/dL 12/29/23 12/29/23 12/30/23 Range/Units 20:11 21:48 01:05 RBC (3.80-5.40) m/uL Hgb (11.4-16.0) gm/dL Hct (34.0-46.0) % RDW (11.5-15.5) % Plt Count (150-450) k/uL Sodium (137-145) mmol/L BUN (7-17) mg/dL Glucose (74-99) mg/dL POC Glucose (mg/dL) 274 H (70-110) mg/dL Hemoglobin A1c (<=6.0) % Plasma Lactic Acid Pipo 3.2 H* 2.3 H* (0.7-2.0) mmol/L Calcium (8.4-10.2) mg/dL Total Bilirubin (0.2-1.3) mg/dL AST (14-36) U/L ALT (4-34) U/L Total Protein (6.3-8.2) g/dL Albumin (3.5-5.0) g/dL 12/30/23 12/30/23 12/30/23 Range/Units 04:01 05:24 05:24 RBC 3.30 L (3.80-5.40) m/uL Hgb 10.3 L (11.4-16.0) gm/dL Hct 30.7 L (34.0-46.0) % RDW 16.1 H (11.5-15.5) % Plt Count 141 L (150-450) k/uL Sodium 132 L (137-145) mmol/L BUN 34 H (7-17) mg/dL Glucose 157 H (74-99) mg/dL POC Glucose (mg/dL) 169 H (70-110) mg/dL Hemoglobin A1c (<=6.0) % Plasma Lactic Acid Pipo (0.7-2.0) mmol/L Calcium 8.1 L (8.4-10.2) mg/dL Total Bilirubin 2.1 H (0.2-1.3) mg/dL AST 62 H (14-36) U/L ALT 45 H (4-34) U/L Total Protein 5.7 L (6.3-8.2) g/dL Albumin 2.3 L (3.5-5.0) g/dL 12/30/23 Range/Units 05:24 RBC (3.80-5.40) m/uL Hgb (11.4-16.0) gm/dL Hct (34.0-46.0) % RDW (11.5-15.5) % Plt Count (150-450) k/uL Sodium (137-145) mmol/L BUN (7-17) mg/dL Glucose (74-99) mg/dL POC Glucose (mg/dL) (70-110) mg/dL Hemoglobin A1c (<=6.0) % Plasma Lactic Acid Pipo 2.1 H* (0.7-2.0) mmol/L Calcium (8.4-10.2) mg/dL Total Bilirubin (0.2-1.3) mg/dL AST (14-36) U/L ALT (4-34) U/L Total Protein (6.3-8.2) g/dL Albumin (3.5-5.0) g/dL Microbiology - Last 24 Hours (Table) 12/28/23 16:15 Blood Culture - Preliminary Blood 12/28/23 16:00 Blood Culture - Preliminary Blood Diabetes panel 12/29/23 12/29/23 12/30/23 Range/Units 04:13 06:15 05:24 Sodium 132 L (137-145) mmol/L Potassium 3.7 (3.5-5.1) mmol/L Chloride 104 (98-107) mmol/L Carbon Dioxide 27 (22-30) mmol/L BUN 34 H (7-17) mg/dL Creatinine 0.57 (0.52-1.04) mg/dL Glucose 157 H (74-99) mg/dL Hemoglobin A1c 6.5 H (<=6.0) % Calcium 8.1 L (8.4-10.2) mg/dL AST 62 H (14-36) U/L ALT 45 H (4-34) U/L Alkaline Phosphatase 61 (38-126) U/L Total Protein 5.7 L (6.3-8.2) g/dL Albumin 2.3 L (3.5-5.0) g/dL Triglycerides 73.70 (0.00-149.00) mg/dL HDL Cholesterol 48.10 (40.00-60.00) mg/dL Calcium panel 12/30/23 Range/Units 05:24 Calcium 8.1 L (8.4-10.2) mg/dL Albumin 2.3 L (3.5-5.0) g/dL Pituitary panel 12/30/23 Range/Units 05:24 Sodium 132 L (137-145) mmol/L Potassium 3.7 (3.5-5.1) mmol/L Chloride 104 (98-107) mmol/L Carbon Dioxide 27 (22-30) mmol/L BUN 34 H (7-17) mg/dL Creatinine 0.57 (0.52-1.04) mg/dL Glucose 157 H (74-99) mg/dL Calcium 8.1 L (8.4-10.2) mg/dL Adrenal panel 12/30/23 Range/Units 05:24 Sodium 132 L (137-145) mmol/L Potassium 3.7 (3.5-5.1) mmol/L Chloride 104 (98-107) mmol/L Carbon Dioxide 27 (22-30) mmol/L BUN 34 H (7-17) mg/dL Creatinine 0.57 (0.52-1.04) mg/dL Glucose 157 H (74-99) mg/dL Calcium 8.1 L (8.4-10.2) mg/dL Total Bilirubin 2.1 H (0.2-1.3) mg/dL AST 62 H (14-36) U/L ALT 45 H (4-34) U/L Alkaline Phosphatase 61 (38-126) U/L Total Protein 5.7 L (6.3-8.2) g/dL Albumin 2.3 L (3.5-5.0) g/dL - Imaging Comments: Brain CT as part of her evaluation in the emergency department that reported a 1.2 cm hypodense heterogeneous area left cerebellum. Underlying mass should be considered. Developing lacunar infarct could be within the differential. Brain MRI again stating suspected mass with mild vasogenic edema in the inferior medial left cerebellum. Differential however does still include a 1.5 cm contusion. Carotid Doppler reports echogenic material seen in the right IJ V which limits evaluation. Suspicious for loose carotid plaque and increases risk for stroke. Suspect 50 to 69% stenosis origin of the right ICA. No ultrasound evidence of hemodynamically significant stenosis of the visualized left carotid arterial system right vertebral artery not visualized. Vascular surgery was consulted for right carotid stenosis and ultrasound findings. Assessment and Plan Assessment: 1. Altered mental status changes 2. Suspected mass in inferior medial left cerebellum seen on MRI 3. 50 to 69% right ICA stenosis 4. Possible thrombus in the right IJ vein Plan: Carotid duplex imaging independently reviewed by Dr. Grant. Likely patient does have suspected 50 to 69% stenosis at the right ICA. There appears to be possible thrombus at the right IJ vein however there is no risk due to IJ vein thrombus for increased risk of stroke. Patient may have had previous IJ catheter. There is no indication for any vascular surgical intervention. Continue with further recommendations from neurology for left cerebellar mass. Thank you for this consultation. The impression and plan of care has been dictated as directed. I performed a history and examination of this patient, discussed the same with the dictator. I agree with the dictator's note ,documented as a scribe. Any additional findings or plans will be noted.
--- NOTE | 2023-12-30 18:33 | P.PN ---
Subjective Progress Note Date: 12/30/23 I am following-up with patient and she is accompanied with her and other family members. patient feels she is doing well. She denies of any headache, nausea vomiting, any focal weakness. Per family members I was notified she's doing much better today compared in the last week. she had MRI of the brain yesterday it is reported as suspicious for brain mass over the left cerebellum yesterday at nighttime I started the patient on Decadron because of the left cerebellar brain mass as well as start her on the Keppra as a seizure prophylaxis. I spoke with the primary team in the he feels she is doing better as well. Objective - Vital Signs Vital signs: Vital Signs Temp 98 F 12/30/23 15:33 Pulse 59 L 12/30/23 15:33 Resp 20 12/30/23 15:33 BP 117/69 12/30/23 15:33 Pulse Ox 96 12/30/23 15:33 FiO2 Intake & Output 12/29/23 12/30/23 12/30/23 18:59 06:59 18:59 Intake Total 59 600 Output Total 450 325 400 Balance -391 -325 200 Intake: Oral 59 600 Output: Urine 450 325 400 Uretheral (Carrillo) 450 Other: Voiding Method Indwelling Catheter Indwelling Catheter # Voids 3 - Exam General: Sitting up in chair and is not in acute distress. Neuro: the patient is awake alert oriented to self and time. she stated she is in [place]. he is able to name family members were at bedside correctly. She is following simple commands. No aphasia and no neglect. The pupils are round equal reactive to light. The pupils are round 3 molars bilaterally. Visual ferris are full to confrontation. extraocular movement is intact. No facial weakness. No dysarthria Motor strength is 5 out of 5 in upper extremities. in the lower I had a hard time assessing the because of her position. Some the other workup during this hospital visit consisted of: Ammonia is a 56, sodium is 134, BUN is 33, AST of 67 ALT 50. Total Bilitrubin is 2.6 Plasma lactic acid 2.8 and latest is 3.5 Lipid panel is triglycerides 73, cholesterol of 142, LDL 79 and HDL 48 TSH is 1.85 Hemoglobin A1c is 6.5 I personally reviewed the CT and I agreed the patient does have hypodensity in the left cerebellum Carotid duplex was reported as echogenic material is seen within the right eye IVD which limits evaluation. There is suspicion for loose carotid plaque and increased risk for stroke. Suspect 50-69 stenosis at the origin of the right ICA. Vascular surgery consultation is recommended. No ultrasound evidence for hemodynamically significant stenosis of the visualized left carotid arterial system. Right vertebral artery is not visualized. 2D echo: Was reported as difficult patient management. Bubble study appears mildly positive within cardiac beats of agitation saline injection. Left ventricular ejection fraction is estimated 55-60%. Mild concentric left ventricular hypertrophy. Calcified aortic valve with mild aortic stenosis. MR the brain is reported as suspected mass with mild vasogenic edema in the inferior medial left cerebellum. Differential however does still include a 1.5 cm contusion. Finding correlate with a CT examination. Chronic appearing multiple scattered white matter ischemic type changes in deep white matter. Routine EEG is abnormal. The background slowing suggestive of severe encephalop athy. The study is limited because of the diffuse myogenic artifact. There is no epileptiform discharges or seizure on the EEG. - Labs CBC & Chem 7: 12/30/23 05:24 12/30/23 05:24 Labs: Abnormal Lab Results - Last 24 Hours (Table) 12/29/23 12/29/23 12/29/23 Range/Units 18:46 20:11 21:48 RBC (3.80-5.40) m/uL Hgb (11.4-16.0) gm/dL Hct (34.0-46.0) % RDW (11.5-15.5) % Plt Count (150-450) k/uL Sodium (137-145) mmol/L BUN (7-17) mg/dL Glucose (74-99) mg/dL POC Glucose (mg/dL) 274 H (70-110) mg/dL Plasma Lactic Acid Pipo 5.1 H* 3.2 H* (0.7-2.0) mmol/L Calcium (8.4-10.2) mg/dL Total Bilirubin (0.2-1.3) mg/dL AST (14-36) U/L ALT (4-34) U/L Total Protein (6.3-8.2) g/dL Albumin (3.5-5.0) g/dL 12/30/23 12/30/23 12/30/23 Range/Units 01:05 04:01 05:24 RBC 3.30 L (3.80-5.40) m/uL Hgb 10.3 L (11.4-16.0) gm/dL Hct 30.7 L (34.0-46.0) % RDW 16.1 H (11.5-15.5) % Plt Count 141 L (150-450) k/uL Sodium (137-145) mmol/L BUN (7-17) mg/dL Glucose (74-99) mg/dL POC Glucose (mg/dL) 169 H (70-110) mg/dL Plasma Lactic Acid Pipo 2.3 H* (0.7-2.0) mmol/L Calcium (8.4-10.2) mg/dL Total Bilirubin (0.2-1.3) mg/dL AST (14-36) U/L ALT (4-34) U/L Total Protein (6.3-8.2) g/dL Albumin (3.5-5.0) g/dL 12/30/23 12/30/23 12/30/23 Range/Units 05:24 05:24 11:22 RBC (3.80-5.40) m/uL Hgb (11.4-16.0) gm/dL Hct (34.0-46.0) % RDW (11.5-15.5) % Plt Count (150-450) k/uL Sodium 132 L (137-145) mmol/L BUN 34 H (7-17) mg/dL Glucose 157 H (74-99) mg/dL POC Glucose (mg/dL) 327 H (70-110) mg/dL Plasma Lactic Acid Pipo 2.1 H* (0.7-2.0) mmol/L Calcium 8.1 L (8.4-10.2) mg/dL Total Bilirubin 2.1 H (0.2-1.3) mg/dL AST 62 H (14-36) U/L ALT 45 H (4-34) U/L Total Protein 5.7 L (6.3-8.2) g/dL Albumin 2.3 L (3.5-5.0) g/dL 12/30/23 12/30/23 12/30/23 Range/Units 11:57 16:19 16:52 RBC (3.80-5.40) m/uL Hgb (11.4-16.0) gm/dL Hct (34.0-46.0) % RDW (11.5-15.5) % Plt Count (150-450) k/uL Sodium (137-145) mmol/L BUN (7-17) mg/dL Glucose (74-99) mg/dL POC Glucose (mg/dL) 231 H (70-110) mg/dL Plasma Lactic Acid Pipo 5.0 H* 4.6 H* (0.7-2.0) mmol/L Calcium (8.4-10.2) mg/dL Total Bilirubin (0.2-1.3) mg/dL AST (14-36) U/L ALT (4-34) U/L Total Protein (6.3-8.2) g/dL Albumin (3.5-5.0) g/dL Microbiology - Last 24 Hours (Table) 12/28/23 16:15 Blood Culture - Preliminary Blood 12/28/23 16:00 Blood Culture - Preliminary Blood Assessment and Plan Assessment: This is an 78-year-old woman who presented from [facility] because of altered mental status. 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 Suspected mass with mild vasogenic edema in the inferior medial left cerebellum on MRI Brain Encephalopathy due to multifactorial one of them is hepatic encephalopathy and suspected brain mass---today drastic improvement in her mentation Right ICA 50-60% stenosis on carotid duplex History of cirrhosis with secondary Banegas. Patient has elevated the ammonia with the slight elevation of liver function tests Significant edema in the lower extremity with erythema Hypertension Chronic hypoxic respiratory failure on home oxygen [id number]-kaghlcwer diabetes mellitus Medication noncompliance Plan: For suspected left cerebellar mass, I consulted Oncology team. She has CT abd/pelvix/abd ordered by Oncology and is pending. I started her on Decadron 4mg every 6 hours for vasogenic edema. I will defer sugar management to primary team. I started her on Keppra as seizure prophylaxis 500mg bid and so far is tolerating medication well. I ordered MRI w/ since the one performed was without and I have ordered initially as w/ and w/o but only without was performed. It would be great to obtain with Chao to assess brain mass and to assess if any other lesions seen that enhances. Vascular surgery team for Right ICA stated no intervention and no intervention. It seems she has possible thrombus at right IJ vein per carotid duplex. She may had previous IJ catheter per vascular. Onn aspirin 81 mg daily as well as Lipitor 40 mg daily. 2D echo shows possible PFO. Every 4 hours neuro checks Cardiac monitoring PT OT and DIRECTOR OF FUNDRAISING are consulted We'll defer the rest of the medical measure the primary and other specialists For DVT prophylaxis the patient is on Lovenox The plan was discussed with the patient, her and rest of family members and also primary team. Time with Patient: Less than 30
[2023-12-30] MEDS: predniSONE 50 MG TAB PO ONE ×2 (18:43→20:42)
[2023-12-30] MEDS: diphenhydrAMINE 50 MG CAP PO ONE (18:43)
[2023-12-30] MEDS: HYDROCORTISONE 2.5% RECTAL CREAM 30 GM TUBE RECTAL SCH (20:45)
[2023-12-31 00:23] LABS: Glucose,Whole Blood 300 mg/dL (70-110)
[2023-12-31] MEDS: predniSONE 50 MG TAB PO ONE ×2 (02:59→08:07)
[2023-12-31 04:20] LABS: Basophils % (A) 0 %; Eosinophils % (A) 0 %; HGB 10.5 gm/dL (11.4-16.0); Lymphocytes # (A) 0.6 k/uL (1.0-4.8); Lymphocytes % (A) 7 %; MCH 31.5 pg (25.0-35.0); MCHC 33.7 g/dL (31.0-37.0); MCV 93.5 fL (80.0-100.0); Mean Platelet Volume 7.9; Monocytes # (A) 0.4 k/uL (0-1.0); Monocytes % (A) 4 %; Neutrophils # (A) 8.3 k/uL (1.3-7.7); Neutrophils % (A) 88 %; Platelet Count 127 k/uL (150-450); RBC 3.32 m/uL (3.80-5.40); RDW 15.8 % (11.5-15.5); WBC 9.5 k/uL (3.8-10.6)
[2023-12-31 04:31] LABS: ALT 47 U/L (4-34); AST 67 U/L (14-36); African American GFR (CKD) >90 (>60 ml/min/1.73 sqM); Albumin 2.1 g/dL (3.5-5.0); Alkaline Phosphatase 67 U/L (38-126); Anion Gap 1 mmol/L; Blood Urea Nitrogen 31 mg/dL (7-17); Calcium 7.3 mg/dL (8.4-10.2); Carbon Dioxide 24 mmol/L (22-30); Chloride 103 mmol/L (98-107); Glucose 259 mg/dL (74-99); Non-African American GFR(CKD) >90 (>60 ml/min/1.73 sqM); Potassium 4.4 mmol/L (3.5-5.1); Sodium 128 mmol/L (137-145); Total Bilirubin 1.5 mg/dL (0.2-1.3); Total Protein 5.5 g/dL (6.3-8.2)
[2023-12-31 06:09] LABS: Glucose,Whole Blood 294 mg/dL (70-110)
[2023-12-31] MEDS: diphenhydrAMINE 25 MG CAP PO ONE (08:07)
--- NOTE | 2023-12-31 09:27 | P.CONS ---
History of Present Illness - Reason for Consult Consult date: 12/30/23 brain mass Requesting physician: Gabe Cameron - Chief Complaint confusion - History of Present Illness Patient is an 78-year-old female with a past medical history of liver cirrhosis secondary to RODRIGUEZ, hypertension, chronic hypoxic respiratory failure home oxygen dependent on 2 L, [id number]-emenhbbjm diabetes mellitus, and medication noncompliance. She was recently admitted weakness and fatigue and was dicharged on 12/23/2023 to [facility]. Consult was placed for evaluation of brain mass noted on MRI. Patient presented to the emergency department today from [facility] via EMS secondary to complaints of altered mental status. Per ED report patient was last known normal was the night prior and was found altered this morning. CT head without contrast revealing a 1.2 cm hypodense heterogeneous area to the left cerebellum, underlying mass or developing lacunar infarct cannot be ruled out. MRI brain without contrast revealed suspected mass with mild vasogenic edema in the inferior medial left cerebellum, differential includes a 1.5 cm contusion. She has been started on IV decadron. Abdominal US showed mild ascites. CBC showing WBC 10.3, Hgb 10.3 and platelets 141,000. Bilirubin 2.1, AST 62, ALT 45. Ammonia 56. Urinalysis was negative for concerns of infection. NG tube was inserted in the emergency department and patient started on lactulose for treatment of her hyperammonemia. At today's patient visit patient is alert but confused to place. She is denying symptoms of confusion, balance issues, and headache. She denies falling or any recent head injury. Review of Systems 10 point ROS is negative except as stated in the HPI Past Medical History Past Medical History: Heart Failure, Diabetes Mellitus, Hypertension Additional Past Medical History / Comment(s): cirrhosis, thrombocytopenia, scoliosis, diveticulosis History of Any Multi-Drug Resistant Organisms: None Reported Past Surgical History: Cholecystectomy Additional Past Surgical History / Comment(s): colectomy Past Anesthesia/Blood Transfusion Reactions: No Reported Reaction Past Psychological History: No Psychological Hx Reported Smoking Status: Former smoker Past Alcohol Use History: None Reported Past Drug Use History: None Reported Medications and Allergies Home Medications Medication Instructions Recorded Confirmed Type Montelukast [Singulair] 10 mg PO HS 04/20/22 12/28/23 History Multivitamins, Thera [Multivitamin 1 tab PO PC-SUPPER 04/20/22 12/28/23 History (formulary)] atenoloL [Tenormin] 25 mg PO BID 04/20/22 12/28/23 History metFORMIN HCL [Glucophage] 1,000 mg PO HS 04/20/22 12/28/23 History Magnesium 200 mg PO DAILY 05/07/22 12/28/23 History Ibuprofen [Motrin Ib] 200 mg PO DAILY 12/05/23 12/28/23 History Torsemide [Demadex] 20 mg PO DAILY #90 tab 12/10/23 12/28/23 Rx LORazepam [Ativan] 0.25 mg PO DAILY #2 tab 12/23/23 12/28/23 Rx LORazepam [Ativan] 0.5 mg PO HS #2 tab 12/23/23 12/28/23 Rx INSULIN ASPART (NovoLOG) [NovoLOG See Protocol SQ ACHS 12/28/23 12/28/23 History (formulary)] Lanolin/Mineral Oil [Eucerin 1 applic TOPICAL BID 12/28/23 12/28/23 History Original Lotion] Omeprazole [PriLOSEC] 20 mg PO DAILY 12/28/23 12/28/23 History Allergies Allergy/AdvReac Type Severity Reaction Status Date / Time Iodinated Contrast Media Allergy Unknown face Verified 12/28/23 16:57 bright red and did not feel right. neomycin Allergy Unknown red face Verified 12/28/23 16:57 shellfish derived [Shrimp] Allergy Unknown face Verified 12/28/23 16:57 bright red, -felt funny. azithromycin Allergy red face Verified 12/28/23 16:57 ciprofloxacin [From Cipro] Allergy red face Verified 12/28/23 16:57 COVID-19 (SARS-CoV-2) Allergy Unknown Verified 12/28/23 16:57 vaccine, monique meperidine [From Demerol] Allergy red face Verified 12/28/23 16:57 Penicillins Allergy red face Verified 12/28/23 16:57 sulfite Allergy red face Verified 12/28/23 16:57 polyethylene glycol AdvReac Unknown Nausea & Verified 12/28/23 16:57 [From Golytely] Vomiting polyethylene glycol 3350 AdvReac Unknown Nausea & Verified 12/28/23 16:57 [From Golytely] Vomiting potassium chloride AdvReac Unknown Nausea & Verified 12/28/23 16:57 [From Golytely] Vomiting sodium [From Golytely] AdvReac Unknown Nausea & Verified 12/28/23 16:57 Vomiting sodium bicarbonate AdvReac Unknown Nausea & Verified 12/28/23 16:57 [From Golytely] Vomiting sodium chloride AdvReac Unknown Nausea & Verified 12/28/23 16:57 [From Golytely] Vomiting sodium sulfate AdvReac Unknown Nausea & Verified 12/28/23 16:57 [From Golytely] Vomiting COVID phizer vaccine Allergy Unknown Swelling Uncoded 12/28/23 13:15 face & eyes & red face. lobster Allergy Unknown bright Uncoded 12/28/23 13:15 red, "feels funny" Physical Exam Vitals: Vital Signs Temp Pulse Pulse Resp BP BP Pulse Ox 12/30/23 08:00 98.1 F 56 L 20 127/67 99 12/30/23 04:00 97.9 F 62 20 101/51 100 12/30/23 02:00 79 22 12/30/23 00:00 98.2 F 79 22 118/55 95 12/29/23 20:00 98.0 F 86 18 113/53 96 12/29/23 17:40 98.2 F 76 18 123/69 100 12/29/23 16:01 77 99/86 96 12/29/23 14:45 74 18 114/58 96 Intake and Output 12/29/23 12/30/23 12/30/23 22:59 06:59 14:59 Intake Total 59 240 Output Total 325 Balance 59 -325 240 Intake: Oral 59 240 Output: Urine 325 Other: Voiding Method Indwelling Catheter Indwelling Catheter Indwelling Catheter # Voids 1 - Constitutional General appearance: average body habitus, no acute distress - EENT Eyes: anicteric sclerae, EOMI ENT: hearing grossly normal - Respiratory Respiratory: bilateral: diminished - Cardiovascular Rhythm: regular Abnormal Heart Sounds: systolic murmur leg Peripheral Edema: bilateral: 2+ (anasarca to BLE, weeping to LLE) - Gastrointestinal General gastrointestinal: normal bowel sounds, soft, no tenderness - Integumentary Integumentary: no cyanotic - Neurologic no focal deficits, generalized weakness, confused to place - Musculoskeletal Musculoskeletal: generalized weakness, strength equal bilaterally Results CBC & Chem 7: 12/31/23 03:58 12/31/23 03:58 Labs: Abnormal Lab Results - Last 24 Hours (Table) 12/29/23 12/29/23 12/29/23 Range/Units 14:11 17:09 18:46 RBC (3.80-5.40) m/uL Hgb (11.4-16.0) gm/dL Hct (34.0-46.0) % RDW (11.5-15.5) % Plt Count (150-450) k/uL Sodium (137-145) mmol/L BUN (7-17) mg/dL Glucose (74-99) mg/dL POC Glucose (mg/dL) 195 H (70-110) mg/dL Plasma Lactic Acid Pipo 3.5 H* 5.1 H* (0.7-2.0) mmol/L Calcium (8.4-10.2) mg/dL Total Bilirubin (0.2-1.3) mg/dL AST (14-36) U/L ALT (4-34) U/L Total Protein (6.3-8.2) g/dL Albumin (3.5-5.0) g/dL 12/29/23 12/29/23 12/30/23 Range/Units 20:11 21:48 01:05 RBC (3.80-5.40) m/uL Hgb (11.4-16.0) gm/dL Hct (34.0-46.0) % RDW (11.5-15.5) % Plt Count (150-450) k/uL Sodium (137-145) mmol/L BUN (7-17) mg/dL Glucose (74-99) mg/dL POC Glucose (mg/dL) 274 H (70-110) mg/dL Plasma Lactic Acid Pipo 3.2 H* 2.3 H* (0.7-2.0) mmol/L Calcium (8.4-10.2) mg/dL Total Bilirubin (0.2-1.3) mg/dL AST (14-36) U/L ALT (4-34) U/L Total Protein (6.3-8.2) g/dL Albumin (3.5-5.0) g/dL 12/30/23 12/30/23 12/30/23 Range/Units 04:01 05:24 05:24 RBC 3.30 L (3.80-5.40) m/uL Hgb 10.3 L (11.4-16.0) gm/dL Hct 30.7 L (34.0-46.0) % RDW 16.1 H (11.5-15.5) % Plt Count 141 L (150-450) k/uL Sodium 132 L (137-145) mmol/L BUN 34 H (7-17) mg/dL Glucose 157 H (74-99) mg/dL POC Glucose (mg/dL) 169 H (70-110) mg/dL Plasma Lactic Acid Pipo (0.7-2.0) mmol/L Calcium 8.1 L (8.4-10.2) mg/dL Total Bilirubin 2.1 H (0.2-1.3) mg/dL AST 62 H (14-36) U/L ALT 45 H (4-34) U/L Total Protein 5.7 L (6.3-8.2) g/dL Albumin 2.3 L (3.5-5.0) g/dL 12/30/23 12/30/23 Range/Units 05:24 11:22 RBC (3.80-5.40) m/uL Hgb (11.4-16.0) gm/dL Hct (34.0-46.0) % RDW (11.5-15.5) % Plt Count (150-450) k/uL Sodium (137-145) mmol/L BUN (7-17) mg/dL Glucose (74-99) mg/dL POC Glucose (mg/dL) 327 H (70-110) mg/dL Plasma Lactic Acid Pipo 2.1 H* (0.7-2.0) mmol/L Calcium (8.4-10.2) mg/dL Total Bilirubin (0.2-1.3) mg/dL AST (14-36) U/L ALT (4-34) U/L Total Protein (6.3-8.2) g/dL Albumin (3.5-5.0) g/dL Microbiology - Last 24 Hours (Table) 12/28/23 16:15 Blood Culture - Preliminary Blood 12/28/23 16:00 Blood Culture - Preliminary Blood CT Scan - head: report reviewed US - abdomen: report reviewed MRI - head: report reviewed Assessment and Plan (1) Mass of brain Current Visit: Yes Status: Acute Priority: High Code(s): G93.89 - OTHER SPECIFIED DISORDERS OF BRAIN SNOMED Code(s): 963152094 (2) Altered mental status Current Visit: Yes Status: Acute Priority: High Code(s): R41.82 - ALTERED MENTAL STATUS, UNSPECIFIED SNOMED Code(s): 487830356 Plan: Brain mass/AMS: -Significant history of liver cirrhosis secondary to RODRIGUEZ, hypertension. Presented with confusion/AMS, Ammonia elevated at 56. NG tube was inserted and patient started on lactulose for treatment of hyperammonemia. Repeat ammonia 47 -CT head without contrast revealing a 1.2 cm hypodense heterogeneous area to the left cerebellum, underlying mass or developing lacunar infarct cannot be ruled out. MRI brain without contrast revealed suspected mass with mild vasogenic edema in the inferior medial left cerebellum, differential includes a 1.5 cm contusion. She has been started on IV decadron. -Neurology following and have ordered repeat brain MRI with contrast -Patient is denying symptoms of confusion, balance issues, and headache. She denies falling or any recent head injury, but HPI is somewhat limited due to ongoing confusion. No focal deficits noted on exam. -Will obtain CT CAP to evaluate for any metastases. Unsure at this time if this is a mass vs contusion based on non-contrast imaging obtained. Will hopefully be better able to visualize on MRI brain w/ contrast. Unfortunately due to multiple comorbidities and overall poor performance status she would not be a good candidate for brain biopsy if no other sites are noted on CT CAP. Will continue to follow and await pending imaging Attests: I have seen and examined pt, performed H&P, developed impression and plan of care. Discussed with dictator. Agree with documentation, dictated as a scribe
[2023-12-31 12:01] LABS: Glucose,Whole Blood 337 mg/dL (70-110)
[2023-12-31] MEDS: TORSEMIDE 20 MG TAB PO SCH (12:01)
--- NOTE | 2023-12-31 12:05 | P.PN ---
Subjective Progress Note Date: 12/31/23 I am following-up with patient and currently she is sitting in a recliner chair sleeping. Objective - Vital Signs Vital signs: Vital Signs Temp 97.4 F L 12/31/23 07:27 Pulse 52 L 12/31/23 08:00 Resp 18 12/31/23 08:00 BP 118/58 12/31/23 07:27 Pulse Ox 99 12/31/23 09:06 FiO2 Intake & Output 12/30/23 12/31/23 12/31/23 18:59 06:59 18:59 Intake Total 600 120 Output Total 400 400 Balance 200 -400 120 Intake: Oral 600 120 Output: Urine 400 400 Other: Voiding Method Indwelling Catheter Indwelling Catheter Indwelling Catheter # Voids 3 1 - Exam General: Sitting up in chair and does not appear in acute distress. She is currently sleeping. Neuro: Limited since sleeping. No facial weakness. Some the other workup during this hospital visit consisted of: Ammonia is a 56, sodium is 134, BUN is 33, AST of 67 ALT 50. Total Bilitrubin is 2.6 Plasma lactic acid 2.8 and latest is 3.5 Lipid panel is triglycerides 73, cholesterol of 142, LDL 79 and HDL 48 TSH is 1.85 Hemoglobin A1c is 6.5 I personally reviewed the CT and I agreed the patient does have hypodensity in the left cerebellum Carotid duplex was reported as echogenic material is seen within the right eye IVD which limits evaluation. There is suspicion for loose carotid plaque and increased risk for stroke. Suspect 50-69 stenosis at the origin of the right ICA. Vascular surgery consultation is recommended. No ultrasound evidence for hemodynamically significant stenosis of the visualized left carotid arterial system. Right vertebral artery is not visualized. 2D echo: Was reported as difficult patient management. Bubble study appears mildly positive within cardiac beats of agitation saline injection. Left ventricular ejection fraction is estimated 55-60%. Mild concentric left ventricular hypertrophy. Calcified aortic valve with mild aortic stenosis. MR the brain is reported as suspected mass with mild vasogenic edema in the inferior medial left cerebellum. Differential however does still include a 1.5 cm contusion. Finding correlate with a CT examination. Chronic appearing multiple scattered white matter ischemic type changes in deep white matter. Routine EEG is abnormal. The background slowing suggestive of severe encephalopathy. The study is limited because of the diffuse myogenic artifact. There is no epileptiform discharges or seizure on the EEG. - Labs CBC & Chem 7: 12/31/23 03:58 12/31/23 03:58 Labs: Abnormal Lab Results - Last 24 Hours (Table) 12/30/23 12/30/23 12/30/23 Range/Units 11:57 16:19 16:52 RBC (3.80-5.40) m/uL Hgb (11.4-16.0) gm/dL Hct (34.0-46.0) % RDW (11.5-15.5) % Plt Count (150-450) k/uL Neutrophils # (1.3-7.7) k/uL Lymphocytes # (1.0-4.8) k/uL Sodium (137-145) mmol/L BUN (7-17) mg/dL Creatinine (0.52-1.04) mg/dL Glucose (74-99) mg/dL POC Glucose (mg/dL) 231 H (70-110) mg/dL Plasma Lactic Acid Pipo 5.0 H* 4.6 H* (0.7-2.0) mmol/L Calcium (8.4-10.2) mg/dL Total Bilirubin (0.2-1.3) mg/dL AST (14-36) U/L ALT (4-34) U/L Total Protein (6.3-8.2) g/dL Albumin (3.5-5.0) g/dL 12/30/23 12/30/23 12/31/23 Range/Units 19:59 23:00 00:17 RBC (3.80-5.40) m/uL Hgb (11.4-16.0) gm/dL Hct (34.0-46.0) % RDW (11.5-15.5) % Plt Count (150-450) k/uL Neutrophils # (1.3-7.7) k/uL Lymphocytes # (1.0-4.8) k/uL Sodium (137-145) mmol/L BUN (7-17) mg/dL Creatinine (0.52-1.04) mg/dL Glucose (74-99) mg/dL POC Glucose (mg/dL) 300 H (70-110) mg/dL Plasma Lactic Acid Pipo 4.7 H* 3.2 H* (0.7-2.0) mmol/L Calcium (8.4-10.2) mg/dL Total Bilirubin (0.2-1.3) mg/dL AST (14-36) U/L ALT (4-34) U/L Total Protein (6.3-8.2) g/dL Albumin (3.5-5.0) g/dL 12/31/23 12/31/23 12/31/23 Range/Units 03:58 03:58 03:58 RBC 3.32 L (3.80-5.40) m/uL Hgb 10.5 L (11.4-16.0) gm/dL Hct 31.0 L (34.0-46.0) % RDW 15.8 H (11.5-15.5) % Plt Count 127 L (150-450) k/uL Neutrophils # 8.3 H (1.3-7.7) k/uL Lymphocytes # 0.6 L (1.0-4.8) k/uL Sodium 128 L (137-145) mmol/L BUN 31 H (7-17) mg/dL Creatinine 0.51 L (0.52-1.04) mg/dL Glucose 259 H (74-99) mg/dL POC Glucose (mg/dL) (70-110) mg/dL Plasma Lactic Acid Pipo 2.3 H* (0.7-2.0) mmol/L Calcium 7.3 L (8.4-10.2) mg/dL Total Bilirubin 1.5 H (0.2-1.3) mg/dL AST 67 H (14-36) U/L ALT 47 H (4-34) U/L Total Protein 5.5 L (6.3-8.2) g/dL Albumin 2.1 L (3.5-5.0) g/dL 12/31/23 12/31/23 Range/Units 05:55 12:00 RBC (3.80-5.40) m/uL Hgb (11.4-16.0) gm/dL Hct (34.0-46.0) % RDW (11.5-15.5) % Plt Count (150-450) k/uL Neutrophils # (1.3-7.7) k/uL Lymphocytes # (1.0-4.8) k/uL Sodium (137-145) mmol/L BUN (7-17) mg/dL Creatinine (0.52-1.04) mg/dL Glucose (74-99) mg/dL POC Glucose (mg/dL) 294 H 337 H (70-110) mg/dL Plasma Lactic Acid Pipo (0.7-2.0) mmol/L Calcium (8.4-10.2) mg/dL Total Bilirubin (0.2-1.3) mg/dL AST (14-36) U/L ALT (4-34) U/L Total Protein (6.3-8.2) g/dL Albumin (3.5-5.0) g/dL Microbiology - Last 24 Hours (Table) 12/28/23 16:15 Blood Culture - Preliminary Blood 12/28/23 16:00 Blood Culture - Preliminary Blood 12/28/23 17:00 Urine Culture - Preliminary Urine,Voided Streptococcus bovis Assessment and Plan Assessment: This is an 78-year-old woman who presented from [facility] because of altered mental status. 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 Suspected mass with mild vasogenic edema in the inferior medial left cerebellum on MRI Brain Encephalopathy due to multifactorial one of them is hepatic encephalopathy and suspected brain mass---today drastic improvement in her mentation Right ICA 50-60% stenosis on carotid duplex History of cirrhosis with secondary Banegas. Patient has elevated the ammonia with the slight elevation of liver function tests Significant edema in the lower extremity with erythema Hypertension Chronic hypoxic respiratory failure on home oxygen Kak-rvpkotf-ubxtffhqm diabetes mellitus Medication noncompliance Plan: For suspected left cerebellar mass, I consulted Oncology team. She has CT abd/pelvix/abd ordered by Oncology and is pending. I started her on Decadron 4mg every 6 hours for vasogenic edema. I will defer sugar management to primary team. Continue Keppra 500mg bid as seizure prophylaxis and so far is tolerating medication well. Will decide on manager terminal plan down the line after further imaging (MRI Brain). I ordered MRI w/ since the one performed was without and I have ordered initially as w/ and w/o but only without was performed. It would be great to obtain with Chao to assess brain mass and to assess if any other lesions seen that enhances. Vascular surgery team for Right ICA stated no intervention and no intervention. It seems she has possible thrombus at right IJ vein per carotid duplex. She may had previous IJ catheter per vascular. Onn aspirin 81 mg daily as well as Lipitor 40 mg daily. 2D echo shows possible PFO. Every 4 hours neuro checks Cardiac monitoring PT OT and TELEVISION SERVICER are consulted We'll defer the rest of the medical measure the primary and other specialists For DVT prophylaxis the patient is on Lovenox The plan was discussed with primary team. Time with Patient: Less than 30
[2023-12-31] MEDS ORDERED: DEXAMETHASONE SOD PHOSPHATE 4 MG/ML 1 ML VIAL IVP SCH (12:15)
--- NOTE | 2023-12-31 12:17 | P.PN ---
Subjective Progress Note Date: 12/31/23 Hospital Course: 78-year-old female with history of liver cirrhosis secondary to Rodriguez, hypertension, chronic hypoxic respiratory failure on 2 L, ace-[id number] diabetes, medication noncompliance, presenting from nursing facility with complaints of altered mentation. On initial presentation, patient was saturating 100% on 2 L, rest of the vital signs were within normal limits. EKG showed sinus rhythm, CT head without contrast revealed 1.2 cm hypodense heterogenous area within the left cerebellum, underlying mass or developing lacunar infarct cannot be ruled out. Chest x-ray showed left hemidiaphragm. CBC showed thrombocytopenia with platelet of 140. BMP showed prerenal azotemia with BUN of 33. Total bili was 2.6, AST 67, ALT 50, ammonia 56, metabolic alkalosis with pH of 7.52, bicarb 29, CO2 30. Urinalysis negative. Patient given lactulose in the ED via NG tube. Patient admitted for acute encephalopathy. Neurology consulted. MRI brain showed suspected mass with mild vasogenic edema in the inferior medial left cerebellum. EEG did not show any epileptiform discharges. Started on steroids. Oncology also consulted. Subjective: Patient seen and examined at bedside. No acute events overnight. Mental status improved. Pertinent positives and negatives as discussed above, a complete review of systems was performed and all other systems are negative. Vitals Signs Reviewed. General: Nontoxic, no distress, appears at stated age Derm: Warm, dry Head: Atraumatic, normocephalic, symmetric Eyes: EOMI, no lid lag, anicteric sclera Mouth: No lip lesion, mucus membranes moist Cardiovascular: S1S2 reg, systolic murmur Lungs: CTA bilateral, no rhonchi, no rales, no accessory muscle use Abdominal: Soft, nontender to palpation, no guarding, no appreciable organomegaly Ext: No gross muscle atrophy, bilateral lower extremity pitting edema with chronic venous stasis dermatitis, no contractures Neuro: CN II-XI grossly intact, no focal neuro deficits Psych: Alert, orientedx3, appropriate affect Data Reviewed Today: Pertinent Labs: WBC 9.5, hemoglobin 10.5, platelet 127, sodium 128, creatinine 0.51, blood sugars range between 2 31-3 37, lactate 1.6, total bili 1.5, AST 67, ALT 47 Imaging: No new imaging Assessment and Plan: Active: Acute encephalopathy, likely multifactorial, in setting of hepatic, metabolic, CVA versus cerebellar mass 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 RODRIGUEZ cirrhosis Hypervolemic hyponatremia Hyperbilirubinemia Hyperammonemia Metabolic alkalosis, resolved Leukocytosis, resolved Lactic acidosis, likely type B, resolved -Mental status overall improving -Discussed management with neurology, ordered MRI brain with contrast to further workup of brain mass Oncology note reviewed from 12/30/2023, recommending CT abdomen pelvis if not able to complete MRI brain with contrast -Patient is currently on Keppra 500 IV every 12 hours for seizure prophylaxis, as well as she received oral prednisone yesterday -Started on Decadron 4 mg IV every 6 hours, monitor mentation and blood sugars -Continue lactulose 30 g 3 times daily -Patient has been receiving fluids for the last few days due to dehydration, now has hyponatremia, likely hypovolemic, restarted home oral torsemide Type 2 diabetes Hyperglycemia, also steroid induced -Sliding scale insulin, monitor for hypoglycemia -Levemir 15 units daily added Chronic: Hypertension Dyslipidemia DVT ppx: lovenox Code status: Anticipated discharge place: pending clinical course Anticipated discharge time: pending clinical course Objective - Vital Signs Vital signs: Vital Signs Temp 97.4 F L 12/31/23 12:01 Pulse 63 12/31/23 12:01 Resp 18 12/31/23 12:01 BP 111/62 12/31/23 12:01 Pulse Ox 100 12/31/23 12:01 FiO2 Intake & Output 12/30/23 12/31/23 12/31/23 18:59 06:59 18:59 Intake Total 600 120 Output Total 400 400 Balance 200 -400 120 Intake: Oral 600 120 Output: Urine 400 400 Other: Voiding Method Indwelling Catheter Indwelling Catheter Indwelling Catheter # Voids 3 1 - Labs CBC & Chem 7: 12/31/23 03:58 12/31/23 03:58 Labs: Abnormal Lab Results - Last 24 Hours (Table) 12/30/23 12/30/23 12/30/23 Range/Units 11:57 16:19 16:52 RBC (3.80-5.40) m/uL Hgb (11.4-16.0) gm/dL Hct (34.0-46.0) % RDW (11.5-15.5) % Plt Count (150-450) k/uL Neutrophils # (1.3-7.7) k/uL Lymphocytes # (1.0-4.8) k/uL Sodium (137-145) mmol/L BUN (7-17) mg/dL Creatinine (0.52-1.04) mg/dL Glucose (74-99) mg/dL POC Glucose (mg/dL) 231 H (70-110) mg/dL Plasma Lactic Acid Pipo 5.0 H* 4.6 H* (0.7-2.0) mmol/L Calcium (8.4-10.2) mg/dL Total Bilirubin (0.2-1.3) mg/dL AST (14-36) U/L ALT (4-34) U/L Total Protein (6.3-8.2) g/dL Albumin (3.5-5.0) g/dL 12/30/23 12/30/23 12/31/23 Range/Units 19:59 23:00 00:17 RBC (3.80-5.40) m/uL Hgb (11.4-16.0) gm/dL Hct (34.0-46.0) % RDW (11.5-15.5) % Plt Count (150-450) k/uL Neutrophils # (1.3-7.7) k/uL Lymphocytes # (1.0-4.8) k/uL Sodium (137-145) mmol/L BUN (7-17) mg/dL Creatinine (0.52-1.04) mg/dL Glucose (74-99) mg/dL POC Glucose (mg/dL) 300 H (70-110) mg/dL Plasma Lactic Acid Pipo 4.7 H* 3.2 H* (0.7-2.0) mmol/L Calcium (8.4-10.2) mg/dL Total Bilirubin (0.2-1.3) mg/dL AST (14-36) U/L ALT (4-34) U/L Total Protein (6.3-8.2) g/dL Albumin (3.5-5.0) g/dL 12/31/23 12/31/23 12/31/23 Range/Units 03:58 03:58 03:58 RBC 3.32 L (3.80-5.40) m/uL Hgb 10.5 L (11.4-16.0) gm/dL Hct 31.0 L (34.0-46.0) % RDW 15.8 H (11.5-15.5) % Plt Count 127 L (150-450) k/uL Neutrophils # 8.3 H (1.3-7.7) k/uL Lymphocytes # 0.6 L (1.0-4.8) k/uL Sodium 128 L (137-145) mmol/L BUN 31 H (7-17) mg/dL Creatinine 0.51 L (0.52-1.04) mg/dL Glucose 259 H (74-99) mg/dL POC Glucose (mg/dL) (70-110) mg/dL Plasma Lactic Acid Pipo 2.3 H* (0.7-2.0) mmol/L Calcium 7.3 L (8.4-10.2) mg/dL Total Bilirubin 1.5 H (0.2-1.3) mg/dL AST 67 H (14-36) U/L ALT 47 H (4-34) U/L Total Protein 5.5 L (6.3-8.2) g/dL Albumin 2.1 L (3.5-5.0) g/dL 12/31/23 12/31/23 Range/Units 05:55 12:00 RBC (3.80-5.40) m/uL Hgb (11.4-16.0) gm/dL Hct (34.0-46.0) % RDW (11.5-15.5) % Plt Count (150-450) k/uL Neutrophils # (1.3-7.7) k/uL Lymphocytes # (1.0-4.8) k/uL Sodium (137-145) mmol/L BUN (7-17) mg/dL Creatinine (0.52-1.04) mg/dL Glucose (74-99) mg/dL POC Glucose (mg/dL) 294 H 337 H (70-110) mg/dL Plasma Lactic Acid Pipo (0.7-2.0) mmol/L Calcium (8.4-10.2) mg/dL Total Bilirubin (0.2-1.3) mg/dL AST (14-36) U/L ALT (4-34) U/L Total Protein (6.3-8.2) g/dL Albumin (3.5-5.0) g/dL Microbiology - Last 24 Hours (Table) 12/28/23 16:15 Blood Culture - Preliminary Blood 12/28/23 16:00 Blood Culture - Preliminary Blood 12/28/23 17:00 Urine Culture - Preliminary Urine,Voided Streptococcus bovis
[2023-12-31] MEDS: INSULIN DETEMIR (LEVEMIR) 100 UNIT/ML SYR SQ ONE (13:03)
[2023-12-31 17:14] LABS: Glucose,Whole Blood 417 mg/dL (70-110)
[2023-12-31] MEDS: DEXAMETHASONE SOD PHOSPHATE 4 MG/ML 1 ML VIAL IVP SCH (17:21)
[2024-01-01 00:10] LABS: Glucose,Whole Blood 424 mg/dL (70-110)
[2024-01-01] MEDS: INSULIN ASPART (NovoLOG) 100 UNIT/ML VIAL SQ STA (00:38)
[2024-01-01] MEDS: INSULIN DETEMIR (LEVEMIR) 100 UNIT/ML SYR SQ SCH (06:13)
[2024-01-01 06:15] LABS: Glucose,Whole Blood 272 mg/dL (70-110)
[2024-01-01 10:37] LABS: African American GFR (CKD) >90 (>60 ml/min/1.73 sqM); Anion Gap 6 mmol/L; Blood Urea Nitrogen 32 mg/dL (7-17); Calcium 8.5 mg/dL (8.4-10.2); Carbon Dioxide 24 mmol/L (22-30); Chloride 97 mmol/L (98-107); Glucose 243 mg/dL (74-99); Magnesium 2.1 mg/dL (1.6-2.3); Non-African American GFR(CKD) 84 (>60 ml/min/1.73 sqM); Potassium 4.8 mmol/L (3.5-5.1); Sodium 127 mmol/L (137-145)
[2024-01-01 11:54] LABS: Glucose,Whole Blood 356 mg/dL (70-110)
--- NOTE | 2024-01-01 12:21 | P.PN ---
Subjective Progress Note Date: 01/01/24 Hospital Course: 78-year-old female with history of liver cirrhosis secondary to Rodriguez, hypertension, chronic hypoxic respiratory failure on 2 L, [id number] diabetes, medication noncompliance, presenting from nursing facility with complaints of altered mentation. On initial presentation, patient was saturating 100% on 2 L, rest of the vital signs were within normal limits. EKG showed sinus rhythm, CT head without contrast revealed 1.2 cm hypodense heterogenous area within the left cerebellum, underlying mass or developing lacunar infarct cannot be ruled out. Chest x-ray showed left hemidiaphragm. CBC showed thrombocytopenia with platelet of 140. BMP showed prerenal azotemia with BUN of 33. Total bili was 2.6, AST 67, ALT 50, ammonia 56, metabolic alkalosis with pH of 7.52, bicarb 29, CO2 30. Urinalysis negative. Patient given lactulose in the ED via NG tube. Patient admitted for acute encephalopathy. Neurology consulted. MRI brain showed suspected mass with mild vasogenic edema in the inferior medial left cerebellum. EEG did not show any epileptiform discharges. Started on steroids. Oncology also consulted. Subjective: Patient seen and examined at bedside. No acute events overnight. Mental status improved. Refusing gadolinium. Pertinent positives and negatives as discussed above, a complete review of systems was performed and all other systems are negative. Vitals Signs Reviewed. General: Nontoxic, no distress, appears at stated age Derm: Warm, dry Head: Atraumatic, normocephalic, symmetric Eyes: EOMI, no lid lag, anicteric sclera Mouth: No lip lesion, mucus membranes moist Cardiovascular: S1S2 reg, systolic murmur Lungs: CTA bilateral, no rhonchi, no rales, no accessory muscle use Abdominal: Soft, nontender to palpation, no guarding, no appreciable organomegaly Ext: No gross muscle atrophy, bilateral lower extremity pitting edema with ch ronic venous stasis dermatitis, no contractures Neuro: CN II-XI grossly intact, no focal neuro deficits Psych: Alert, orientedx3, appropriate affect Data Reviewed Today: Pertinent Labs: Sodium 127, creatinine 0.65, blood sugars range between 2 43-3 56 Imaging: No new imaging Assessment and Plan: Active: Acute encephalopathy, likely multifactorial, in setting of hepatic, metabolic, CVA versus cerebellar mass 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 RODRIGUEZ cirrhosis Hypervolemic hyponatremia Hyperbilirubinemia Hyperammonemia Metabolic alkalosis, resolved Leukocytosis, resolved Lactic acidosis, likely type B, resolved -Mental status overall improving, patient refusing gadolinium -Discussed management with neurology, if patient refusing MRI, will likely need outpatient follow-up -Oncology following, message sent with regards to further imaging and IV steroids -Patient is currently on Keppra 500 IV every 12 hours for seizure prophylaxis -On Decadron 4 mg IV every 6 hours, monitor mentation and blood sugars, however patient is refusing -Continue lactulose 30 g 3 times daily -Restarted home oral torsemide Type 2 diabetes Hyperglycemia, also steroid induced -Sliding scale insulin, monitor for hypoglycemia -Levemir 15 units started, but patient is refusing Chronic: Hypertension Dyslipidemia DVT ppx: lovenox Code status: Anticipated discharge place: pending clinical course Anticipated discharge time: pending clinical course Objective - Vital Signs Vital signs: Vital Signs Temp 97.8 F 01/01/24 08:00 Pulse 66 01/01/24 12:00 Resp 20 01/01/24 08:00 BP 120/59 01/01/24 12:00 Pulse Ox 95 01/01/24 12:00 FiO2 Intake & Output 12/31/23 01/01/24 01/01/24 18:59 06:59 18:59 Intake Total 600 240 358 Output Total 150 400 Balance 450 -160 358 Intake: Oral 600 240 358 Output: Urine 150 400 Other: Voiding Method Indwelling Catheter Indwelling Catheter Indwelling Catheter # Voids 2 # Bowel Movements 2 1 - Labs CBC & Chem 7: 12/31/23 03:58 01/01/24 07:21 Labs: Abnormal Lab Results - Last 24 Hours (Table) 12/31/23 01/01/24 01/01/24 Range/Units 17:13 00:05 06:11 Sodium (137-145) mmol/L Chloride (98-107) mmol/L BUN (7-17) mg/dL Glucose (74-99) mg/dL POC Glucose (mg/dL) 417 H 424 H 272 H (70-110) mg/dL 01/01/24 01/01/24 Range/Units 07:21 11:53 Sodium 127 L (137-145) mmol/L Chloride 97 L (98-107) mmol/L BUN 32 H (7-17) mg/dL Glucose 243 H (74-99) mg/dL POC Glucose (mg/dL) 356 H (70-110) mg/dL Microbiology - Last 24 Hours (Table) 12/28/23 16:15 Blood Culture - Preliminary Blood 12/28/23 16:00 Blood Culture - Preliminary Blood 12/28/23 17:00 Urine Culture - Final Urine,Voided Streptococcus bovis
--- NOTE | 2024-01-01 13:17 | P.PN ---
Subjective Progress Note Date: 01/01/24 The patient is seen at bedside and is accompanied with her grand-daughter. Patient is refusing MRI with Chao because of concern of Chao. She is refusing medications per primary team. Objective - Vital Signs Vital signs: Vital Signs Temp 97.8 F 01/01/24 08:00 Pulse 66 01/01/24 12:00 Resp 20 01/01/24 08:00 BP 120/59 01/01/24 12:00 Pulse Ox 95 01/01/24 12:00 FiO2 Intake & Output 12/31/23 01/01/24 01/01/24 18:59 06:59 18:59 Intake Total 600 240 476 Output Total 150 400 Balance 450 -160 476 Intake: Oral 600 240 476 Output: Urine 150 400 Other: Voiding Method Indwelling Catheter Indwelling Catheter Indwelling Catheter # Voids 2 # Bowel Movements 2 1 - Exam General: Sitting up in bed and is not in acute distress. Neuro: The patient is awake, alert, oriented to self, place and time. Is following simple commands. No aphasia. No facial weakness. No dysarthria. Lifting bilateral upper extremities above gravity. Some the other workup during this hospital visit consisted of: Ammonia is a 56, sodium is 134, BUN is 33, AST of 67 ALT 50. Total Bilitrubin is 2.6 Plasma lactic acid 2.8 and latest is 3.5 Lipid panel is triglycerides 73, cholesterol of 142, LDL 79 and HDL 48 TSH is 1.85 Hemoglobin A1c is 6.5 I personally reviewed the CT and I agreed the patient does have hypodensity in the left cerebellum Carotid duplex was reported as echogenic material is seen within the right eye IVD which limits evaluation. There is suspicion for loose carotid plaque and increased risk for stroke. Suspect 50-69 stenosis at the origin of the right ICA. Vascular surgery consultation is recommended. No ultrasound evidence for hemodynamically significant stenosis of the visualized left carotid arterial system. Right vertebral artery is not visualized. 2D echo: Was reported as difficult patient management. Bubble study appears mildly positive within cardiac beats of agitation saline injection. Left ventricular ejection fraction is estimated 55-60%. Mild concentric left ventricular hypertrophy. Calcified aortic valve with mild aortic stenosis. MR the brain is reported as suspected mass with mild vasogenic edema in the inferior medial left cerebellum. Differential however does still include a 1.5 cm contusion. Finding correlate with a CT examination. Chronic appearing multiple scattered white matter ischemic type changes in deep white matter. Routine EEG is abnormal. The background slowing suggestive of severe encephalopathy. The study is limited because of the diffuse myogenic artifact. There is no epileptiform discharges or seizure on the EEG. - Labs CBC & Chem 7: 12/31/23 03:58 01/01/24 07:21 Labs: Abnormal Lab Results - Last 24 Hours (Table) 12/31/23 01/01/24 01/01/24 Range/Units 17:13 00:05 06:11 Sodium (137-145) mmol/L Chloride (98-107) mmol/L BUN (7-17) mg/dL Glucose (74-99) mg/dL POC Glucose (mg/dL) 417 H 424 H 272 H (70-110) mg/dL 01/01/24 01/01/24 Range/Units 07:21 11:53 Sodium 127 L (137-145) mmol/L Chloride 97 L (98-107) mmol/L BUN 32 H (7-17) mg/dL Glucose 243 H (74-99) mg/dL POC Glucose (mg/dL) 356 H (70-110) mg/dL Microbiology - Last 24 Hours (Table) 12/28/23 16:15 Blood Culture - Preliminary Blood 12/28/23 16:00 Blood Culture - Preliminary Blood 12/28/23 17:00 Urine Culture - Final Urine,Voided Streptococcus bovis Assessment and Plan Assessment: This is an 78-year-old woman who presented from [facility] because of altered mental status. 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 Suspected mass with mild vasogenic edema in the inferior medial left cerebellum on MRI Brain Encephalopathy due to multifactorial one of them is hepatic encephalopathy and suspected brain mass---today drastic improvement in her mentation Right ICA 50-60% stenosis on carotid duplex History of cirrhosis with secondary Banegas. Patient has elevated the ammonia with the slight elevation of liver function tests Significant edema in the lower extremity with erythema Hypertension Chronic hypoxic respiratory failure on home oxygen Xws-bxrrsoy-oxrjebzjv diabetes mellitus Medication noncompliance Plan: For suspected left cerebellar mass, I consulted Oncology team. She has CT abd/pelvix/abd ordered by Oncology and it seems it was cancelled and I would assume since patient refusing contrast. I started her on Decadron 4mg every 6 hours for vasogenic edema. I will defer sugar management to primary team. Continue Keppra 500mg bid as seizure prophylaxis and so far is tolerating medication well. Will decide on detention plan down the line after further imaging (MRI Brain). I ordered MRI w/ since the one performed was without and I have ordered initially as w/ and w/o but only without was performed. It would be great to obtain with Chao to assess brain mass and to assess if any other lesions seen that enhances. Patient is refusing Chao. I recommend patient to follow-up with neurosurgeon as outpatient within 2 weeks. Vascular surgery team for Right ICA stated no intervention and no intervention. It seems she has possible thrombus at right IJ vein per carotid duplex. She may had previous IJ catheter per vascular. On aspirin 81 mg daily as well as Lipitor 40 mg daily. 2D echo shows possible PFO. Every 4 hours neuro checks Cardiac monitoring PT OT and FIRMWARE ENGINEER are consulted Patient is also refusing medication. We'll defer the rest of the medical measure the primary and other specialists For DVT prophylaxis the patient is on Lovenox The plan was discussed with patient, her family members (Grand-daughter) who is at bedside and primary team. Dr. Domínguez will resume neurology service on 01/03/24 A.M. Time with Patient: Less than 30
--- NOTE | 2024-01-01 13:34 | P.PN ---
Subjective Progress Note Date: 01/01/24 Principal diagnosis: Confusion Brain mass Pt is with her family. She is concerned about contrast allergy and receiving contrast for her scans. Not interested in testing or knowing what is going on either, but her family wants her tested and wants to know. She does have allergy to shellfish and had swelling and MEAGHAN with shellfish, has epipen at home. Also allergic to the contrast given for heart testing. Objective - Vital Signs Vital signs: Vital Signs Temp 97.8 F 01/01/24 08:00 Pulse 66 01/01/24 12:00 Resp 20 01/01/24 08:00 BP 120/59 01/01/24 12:00 Pulse Ox 95 01/01/24 12:00 FiO2 Intake & Output 12/31/23 01/01/24 01/01/24 18:59 06:59 18:59 Intake Total 600 240 476 Output Total 150 400 Balance 450 -160 476 Intake: Oral 600 240 476 Output: Urine 150 400 Other: Voiding Method Indwelling Catheter Indwelling Catheter Indwelling Catheter # Voids 2 # Bowel Movements 2 1 - Exam Pt in no acute distress, no jaundice, does not appear to be confused during my interview with her and is alert and oriented x 3. - Labs CBC & Chem 7: 12/31/23 03:58 01/01/24 07:21 Labs: Abnormal Lab Results - Last 24 Hours (Table) 12/31/23 01/01/24 01/01/24 Range/Units 17:13 00:05 06:11 Sodium (137-145) mmol/L Chloride (98-107) mmol/L BUN (7-17) mg/dL Glucose (74-99) mg/dL POC Glucose (mg/dL) 417 H 424 H 272 H (70-110) mg/dL 01/01/24 01/01/24 Range/Units 07:21 11:53 Sodium 127 L (137-145) mmol/L Chloride 97 L (98-107) mmol/L BUN 32 H (7-17) mg/dL Glucose 243 H (74-99) mg/dL POC Glucose (mg/dL) 356 H (70-110) mg/dL Microbiology - Last 24 Hours (Table) 12/28/23 16:15 Blood Culture - Preliminary Blood 12/28/23 16:00 Blood Culture - Preliminary Blood 12/28/23 17:00 Urine Culture - Final Urine,Voided Streptococcus bovis Assessment and Plan Assessment: 1. Changes seen on MRI brain, concerning for mass vs infarct 2. Altered mentation, improving Plan: Ms. Campuzano is a very pleasant 78 yo female who is here for confusion and work up with noncontrast MRI brain reveals lesion concerning for mass vs infarct. - We saw pt and agreed with MRI brain with contrast as per neurology rec's, continued steroids (pt found to have mild vasogenic edema on noncontrast MRI), and recommended CT CAP with IV contrast - Pt declining contrast studies due to allergy. I reviewed her allergy list, which is long, and most of her allergies are with vomiting and red face/feeling weird as the reaction. She does have have swelling with COVID vaccine. Also she does have allergy to shellfish and iodine contrast - Discussed that MRI contrast, diane, is different than iodine for CT, and recommended at least starting with MRI brain with diane to better characterize the brain lesion - If MRI brain with diane negative for concerns of malignancy, no need for CT with contrast - Pt seems to prefer not doing anything and not wanting to know or further test changes seen, which is not unreasonable Discussed with pt and family, and nursing staff. If pt truly wants to not pursue further work up of this lesion and determine if there is concern for cancer, no objections to this and it is not unreasonable. If she decides she would like further work up at least to assess for stroke vs mass, would start with MRI with diane as she does not seem to have allergy to diane in the past. As for steroids, no objections to weaning off steroids over next few days if pt prefers to not pursue further work up. Pt and family agreeable. All questions answered.
[2024-01-01 17:17] LABS: Glucose,Whole Blood 430 mg/dL (70-110)
[2024-01-02 00:16] LABS: Glucose,Whole Blood 421 mg/dL (70-110)
[2024-01-02 05:05] LABS: Glucose,Whole Blood 391 mg/dL (70-110)
[2024-01-02] MEDS: MAGNESIUM HYDROXIDE 2,400 MG/30 ML CUP PO PRN (06:12)
[2024-01-02 09:07] LABS: African American GFR (CKD) >90 (>60 ml/min/1.73 sqM); Anion Gap 1 mmol/L; Blood Urea Nitrogen 36 mg/dL (7-17); Calcium 8.5 mg/dL (8.4-10.2); Carbon Dioxide 29 mmol/L (22-30); Chloride 94 mmol/L (98-107); Glucose 371 mg/dL (74-99); Magnesium 2.3 mg/dL (1.6-2.3); Non-African American GFR(CKD) 85 (>60 ml/min/1.73 sqM); Potassium 5.8 mmol/L (3.5-5.1); Sodium 124 mmol/L (137-145)
[2024-01-02] MEDS: SODIUM ZIRCONIUM CYCLOSILICATE 10 GM PACKET PO ONE (10:08)
[2024-01-02] MEDS: SODIUM CHLORIDE 0.9% 1,000 ML IV SCH (10:08)
--- NOTE | 2024-01-02 12:04 | P.PN ---
Subjective Progress Note Date: 01/02/24 Hospital Course: 78-year-old female with history of liver cirrhosis secondary to Rodriguez, hypertension, chronic hypoxic respiratory failure on 2 L, ijh-rvdlojl-nqrompbov diabetes, medication noncompliance, presenting from nursing facility with complaints of altered mentation. On initial presentation, patient was saturating 100% on 2 L, rest of the vital signs were within normal limits. EKG showed sinus rhythm, CT head without contrast revealed 1.2 cm hypodense heterogenous area within the left cerebellum, underlying mass or developing lacunar infarct cannot be ruled out. Chest x-ray showed left hemidiaphragm. CBC showed thrombocytopenia with platelet of 140. BMP showed prerenal azotemia with BUN of 33. Total bili was 2.6, AST 67, ALT 50, ammonia 56, metabolic alkalosis with pH of 7.52, bicarb 29, CO2 30. Urinalysis negative. Patient given lactulose in the ED via NG tube. Patient admitted for acute encephalopathy. Neurology consulted. MRI brain showed suspected mass with mild vasogenic edema in the inferior medial left cerebellum. EEG did not show any epileptiform discharges. Started on steroids. Oncology also consulted. Patient is refusing any further workup. Subjective: Patient seen and examined at bedside. No acute events overnight. Mental status improved. Denies any new complaints Pertinent positives and negatives as discussed above, a complete review of systems was performed and all other systems are negative. Vitals Signs Reviewed. General: Nontoxic, no distress, appears at stated age Derm: Warm, dry Head: Atraumatic, normocephalic, symmetric Eyes: EOMI, no lid lag, anicteric sclera Mouth: No lip lesion, mucus membranes moist Cardiovascular: S1S2 reg, systolic murmur Lungs: CTA bilateral, no rhonchi, no rales, no accessory muscle use Abdominal: Soft, nontender to palpation, no guarding, no appreciable organomegaly Ext: No gross muscle atrophy, bilateral lower extremity pitting edema with chronic venous stasis dermatitis, no contractures Neuro: CN II-XI grossly intact, no focal neuro deficits Psych: Alert, orientedx3, appropriate affect Data Reviewed Today: Pertinent Labs: Sodium 124, potassium 5.8, creatinine 0.64, blood sugars range between 3 71-4 30, magnesium 2.3 Imaging: No new imaging Assessment and Plan: Active: Acute encephalopathy, likely multifactorial, in setting of hepatic, metabolic, CVA versus cerebellar mass 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 RODRIGUEZ cirrhosis Hyponatremia Hyperbilirubinemia Hyperammonemia Metabolic alkalosis, resolved Leukocytosis, resolved Lactic acidosis, likely type B, resolved -Mental status overall improving, patient refusing any further workup -Discussed management with neurology, if patient refusing MRI, will likely need outpatient follow-up -Oncology following, recommending further workup however patient is refusing. Continue to taper steroids -Patient is currently on Keppra 500 IV every 12 hours for seizure prophylaxis -Was on Decadron 4 IV every 6 hours, decreased to 2 mg IV every 6 hours -Patient sodium started to drop once started on steroids and torsemide. Will start IV fluids, discontinue torsemide, decrease steroid dose -If continues to worsen we will get nephrology involved -Serum osmolality, urine osmolality and urine sodium pending -Continue lactulose 30 g 3 times daily Type 2 diabetes Hyperglycemia, also steroid induced -Sliding scale insulin, monitor for hypoglycemia -Levemir 15 units started, but patient is refusing Chronic: Hypertension Dyslipidemia DVT ppx: lovenox Code status: Anticipated discharge place: pending clinical course Anticipated discharge time: pending clinical course Objective - Vital Signs Vital signs: Vital Signs Temp 97.6 F 01/02/24 08:00 Pulse 56 L 01/02/24 08:00 Resp 18 01/02/24 08:00 BP 109/64 01/02/24 08:00 Pulse Ox 100 01/02/24 08:00 FiO2 Intake & Output 01/01/24 01/02/24 01/02/24 18:59 06:59 18:59 Intake Total 594 Output Total 450 500 Balance 144 -500 Weight 90 kg Intake: Oral 594 Output: Urine 450 500 Other: Voiding Method Indwelling Catheter Indwelling Catheter Indwelling Catheter # Bowel Movements 1 1 - Labs CBC & Chem 7: 12/31/23 03:58 01/02/24 08:08 Labs: Abnormal Lab Results - Last 24 Hours (Table) 01/01/24 01/02/24 01/02/24 Range/Units 17:15 00:10 05:03 Sodium (137-145) mmol/L Potassium (3.5-5.1) mmol/L Chloride (98-107) mmol/L BUN (7-17) mg/dL Glucose (74-99) mg/dL POC Glucose (mg/dL) 430 H 421 H 391 H (70-110) mg/dL 01/02/24 Range/Units 08:08 Sodium 124 L (137-145) mmol/L Potassium 5.8 H (3.5-5.1) mmol/L Chloride 94 L (98-107) mmol/L BUN 36 H (7-17) mg/dL Glucose 371 H (74-99) mg/dL POC Glucose (mg/dL) (70-110) mg/dL
[2024-01-02 12:41] LABS: Glucose,Whole Blood 458 mg/dL (70-110)
[2024-01-02] MEDS: INSULIN ASPART (NovoLOG) 100 UNIT/ML VIAL SQ ONE ×2 (12:58→18:09)
[2024-01-02] MEDS: INSULIN ASPART (NovoLOG) 100 UNIT/ML VIAL SQ SCH (12:58)
[2024-01-02] MEDS: DEXAMETHASONE SOD PHOSPHATE 4 MG/ML 1 ML VIAL IVP SCH (12:58)
[2024-01-02 17:15] LABS: Glucose,Whole Blood 420 mg/dL (70-110)
[2024-01-02 21:10] LABS: Glucose,Whole Blood 397 mg/dL (70-110)
[2024-01-02 23:45] LABS: Glucose,Whole Blood 414 mg/dL (70-110)
[2024-01-03 05:49] LABS: Glucose,Whole Blood 318 mg/dL (70-110)
[2024-01-03 07:08] LABS: Glucose,Whole Blood 352 mg/dL (70-110)
[2024-01-03 11:02] LABS: African American GFR (CKD) >90 (>60 ml/min/1.73 sqM); Anion Gap 2 mmol/L; Blood Urea Nitrogen 37 mg/dL (7-17); Calcium 8.4 mg/dL (8.4-10.2); Carbon Dioxide 26 mmol/L (22-30); Chloride 98 mmol/L (98-107); Glucose 322 mg/dL (74-99); Magnesium 2.2 mg/dL (1.6-2.3); Non-African American GFR(CKD) 87 (>60 ml/min/1.73 sqM); Potassium 5.7 mmol/L (3.5-5.1); Sodium 126 mmol/L (137-145)
--- NOTE | 2024-01-03 11:02 | XR ---
EXAMINATION TYPE: XR chest 1V portable DATE OF EXAM: 01/03/2024 HISTORY: Shortness of breath. COMPARISON: 12/28/2023 TECHNIQUE: Single view of the chest is submitted. FINDINGS: Demonstrated are scattered senescent parenchymal change. There is diffuse infiltrate seen throughout both lung ferris likely on the basis of underlying pneumo radha. Pulmonary edema is difficult to exclude however. The heart is mildly enlarged. Chronic elevation right hemidiaphragm. Hilar and mediastinal structures are within normal limits. Degenerative changes are seen of the dorsal spine. IMPRESSION: 1. There is diffuse infiltrate seen throughout both lung ferris likely on the basis of underlying pn eumonia. Pulmonary edema is difficult to exclude however.
--- NOTE | 2024-01-03 11:22 | P.PN ---
Subjective Progress Note Date: 01/03/24 Hospital Course: 78-year-old female with history of liver cirrhosis secondary to Rodriguez, hypertension, chronic hypoxic respiratory failure on 2 L, bmv-cktqkin-vhqwydyvu diabetes, medication noncompliance, presenting from nursing facility with complaints of altered mentation. On initial presentation, patient was saturating 100% on 2 L, rest of the vital signs were within normal limits. EKG showed sinus rhythm, CT head without contrast revealed 1.2 cm hypodense heterogenous area within the left cerebellum, underlying mass or developing lacunar infarct cannot be ruled out. Chest x-ray showed left hemidiaphragm. CBC showed thrombocytopenia with platelet of 140. BMP showed prerenal azotemia with BUN of 33. Total bili was 2.6, AST 67, ALT 50, ammonia 56, metabolic alkalosis with pH of 7.52, bicarb 29, CO2 30. Urinalysis negative. Patient given lactulose in the ED via NG tube. Patient admitted for acute encephalopathy. Neurology consulted. MRI brain showed suspected mass with mild vasogenic edema in the inferior medial left cerebellum. EEG did not show any epileptiform discharges. Started on steroids. Oncology also consulted. Patient is refusing any further workup. Also has hyponatremia, which improved with IV fluids however now has pulmonary edema. Subjective: Patient seen and examined at bedside. No acute events overnight. Mental status back to normal. Patient does not want to talk to hospice today. Pertinent positives and negatives as discussed above, a complete review of systems was performed and all other systems are negative. Vitals Signs Reviewed. General: Nontoxic, no distress, appears at stated age Derm: Warm, dry Head: Atraumatic, normocephalic, symmetric Eyes: EOMI, no lid lag, anicteric sclera Mouth: No lip lesion, mucus membranes moist Cardiovascular: S1S2 reg, systolic murmur Lungs: CTA bilateral, no rhonchi, no rales, no accessory muscle use Abdominal: Soft, nontender to palpation, no guarding, no appreciable organomegaly Ext: No gross muscle atrophy, bilateral lower extremity pitting edema with chronic venous stasis dermatitis, no contractures Neuro: CN II-XI grossly intact, no focal neuro deficits Psych: Alert, orientedx3, appropriate affect Data Reviewed Today: Pertinent Labs: Sodium 126, potassium 5.7, creatinine 0.6, blood sugars range between 3 22-4 14 Imaging: No new imaging Assessment and Plan: Patient is severely ill, prognosis is very guarded. Had further goals of care discussion with her today, does not want to pursue with hospice care just yet. She would like to talk about it further tomorrow. She is refusing to take many of the medications being recommended. Active: Acute encephalopathy, resolving, likely multifactorial, in setting of hepatic, metabolic, CVA versus cerebellar mass 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 RODRIGUEZ cirrhosis Hypervolemia, pulmonary edema Acute hypoxic respiratory failure Hyponatremia, corrected sodium 130 Hyperbilirubinemia Hyperammonemia Metabolic alkalosis, resolved Leukocytosis, resolved Lactic acidosis, likely type B, resolved -Mental status back to baseline -Neurology following, if patient refusing MRI, will likely need outpatient follow-up -Oncology following, recommending further workup however patient is refusing. Continue to taper steroids -Patient is currently on Keppra 500 IV every 12 hours for seizure prophylaxis -Decadron 2 mg tapered further to IV every 8 hours -Patient's sodium initially improved with IV fluids, and then she was felt to be getting fluid overloaded, restarted on torsemide which worsened her sodium. Yesterday she was started back on IV fluids, which improved her sodium however led to further volume overload. Will give 1 dose of IV 40 Lasix. Patient has been refusing most of her treatments. If she continues to refuse IV medication, will consider oral torsemide again. -Had further goals of care discussion this morning, patient does not want further workup however also does not want to talk about hospice care and end-of-life care. -Continue lactulose 30 g 3 times daily Type 2 diabetes Hyperglycemia, also steroid induced -Sliding scale insulin, monitor for hypoglycemia -Levemir 15 units started, but patient is refusing Chronic: Hypertension Dyslipidemia DVT ppx: lovenox Code status: FC Anticipated discharge place: pending clinical course Anticipated discharge time: pending clinical course Objective - Vital Signs Vital signs: Vital Signs Temp 97.6 F 01/03/24 07:06 Pulse 61 01/03/24 07:06 Resp 18 01/03/24 07:06 BP 155/74 01/03/24 07:06 Pulse Ox 95 01/03/24 08:37 FiO2 Intake & Output 01/02/24 01/03/24 01/03/24 18:59 06:59 18:59 Output Total 1000 600 Balance -1000 -600 Weight 94.7 kg Output: Urine 1000 600 Other: Voiding Method Indwelling Catheter Indwelling Catheter Indwelling Catheter # Bowel Movements 2 - Labs CBC & Chem 7: 12/31/23 03:58 01/03/24 09:41 Labs: Abnormal Lab Results - Last 24 Hours (Table) 01/02/24 01/02/24 01/02/24 Range/Units 08:08 12:40 17:13 Sodium (137-145) mmol/L Potassium (3.5-5.1) mmol/L BUN (7-17) mg/dL Glucose (74-99) mg/dL POC Glucose (mg/dL) 458 H 420 H (70-110) mg/dL Osmolality 301 H (275-295) mOsm/kg 01/02/24 01/02/24 01/03/24 Range/Units 21:08 23:43 05:47 Sodium (137-145) mmol/L Potassium (3.5-5.1) mmol/L BUN (7-17) mg/dL Glucose (74-99) mg/dL POC Glucose (mg/dL) 397 H 414 H 318 H (70-110) mg/dL Osmolality (275-295) mOsm/kg 01/03/24 01/03/24 Range/Units 07:06 09:41 Sodium 126 L (137-145) mmol/L Potassium 5.7 H (3.5-5.1) mmol/L BUN 37 H (7-17) mg/dL Glucose 322 H (74-99) mg/dL POC Glucose (mg/dL) 352 H (70-110) mg/dL Osmolality (275-295) mOsm/kg Microbiology - Last 24 Hours (Table) 12/28/23 16:15 Blood Culture - Final Blood 12/28/23 16:00 Blood Culture - Final Blood
[2024-01-03] MEDS: FUROSEMIDE 10 MG/ML 4 ML VIAL IV STA (11:43)
[2024-01-03 11:58] LABS: Glucose,Whole Blood 349 mg/dL (70-110)
[2024-01-03] MEDS: TORSEMIDE 20 MG TAB PO SCH (13:17)
--- NOTE | 2024-01-03 14:49 | P.CONS ---
History of Present Illness - Reason for Consult Consult date: 01/03/24 wound care - History of Present Illness This is an 78-year-old patient being seen for lower extremity venous stasis dermatitis. Patient has open ulcerations noted to bilateral lower extremities related to dermatitis. Ulcerations are limited to skin breakdown. Granulation seen throughout. Patient does have 2+ pitting edema noted. Patient's past medical history significant for heart failure, venous insufficiency, diabetes, hypertension Review Of Systems: Constitutional: No fever, no chills, no night sweats. No weight change. No weakness, fatigue or lethargy. No daytime sleepiness. Integumentary:reports wounds, no lesions. No rash or pruritus. No unusual bruising. No change in hair or nails. Physical exam: General Appearance: Alert, cooperative, no distress, appears stated age. Skin: See HPI all other Skin color, texture, tugor normal, no rashes or lesions. Neurologic: Alert oriented x3 Assessment: 1. Chronic venous insufficiency with ulceration and inflammation of bilateral lower extremities 2. Nonhealing ulcerations multiple sites right lower extremity 3. Nonhealing ulceration multiple sites left lower extremity 4. Diabetes with skin ulceration Plan: 1.Apply zinc barrier cream to bilateral lower extremities wrapped with gauze and Leonel wrap for compression. Change daily. Thank you for the consultation any questions please contact the wound care center DNP note has been reviewed and discussed with Dr. Higgins and the impression and plan of care has been directed as dictated. Past Medical History Past Medical History: Heart Failure, Diabetes Mellitus, Hypertension Additional Past Medical History / Comment(s): cirrhosis, thrombocytopenia, scoliosis, diveticulosis History of Any Multi-Drug Resistant Organisms: None Reported Past Surgical History: Cholecystectomy Additional Past Surgical History / Comment(s): colectomy Past Anesthesia/Blood Transfusion Reactions: No Reported Reaction Past Psychological History: No Psychological Hx Reported Smoking Status: Former smoker Past Alcohol Use History: None Reported Past Drug Use History: None Reported Medications and Allergies Home Medications Medication Instructions Recorded Confirmed Type Montelukast [Singulair] 10 mg PO HS 04/20/22 12/28/23 History Multivitamins, Thera [Multivitamin 1 tab PO PC-SUPPER 04/20/22 12/28/23 History (formulary)] atenoloL [Tenormin] 25 mg PO BID 04/20/22 12/28/23 History metFORMIN HCL [Glucophage] 1,000 mg PO HS 04/20/22 12/28/23 History Magnesium 200 mg PO DAILY 05/07/22 12/28/23 History Ibuprofen [Motrin Ib] 200 mg PO DAILY 12/05/23 12/28/23 History Torsemide [Demadex] 20 mg PO DAILY #90 tab 12/10/23 12/28/23 Rx LORazepam [Ativan] 0.25 mg PO DAILY #2 tab 12/23/23 12/28/23 Rx LORazepam [Ativan] 0.5 mg PO HS #2 tab 12/23/23 12/28/23 Rx INSULIN ASPART (NovoLOG) [NovoLOG See Protocol SQ ACHS 12/28/23 12/28/23 History (formulary)] Lanolin/Mineral Oil [Eucerin 1 applic TOPICAL BID 12/28/23 12/28/23 History Original Lotion] Omeprazole [PriLOSEC] 20 mg PO DAILY 12/28/23 12/28/23 History Allergies Allergy/AdvReac Type Severity Reaction Status Date / Time Iodinated Contrast Media Allergy Unknown face Verified 12/28/23 16:57 bright red and did not feel right. neomycin Allergy Unknown red face Verified 12/28/23 16:57 shellfish derived [Shrimp] Allergy Unknown face Verified 12/28/23 16:57 bright red, -felt funny. azithromycin Allergy red face Verified 12/28/23 16:57 ciprofloxacin [From Cipro] Allergy red face Verified 12/28/23 16:57 COVID-19 (SARS-CoV-2) Allergy Unknown Verified 12/28/23 16:57 vaccine, monique meperidine [From Demerol] Allergy red face Verified 12/28/23 16:57 Penicillins Allergy red face Verified 12/28/23 16:57 sulfite Allergy red face Verified 12/28/23 16:57 polyethylene glycol AdvReac Unknown Nausea & Verified 12/28/23 16:57 [From Golytely] Vomiting polyethylene glycol 3350 AdvReac Unknown Nausea & Verified 12/28/23 16:57 [From Golytely] Vomiting potassium chloride AdvReac Unknown Nausea & Verified 12/28/23 16:57 [From Golytely] Vomiting sodium [From Golytely] AdvReac Unknown Nausea & Verified 12/28/23 16:57 Vomiting sodium bicarbonate AdvReac Unknown Nausea & Verified 12/28/23 16:57 [From Golytely] Vomiting sodium chloride AdvReac Unknown Nausea & Verified 12/28/23 16:57 [From Golytely] Vomiting sodium sulfate AdvReac Unknown Nausea & Verified 12/28/23 16:57 [From Golytely] Vomiting COVID phizer vaccine Allergy Unknown Swelling Uncoded 12/28/23 13:15 face & eyes & red face. lobster Allergy Unknown bright Uncoded 12/28/23 13:15 red, "feels funny" Physical Exam Vitals: Vital Signs Temp Pulse Resp BP Pulse Ox 01/03/24 13:35 97.4 F L 61 17 128/67 84 L 01/03/24 08:37 95 01/03/24 07:06 97.6 F 61 18 155/74 88 L 01/03/24 01:52 97.6 F 61 18 145/68 94 L 01/02/24 18:52 97.4 F L 56 L 18 127/70 98 Intake and Output 01/02/24 01/03/24 01/03/24 22:59 06:59 14:59 Output Total 1000 600 Balance -1000 -600 Output: Urine 1000 600 Other: Voiding Method Indwelling Catheter Indwelling Catheter # Bowel Movements 2 Weight 94.7 kg 94.7 kg Results CBC & Chem 7: 12/31/23 03:58 01/03/24 09:41 Labs: Abnormal Lab Results - Last 24 Hours (Table) 01/02/24 01/02/24 01/02/24 Range/Units 08:08 10:32 17:13 Sodium (137-145) mmol/L Potassium (3.5-5.1) mmol/L BUN (7-17) mg/dL Glucose (74-99) mg/dL POC Glucose (mg/dL) 420 H (70-110) mg/dL Osmolality 301 H (275-295) mOsm/kg Ur Random Sodium <20 L (40-220) mmol/L 01/02/24 01/02/24 01/03/24 Range/Units 21:08 23:43 05:47 Sodium (137-145) mmol/L Potassium (3.5-5.1) mmol/L BUN (7-17) mg/dL Glucose (74-99) mg/dL POC Glucose (mg/dL) 397 H 414 H 318 H (70-110) mg/dL Osmolality (275-295) mOsm/kg Ur Random Sodium (40-220) mmol/L 01/03/24 01/03/24 01/03/24 Range/Units 07:06 09:41 11:56 Sodium 126 L (137-145) mmol/L Potassium 5.7 H (3.5-5.1) mmol/L BUN 37 H (7-17) mg/dL Glucose 322 H (74-99) mg/dL POC Glucose (mg/dL) 352 H 349 H (70-110) mg/dL Osmolality (275-295) mOsm/kg Ur Random Sodium (40-220) mmol/L Microbiology - Last 24 Hours (Table) 12/28/23 16:15 Blood Culture - Final Blood 12/28/23 16:00 Blood Culture - Final Blood Assessment and Plan (1) Chronic venous hypertension (idiopathic) with ulcer and inflammation of bilateral lower extremity Current Visit: Yes Status: Acute Code(s): I87.333 - CHRONIC VENOUS HTN W ULCER AND INFLAM OF BILATERAL LOW EXTRM SNOMED Code(s): 362649543361149 (2) Non-healing ulcer of multiple sites, limited to breakdown of skin Current Visit: Yes Status: Acute Code(s): L98.491 - NON-PRS CHRONIC ULCER SKIN/ SITES LIMITED TO BRKDWN SKIN SNOMED Code(s): 79334306 (3) Type 2 diabetes mellitus with other skin ulcer Current Visit: Yes Status: Acute Code(s): E11.622 - TYPE 2 DIABETES MELLITUS WITH OTHER SKIN ULCER; L98.499 - NON-PRESSURE CHRONIC ULCER OF SKIN OF SITES W UNSP SEVERITY SNOMED Code(s): 441804336
[2024-01-03] MEDS: ZINC OXIDE 20% OINT 28.4 GM TUBE TOPICAL SCH (16:29)
[2024-01-03] MEDS: DEXAMETHASONE SOD PHOSPHATE 4 MG/ML 1 ML VIAL IVP SCH (16:29)
[2024-01-03 17:54] LABS: Glucose,Whole Blood 503 mg/dL (70-110)
[2024-01-03 17:55] LABS: Glucose,Whole Blood 381 mg/dL (70-110)
--- NOTE | 2024-01-03 19:38 | P.PN ---
Subjective Progress Note Date: 01/03/24 At today visit, pt in bedside chair. Reports feeling fatigue and weak. Denies pain, SOB. Sodium 126 Objective - Vital Signs Vital signs: Vital Signs Temp 97.6 F 01/03/24 07:06 Pulse 61 01/03/24 07:06 Resp 18 01/03/24 07:06 BP 155/74 01/03/24 07:06 Pulse Ox 95 01/03/24 08:37 FiO2 Intake & Output 01/02/24 01/03/24 01/03/24 18:59 06:59 18:59 Output Total 1000 600 Balance -1000 -600 Weight 94.7 kg 94.7 kg Output: Urine 1000 600 Other: Voiding Method Indwelling Catheter Indwelling Catheter Indwelling Catheter # Bowel Movements 2 - Constitutional General appearance: Present: average body habitus, no acute distress - EENT Eyes: Present: anicteric sclerae, EOMI ENT: Present: hearing grossly normal - Respiratory Details: breathing even and unlabored - Cardiovascular Details: skin warm and dry - Integumentary Integumentary: Absent: cyanotic - Musculoskeletal Musculoskeletal: Present: generalized weakness - Labs CBC & Chem 7: 12/31/23 03:58 01/03/24 09:41 Labs: Abnormal Lab Results - Last 24 Hours (Table) 01/02/24 01/02/24 01/02/24 Range/Units 08:08 10:32 17:13 Sodium (137-145) mmol/L Potassium (3.5-5.1) mmol/L BUN (7-17) mg/dL Glucose (74-99) mg/dL POC Glucose (mg/dL) 420 H (70-110) mg/dL Osmolality 301 H (275-295) mOsm/kg Ur Random Sodium <20 L (40-220) mmol/L 01/02/24 01/02/24 01/03/24 Range/Units 21:08 23:43 05:47 Sodium (137-145) mmol/L Potassium (3.5-5.1) mmol/L BUN (7-17) mg/dL Glucose (74-99) mg/dL POC Glucose (mg/dL) 397 H 414 H 318 H (70-110) mg/dL Osmolality (275-295) mOsm/kg Ur Random Sodium (40-220) mmol/L 01/03/24 01/03/2424 Range/Units 07:06 09:41 11:56 Sodium 126 L (137-145) mmol/L Potassium 5.7 H (3.5-5.1) mmol/L BUN 37 H (7-17) mg/dL Glucose 322 H (74-99) mg/dL POC Glucose (mg/dL) 352 H 349 H (70-110) mg/dL Osmolality (275-295) mOsm/kg Ur Random Sodium (40-220) mmol/L Microbiology - Last 24 Hours (Table) 12/28/23 16:15 Blood Culture - Final Blood 12/28/23 16:00 Blood Culture - Final Blood Assessment and Plan (1) Mass of brain Current Visit: Yes Status: Acute Priority: High Code(s): G93.89 - OTHER SPECIFIED DISORDERS OF BRAIN SNOMED Code(s): 698116271 (2) Altered mental status Current Visit: Yes Status: Acute Priority: High Code(s): R41.82 - ALTERED MENTAL STATUS, UNSPECIFIED SNOMED Code(s): 489414570 Plan: Brain mass/AMS: -Significant history of liver cirrhosis secondary to RODRIGUEZ, hypertension. Presented with confusion/AMS, Ammonia elevated at 56. NG tube was inserted and patient started on lactulose for treatment of hyperammonemia. Repeat ammonia 47 -CT head without contrast revealing a 1.2 cm hypodense heterogeneous area to the left cerebellum, underlying mass or developing lacunar infarct cannot be ruled out. MRI brain without contrast revealed suspected mass with mild vasogenic edema in the inferior medial left cerebellum, differential includes a 1.5 cm contusion. She was started on IV decadron. -Neurology following and have ordered repeat brain MRI with contrast -Patient is denying symptoms of confusion, balance issues, and headache. She denies falling or any recent head injury, but HPI is somewhat limited due to ongoing confusion. No focal deficits noted on exam. -CT CAP to evaluate for any metastases. Unsure at this time if this is a mass vs contusion based on non-contrast imaging obtained. Will hopefully be better able to visualize on MRI brain w/ contrast. Unfortunately due to multiple comorbidities and overall poor performance status she would not be a good candidate for brain biopsy if no other sites are noted on CT CAP. Pt declining contrast studies due to allergy, despite premedications ordered. Allergy list reviewed, which is long, and most of her allergies are with vomiting and red face/feeling weird as the reaction. Also she does have allergy to shellfish and iodine contrast - Discussed that MRI contrast, diane, is different than iodine for CT, and recommended at least starting with MRI brain with diane to better characterize the brain lesion - If MRI brain with diane negative for concerns of malignancy, no need for CT with contrast - Pt seems to prefer not doing anything and not wanting to know or further test changes seen, which is not unreasonable. It was discussed with pt and family, and nursing staff. If pt truly wants to not pursue further work up of this lesion and determine if there is concern for cancer, we have no objections to this and it is not unreasonable. If she decides she would like further work up at least to assess for stroke vs mass, would start with MRI with diane as she does not seem to have allergy to diane in the past. Concerns were again discussed at todays visit and patient again stated that she does not wish to pursue any further workup at this time -Steroid taper has been started Pt instructed that if she wishes to pursue any further workup to please let medical staff know at which time, we can proceed with discussed imaging. She verbalized understanding. Please do not hesitate to reach out to our service for any other questions or concerns
[2024-01-03 21:57] LABS: Glucose,Whole Blood 359 mg/dL (70-110)
[2024-01-04 01:16] LABS: Glucose,Whole Blood 299 mg/dL (70-110)
[2024-01-04 05:50] LABS: Glucose,Whole Blood 310 mg/dL (70-110)
[2024-01-04 07:40] LABS: Glucose,Whole Blood 287 mg/dL (70-110)
--- NOTE | 2024-01-04 08:28 | XR ---
EXAMINATION TYPE: XR chest 1V portable DATE OF EXAM: 01/04/2024 8:26 AM CLINICAL INDICATION:Female, 78 years old with history of hypoxia; COMPARISON: Chest radiographs from 01/03/2024. TECHNIQUE: XR chest 1V portable Frontal view of the chest. FINDINGS: Lungs/Pleura: There is no evidence of pleural effusion, focal consolidation, or pneumothorax. Pulmonary vascularity: Pulmonary vascular congestion. Heart/mediastinum: Cardiomediastinal silhouette is enlarged and stable. Musculoskeletal: No acute osseous pathology. Other findings: None IMPRESSION: Cardiomegaly, pulmonary vascular congestion and bilateral pleural effusions. Correlate with BNP for c ongestive heart failure.
[2024-01-04 10:23] LABS: African American GFR (CKD) >90 (>60 ml/min/1.73 sqM); Anion Gap 4 mmol/L; Blood Urea Nitrogen 41 mg/dL (7-17); Calcium 8.5 mg/dL (8.4-10.2); Carbon Dioxide 28 mmol/L (22-30); Chloride 96 mmol/L (98-107); Glucose 318 mg/dL (74-99); Magnesium 2.3 mg/dL (1.6-2.3); Non-African American GFR(CKD) 84 (>60 ml/min/1.73 sqM); Potassium 5.2 mmol/L (3.5-5.1); Sodium 128 mmol/L (137-145)
[2024-01-04 12:03] LABS: Glucose,Whole Blood 300 mg/dL (70-110)
--- NOTE | 2024-01-04 13:29 | P.PN ---
Subjective Progress Note Date: 01/04/24 Hospital Course: 78-year-old female with history of liver cirrhosis secondary to Rodriguez, hypertension, chronic hypoxic respiratory failure on 2 L, [id number] diabetes, medication noncompliance, presenting from nursing facility with complaints of altered mentation. On initial presentation, patient was saturating 100% on 2 L, rest of the vital signs were within normal limits. EKG showed sinus rhythm, CT head without contrast revealed 1.2 cm hypodense heterogenous area within the left cerebellum, underlying mass or developing lacunar infarct cannot be ruled out. Chest x-ray showed left hemidiaphragm. CBC showed thrombocytopenia with platelet of 140. BMP showed prerenal azotemia with BUN of 33. Total bili was 2.6, AST 67, ALT 50, ammonia 56, metabolic alkalosis with pH of 7.52, bicarb 29, CO2 30. Urinalysis negative. Patient given lactulose in the ED via NG tube. Patient admitted for acute encephalopathy. Neurology consulted. MRI brain showed suspected mass with mild vasogenic edema in the inferior medial left cerebellum. EEG did not show any epileptiform discharges. Started on steroids. Oncology also consulted. Patient is refusing any further workup. Also has hyponatremia, which improved with IV fluids however now has pulmonary edema. Restarted on diuretics. Charlie dacosta continues to refuse multiple different medications, does not agree with any IV diuretics, only wants to take her home dose of torsemide 20 mg daily. Had extensive conversation with the patient as well as son with regards to goals of care. Her goal is that she wants to walk again however her son expresses that she wants to go home. Talked about hospice care, patient is still adamant about doing everything, however does not want to follow physician advice. Son on the other hand he is agreeable that we should pursue end-of-life care. Hospice is consulted. Son will speak with the patient with regards to further goals of care. For now, given patient is refusing multiple medications, will not involve other consultants. Subjective: Patient seen and examined at bedside. More short of breath, requiring 10 L nasal cannula. Pertinent positives and negatives as discussed above, a complete review of systems was performed and all other systems are negative. Vitals Signs Reviewed. General: Nontoxic, no distress, appears at stated age Derm: Warm, dry Head: Atraumatic, normocephalic, symmetric Eyes: EOMI, no lid lag, anicteric sclera Mouth: No lip lesion, mucus membranes moist Cardiovascular: S1S2 reg, systolic murmur Lungs: CTA bilateral, no rhonchi, no rales, no accessory muscle use Abdominal: Soft, nontender to palpation, no guarding, no appreciable organomegaly Ext: No gross muscle atrophy, bilateral lower extremity pitting edema with chronic venous stasis dermatitis, no contractures Neuro: CN II-XI grossly intact, no focal neuro deficits Psych: Alert, orientedx3, appropriate affect Data Reviewed Today: Pertinent Labs: Sodium 128, potassium 5.2, blood sugars range between 2 87-3 18, magnesium 2.3 Imaging: No new imaging Assessment and Plan: Patient is severely ill, prognosis is very guarded. Had further goals of care discussion with her today, does not want to pursue with hospice care just yet. She would like to talk about it further tomorrow. She is refusing to take many of the medications being recommended. Active: Acute encephalopathy, resolving, likely multifactorial, in setting of hepatic, metabolic, CVA versus cerebellar mass 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 RODRIGUEZ cirrhosis Hypervolemia, pulmonary edema Acute hypoxic respiratory failure, worsening Hyponatremia, improving Hyperbilirubinemia Hyperammonemia Metabolic alkalosis, resolved Leukocytosis, resolved Lactic acidosis, likely type B, resolved -Mental status back to baseline -Neurology following, if patient refusing MRI, will likely need outpatient follow-up -Oncology following, recommending further workup however patient is refusing. Continue to taper steroids -Patient is currently on Keppra 500 IV every 12 hours for seizure prophylaxis -Decadron 2 mg tapered further to IV every12 hours -Patient refused IV diuretics, only wants torsemide. Was started on torsemide 40 mg however she refused to take that and only wants 20 mg of oral torsemide. -Hospice is involved -Continue lactulose 30 g 3 times daily Type 2 diabetes Hyperglycemia, also steroid induced -Sliding scale insulin, monitor for hypoglycemia -Levemir 15 units started, but patient is refusing Chronic: Hypertension Dyslipidemia DVT ppx: lovenox Code status: FC Anticipated discharge place: pending clinical course Anticipated discharge time: pending clinical course Objective - Vital Signs Vital signs: Vital Signs Temp 97.2 F L 01/04/24 12:48 Pulse 63 01/04/24 12:48 Resp 26 H 01/04/24 12:48 BP 122/68 01/04/24 12:48 Pulse Ox 92 L 01/04/24 12:48 FiO2 Intake & Output 01/03/24 01/04/24 01/04/24 18:59 06:59 18:59 Output Total 1150 800 400 Balance -8370 -800 -400 Weight 94.7 kg 93.5 kg Output: Urine 1150 800 400 Other: Voiding Method Indwelling Catheter Indwelling Catheter Indwelling Catheter - Labs CBC & Chem 7: 12/31/23 03:58 01/04/24 09:49 Labs: Abnormal Lab Results - Last 24 Hours (Table) 01/03/24 01/03/24 01/03/24 Range/Units 17:52 17:54 21:47 Sodium (137-145) mmol/L Potassium (3.5-5.1) mmol/L Chloride (98-107) mmol/L BUN (7-17) mg/dL Glucose (74-99) mg/dL POC Glucose (mg/dL) 503 H 381 H 359 H (70-110) mg/dL 01/04/24 01/04/24 01/04/24 Range/Units 01:13 05:48 07:38 Sodium (137-145) mmol/L Potassium (3.5-5.1) mmol/L Chloride (98-107) mmol/L BUN (7-17) mg/dL Glucose (74-99) mg/dL POC Glucose (mg/dL) 299 H 310 H 287 H (70-110) mg/dL 01/04/24 01/04/24 Range/Units 09:49 12:01 Sodium 128 L (137-145) mmol/L Potassium 5.2 H (3.5-5.1) mmol/L Chloride 96 L (98-107) mmol/L BUN 41 H (7-17) mg/dL Glucose 318 H (74-99) mg/dL POC Glucose (mg/dL) 300 H (70-110) mg/dL
[2024-01-04 16:51] LABS: Glucose,Whole Blood 295 mg/dL (70-110)
[2024-01-04 20:35] LABS: Glucose,Whole Blood 296 mg/dL (70-110)
[2024-01-04] MEDS: DEXAMETHASONE SOD PHOSPHATE 4 MG/ML 1 ML VIAL IVP SCH (22:31)
[2024-01-05 03:00] LABS: ABG Base Excess 7.1 mmol/L; ABG HCO3 30 mmol/L (21-25); ABG Oxygen Saturation 90.1 % (94-97); ABG PCO2 40 mmHg (35-45); ABG PH 7.49 (7.35-7.45); ABG TCO2 32 mmol/L (19-24); Allen Test Performed? Yes
--- NOTE | 2024-01-05 03:18 | XR ---
EXAM: XR Chest, 1 View CLINICAL HISTORY: ITS.REASON XR Reason: increased O2 demand TECHNIQUE: Frontal view of the chest. COMPARISON: No relevant prior studies available. IMPRESSION: Cardiomegaly. Moderate vascular congestion
[2024-01-05 03:31] LABS: ABG PO2 56 mmHg (83-108)
[2024-01-05 06:16] LABS: Glucose,Whole Blood 188 mg/dL (70-110)
--- NOTE | 2024-01-05 10:37 | P.PN ---
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 On initial presentation, patient was saturating 100% on 2 L, rest of the vital signs were within normal limits. EKG showed sinus rhythm, CT head without contrast revealed 1.2 cm hypodense heterogenous area within the left cerebellum, underlying mass or developing lacunar infarct cannot be ruled out. Chest x-ray showed left hemidiaphragm. CBC showed thrombocytopenia with platelet of 140. BMP showed prerenal azotemia with BUN of 33. Total bili was 2.6, AST 67, ALT 50, ammonia 56, metabolic alkalosis with pH of 7.52, bicarb 29, CO2 30. Urinalysis negative. Patient given lactulose in the ED via NG tube. Patient admitted for acute encephalopathy. Neurology consulted. MRI brain showed suspected mass with mild vasogenic edema in the inferior medial left cerebellum. EEG did not show any epileptiform discharges. Started on steroids. Oncology also consulted. Mental status improved. Patient is refusing any further workup. Also has hyponatremia, which improved with IV fluids however now has pulmonary edema. Re started on diuretics. Patient continues to refuse multiple different medications, does not agree with any IV diuretics, only wants to take her home dose of torsemide 20 mg daily. Had extensive conversation with the patient as well as son with regards to goals of care. Her goal is that she wants to walk again however her son expresses that she wants to go home. Talked about hospice care, patient is still adamant about doing everything, however does not want to follow physician advice. Son on the other hand he is agreeable that we should pursue end-of-life care. Hospice is consulted. Respiratory function continues to worsen, patient now requiring BiPAP. However she is refusing BiPAP as well, only wants to remain on nasal cannula. She still does not want to take IV diuretics. However despite worsening respiratory function and refusing appropriate medical care, patient still wants to remain full code. On my assessment today, patient is oriented but lacks the capacity or understanding of her current illness. Will continue further talks with hospice and her family. If family wants to pursue aggressive medical care, we will need to involve specialist including assembler erector. Subjective: Patient seen and examined at bedside. She is even more short of breath, now on BiPAP which she is refusing. Pertinent positives and negatives as discussed above, a complete review of sy stems was performed and all other systems are negative. Vitals Signs Reviewed. General: Nontoxic, in no acute distress, appears at stated age Derm: Warm, dry Head: Atraumatic, normocephalic, symmetric Eyes: EOMI, no lid lag, anicteric sclera Mouth: No lip lesion, mucus membranes moist Cardiovascular: S1S2 reg, systolic murmur Lungs: Bilateral rales, no accessory muscle use, on BiPAP supplemental oxygen Abdominal: Soft, nontender to palpation, no guarding, no appreciable organomegaly Ext: No gross muscle atrophy, bilateral lower extremity pitting edema with chronic venous stasis dermatitis, no contractures Neuro: CN II-XI grossly intact, no focal neuro deficits Psych: Alert, orientedx3, appropriate affect Data Reviewed Today: Pertinent Labs: pH 7.49, pCO2 40, pO2 56, BMP and magnesium not drawn yet, will be reviewed when available Imaging: No new imaging Assessment and Plan: Patient is severely ill, prognosis is very guarded. As patient is refusing appropriate medical care, and given end-stage liver disease, patient should be appropriate for hospice care. 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 Continue to taper steroids -Patient is currently on Keppra 500 IV every 12 hours for seizure prophylaxis -Decadron 2 mg tapered further to IV daily -Patient refused IV diuretics, only wants torsemide. Was started on torsemide 40 mg however she refused to take that and only wants 20 mg of oral torsemide. -Continue lactulose 30 g 3 times daily Type 2 diabetes Hyperglycemia, also steroid induced -Sliding scale insulin, monitor for hypoglycemia -Levemir 15 units, has refused a few times during this admission Chronic: Hypertension Dyslipidemia DVT ppx: lovenox Code status: FC Anticipated discharge place: pending clinical course Anticipated discharge time: pending clinical course Objective - Vital Signs Vital signs: Vital Signs Temp 98.1 F 01/05/24 03:35 Pulse 56 L 01/05/24 05:46 Resp 21 01/05/24 10:19 BP 149/85 01/05/24 03:35 Pulse Ox 100 01/05/24 10:19 FiO2 40 01/05/24 09:01 Intake & Output 01/04/24 01/05/24 01/05/24 18:59 06:59 18:59 Output Total 1050 750 Balance -1050 -750 Weight 92.5 kg Output: Urine 1050 750 Other: Voiding Method Indwelling Catheter Indwelling Catheter # Bowel Movements 2 - Labs CBC & Chem 7: 12/31/23 03:58 01/04/24 09:49 Labs: Abnormal Lab Results - Last 24 Hours (Table) 01/04/24 01/04/24 01/04/24 Range/Units 12:01 16:40 20:29 ABG pH (7.35-7.45) ABG pO2 (83-108) mmHg ABG HCO3 (21-25) mmol/L ABG Total CO2 (19-24) mmol/L ABG O2 Saturation (94-97) % POC Glucose (mg/dL) 300 H 295 H 296 H (70-110) mg/dL 01/05/24 01/05/24 Range/Units 02:29 06:10 ABG pH 7.49 H (7.35-7.45) ABG pO2 56 L* (83-108) mmHg ABG HCO3 30 H (21-25) mmol/L ABG Total CO2 32 H (19-24) mmol/L ABG O2 Saturation 90.1 L (94-97) % POC Glucose (mg/dL) 188 H (70-110) mg/dL
[2024-01-05 10:38] LABS: Anisocytosis Slight; Basophils % (A) 0 %; Eosinophils % (A) 0 %; HCT 32.5 % (34.0-46.0); HGB 11.1 gm/dL (11.4-16.0); Lymphocytes % (A) 6 %; MCH 32.4 pg (25.0-35.0); MCHC 34.3 g/dL (31.0-37.0); MCV 94.7 fL (80.0-100.0); Monocytes # (A) 0.7 k/uL (0-1.0); Monocytes % (A) 4 %; Neutrophils # (A) 15.8 k/uL (1.3-7.7); Neutrophils % (A) 89 %; Platelet Count 139 k/uL (150-450); Poikilocytosis Slight; RBC 3.43 m/uL (3.80-5.40); RDW 16.5 % (11.5-15.5); WBC 17.8 k/uL (3.8-10.6)
[2024-01-05 10:56] LABS: African American GFR (CKD) >90 (>60 ml/min/1.73 sqM); Anion Gap 2 mmol/L; Blood Urea Nitrogen 43 mg/dL (7-17); Calcium 8.4 mg/dL (8.4-10.2); Carbon Dioxide 30 mmol/L (22-30); Chloride 97 mmol/L (98-107); Glucose 166 mg/dL (74-99); Non-African American GFR(CKD) 86 (>60 ml/min/1.73 sqM); Potassium 5.1 mmol/L (3.5-5.1); Sodium 129 mmol/L (137-145)
--- NOTE | 2024-01-05 10:59 | P.PN ---
Subjective Progress Note Date: 01/04/24 Patient initially seen by Dr. Clark. Please refer to his note for details. Patient was seen for a follow-up. Patient is laying in the bed, appears somewhat in respiratory distress. Patient is being transferred to [facility]. Patient's vitals at this time his blood pressure 153/63, pulse rate 60/min, tem perature 97.6 and saturation 98%. Patient at present denies any headache any problem with the vision. Patient is declining MRI of the brain with contrast. Some the other workup during this hospital visit consisted of: Ammonia is a 56, sodium is 134, BUN is 33, AST of 67 ALT 50. Total Bilitrubin is 2.6 Plasma lactic acid 2.8 and latest is 3.5 Lipid panel is triglycerides 73, cholesterol of 142, LDL 79 and HDL 48 TSH is 1.85 Hemoglobin A1c is 6.5 Carotid duplex was reported as echogenic material is seen within the right eye IVD which limits evaluation. There is suspicion for loose carotid plaque and increased risk for stroke. Suspect 50-69 stenosis at the origin of the right ICA. Vascular surgery consultation is recommended. No ultrasound evidence for hemodynamically significant stenosis of the visualized left carotid arterial system. Right vertebral artery is not visualized. 2D echo: Was reported as difficult patient management. Bubble study appears mildly positive within cardiac beats of agitation saline injection. Left ventricular ejection fraction is estimated 55-60%. Mild concentric left ventricular hypertrophy. Calcified aortic valve with mild aortic stenosis. MR the brain is reported as suspected mass with mild vasogenic edema in the inferior medial left cerebellum. Differential however does still include a 1.5 cm contusion. Finding correlate with a CT examination. Chronic appearing multiple scattered white matter ischemic type changes in deep white matter. I personally reviewed MRI brain, agree with the findings. Routine EEG is abnormal. The background slowing suggestive of severe encephalopathy. The study is limited because of the diffuse myogenic artifact. There is no epileptiform discharges or seizure on the EEG. Objective - Vital Signs Vital signs: Vital Signs Temp 97.6 F 01/04/24 08:00 Pulse 62 01/04/24 08:00 Resp 28 H 01/04/24 11:10 BP 154/61 01/04/24 08:00 Pulse Ox 93 L 01/04/24 08:13 FiO2 Intake & Output 01/03/24 01/04/24 01/04/24 18:59 06:59 18:59 Output Total 1150 800 400 Balance -1150 -800 -400 Weight 94.7 kg 93.5 kg Output: Urine 1150 800 400 Other: Voiding Method Indwelling Catheter Indwelling Catheter Indwelling Catheter - Exam Patient is alert and awake in no distress. She is slightly groggy. Patient states it is December and the year is 2019. She knows that she is in [facility], but states is in [place], [place]. Speech and language functions are normal. Visual ferris are full, face is symmetric, extraocular muscles are intact. There is no pronator drift, no myoclonic jerks. Strength is normal in the upper limbs. In the lower limbs hip flexion is 4-and ankle dorsiflexion 5 bilaterally. Sensory to touch is equal. - Labs CBC & Chem 7: 01/05/24 10:03 01/04/24 09:49 Labs: Abnormal Lab Results - Last 24 Hours (Table) 01/02/24 01/03/24 01/03/24 Range/Units 10:32 11:56 17:52 Sodium (137-145) mmol/L Potassium (3.5-5.1) mmol/L Chloride (98-107) mmol/L BUN (7-17) mg/dL Glucose (74-99) mg/dL POC Glucose (mg/dL) 349 H 503 H (70-110) mg/dL Ur Random Sodium <20 L (40-220) mmol/L 01/03/24 01/03/24 01/04/24 Range/Units 17:54 21:47 01:13 Sodium (137-145) mmol/L Potassium (3.5-5.1) mmol/L Chloride (98-107) mmol/L BUN (7-17) mg/dL Glucose (74-99) mg/dL POC Glucose (mg/dL) 381 H 359 H 299 H (70-110) mg/dL Ur Random Sodium (40-220) mmol/L 01/04/24 01/04/24 01/04/24 Range/Units 05:48 07:38 09:49 Sodium 128 L (137-145) mmol/L Potassium 5.2 H (3.5-5.1) mmol/L Chloride 96 L (98-107) mmol/L BUN 41 H (7-17) mg/dL Glucose 318 H (74-99) mg/dL POC Glucose (mg/dL) 310 H 287 H (70-110) mg/dL Ur Random Sodium (40-220) mmol/L Assessment and Plan Assessment: This is an 78-year-old woman who presented from [facility] because of altered mental status. 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 Suspected mass with mild vasogenic edema in the inferior medial left cerebellum on MRI Brain Metabolic encephalopathy due to multifactorial one of them is hepatic encephalopathy and suspected brain mass Right ICA 50-60% stenosis on carotid duplex History of cirrhosis with secondary Banegas. Patient has elevated the ammonia with the slight elevation of liver function tests Significant edema in the lower extremity with erythema Hypertension Chronic hypoxic respiratory failure on home oxygen Nep-[id number]-xeyozirub diabetes mellitus Medication noncompliance Plan: Patient continues to decline MRI of the brain with contrast. Oncology following. Recommending further workup however patient is refusing. Patient is on Decadron, which is being tapered down. Patient never had any history of seizures. Patient's EEG did not reveal any epileptiform activity. Patient is groggy. We will taper off Keppra. Vascular surgery team for Right ICA stated no intervention and no intervention. It seems she has possible thrombus at right IJ vein per carotid duplex. She may had previous IJ catheter per vascular. On aspirin 81 mg daily as well as Lipitor 40 mg daily. 2D echo shows possible PFO. Every 4 hours neuro checks Cardiac monitoring PT OT and INFANTRY UNIT LEADER are consulted We'll defer the rest of the medical measure the primary and other specialists For DVT prophylaxis the patient is on Lovenox Patient is declining medical treatment and workup. It appears family is considering hospice care.
[2024-01-05 11:46] LABS: Glucose,Whole Blood 148 mg/dL (70-110)
--- NOTE | 2024-01-05 12:50 | P.PN ---
Progress Note - Text Progress Note Date: 01/05/24 Advanced Care Planning: Diagnoses: End-stage liver disease Acute hypoxic respiratory failure Pulmonary edema Acute metabolic encephalopathy left cerebellar mass Discussion: Person(s) present and participating in discussion: , Son, Grandson, Kennydale Arroyo MD, Sriram Rees TEMP RECRUITER Summary: Discussed About the nature of end-stage liver disease, and worsening mentation and respiratory function. Son is on board with hospice care however and grandson still want further medical management. They do agree that she should not get CPR or intubation. Patient is now DNR/DNI. A total of 25 minutes of face to face time was spent discussing advanced care planning.
[2024-01-05] MEDS: FUROSEMIDE 10 MG/ML 4 ML VIAL IV SCH (14:43)
[2024-01-05] MEDS: LORazepam 2 MG/ML INJ IV PRN (15:33)
[2024-01-05 16:38] LABS: Glucose,Whole Blood 118 mg/dL (70-110)
[2024-01-05] MEDS: TORSEMIDE 20 MG TAB PO SCH (17:27)
[2024-01-05 20:05] LABS: Glucose,Whole Blood 100 mg/dL (70-110)
--- NOTE | 2024-01-06 01:59 | P.CNPUL ---
History of Present Illness Consult date: 01/06/24 Requesting physician: Kenny Arroyo Reason for consult: other (BiPAP dependent respiratory failure) Chief complaint: Altered mental status History of present illness: I am seeing this patient in consultation today January 06, 2024 for BiPAP dependent hypoxemic respiratory failure. Patient is a 78-year-old white female with a past medical history including congestive heart failure, diabetes mellitus, hypertension, liver disease/BANEGAS. I am told the current patient currently resides at a local [facility]. She has had a couple recent hospitalizations for congestive heart failure.. She is currently obtunded and unable to provide information for HPI. Patient was admitted back on December 28 for altered mental status. Initially worked up for stroke, and brain CT showed a 1.2 cm hypodense heterogeneous area in the left cerebellum. Underlying mass was considered versus stroke. She did have a positive bubble study on recent echocardiogram. Carotid Doppler showed echogenic material within the right IJV suspicious for loose carotid plaque and increases the risk for stroke. Suspect 50 to 69% stenosis of the right ICA. A follow-up brain MRI found a suspected 1.5 cm mass with mild vasogenic edema in the inferior medial left cerebellum. There is an ordered brain MRA which was reportedly refused. No seizure-like activity reported by nursing staff. Patient was temporarily on prophylactic Keppra. She has been receiving Decadron 2 mg daily. Patient was reportedly refusing multiple aspects of care prior to becoming obtunded. Patient has heart failure with preserved ejection fraction. Recent echocardiogram done this admission showed a preserved ejection fraction of 55 to 60%, mild LVH, and mild valvular disease. Most recent chest x-ray shows cardiomegaly, with pulmonary v ascular congestion, and probable small bilateral pleural effusions. She appears to be in a fluid overload state. She has bilateral lower extremity edema and stasis dermatitis. She has been refusing her ordered Lasix up until yesterday. She is currently on the BiPAP with settings 14/8 and FiO2 of 40%. She is generating tidal volumes of 300s to 400s. Respiratory rate 18. She is fairly dependent on this BiPAP. ABGs done yesterday show a PaO2 of 56, pCO2 of 40, pH of 7.49. She is obtunded. Just recently received a dose of Ativan. 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 Ammonia level was elevated and she was receiving lactulose. She has been having frequent liquid stools. There is an FMS. Most recent CBC from yesterday: WBC count of 17.8, hemoglobin 11, hematocrit 32.5, platelets 139. BMP from yesterday: Sodium 129, potassium 5.1, chloride 197, serum bicarb 30, BUN 43, creatinine 0.62, glucose 166. No IV maintenance fluids. There is an indwelling urinary catheter. Urine culture had been positive for streptococcus bovis. She received doses of Rocephin earlier in her admission . She is afebrile. Vital signs are stable. Review of Systems ROS unobtainable: due to mental status Past Medical History Past Medical History: Heart Failure, Diabetes Mellitus, Hypertension Additional Past Medical History / Comment(s): cirrhosis, thrombocytopenia, scoliosis, diveticulosis History of Any Multi-Drug Resistant Organisms: None Reported Past Surgical History: Cholecystectomy Additional Past Surgical History / Comment(s): colectomy Past Anesthesia/Blood Transfusion Reactions: No Reported Reaction Past Psychological History: No Psychological Hx Reported Smoking Status: Former smoker Past Alcohol Use History: None Reported Past Drug Use History: None Reported Medications and Allergies Home Medications Medication Instructions Recorded Confirmed Type Montelukast [Singulair] 10 mg PO HS 04/20/22 12/28/23 History Multivitamins, Thera [Multivitamin 1 tab PO PC-SUPPER 04/20/22 12/28/23 History (formulary)] atenoloL [Tenormin] 25 mg PO BID 04/20/22 12/28/23 History metFORMIN HCL [Glucophage] 1,000 mg PO HS 04/20/22 12/28/23 History Magnesium 200 mg PO DAILY 05/07/22 12/28/23 History Ibuprofen [Motrin Ib] 200 mg PO DAILY 12/05/23 12/28/23 History Torsemide [Demadex] 20 mg PO DAILY #90 tab 12/10/23 12/28/23 Rx LORazepam [Ativan] 0.25 mg PO DAILY #2 tab 12/23/23 12/28/23 Rx LORazepam [Ativan] 0.5 mg PO HS #2 tab 12/23/23 12/28/23 Rx INSULIN ASPART (NovoLOG) [NovoLOG See Protocol SQ ACHS 12/28/23 12/28/23 History (formulary)] Lanolin/Mineral Oil [Eucerin 1 applic TOPICAL BID 12/28/23 12/28/23 History Original Lotion] Omeprazole [PriLOSEC] 20 mg PO DAILY 12/28/23 12/28/23 History Allergies Allergy/AdvReac Type Severity Reaction Status Date / Time Iodinated Contrast Media Allergy Unknown face Verified 12/28/23 16:57 bright red and did not feel right. neomycin Allergy Unknown red face Verified 12/28/23 16:57 shellfish derived [Shrimp] Allergy Unknown face Verified 12/28/23 16:57 bright red, -felt funny. azithromycin Allergy red face Verified 12/28/23 16:57 ciprofloxacin [From Cipro] Allergy red face Verified 12/28/23 16:57 COVID-19 (SARS-CoV-2) Allergy Unknown Verified 12/28/23 16:57 vaccine, monique meperidine [From Demerol] Allergy red face Verified 12/28/23 16:57 Penicillins Allergy red face Verified 12/28/23 16:57 sulfite Allergy red face Verified 12/28/23 16:57 polyethylene glycol AdvReac Unknown Nausea & Verified 12/28/23 16:57 [From Golytely] Vomiting polyethylene glycol 3350 AdvReac Unknown Nausea & Verified 12/28/23 16:57 [From Golytely] Vomiting potassium chloride AdvReac Unknown Nausea & Verified 12/28/23 16:57 [From Golytely] Vomiting sodium [From Golytely] AdvReac Unknown Nausea & Verified 12/28/23 16:57 Vomiting sodium bicarbonate AdvReac Unknown Nausea & Verified 12/28/23 16:57 [From Golytely] Vomiting sodium chloride AdvReac Unknown Nausea & Verified 12/28/23 16:57 [From Golytely] Vomiting sodium sulfate AdvReac Unknown Nausea & Verified 12/28/23 16:57 [From Golytely] Vomiting COVID phizer vaccine Allergy Unknown Swelling Uncoded 12/28/23 13:15 face & eyes & red face. lobster Allergy Unknown bright Uncoded 12/28/23 13:15 red, "feels funny" Physical Exam Vitals: Vital Signs Temp Pulse Resp BP BP Pulse Ox FiO2 01/05/24 23:56 40 01/05/24 23:45 96.8 F L 55 L 14 117/54 94 L 40 01/05/24 21:58 40 01/05/24 20:01 96.7 F L 86 22 150/67 94 L 40 01/05/24 20:00 86 01/05/24 17:53 19 97 40 01/05/24 17:20 63 26 H 132/64 98 01/05/24 15:37 25 H 96 01/05/24 14:00 62 24 01/05/24 11:53 40 01/05/24 11:15 62 20 120/58 94 L 40 01/05/24 10:19 21 100 01/05/24 10:04 24 95 01/05/24 09:01 40 01/05/24 08:15 98.1 F 58 L 16 135/73 96 40 01/05/24 08:00 58 L 21 01/05/24 06:34 19 40 01/05/24 06:20 40 01/05/24 05:46 56 L 15 96 40 01/05/24 03:35 98.1 F 65 32 H 149/85 97 01/05/24 03:11 40 Intake and Output 01/05/24 01/05/24 01/06/24 14:59 22:59 06:59 Intake Total 0 Output Total 1200 Balance -1200 Intake: Oral 0 Output: Urine 1200 Other: Voiding Method Indwelling Catheter Indwelling Catheter # Bowel Movements 1 Weight 92.5 kg GENERAL EXAM: Obtunded, 78-year-old white female, frail, tolerating BiPAP. HEAD: Normocephalic and atraumatic EYES: Normal reaction of pupils, equal size. NOSE: Clear with pink turbinates. THROAT: No erythema or exudates. NECK: No masses, no JVD. CHEST: No chest wall deformity. LUNGS: Equal air entry with diffuse inspiratory crackles throughout the posterior thorax. On BiPAP with settings 14/8 and FiO2 40%. She was obtunded. She is not fighting the BiPAP. CVS: S1 and S2 normal with mild systolic murmur, regular rhythm. No other extra heart sounds ABDOMEN: No hepatosplenomegaly, active bowel sounds, no guarding or rigidity. SPINE: No scoliosis or deformity SKIN: No rashes CENTRAL NERVOUS SYSTEM: No focal deficits, tone is normal in all 4 extremities. EXTREMITIES: Bilateral 2-3+ pitting edema with chronic venous stasis dermatitis. No clubbing, or cyanosis. Peripheral pulses are intact. Results - Laboratory Findings CBC and BMP: 01/05/24 10:03 01/05/24 10:03 ABG ABG pH 7.49 (7.35-7.45) H 01/05/24 02:29 ABG pCO2 40 mmHg (35-45) 01/05/24 02:29 ABG pO2 56 mmHg (83-108) L* 01/05/24 02:29 ABG O2 Saturation 90.1 % (94-97) L 01/05/24 02:29 PT/INR, D-dimer PT 13.0 sec (10.0-12.5) H 12/28/23 13:29 INR 1.2 (<1.2) H 12/28/23 13:29 Abnormal lab findings: Abnormal Labs 12/28/23 12/28/23 12/28/23 13:08 13:29 13:29 WBC RBC 3.79 L Hgb Hct RDW Plt Count 140 L Neutrophils # 8.2 H Lymphocytes # PT 13.0 H INR 1.2 H ABG pH ABG pO2 ABG HCO3 ABG Total CO2 ABG O2 Saturation Sodium Potassium Chloride BUN Creatinine Glucose POC Glucose (mg/dL) 137 H Hemoglobin A1c Osmolality Plasma Lactic Acid Pipo Calcium Total Bilirubin AST ALT Ammonia Total Protein Albumin Urine Appearance Ur Leukocyte Esterase Urine WBC Urine Bacteria Urine Mucus Ur Random Sodium 12/28/23 12/28/23 12/28/23 13:29 13:29 13:29 WBC RBC Hgb Hct RDW Plt Count Neutrophils # Lymphocytes # PT INR ABG pH ABG pO2 ABG HCO3 ABG Total CO2 ABG O2 Saturation Sodium 134 L Potassium Chloride BUN 33 H Creatinine Glucose 148 H POC Glucose (mg/dL) Hemoglobin A1c Osmolality Plasma Lactic Acid Pipo Calcium Total Bilirubin 2.6 H AST 67 H ALT 50 H Ammonia 56 H Total Protein Albumin 3.1 L Urine Appearance Cloudy H Ur Leukocyte Esterase Small H Urine WBC 19 H Urine Bacteria Few H Urine Mucus Rare H Ur Random Sodium 12/28/23 12/28/23 12/28/23 14:05 18:14 18:18 WBC RBC Hgb Hct RDW Plt Count Neutrophils # Lymphocytes # PT INR ABG pH 7.52 H ABG pO2 ABG HCO3 29 H ABG Total CO2 30 H ABG O2 Saturation 98.1 H Sodium Potassium Chloride BUN Creatinine Glucose POC Glucose (mg/dL) 152 H Hemoglobin A1c Osmolality Plasma Lactic Acid Pipo 2.8 H* Calcium Total Bilirubin AST ALT Ammonia Total Protein Albumin Urine Appearance Ur Leukocyte Esterase Urine WBC Urine Bacteria Urine Mucus Ur Random Sodium 12/28/23 12/28/23 12/29/23 21:11 21:12 00:14 WBC RBC Hgb Hct RDW Plt Count Neutrophils # Lymphocytes # PT INR ABG pH ABG pO2 ABG HCO3 ABG Total CO2 ABG O2 Saturation Sodium Potassium Chloride BUN Creatinine Glucose POC Glucose (mg/dL) 148 H Hemoglobin A1c Osmolality Plasma Lactic Acid Pipo 3.1 H* 2.7 H* Calcium Total Bilirubin AST ALT Ammonia Total Protein Albumin Urine Appearance Ur Leukocyte Esterase Urine WBC Urine Bacteria Urine Mucus Ur Random Sodium 12/29/23 12/29/23 12/29/23 03:16 04:13 04:13 WBC 13.1 H RBC 3.71 L Hgb Hct 33.9 L RDW 15.9 H Plt Count 128 L Neutrophils # 10.3 H Lymphocytes # PT INR ABG pH ABG pO2 ABG HCO3 ABG Total CO2 ABG O2 Saturation Sodium Potassium Chloride BUN Creatinine Glucose POC Glucose (mg/dL) 143 H Hemoglobin A1c 6.5 H Osmolality Plasma Lactic Acid Pipo Calcium Total Bilirubin AST ALT Ammonia Total Protein Albumin Urine Appearance Ur Leukocyte Esterase Urine WBC Urine Bacteria Urine Mucus Ur Random Sodium 12/29/23 12/29/23 12/29/23 04:13 04:13 06:15 WBC RBC Hgb Hct RDW Plt Count Neutrophils # Lymphocytes # PT INR ABG pH ABG pO2 ABG HCO3 ABG Total CO2 ABG O2 Saturation Sodium 136 L Potassium Chloride BUN 33 H Creatinine Glucose 150 H POC Glucose (mg/dL) Hemoglobin A1c Osmolality Plasma Lactic Acid Pipo 2.9 H* Calcium Total Bilirubin 2.3 H AST 61 H ALT 51 H Ammonia 47 H Total Protein Albumin 2.6 L Urine Appearance Ur Leukocyte Esterase Urine WBC Urine Bacteria Urine Mucus Ur Random Sodium 12/29/23 12/29/23 12/29/23 08:54 10:32 14:11 WBC RBC Hgb Hct RDW Plt Count Neutrophils # Lymphocytes # PT INR ABG pH ABG pO2 ABG HCO3 ABG Total CO2 ABG O2 Saturation Sodium Potassium Chloride BUN Creatinine Glucose POC Glucose (mg/dL) 148 H Hemoglobin A1c Osmolality Plasma Lactic Acid Pipo 2.8 H* 3.5 H* Calcium Total Bilirubin AST ALT Ammonia Total Protein Albumin Urine Appearance Ur Leukocyte Esterase Urine WBC Urine Bacteria Urine Mucus Ur Random Sodium 12/29/23 12/29/23 12/29/23 17:09 18:46 20:11 WBC RBC Hgb Hct RDW Plt Count Neutrophils # Lymphocytes # PT INR ABG pH ABG pO2 ABG HCO3 ABG Total CO2 ABG O2 Saturation Sodium Potassium Chloride BUN Creatinine Glucose POC Glucose (mg/dL) 195 H 274 H Hemoglobin A1c Osmolality Plasma Lactic Acid Pipo 5.1 H* Calcium Total Bilirubin AST ALT Ammonia Total Protein Albumin Urine Appearance Ur Leukocyte Esterase Urine WBC Urine Bacteria Urine Mucus Ur Random Sodium 12/29/23 12/30/23 12/30/23 21:48 01:05 04:01 WBC RBC Hgb Hct RDW Plt Count Neutrophils # Lymphocytes # PT INR ABG pH ABG pO2 ABG HCO3 ABG Total CO2 ABG O2 Saturation Sodium Potassium Chloride BUN Creatinine Glucose POC Glucose (mg/dL) 169 H Hemoglobin A1c Osmolality Plasma Lactic Acid Pipo 3.2 H* 2.3 H* Calcium Total Bilirubin AST ALT Ammonia Total Protein Albumin Urine Appearance Ur Leukocyte Esterase Urine WBC Urine Bacteria Urine Mucus Ur Random Sodium 12/30/23 12/30/23 12/30/23 05:24 05:24 05:24 WBC RBC 3.30 L Hgb 10.3 L Hct 30.7 L RDW 16.1 H Plt Count 141 L Neutrophils # Lymphocytes # PT INR ABG pH ABG pO2 ABG HCO3 ABG Total CO2 ABG O2 Saturation Sodium 132 L Potassium Chloride BUN 34 H Creatinine Glucose 157 H POC Glucose (mg/dL) Hemoglobin A1c Osmolality Plasma Lactic Acid Pipo 2.1 H* Calcium 8.1 L Total Bilirubin 2.1 H AST 62 H ALT 45 H Ammonia Total Protein 5.7 L Albumin 2.3 L Urine Appearance Ur Leukocyte Esterase Urine WBC Urine Bacteria Urine Mucus Ur Random Sodium 12/30/23 12/30/23 12/30/23 11:22 11:57 16:19 WBC RBC Hgb Hct RDW Plt Count Neutrophils # Lymphocytes # PT INR ABG pH ABG pO2 ABG HCO3 ABG Total CO2 ABG O2 Saturation Sodium Potassium Chloride BUN Creatinine Glucose POC Glucose (mg/dL) 327 H Hemoglobin A1c Osmolality Plasma Lactic Acid Pipo 5.0 H* 4.6 H* Calcium Total Bilirubin AST ALT Ammonia Total Protein Albumin Urine Appearance Ur Leukocyte Esterase Urine WBC Urine Bacteria Urine Mucus Ur Random Sodium 12/30/23 12/30/23 12/30/23 16:52 19:59 23:00 WBC RBC Hgb Hct RDW Plt Count Neutrophils # Lymphocytes # PT INR ABG pH ABG pO2 ABG HCO3 ABG Total CO2 ABG O2 Saturation Sodium Potassium Chloride BUN Creatinine Glucose POC Glucose (mg/dL) 231 H Hemoglobin A1c Osmolality Plasma Lactic Acid Pipo 4.7 H* 3.2 H* Calcium Total Bilirubin AST ALT Ammonia Total Protein Albumin Urine Appearance Ur Leukocyte Esterase Urine WBC Urine Bacteria Urine Mucus Ur Random Sodium 12/31/23 12/31/23 12/31/23 00:17 03:58 03:58 WBC RBC 3.32 L Hgb 10.5 L Hct 31.0 L RDW 15.8 H Plt Count 127 L Neutrophils # 8.3 H Lymphocytes # 0.6 L PT INR ABG pH ABG pO2 ABG HCO3 ABG Total CO2 ABG O2 Saturation Sodium 128 L Potassium Chloride BUN 31 H Creatinine 0.51 L Glucose 259 H POC Glucose (mg/dL) 300 H Hemoglobin A1c Osmolality Plasma Lactic Acid Pipo Calcium 7.3 L Total Bilirubin 1.5 H AST 67 H ALT 47 H Ammonia Total Protein 5.5 L Albumin 2.1 L Urine Appearance Ur Leukocyte Esterase Urine WBC Urine Bacteria Urine Mucus Ur Random Sodium 12/31/23 12/31/23 12/31/23 03:58 05:55 12:00 WBC RBC Hgb Hct RDW Plt Count Neutrophils # Lymphocytes # PT INR ABG pH ABG pO2 ABG HCO3 ABG Total CO2 ABG O2 Saturation Sodium Potassium Chloride BUN Creatinine Glucose POC Glucose (mg/dL) 294 H 337 H Hemoglobin A1c Osmolality Plasma Lactic Acid Pipo 2.3 H* Calcium Total Bilirubin AST ALT Ammonia Total Protein Albumin Urine Appearance Ur Leukocyte Esterase Urine WBC Urine Bacteria Urine Mucus Ur Random Sodium 12/31/23 01/01/24 01/01/24 17:13 00:05 06:11 WBC RBC Hgb Hct RDW Plt Count Neutrophils # Lymphocytes # PT INR ABG pH ABG pO2 ABG HCO3 ABG Total CO2 ABG O2 Saturation Sodium Potassium Chloride BUN Creatinine Glucose POC Glucose (mg/dL) 417 H 424 H 272 H Hemoglobin A1c Osmolality Plasma Lactic Acid Pipo Calcium Total Bilirubin AST ALT Ammonia Total Protein Albumin Urine Appearance Ur Leukocyte Esterase Urine WBC Urine Bacteria Urine Mucus Ur Random Sodium 01/01/24 01/01/24 01/01/24 07:21 11:53 17:15 WBC RBC Hgb Hct RDW Plt Count Neutrophils # Lymphocytes # PT INR ABG pH ABG pO2 ABG HCO3 ABG Total CO2 ABG O2 Saturation Sodium 127 L Potassium Chloride 97 L BUN 32 H Creatinine Glucose 243 H POC Glucose (mg/dL) 356 H 430 H Hemoglobin A1c Osmolality Plasma Lactic Acid Pipo Calcium Total Bilirubin AST ALT Ammonia Total Protein Albumin Urine Appearance Ur Leukocyte Esterase Urine WBC Urine Bacteria Urine Mucus Ur Random Sodium 01/02/24 01/02/24 01/02/24 00:10 05:03 08:08 WBC RBC Hgb Hct RDW Plt Count Neutrophils # Lymphocytes # PT INR ABG pH ABG pO2 ABG HCO3 ABG Total CO2 ABG O2 Saturation Sodium 124 L Potassium 5.8 H Chloride 94 L BUN 36 H Creatinine Glucose 371 H POC Glucose (mg/dL) 421 H 391 H Hemoglobin A1c Osmolality Plasma Lactic Acid Ippo Calcium Total Bilirubin AST ALT Ammonia Total Protein Albumin Urine Appearance Ur Leukocyte Esterase Urine WBC Urine Bacteria Urine Mucus Ur Random Sodium 01/02/24 01/02/24 01/02/24 08:08 10:32 12:40 WBC RBC Hgb Hct RDW Plt Count Neutrophils # Lymphocytes # PT INR ABG pH ABG pO2 ABG HCO3 ABG Total CO2 ABG O2 Saturation Sodium Potassium Chloride BUN Creatinine Glucose POC Glucose (mg/dL) 458 H Hemoglobin A1c Osmolality 301 H Plasma Lactic Acid Pipo Calcium Total Bilirubin AST ALT Ammonia Total Protein Albumin Urine Appearance Ur Leukocyte Esterase Urine WBC Urine Bacteria Urine Mucus Ur Random Sodium <20 L 01/02/24 01/02/24 01/02/24 17:13 21:08 23:43 WBC RBC Hgb Hct RDW Plt Count Neutrophils # Lymphocytes # PT INR ABG pH ABG pO2 ABG HCO3 ABG Total CO2 ABG O2 Saturation Sodium Potassium Chloride BUN Creatinine Glucose POC Glucose (mg/dL) 420 H 397 H 414 H Hemoglobin A1c Osmolality Plasma Lactic Acid Pipo Calcium Total Bilirubin AST ALT Ammonia Total Protein Albumin Urine Appearance Ur Leukocyte Esterase Urine WBC Urine Bacteria Urine Mucus Ur Random Sodium 01/03/24 01/03/24 01/03/24 05:47 07:06 09:41 WBC RBC Hgb Hct RDW Plt Count Neutrophils # Lymphocytes # PT INR ABG pH ABG pO2 ABG HCO3 ABG Total CO2 ABG O2 Saturation Sodium 126 L Potassium 5.7 H Chloride BUN 37 H Creatinine Glucose 322 H POC Glucose (mg/dL) 318 H 352 H Hemoglobin A1c Osmolality Plasma Lactic Acid Pipo Calcium Total Bilirubin AST ALT Ammonia Total Protein Albumin Urine Appearance Ur Leukocyte Esterase Urine WBC Urine Bacteria Urine Mucus Ur Random Sodium 01/03/24 01/03/24 01/03/24 11:56 17:52 17:54 WBC RBC Hgb Hct RDW Plt Count Neutrophils # Lymphocytes # PT INR ABG pH ABG pO2 ABG HCO3 ABG Total CO2 ABG O2 Saturation Sodium Potassium Chloride BUN Creatinine Glucose POC Glucose (mg/dL) 349 H 503 H 381 H Hemoglobin A1c Osmolality Plasma Lactic Acid Pipo Calcium Total Bilirubin AST ALT Ammonia Total Protein Albumin Urine Appearance Ur Leukocyte Esterase Urine WBC Urine Bacteria Urine Mucus Ur Random Sodium 01/03/24 01/04/24 01/04/24 21:47 01:13 05:48 WBC RBC Hgb Hct RDW Plt Count Neutrophils # Lymphocytes # PT INR ABG pH ABG pO2 ABG HCO3 ABG Total CO2 ABG O2 Saturation Sodium Potassium Chloride BUN Creatinine Glucose POC Glucose (mg/dL) 359 H 299 H 310 H Hemoglobin A1c Osmolality Plasma Lactic Acid Pipo Calcium Total Bilirubin AST ALT Ammonia Total Protein Albumin Urine Appearance Ur Leukocyte Esterase Urine WBC Urine Bacteria Urine Mucus Ur Random Sodium 01/04/24 01/04/24 01/04/24 07:38 09:49 12:01 WBC RBC Hgb Hct RDW Plt Count Neutrophils # Lymphocytes # PT INR ABG pH ABG pO2 ABG HCO3 ABG Total CO2 ABG O2 Saturation Sodium 128 L Potassium 5.2 H Chloride 96 L BUN 41 H Creatinine Glucose 318 H POC Glucose (mg/dL) 287 H 300 H Hemoglobin A1c Osmolality Plasma Lactic Acid Pipo Calcium Total Bilirubin AST ALT Ammonia Total Protein Albumin Urine Appearance Ur Leukocyte Esterase Urine WBC Urine Bacteria Urine Mucus Ur Random Sodium 01/04/24 01/04/24 01/05/24 16:40 20:29 02:29 WBC RBC Hgb Hct RDW Plt Count Neutrophils # Lymphocytes # PT INR ABG pH 7.49 H ABG pO2 56 L* ABG HCO3 30 H ABG Total CO2 32 H ABG O2 Saturation 90.1 L Sodium Potassium Chloride BUN Creatinine Glucose POC Glucose (mg/dL) 295 H 296 H Hemoglobin A1c Osmolality Plasma Lactic Acid Pipo Calcium Total Bilirubin AST ALT Ammonia Total Protein Albumin Urine Appearance Ur Leukocyte Esterase Urine WBC Urine Bacteria Urine Mucus Ur Random Sodium 01/05/24 01/05/24 01/05/24 06:10 10:03 10:03 WBC 17.8 H RBC 3.43 L Hgb 11.1 L Hct 32.5 L RDW 16.5 H Plt Count 139 L Neutrophils # 15.8 H Lymphocytes # PT INR ABG pH ABG pO2 ABG HCO3 ABG Total CO2 ABG O2 Saturation Sodium 129 L Potassium Chloride 97 L BUN 43 H Creatinine Glucose 166 H POC Glucose (mg/dL) 188 H Hemoglobin A1c Osmolality Plasma Lactic Acid Pipo Calcium Total Bilirubin AST ALT Ammonia Total Protein Albumin Urine Appearance Ur Leukocyte Esterase Urine WBC Urine Bacteria Urine Mucus Ur Random Sodium 01/05/24 01/05/24 11:44 16:37 WBC RBC Hgb Hct RDW Plt Count Neutrophils # Lymphocytes # PT INR ABG pH ABG pO2 ABG HCO3 ABG Total CO2 ABG O2 Saturation Sodium Potassium Chloride BUN Creatinine Glucose POC Glucose (mg/dL) 148 H 118 H Hemoglobin A1c Osmolality Plasma Lactic Acid Pipo Calcium Total Bilirubin AST ALT Ammonia Total Protein Albumin Urine Appearance Ur Leukocyte Esterase Urine WBC Urine Bacteria Urine Mucus Ur Random Sodium - Diagnostic Findings Chest x-ray: image reviewed Assessment and Plan Assessment: Acute on chronic hypoxemic respiratory failure, currently BiPAP dependent, secondary to fluid overload state and diastolic congestive heart failure. Most recent chest x-ray from yesterday shows cardiomegaly, pulmonary vascular congestion and interstitial prominence. Patient reportedly had been refusing Lasix earlier in admission, but this has been restarted. Suspected 1.5 cm mass with mild vasogenic edema in the inferior medial left cerebellum, Brain MRA was ordered for further evaluation, but was reportedly refused. Right ICA stenosis, estimated 50 to 60% on carotid Doppler. There is also echogenic material within the right IJV concerning for possible thrombus. Vascular surgery has been asked to evaluate. Altered mental status, likely multifactorial related to above and toxic metabolic encephalopathy. Patient has multiple metabolic derangements including hepatic encephalopathy, medication effect, etc. 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 Bilateral lower extremity edema with venous stasis dermatitis Diabetes mellitus type 2, non insulin-dependent History of hypertension Plan: Patient's medications, labs, chest x-ray reviewed. Patient is currently on BiPAP with settings 14/8 and FiO2 40%. She is generating adequate tidal volumes. Lasix 40 mg twice daily was resumed. Carrillo catheter was inserted for accurate intake and output. On my evaluation, the patient is fairly obtunded. I am told the patient received a dose of Ativan earlier. I would hold benzodiazepines at this point. Recheck ammonia. Patient was prophylactically placed on Keppra per neurology recommendation. Also receiving IV Decadron. Brain MRA was reportedly refused by patient. Patient's overall prognosis is poor. She is a DO NOT RESUSCITATE/DO NOT INTUBATE. Case will be discussed with Dr. Mendez later this morning, and further recommendations are forthcoming. I have personally seen and examined the patient, performed the documentation and the assessment and plan as written. Number of minutes spent on the visit:20 Time with Patient: Greater than 30
[2024-01-06] MEDS: LORazepam 2 MG/ML INJ IV STA (04:38)
[2024-01-06 06:00] LABS: Glucose,Whole Blood 88 mg/dL (70-110)
[2024-01-06] MEDS: DEXAMETHASONE SOD PHOSPHATE 4 MG/ML 1 ML VIAL IVP SCH (08:43)
[2024-01-06 09:00] LABS: Anisocytosis Slight; Basophils % (A) 0 %; Eosinophils % (A) 0 %; HCT 28.5 % (34.0-46.0); HGB 9.9 gm/dL (11.4-16.0); Lymphocytes % (A) 8 %; MCH 32.5 pg (25.0-35.0); MCHC 34.7 g/dL (31.0-37.0); MCV 93.6 fL (80.0-100.0); Mean Platelet Volume 8.5; Monocytes # (A) 0.6 k/uL (0-1.0); Monocytes % (A) 5 %; Neutrophils # (A) 10.3 k/uL (1.3-7.7); Neutrophils % (A) 85 %; Platelet Count 100 k/uL (150-450); Poikilocytosis Slight; RBC 3.05 m/uL (3.80-5.40); WBC 12.2 k/uL (3.8-10.6)
[2024-01-06 09:10] LABS: African American GFR (CKD) >90 (>60 ml/min/1.73 sqM); Anion Gap 0 mmol/L; Blood Urea Nitrogen 48 mg/dL (7-17); Carbon Dioxide 31 mmol/L (22-30); Chloride 101 mmol/L (98-107); Glucose 92 mg/dL (74-99); Non-African American GFR(CKD) 84 (>60 ml/min/1.73 sqM); Potassium 4.3 mmol/L (3.5-5.1); Sodium 132 mmol/L (137-145)
[2024-01-06 10:21] LABS: ABG Base Excess 8.4 mmol/L; ABG HCO3 31 mmol/L (21-25); ABG Oxygen Saturation 95.9 % (94-97); ABG PCO2 36 mmHg (35-45); ABG PH 7.54 (7.35-7.45); ABG PO2 67 mmHg (83-108); ABG TCO2 32 mmol/L (19-24); Allen Test Performed? Yes
--- NOTE | 2024-01-06 11:10 | XR ---
EXAMINATION TYPE: XR chest 1V portable DATE OF EXAM: 01/06/2024 10:36 AM CLINICAL INDICATION:Female, 78 years old with history of shortness of breath; [facility] COMPARISON: Chest radiographs from 01/05/2024. TECHNIQUE: XR chest 1V portable Frontal view of the chest. FINDINGS: Lungs/Pleura: There is no evidence of pleural effusion, focal consolidation, or pneumothorax. Pulmonary vascularity: Pulmonary vascular congestion. Heart/mediastinum: Cardiomediastinal silhouette is enlarged and stable. Musculoskeletal: No acute osseous pathology. IMPRESSION: Cardiomegaly and mild pulmonary vascular congestion. Correlate with BNP for congestive heart failure.
[2024-01-06 11:47] LABS: Glucose,Whole Blood 91 mg/dL (70-110)
[2024-01-06] MEDS: LORazepam 2 MG/ML INJ IV PRN (12:09)
--- NOTE | 2024-01-06 13:16 | P.CNPUL ---
History of Present Illness Consult date: 01/06/24 Reason for consult: dyspnea History of present illness: 78-year-old female patient who is being seen for a hypoxic and hypercapnic respiratory failure the patient is currently on a BiPAP at a pressure of 14 over 8 cm of water with an FiO2 of 40%. The patient's blood gas showed a pH of 7.49 with a pCO2 of 40 and pO2 of 56 while on the BiPAP. She was quite obtunded yesterday and she is essentially the same as yesterday with some limited impr ovement. She is reaching out to the mask occasionally and she tries to pull it up. I reviewed the series of chest x-ray that was done during this current admission and the patient has smaller lung volumes and evidence of increased pulmonary vascular marking and congestion and the patient is currently on diuretics and the patient is producing Adequate amount of urine output. Note that over the past 24 to 48 hours, the patient has diuresed a total of 4-1/2 to 5 L. The most recent chest x-ray from yesterday showed improvement in the volume status and cardiomegaly. The repeat chest x-ray that was done this morning upon my request showed further improvement in the volume status although there is still persistent cardiomegaly. The chest x-ray still showing cardiomegaly with mild pulm vascular congestion. Note that the patient is known to have nonalcoholic liver cirrhosis. She also has CHF with preserved LV function. Echocardiogram that was done during this current admission of 2023 showed a preserved LV function with an EF around 55 to 60%. The patient also had mild mitral regurgitation, mild aortic sclerosis with mild tricuspid regurgitation. The patient had a repeat blood gas today that showed a pH of 7.54 with a pCO2 of 36 and pO2 of 67. The white cell count 12.2 with a hemoglobin 9.9 BUN is 48 creatinine of 0.6. On a separate note, the patient was also found to have an abnormal MRI of the brain that raise a suspicious for a metastatic lesion to her brain. The patient was found to have a 1.2 cm hypodense heterogeneous area in the left cerebellum. Carotid Dopplers showed carotid plaque and there was a 50 to 69% stenosis of the right internal carotid artery. MRI of the brain showed a 1.5 cm mass along with mild vasogenic edema in the inferior medial left cerebellum and the patient was started on Decadron. Noted the patient does not have any history of malignancy. She has history of liver cirrhosis, diabetes mellitus and hypertension. She also has history of diverticulosis and scoliosis of the spine. Review of Systems ROS unobtainable: due to mental status Past Medical History Past Medical History: Heart Failure, Diabetes Mellitus, Hypertension Additional Past Medical History / Comment(s): cirrhosis, thrombocytopenia, scoliosis, diveticulosis History of Any Multi-Drug Resistant Organisms: None Reported Past Surgical History: Cholecystectomy Additional Past Surgical History / Comment(s): colectomy Past Anesthesia/Blood Transfusion Reactions: No Reported Reaction Past Psychological History: No Psychological Hx Reported Smoking Status: Former smoker Past Alcohol Use History: None Reported Past Drug Use History: None Reported Medications and Allergies Home Medications Medication Instructions Recorded Confirmed Type Montelukast [Singulair] 10 mg PO HS 04/20/22 12/28/23 History Multivitamins, Thera [Multivitamin 1 tab PO PC-SUPPER 04/20/22 12/28/23 History (formulary)] atenoloL [Tenormin] 25 mg PO BID 04/20/22 12/28/23 History metFORMIN HCL [Glucophage] 1,000 mg PO HS 04/20/22 12/28/23 History Magnesium 200 mg PO DAILY 05/07/22 12/28/23 History Ibuprofen [Motrin Ib] 200 mg PO DAILY 12/05/23 12/28/23 History Torsemide [Demadex] 20 mg PO DAILY #90 tab 12/10/23 12/28/23 Rx LORazepam [Ativan] 0.25 mg PO DAILY #2 tab 12/23/23 12/28/23 Rx LORazepam [Ativan] 0.5 mg PO HS #2 tab 12/23/23 12/28/23 Rx INSULIN ASPART (NovoLOG) [NovoLOG See Protocol SQ ACHS 12/28/23 12/28/23 History (formulary)] Lanolin/Mineral Oil [Eucerin 1 applic TOPICAL BID 12/28/23 12/28/23 History Original Lotion] Omeprazole [PriLOSEC] 20 mg PO DAILY 12/28/23 12/28/23 History Allergies Allergy/AdvReac Type Severity Reaction Status Date / Time Iodinated Contrast Media Allergy Unknown face Verified 12/28/23 16:57 bright red and did not feel right. neomycin Allergy Unknown red face Verified 12/28/23 16:57 shellfish derived [Shrimp] Allergy Unknown face Verified 12/28/23 16:57 bright red, -felt funny. azithromycin Allergy red face Verified 12/28/23 16:57 ciprofloxacin [From Cipro] Allergy red face Verified 12/28/23 16:57 COVID-19 (SARS-CoV-2) Allergy Unknown Verified 12/28/23 16:57 vaccine, monique meperidine [From Demerol] Allergy red face Verified 12/28/23 16:57 Penicillins Allergy red face Verified 12/28/23 16:57 sulfite Allergy red face Verified 12/28/23 16:57 polyethylene glycol AdvReac Unknown Nausea & Verified 12/28/23 16:57 [From Golytely] Vomiting polyethylene glycol 3350 AdvReac Unknown Nausea & Verified 12/28/23 16:57 [From Golytely] Vomiting potassium chloride AdvReac Unknown Nausea & Verified 12/28/23 16:57 [From Golytely] Vomiting sodium [From Golytely] AdvReac Unknown Nausea & Verified 12/28/23 16:57 Vomiting sodium bicarbonate AdvReac Unknown Nausea & Verified 12/28/23 16:57 [From Golytely] Vomiting sodium chloride AdvReac Unknown Nausea & Verified 12/28/23 16:57 [From Golytely] Vomiting sodium sulfate AdvReac Unknown Nausea & Verified 12/28/23 16:57 [From Golytely] Vomiting COVID phizer vaccine Allergy Unknown Swelling Uncoded 12/28/23 13:15 face & eyes & red face. lobster Allergy Unknown bright Uncoded 12/28/23 13:15 red, "feels funny" Physical Exam Vitals: Vital Signs Temp Pulse Resp BP Pulse Ox FiO2 01/06/24 11:15 97.8 F 62 34 H 110/60 97 50 01/06/24 11:03 50 01/06/24 09:12 60 18 01/06/24 08:41 96 40 01/06/24 08:40 40 01/06/24 08:07 97.3 F L 60 18 91/41 96 01/06/24 04:20 40 01/06/24 04:00 98.2 F 53 L 20 134/46 94 L 40 01/06/24 02:00 55 L 01/05/24 23:56 40 01/05/24 23:45 96.8 F L 55 L 14 117/54 94 L 40 01/05/24 21:58 40 01/05/24 20:01 96.7 F L 86 22 150/67 94 L 40 01/05/24 20:00 86 01/05/24 17:53 19 97 40 01/05/24 17:20 63 26 H 132/64 98 01/05/24 15:37 25 H 96 01/05/24 14:00 62 24 Intake and Output 01/05/24 01/06/24 01/06/24 22:59 06:59 14:59 Intake Total 0 Output Total 1200 500 Balance -1200 -500 Intake: Oral 0 Output: Urine 1200 500 Other: Voiding Method Indwelling Catheter Indwelling Catheter Indwelling Catheter # Bowel Movements 1 GENERAL EXAM: Obtunded, 78-year-old white female, frail, tolerating BiPAP. HEAD: Normocephalic and atraumatic EYES: Normal reaction of pupils, equal size. NOSE: Clear with pink turbinates. THROAT: No erythema or exudates. NECK: No masses, no JVD. CHEST: No chest wall deformity. LUNGS: Equal air entry with diffuse inspiratory crackles throughout the posterior thorax. On BiPAP with settings 14/8 and FiO2 40%. She was obtunded. She is not fighting the BiPAP. CVS: S1 and S2 normal with mild systolic murmur, regular rhythm. No other extra heart sounds ABDOMEN: No hepatosplenomegaly, active bowel sounds, no guarding or rigidity. SPINE: No scoliosis or deformity SKIN: No rashes CENTRAL NERVOUS SYSTEM: No focal deficits, tone is normal in all 4 extremities. EXTREMITIES: Bilateral 2-3+ pitting edema with chronic venous stasis dermatitis. No clubbing, or cyanosis. Peripheral pulses are intact. Results - Laboratory Findings CBC and BMP: 01/06/24 08:36 01/06/24 08:36 ABG ABG pH 7.54 (7.35-7.45) H 01/06/24 10:17 ABG pCO2 36 mmHg (35-45) 01/06/24 10:17 ABG pO2 67 mmHg (83-108) L 01/06/24 10:17 ABG O2 Saturation 95.9 % (94-97) 01/06/24 10:17 PT/INR, D-dimer PT 13.0 sec (10.0-12.5) H 12/28/23 13:29 INR 1.2 (<1.2) H 12/28/23 13:29 Abnormal lab findings: Abnormal Labs 12/28/23 12/28/23 12/28/23 13:08 13:29 13:29 WBC RBC 3.79 L Hgb Hct RDW Plt Count 140 L Neutrophils # 8.2 H Lymphocytes # PT 13.0 H INR 1.2 H ABG pH ABG pO2 ABG HCO3 ABG Total CO2 ABG O2 Saturation Sodium Potassium Chloride Carbon Dioxide BUN Creatinine Glucose POC Glucose (mg/dL) 137 H Hemoglobin A1c Osmolality Plasma Lactic Acid Pipo Calcium Total Bilirubin AST ALT Ammonia Total Protein Albumin Urine Appearance Ur Leukocyte Esterase Urine WBC Urine Bacteria Urine Mucus Ur Random Sodium 12/28/23 12/28/23 12/28/23 13:29 13:29 13:29 WBC RBC Hgb Hct RDW Plt Count Neutrophils # Lymphocytes # PT INR ABG pH ABG pO2 ABG HCO3 ABG Total CO2 ABG O2 Saturation Sodium 134 L Potassium Chloride Carbon Dioxide BUN 33 H Creatinine Glucose 148 H POC Glucose (mg/dL) Hemoglobin A1c Osmolality Plasma Lactic Acid Pipo Calcium Total Bilirubin 2.6 H AST 67 H ALT 50 H Ammonia 56 H Total Protein Albumin 3.1 L Urine Appearance Cloudy H Ur Leukocyte Esterase Small H Urine WBC 19 H Urine Bacteria Few H Urine Mucus Rare H Ur Random Sodium 12/28/23 12/28/23 12/28/23 14:05 18:14 18:18 WBC RBC Hgb Hct RDW Plt Count Neutrophils # Lymphocytes # PT INR ABG pH 7.52 H ABG pO2 ABG HCO3 29 H ABG Total CO2 30 H ABG O2 Saturation 98.1 H Sodium Potassium Chloride Carbon Dioxide BUN Creatinine Glucose POC Glucose (mg/dL) 152 H Hemoglobin A1c Osmolality Plasma Lactic Acid Pipo 2.8 H* Calcium Total Bilirubin AST ALT Ammonia Total Protein Albumin Urine Appearance Ur Leukocyte Esterase Urine WBC Urine Bacteria Urine Mucus Ur Random Sodium 12/28/23 12/28/23 12/29/23 21:11 21:12 00:14 WBC RBC Hgb Hct RDW Plt Count Neutrophils # Lymphocytes # PT INR ABG pH ABG pO2 ABG HCO3 ABG Total CO2 ABG O2 Saturation Sodium Potassium Chloride Carbon Dioxide BUN Creatinine Glucose POC Glucose (mg/dL) 148 H Hemoglobin A1c Osmolality Plasma Lactic Acid P[place]o 3.1 H* 2.7 H* Calcium Total Bilirubin AST ALT Ammonia Total Protein Albumin Urine Appearance Ur Leukocyte Esterase Urine WBC Urine Bacteria Urine Mucus Ur Random Sodium 12/29/23 12/29/23 12/29/23 03:16 04:13 04:13 WBC 13.1 H RBC 3.71 L Hgb Hct 33.9 L RDW 15.9 H Plt Count 128 L Neutrophils # 10.3 H Lymphocytes # PT INR ABG pH ABG pO2 ABG HCO3 ABG Total CO2 ABG O2 Saturation Sodium Potassium Chloride Carbon Dioxide BUN Creatinine Glucose POC Glucose (mg/dL) 143 H Hemoglobin A1c 6.5 H Osmolality Plasma Lactic Acid Pipo Calcium Total Bilirubin AST ALT Ammonia Total Protein Albumin Urine Appearance Ur Leukocyte Esterase Urine WBC Urine Bacteria Urine Mucus Ur Random Sodium 12/29/23 12/29/23 12/29/23 04:13 04:13 06:15 WBC RBC Hgb Hct RDW Plt Count Neutrophils # Lymphocytes # PT INR ABG pH ABG pO2 ABG HCO3 ABG Total CO2 ABG O2 Saturation Sodium 136 L Potassium Chloride Carbon Dioxide BUN 33 H Creatinine Glucose 150 H POC Glucose (mg/dL) Hemoglobin A1c Osmolality Plasma Lactic Acid Pipo 2.9 H* Calcium Total Bilirubin 2.3 H AST 61 H ALT 51 H Ammonia 47 H Total Protein Albumin 2.6 L Urine Appearance Ur Leukocyte Esterase Urine WBC Urine Bacteria Urine Mucus Ur Random Sodium 12/29/23 12/29/23 12/29/23 08:54 10:32 14:11 WBC RBC Hgb Hct RDW Plt Count Neutrophils # Lymphocytes # PT INR ABG pH ABG pO2 ABG HCO3 ABG Total CO2 ABG O2 Saturation Sodium Potassium Chloride Carbon Dioxide BUN Creatinine Glucose POC Glucose (mg/dL) 148 H Hemoglobin A1c Osmolality Plasma Lactic Acid Pipo 2.8 H* 3.5 H* Calcium Total Bilirubin AST ALT Ammonia Total Protein Albumin Urine Appearance Ur Leukocyte Esterase Urine WBC Urine Bacteria Urine Mucus Ur Random Sodium 12/29/23 12/29/23 12/29/23 17:09 18:46 20:11 WBC RBC Hgb Hct RDW Plt Count Neutrophils # Lymphocytes # PT INR ABG pH ABG pO2 ABG HCO3 ABG Total CO2 ABG O2 Saturation Sodium Potassium Chloride Carbon Dioxide BUN Creatinine Glucose POC Glucose (mg/dL) 195 H 274 H Hemoglobin A1c Osmolality Plasma Lactic Acid Pipo 5.1 H* Calcium Total Bilirubin AST ALT Ammonia Total Protein Albumin Urine Appearance Ur Leukocyte Esterase Urine WBC Urine Bacteria Urine Mucus Ur Random Sodium 12/29/23 12/30/23 12/30/23 21:48 01:05 04:01 WBC RBC Hgb Hct RDW Plt Count Neutrophils # Lymphocytes # PT INR ABG pH ABG pO2 ABG HCO3 ABG Total CO2 ABG O2 Saturation Sodium Potassium Chloride Carbon Dioxide BUN Creatinine Glucose POC Glucose (mg/dL) 169 H Hemoglobin A1c Osmolality Plasma Lactic Acid Pipo 3.2 H* 2.3 H* Calcium Total Bilirubin AST ALT Ammonia Total Protein Albumin Urine Appearance Ur Leukocyte Esterase Urine WBC Urine Bacteria Urine Mucus Ur Random Sodium 12/30/23 12/30/23 12/30/23 05:24 05:24 05:24 WBC RBC 3.30 L Hgb 10.3 L Hct 30.7 L RDW 16.1 H Plt Count 141 L Neutrophils # Lymphocytes # PT INR ABG pH ABG pO2 ABG HCO3 ABG Total CO2 ABG O2 Saturation Sodium 132 L Potassium Chloride Carbon Dioxide BUN 34 H Creatinine Glucose 157 H POC Glucose (mg/dL) Hemoglobin A1c Osmolality Plasma Lactic Acid Pipo 2.1 H* Calcium 8.1 L Total Bilirubin 2.1 H AST 62 H ALT 45 H Ammonia Total Protein 5.7 L Albumin 2.3 L Urine Appearance Ur Leukocyte Esterase Urine WBC Urine Bacteria Urine Mucus Ur Random Sodium 12/30/23 12/30/23 12/30/23 11:22 11:57 16:19 WBC RBC Hgb Hct RDW Plt Count Neutrophils # Lymphocytes # PT INR ABG pH ABG pO2 ABG HCO3 ABG Total CO2 ABG O2 Saturation Sodium Potassium Chloride Carbon Dioxide BUN Creatinine Glucose POC Glucose (mg/dL) 327 H Hemoglobin A1c Osmolality Plasma Lactic Acid Pipo 5.0 H* 4.6 H* Calcium Total Bilirubin AST ALT Ammonia Total Protein Albumin Urine Appearance Ur Leukocyte Esterase Urine WBC Urine Bacteria Urine Mucus Ur Random Sodium 12/30/23 12/30/23 12/30/23 16:52 19:59 23:00 WBC RBC Hgb Hct RDW Plt Count Neutrophils # Lymphocytes # PT INR ABG pH ABG pO2 ABG HCO3 ABG Total CO2 ABG O2 Saturation Sodium Potassium Chloride Carbon Dioxide BUN Creatinine Glucose POC Glucose (mg/dL) 231 H Hemoglobin A1c Osmolality Plasma Lactic Acid Pipo 4.7 H* 3.2 H* Calcium Total Bilirubin AST ALT Ammonia Total Protein Albumin Urine Appearance Ur Leukocyte Esterase Urine WBC Urine Bacteria Urine Mucus Ur Random Sodium 12/31/23 12/31/23 12/31/23 00:17 03:58 03:58 WBC RBC 3.32 L Hgb 10.5 L Hct 31.0 L RDW 15.8 H Plt Count 127 L Neutrophils # 8.3 H Lymphocytes # 0.6 L PT INR ABG pH ABG pO2 ABG HCO3 ABG Total CO2 ABG O2 Saturation Sodium 128 L Potassium Chloride Carbon Dioxide BUN 31 H Creatinine 0.51 L Glucose 259 H POC Glucose (mg/dL) 300 H Hemoglobin A1c Osmolality Plasma Lactic Acid Pipo Calcium 7.3 L Total Bilirubin 1.5 H AST 67 H ALT 47 H Ammonia Total Protein 5.5 L Albumin 2.1 L Urine Appearance Ur Leukocyte Esterase Urine WBC Urine Bacteria Urine Mucus Ur Random Sodium 12/31/23 12/31/23 12/31/23 03:58 05:55 12:00 WBC RBC Hgb Hct RDW Plt Count Neutrophils # Lymphocytes # PT INR ABG pH ABG pO2 ABG HCO3 ABG Total CO2 ABG O2 Saturation Sodium Potassium Chloride Carbon Dioxide BUN Creatinine Glucose POC Glucose (mg/dL) 294 H 337 H Hemoglobin A1c Osmolality Plasma Lactic Acid Pipo 2.3 H* Calcium Total Bilirubin AST ALT Ammonia Total Protein Albumin Urine Appearance Ur Leukocyte Esterase Urine WBC Urine Bacteria Urine Mucus Ur Random Sodium 12/31/23 01/01/24 01/01/24 17:13 00:05 06:11 WBC RBC Hgb Hct RDW Plt Count Neutrophils # Lymphocytes # PT INR ABG pH ABG pO2 ABG HCO3 ABG Total CO2 ABG O2 Saturation Sodium Potassium Chloride Carbon Dioxide BUN Creatinine Glucose POC Glucose (mg/dL) 417 H 424 H 272 H Hemoglobin A1c Osmolality Plasma Lactic Acid Pipo Calcium Total Bilirubin AST ALT Ammonia Total Protein Albumin Urine Appearance Ur Leukocyte Esterase Urine WBC Urine Bacteria Urine Mucus Ur Random Sodium 01/01/24 01/01/24 01/01/24 07:21 11:53 17:15 WBC RBC Hgb Hct RDW Plt Count Neutrophils # Lymphocytes # PT INR ABG pH ABG pO2 ABG HCO3 ABG Total CO2 ABG O2 Saturation Sodium 127 L Potassium Chloride 97 L Carbon Dioxide BUN 32 H Creatinine Glucose 243 H POC Glucose (mg/dL) 356 H 430 H Hemoglobin A1c Osmolality Plasma Lactic Acid Pipo Calcium Total Bilirubin AST ALT Ammonia Total Protein Albumin Urine Appearance Ur Leukocyte Esterase Urine WBC Urine Bacteria Urine Mucus Ur Random Sodium 01/02/24 01/02/24 01/02/24 00:10 05:03 08:08 WBC RBC Hgb Hct RDW Plt Count Neutrophils # Lymphocytes # PT INR ABG pH ABG pO2 ABG HCO3 ABG Total CO2 ABG O2 Saturation Sodium 124 L Potassium 5.8 H Chloride 94 L Carbon Dioxide BUN 36 H Creatinine Glucose 371 H POC Glucose (mg/dL) 421 H 391 H Hemoglobin A1c Osmolality Plasma Lactic Acid Pipo Calcium Total Bilirubin AST ALT Ammonia Total Protein Albumin Urine Appearance Ur Leukocyte Esterase Urine WBC Urine Bacteria Urine Mucus Ur Random Sodium 01/02/24 01/02/24 01/02/24 08:08 10:32 12:40 WBC RBC Hgb Hct RDW Plt Count Neutrophils # Lymphocytes # PT INR ABG pH ABG pO2 ABG HCO3 ABG Total CO2 ABG O2 Saturation Sodium Potassium Chloride Carbon Dioxide BUN Creatinine Glucose POC Glucose (mg/dL) 458 H Hemoglobin A1c Osmolality 301 H Plasma Lactic Acid Pipo Calcium Total Bilirubin AST ALT Ammonia Total Protein Albumin Urine Appearance Ur Leukocyte Esterase Urine WBC Urine Bacteria Urine Mucus Ur Random Sodium <20 L 01/02/24 01/02/24 01/02/24 17:13 21:08 23:43 WBC RBC Hgb Hct RDW Plt Count Neutrophils # Lymphocytes # PT INR ABG pH ABG pO2 ABG HCO3 ABG Total CO2 ABG O2 Saturation Sodium Potassium Chloride Carbon Dioxide BUN Creatinine Glucose POC Glucose (mg/dL) 420 H 397 H 414 H Hemoglobin A1c Osmolality Plasma Lactic Acid Pipo Calcium Total Bilirubin AST ALT Ammonia Total Protein Albumin Urine Appearance Ur Leukocyte Esterase Urine WBC Urine Bacteria Urine Mucus Ur Random Sodium 01/03/24 01/03/24 01/03/24 05:47 07:06 09:41 WBC RBC Hgb Hct RDW Plt Count Neutrophils # Lymphocytes # PT INR ABG pH ABG pO2 ABG HCO3 ABG Total CO2 ABG O2 Saturation Sodium 126 L Potassium 5.7 H Chloride Carbon Dioxide BUN 37 H Creatinine Glucose 322 H POC Glucose (mg/dL) 318 H 352 H Hemoglobin A1c Osmolality Plasma Lactic Acid Pipo Calcium Total Bilirubin AST ALT Ammonia Total Protein Albumin Urine Appearance Ur Leukocyte Esterase Urine WBC Urine Bacteria Urine Mucus Ur Random Sodium 01/03/24 01/03/24 01/03/24 11:56 17:52 17:54 WBC RBC Hgb Hct RDW Plt Count Neutrophils # Lymphocytes # PT INR ABG pH ABG pO2 ABG HCO3 ABG Total CO2 ABG O2 Saturation Sodium Potassium Chloride Carbon Dioxide BUN Creatinine Glucose POC Glucose (mg/dL) 349 H 503 H 381 H Hemoglobin A1c Osmolality Plasma Lactic Acid Pipo Calcium Total Bilirubin AST ALT Ammonia Total Protein Albumin Urine Appearance Ur Leukocyte Esterase Urine WBC Urine Bacteria Urine Mucus Ur Random Sodium 01/03/24 01/04/24 01/04/24 21:47 01:13 05:48 WBC RBC Hgb Hct RDW Plt Count Neutrophils # Lymphocytes # PT INR ABG pH ABG pO2 ABG HCO3 ABG Total CO2 ABG O2 Saturation Sodium Potassium Chloride Carbon Dioxide BUN Creatinine Glucose POC Glucose (mg/dL) 359 H 299 H 310 H Hemoglobin A1c Osmolality Plasma Lactic Acid Pipo Calcium Total Bilirubin AST ALT Ammonia Total Protein Albumin Urine Appearance Ur Leukocyte Esterase Urine WBC Urine Bacteria Urine Mucus Ur Random Sodium 01/04/24 01/04/24 01/04/24 07:38 09:49 12:01 WBC RBC Hgb Hct RDW Plt Count Neutrophils # Lymphocytes # PT INR ABG pH ABG pO2 ABG HCO3 ABG Total CO2 ABG O2 Saturation Sodium 128 L Potassium 5.2 H Chloride 96 L Carbon Dioxide BUN 41 H Creatinine Glucose 318 H POC Glucose (mg/dL) 287 H 300 H Hemoglobin A1c Osmolality Plasma Lactic Acid Pipo Calcium Total Bilirubin AST ALT Ammonia Total Protein Albumin Urine Appearance Ur Leukocyte Esterase Urine WBC Urine Bacteria Urine Mucus Ur Random Sodium 01/04/24 01/04/24 01/05/24 16:40 20:29 02:29 WBC RBC Hgb Hct RDW Plt Count Neutrophils # Lymphocytes # PT INR ABG pH 7.49 H ABG pO2 56 L* ABG HCO3 30 H ABG Total CO2 32 H ABG O2 Saturation 90.1 L Sodium Potassium Chloride Carbon Dioxide BUN Creatinine Glucose POC Glucose (mg/dL) 295 H 296 H Hemoglobin A1c Osmolality Plasma Lactic Acid Pipo Calcium Total Bilirubin AST ALT Ammonia Total Protein Albumin Urine Appearance Ur Leukocyte Esterase Urine WBC Urine Bacteria Urine Mucus Ur Random Sodium 01/05/24 01/05/24 01/05/24 06:10 10:03 10:03 WBC 17.8 H RBC 3.43 L Hgb 11.1 L Hct 32.5 L RDW 16.5 H Plt Count 139 L Neutrophils # 15.8 H Lymphocytes # PT INR ABG pH ABG pO2 ABG HCO3 ABG Total CO2 ABG O2 Saturation Sodium 129 L Potassium Chloride 97 L Carbon Dioxide BUN 43 H Creatinine Glucose 166 H POC Glucose (mg/dL) 188 H Hemoglobin A1c Osmolality Plasma Lactic Acid Pipo Calcium Total Bilirubin AST ALT Ammonia Total Protein Albumin Urine Appearance Ur Leukocyte Esterase Urine WBC Urine Bacteria Urine Mucus Ur Random Sodium 01/05/24 01/05/24 01/06/24 11:44 16:37 08:36 WBC 12.2 H RBC 3.05 L Hgb 9.9 L Hct 28.5 L RDW 17.0 H Plt Count 100 L Neutrophils # 10.3 H Lymphocytes # PT INR ABG pH ABG pO2 ABG HCO3 ABG Total CO2 ABG O2 Saturation Sodium Potassium Chloride Carbon Dioxide BUN Creatinine Glucose POC Glucose (mg/dL) 148 H 118 H Hemoglobin A1c Osmolality Plasma Lactic Acid Pipo Calcium Total Bilirubin AST ALT Ammonia Total Protein Albumin Urine Appearance Ur Leukocyte Esterase Urine WBC Urine Bacteria Urine Mucus Ur Random Sodium 01/06/24 01/06/24 08:36 10:17 WBC RBC Hgb Hct RDW Plt Count Neutrophils # Lymphocytes # PT INR ABG pH 7.54 H ABG pO2 67 L ABG HCO3 31 H ABG Total CO2 32 H ABG O2 Saturation Sodium 132 L Potassium Chloride Carbon Dioxide 31 H BUN 48 H Creatinine Glucose POC Glucose (mg/dL) Hemoglobin A1c Osmolality Plasma Lactic Acid Pipo Calcium 8.0 L Total Bilirubin AST ALT Ammonia Total Protein Albumin Urine Appearance Ur Leukocyte Esterase Urine WBC Urine Bacteria Urine Mucus Ur Random Sodium - Diagnostic Findings Chest x-ray: image reviewed Assessment and Plan Plan: Acute on chronic hypoxemic respiratory failure, currently BiPAP dependent, secondary to fluid overload state and diastolic congestive heart failure. Most recent chest x-ray from yesterday shows cardiomegaly, pulmonary vascular congestion and interstitial prominence. The patient is currently on IV Lasix and the follow-up chest x-ray from this morning and yesterday shows improvement in volume status and the pulmonary vessel congestion. The patient is also producing urine output and the patient has produced a negative fluid balance of at least 5 L over the past 72 hours. Will continue diuresis for now as the patient seems to be responding. No evidence of any pneumonia. Suspected 1.5 cm mass with mild vasogenic edema in the inferior medial left ce rebellum, Brain MRA was ordered for further evaluation, but was reportedly refused. Right ICA stenosis, estimated 50 to 60% on carotid Doppler. There is also echogenic material within the right IJV concerning for possible thrombus. Vascular surgery has been asked to evaluate. Altered mental status, likely multifactorial related to above and toxic metabolic encephalopathy. Patient has multiple metabolic derangements including hepatic encephalopathy, medication effect, etc. History of liver cirrhosis secondary to [place] Hyperammonemia, was receiving lactulose, secondary to liver cirrhosis Possible UTI History of heart failure with preserved ejection fraction Possible PFO, patient had an echocardiogram done this admission which had a positive bubble study. The patient is a preserved of the function. Bilateral lower extremity edema with venous stasis dermatitis Diabetes mellitus type 2, non insulin-dependent History of hypertension Plan I had a discussion with the son at the bedside. The patient is a DNR/DNI CODE STATUS. Continue the BiPAP at the same setting for now Continue diuresis the patient is responding and the patient is producing adequate amount of urine output. At the same time the repeat chest x-ray shows improvement in volume status and the pulm vessel congestion Continue Decadron Monitor ammonia level Rest of the medication be kept unchanged. Will continue to follow.
--- NOTE | 2024-01-06 13:53 | P.PN ---
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 On initial presentation, patient was saturating 100% on 2 L, rest of the vital signs were within normal limits. EKG showed sinus rhythm, CT head without contrast revealed 1.2 cm hypodense heterogenous area within the left cerebellum, underlying mass or developing lacunar infarct cannot be ruled out. Chest x-ray showed left hemidiaphragm. CBC showed thrombocytopenia with platelet of 140. BMP showed prerenal azotemia with BUN of 33. Total bili was 2.6, AST 67, ALT 50, ammonia 56, metabolic alkalosis with pH of 7.52, bicarb 29, CO2 30. Urinalysis negative. Patient given lactulose in the ED via NG tube. Patient admitted for acute encephalopathy. Neurology consulted. MRI brain showed suspected mass with mild vasogenic edema in the inferior medial left cerebellum. EEG did not show any epileptiform discharges. Started on steroids. Oncology also consulted. Mental status improved. Patient is refusing any further workup. Also has hyponatremia, which improved with IV fluids however now has pulmonary edema. Re started on diuretics. Patient continues to refuse multiple different medications, does not agree with any IV diuretics, only wants to take her home dose of torsemide 20 mg daily. Had extensive conversation with the patient as well as son with regards to goals of care. Her goal is that she wants to walk again however her son expresses that she wants to go home. Talked about hospice care, patient is still adamant about doing everything, however does not want to follow physician advice. Son on the other hand he is agreeable that we should pursue end-of-life care. Hospice is consulted. Respiratory function continues to worsen, patient now requiring BiPAP. However she is refusing BiPAP as well, only wants to remain on nasal cannula. She still does not want to take IV diuretics. However despite worsening respiratory function and refusing appropriate medical care, patient still wants to remain full code. On my assessment today, patient is oriented but lacks the capacity or understanding of her current illness. Will continue further talks with hospice and her family. If family wants to pursue aggressive medical care, we will need to involve specialist including manager dialysis. Subjective: Patient seen and examined at bedside. She is even more short of breath, now on BiPAP which she is refusing. Pertinent positives and negatives as discussed above, a complete review of sy stems was performed and all other systems are negative. Vitals Signs Reviewed. General: Nontoxic, in no acute distress, appears at stated age Derm: Warm, dry Head: Atraumatic, normocephalic, symmetric Eyes: EOMI, no lid lag, anicteric sclera Mouth: No lip lesion, mucus membranes moist Cardiovascular: S1S2 reg, systolic murmur Lungs: Bilateral rales, no accessory muscle use, on BiPAP supplemental oxygen Abdominal: Soft, nontender to palpation, no guarding, no appreciable organomegaly Ext: No gross muscle atrophy, bilateral lower extremity pitting edema with chronic venous stasis dermatitis, no contractures Neuro: CN II-XI grossly intact, no focal neuro deficits Psych: Alert, orientedx3, appropriate affect Data Reviewed Today: Pertinent Labs: WBC 12.2, hemoglobin 9.9, platelet 100, pH 7.54, pO2 67, pCO2 36, bicarb 31, sodium 132, creatinine 0.66, ammonia 17, blood sugars range between 84-92 Imaging: Chest x-ray dependently interpreted, shows pulmonary vascular congestion. Assessment and Plan: Patient is severely ill, prognosis is very guarded. 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 Continue to taper steroids -Patient is currently on Keppra 500 IV every 12 hours for seizure prophylaxis -Decadron 2 mg IV daily -Currently on IV Lasix 40 twice daily, monitor electrolytes -Continue lactulose 30 g 3 times daily -Leukocytosis possibly reactive, C. difficile pending Type 2 diabetes Hyperglycemia, also steroid induced -Sliding scale insulin, monitor for hypoglycemia -Levemir 15 units, has refused a few times during this admission Chronic: Hypertension Dyslipidemia DVT ppx: lovenox Code status: FC Anticipated discharge place: pending clinical course Anticipated discharge time: pending clinical course Objective - Vital Signs Vital signs: Vital Signs Temp 97.8 F 01/06/24 11:15 Pulse 62 01/06/24 11:15 Resp 34 H 01/06/24 11:15 BP 110/60 01/06/24 11:15 Pulse Ox 97 01/06/24 11:15 FiO2 50 01/06/24 11:15 Intake & Output 01/05/24 01/06/24 01/06/24 18:59 06:59 18:59 Intake Total 0 Output Total 1000 700 Balance -1000 -700 Weight 92.5 kg Intake: Oral 0 Output: Urine 1000 700 Other: Voiding Method Indwelling Catheter Indwelling Catheter Indwelling Catheter # Bowel Movements 1 - Labs CBC & Chem 7: 01/06/24 08:36 01/06/24 08:36 Labs: Abnormal Lab Results - Last 24 Hours (Table) 01/05/24 01/06/24 01/06/24 Range/Units 16:37 08:36 08:36 WBC 12.2 H (3.8-10.6) k/uL RBC 3.05 L (3.80-5.40) m/uL Hgb 9.9 L (11.4-16.0) gm/dL Hct 28.5 L (34.0-46.0) % RDW 17.0 H (11.5-15.5) % Plt Count 100 L (150-450) k/uL Neutrophils # 10.3 H (1.3-7.7) k/uL ABG pH (7.35-7.45) ABG pO2 (83-108) mmHg ABG HCO3 (21-25) mmol/L ABG Total CO2 (19-24) mmol/L Sodium 132 L (137-145) mmol/L Carbon Dioxide 31 H (22-30) mmol/L BUN 48 H (7-17) mg/dL POC Glucose (mg/dL) 118 H (70-110) mg/dL Calcium 8.0 L (8.4-10.2) mg/dL 01/06/24 Range/Units 10:17 WBC (3.8-10.6) k/uL RBC (3.80-5.40) m/uL Hgb (11.4-16.0) gm/dL Hct (34.0-46.0) % RDW (11.5-15.5) % Plt Count (150-450) k/uL Neutrophils # (1.3-7.7) k/uL ABG pH 7.54 H (7.35-7.45) ABG pO2 67 L (83-108) mmHg ABG HCO3 31 H (21-25) mmol/L ABG Total CO2 32 H (19-24) mmol/L Sodium (137-145) mmol/L Carbon Dioxide (22-30) mmol/L BUN (7-17) mg/dL POC Glucose (mg/dL) (70-110) mg/dL Calcium (8.4-10.2) mg/dL
[2024-01-06] MEDS: levETIRAcetam 500 MG TAB PO SCH (14:04)
[2024-01-06 16:52] LABS: Glucose,Whole Blood 107 mg/dL (70-110)
[2024-01-06] MEDS: MORPHINE SULFATE 2 MG/ML SYRINGE IVP PRN (17:28)
[2024-01-06 20:58] LABS: Glucose,Whole Blood 145 mg/dL (70-110)
[2024-01-07] MEDS: QUEtiapine 25 MG TAB PO SCH (00:17)
[2024-01-07 06:12] LABS: Glucose,Whole Blood 149 mg/dL (70-110)
[2024-01-07 08:33] LABS: Anisocytosis Slight; Basophils % (A) 0 %; Eosinophils % (A) 0 %; HCT 28.3 % (34.0-46.0); HGB 9.5 gm/dL (11.4-16.0); Lymphocytes # (A) 0.8 k/uL (1.0-4.8); Lymphocytes % (A) 6 %; MCH 31.8 pg (25.0-35.0); MCHC 33.7 g/dL (31.0-37.0); MCV 94.6 fL (80.0-100.0); Mean Platelet Volume 8.4; Monocytes # (A) 0.6 k/uL (0-1.0); Monocytes % (A) 4 %; Neutrophils # (A) 12.2 k/uL (1.3-7.7); Neutrophils % (A) 89 %; Platelet Count 111 k/uL (150-450); RDW 16.5 % (11.5-15.5); WBC 13.8 k/uL (3.8-10.6)
[2024-01-07 08:42] LABS: African American GFR (CKD) 84 (>60 ml/min/1.73 sqM); Anion Gap 3 mmol/L; Blood Urea Nitrogen 54 mg/dL (7-17); Calcium 7.8 mg/dL (8.4-10.2); Carbon Dioxide 30 mmol/L (22-30); Chloride 101 mmol/L (98-107); Glucose 145 mg/dL (74-99); Non-African American GFR(CKD) 73 (>60 ml/min/1.73 sqM); Potassium 4.1 mmol/L (3.5-5.1); Sodium 134 mmol/L (137-145)
--- NOTE | 2024-01-07 10:05 | XR ---
EXAMINATION TYPE: XR chest 1V DATE OF EXAM: 01/07/2024 9:56 AM CLINICAL INDICATION:Female, 78 years old with history of chf; [facility] COMPARISON: Chest radiographs from 01/06/2024 TECHNIQUE: XR chest 1V Frontal view of the chest. FINDINGS: Lungs/Pleura: There is no evidence of pleural effusion, focal consolidation, or pneumothorax. Pulmonary vascularity: Pulmonary vascular congestion. Heart/mediastinum: Cardiomediastinal silhouette is enlarged and stable. Atherosclerotic calcificatio ns are seen in the aorta. Musculoskeletal: No acute osseous pathology. IMPRESSION: Cardiomegaly and mild pulmonary vascular congestion. Correlate with BNP for congestive heart failure.
[2024-01-07] MEDS: levETIRAcetam IV 500 MG/5 ML VIAL IVP SCH (11:30)
[2024-01-07 11:34] LABS: Glucose,Whole Blood 177 mg/dL (70-110)
--- NOTE | 2024-01-07 11:45 | P.PN ---
Subjective Progress Note Date: 01/07/24 78-year-old female patient who is being seen for a hypoxic and hypercapnic respiratory failure the patient is currently on a BiPAP at a pressure of 14 over 8 cm of water with an FiO2 of 40%. The patient's blood gas showed a pH of 7.49 with a pCO2 of 40 and pO2 of 56 while on the BiPAP. She was quite obtunded yesterday and she is essentially the same as yesterday with some limited improvement. She is reaching out to the mask occasionally and she tries to pull it up. I reviewed the series of chest x-ray that was done during this current admission and the patient has smaller lung volumes and evidence of increased pulmonary vascular marking and congestion and the patient is currently on diuretics and the patient is producing Adequate amount of urine output. Note that over the past 24 to 48 hours, the patient has diuresed a total of 4-1/2 to 5 L. The most recent chest x-ray from yesterday showed improvement in the volume status and cardiomegaly. The repeat chest x-ray that was done this m orning upon my request showed further improvement in the volume status although there is still persistent cardiomegaly. The chest x-ray still showing cardiomegaly with mild pulm vascular congestion. Note that the patient is known to have nonalcoholic liver cirrhosis. She also has CHF with preserved LV function. Echocardiogram that was done during this current admission of 12/29/2023 showed a preserved LV function with an EF around 55 to 60%. The patient also had mild mitral regurgitation, mild aortic sclerosis with mild tricuspid regurgitation. The patient had a repeat blood gas today that showed a pH of 7.54 with a pCO2 of 36 and pO2 of 67. The white cell count 12.2 with a hemoglobin 9.9 BUN is 48 creatinine of 0.6. On a separate note, the patient was also found to have an abnormal MRI of the brain that raise a suspicious for a metastatic lesion to her brain. The patient was found to have a 1.2 cm hypodense heterogeneous area in the left cerebellum. Carotid Dopplers showed carotid plaque and there was a 50 to 69% stenosis of the right internal carotid artery. MRI of the brain showed a 1.5 cm mass along with mild vasogenic edema in the inferior medial left cerebellum and the patient was started on Decadron. Noted the patient does not have any history of malignancy. She has history of liver cirrhosis, diabetes mellitus and hypertension. She also has history of diverticulosis and scoliosis of the spine. On today's evaluation of 01/07/2023, I am seeing the patient for a follow-up. The patient was taken off the BiPAP this morning and the patient was placed on 8 L of oxygen by nasal cannula. Earlier to that, the patient was on a BiPAP at a pressure of 14/8 with an FiO2 of 50%. The patient is opening her eyes spontaneously and doing some brief communication. She is a DNR/DNI CODE STATUS. She is not interested in further treatment. On examination, she continues to have a harsh cardiac murmur.In terms of respiratory status, the patient will be taken off the BiPAP of 14/8 with an FiO2 of 50% and earlier this morning, the patient was taken off the BiPAP and placed on oxygen nasal cannula. She is able to tolerate the nasal cannula without any major difficulties. Had previous echocardiogram was noted. The patient is responding nicely to diuretics and the patient is currently on Lasix 40 mg IV every 12 hours. For the past 72 hours, the patient has been at least 5 or 6 L negative fluid balance. Meanwhile, the blood work from today white cell count 13.8, hemoglobin 9.5 and a platelet count of 111. BUN is 54 with a creatinine of 0.7 and his sodium level is 134. The patient remains on Decadron. The patient remains on IV Lasix. Rest of the m edications remain unchanged. Objective - Vital Signs Vital signs: Vital Signs Temp 97.6 F 01/07/24 04:00 Pulse 69 01/07/24 04:00 Resp 24 01/07/24 04:00 BP 130/62 01/07/24 04:00 Pulse Ox 93 L 01/07/24 04:00 FiO2 50 01/07/24 08:09 Intake & Output 01/06/24 01/07/24 01/07/24 18:59 06:59 18:59 Output Total 800 800 Balance -800 -800 Weight 96 kg 92 kg Output: Urine 800 800 Other: Voiding Method Indwelling Catheter Indwelling Catheter - Exam GENERAL EXAM: Obtunded, 78-year-old white female, frail, tolerating BiPAP. The patient was taken off the BiPAP and the patient was placed on oxygen at 8 L/min nasal cannula HEAD: Normocephalic and atraumatic EYES: Normal reaction of pupils, equal size. NOSE: Clear with pink turbinates. THROAT: No erythema or exudates. NECK: No masses, no JVD. CHEST: No chest wall deformity. LUNGS: Equal air entry with diffuse inspiratory crackles throughout the posterior thorax. CVS: S1 and S2 normal with mild systolic murmur, regular rhythm. No other extra heart sounds ABDOMEN: No hepatosplenomegaly, active bowel sounds, no guarding or rigidity. SPINE: No scoliosis or deformity SKIN: No rashes CENTRAL NERVOUS SYSTEM: No focal deficits, tone is normal in all 4 extremities. EXTREMITIES: Bilateral 2-3+ pitting edema with chronic venous stasis dermatitis. No clubbing, or cyanosis. Peripheral pulses are intact. - Labs CBC & Chem 7: 01/07/24 07:18 01/07/24 07:18 Labs: Abnormal Lab Results - Last 24 Hours (Table) 01/06/24 01/06/24 01/07/24 Range/Units 10:17 20:57 06:06 WBC (3.8-10.6) k/uL RBC (3.80-5.40) m/uL Hgb (11.4-16.0) gm/dL Hct (34.0-46.0) % RDW (11.5-15.5) % Plt Count (150-450) k/uL Neutrophils # (1.3-7.7) k/uL Lymphocytes # (1.0-4.8) k/uL ABG pH 7.54 H (7.35-7.45) ABG pO2 67 L (83-108) mmHg ABG HCO3 31 H (21-25) mmol/L ABG Total CO2 32 H (19-24) mmol/L Sodium (137-145) mmol/L BUN (7-17) mg/dL Glucose (74-99) mg/dL POC Glucose (mg/dL) 145 H 149 H (70-110) mg/dL Calcium (8.4-10.2) mg/dL 01/07/24 01/07/24 Range/Units 07:18 07:18 WBC 13.8 H (3.8-10.6) k/uL RBC 3.00 L (3.80-5.40) m/uL Hgb 9.5 L (11.4-16.0) gm/dL Hct 28.3 L (34.0-46.0) % RDW 16.5 H (11.5-15.5) % Plt Count 111 L (150-450) k/uL Neutrophils # 12.2 H (1.3-7.7) k/uL Lymphocytes # 0.8 L (1.0-4.8) k/uL ABG pH (7.35-7.45) ABG pO2 (83-108) mmHg ABG HCO3 (21-25) mmol/L ABG Total CO2 (19-24) mmol/L Sodium 134 L (137-145) mmol/L BUN 54 H (7-17) mg/dL Glucose 145 H (74-99) mg/dL POC Glucose (mg/dL) (70-110) mg/dL Calcium 7.8 L (8.4-10.2) mg/dL Assessment and Plan Plan: Acute on chronic hypoxemic respiratory failure, currently BiPAP dependent, secondary to fluid overload state and diastolic congestive heart failure clinically improved and the patient has responded to diuretics. The patient was taken off the BiPAP and the patient is currently on 8 L of O2 nasal cannula. Chest x-ray showed ongoing slow improvement in the interstitial edema and volume status. The patient is still on Lasix 40 mg IV every 12 hours. Suspected 1.5 cm mass with mild vasogenic edema in the inferior medial left cerebellum, Brain MRA was ordered for further evaluation, but was reportedly refused. Right ICA stenosis, estimated 50 to 60% on carotid Doppler. There is also echogenic material within the right IJV concerning for possible thrombus. Vascular surgery has been asked to evaluate. Altered mental status, likely multifactorial related to above and toxic meta bolic encephalopathy. Patient has multiple metabolic derangements including hepatic encephalopathy, medication effect, etc. History of liver cirrhosis secondary to Banegas Hyperammonemia, was receiving lactulose, secondary to liver cirrhosis Possible UTI, strep bovis History of heart failure with preserved ejection fraction Possible PFO, patient had an echocardiogram done this admission which had a positive bubble study. The patient is a preserved of the function. Bilateral lower extremity edema with venous stasis dermatitis Diabetes mellitus type 2, non insulin-dependent History of hypertension Plan Continue IV Lasix for another 24 hours May continue to lyse BiPAP on him during the day, currently on oxygen at 8 L/min nasal cannula Monitor electrolytes and renal function Family is interested in hospice care probably at the later stage. Final decision has not been done Monitor ammonia level Rest of the medication be kept unchanged. Will continue to follow.
--- NOTE | 2024-01-07 13:00 | P.PN ---
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 On initial presentation, patient was saturating 100% on 2 L, rest of the vital signs were within normal limits. EKG showed sinus rhythm, CT head without contrast revealed 1.2 cm hypodense heterogenous area within the left cerebellum, underlying mass or developing lacunar infarct cannot be ruled out. Chest x-ray showed left hemidiaphragm. CBC showed thrombocytopenia with platelet of 140. BMP showed prerenal azotemia with BUN of 33. Total bili was 2.6, AST 67, ALT 50, ammonia 56, metabolic alkalosis with pH of 7.52, bicarb 29, CO2 30. Urinalysis negative. Patient given lactulose in the ED via NG tube, which she subsequently pulled out. Patient admitted for acute encephalopathy. Neurology consulted. MRI brain show ed suspected mass with mild vasogenic edema in the inferior medial left cerebellum. EEG did not show any epileptiform discharges. Started on steroids. Oncology also consulted. Mental status improved. Patient is refusing any further workup. Also has hyponatremia, which improved with IV fluids however now has pulmonary edema. Restarted on diuretics. Patient continues to refuse multiple different medications, does not agree with any IV diuretics, only wants to take her home dose of torsemide 20 mg daily. Had extensive conversation with the patient as well as son with regards to goals of care. Talked about hospice care, patient is still adamant about doing everything, however does not want to follow physician advice. Respiratory function continues to worsen, patient now requiring BiPAP , which she refuses at times. Family decided to make her DNR/DNI, however want to continue rest of the medical treatment. Patient started on IV diuretics. Pulmonology also consulted. Subjective: Patient seen and examined at bedside. Continues to require BiPAP for shortness of breath. Still refusing some of her medications, but taking her IV diuretics. Pertinent positives and negatives as discussed above, a complete review of systems was performed and all other systems are negative. Vitals Signs Reviewed. General: Nontoxic, in mild acute distress, appears at stated age Derm: Warm, dry Head: Atraumatic, normocephalic, symmetric Eyes: EOMI, no lid lag, anicteric sclera Mouth: No lip lesion, mucus membranes moist Cardiovascular: S1S2 reg, systolic murmur Lungs: Bilateral rales, no accessory muscle use, on BiPAP supplemental oxygen Abdominal: Soft, nontender to palpation, no guarding, no appreciable organomegaly Ext: No gross muscle atrophy, bilateral lower extremity pitting edema with chronic venous stasis dermatitis, no contractures Neuro: CN II-XI grossly intact, no focal neuro deficits Psych: Somnolent, orientedx1, following some commands Data Reviewed Today: Pertinent Labs: WBC 13.8, hemoglobin 9.5, platelet 111, sodium 134, creatinine 0.77, blood glucose range between 1 45-1 77, C. difficile negative Imaging: Chest x-ray dependently interpreted, shows pulmonary vascular congestion. Assessment and Plan: Patient is severely ill, prognosis is very guarded. 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 Continue to taper steroids -Patient is currently on Keppra 500 IV daily for seizure prophylaxis -Decadron 2 mg IV daily -Currently on IV Lasix 40 twice daily, monitor electrolytes -Continue lactulose 30 g 3 times daily -Repeat CBC and BMP tomorrow Type 2 diabetes Hyperglycemia, also steroid induced -Sliding scale insulin, monitor for hypoglycemia -Levemir 15 units, has refused a few times during this admission Chronic: Hypertension Dyslipidemia DVT ppx: lovenox Code status: Anticipated discharge place: pending clinical course Anticipated discharge time: pending clinical course Objective - Vital Signs Vital signs: Vital Signs Temp 98.8 F 01/07/24 08:00 Pulse 70 01/07/24 08:00 Resp 28 H 01/07/24 08:00 BP 128/65 02/09/24 08:00 Pulse Ox 93 L 01/07/24 04:00 FiO2 50 01/07/24 08:09 Intake & Output 01/06/24 01/07/24 01/07/24 18:59 06:59 18:59 Output Total 800 800 Balance -800 -800 Weight 96 kg 92 kg Output: Urine 800 800 Other: Voiding Method Indwelling Catheter Indwelling Catheter Indwelling Catheter - Labs CBC & Chem 7: 01/07/24 07:18 01/07/24 07:18 Labs: Abnormal Lab Results - Last 24 Hours (Table) 01/06/24 01/07/24 01/07/24 Range/Units 20:57 06:06 07:18 WBC 13.8 H (3.8-10.6) k/uL RBC 3.00 L (3.80-5.40) m/uL Hgb 9.5 L (11.4-16.0) gm/dL Hct 28.3 L (34.0-46.0) % RDW 16.5 H (11.5-15.5) % Plt Count 111 L (150-450) k/uL Neutrophils # 12.2 H (1.3-7.7) k/uL Lymphocytes # 0.8 L (1.0-4.8) k/uL Sodium (137-145) mmol/L BUN (7-17) mg/dL Glucose (74-99) mg/dL POC Glucose (mg/dL) 145 H 149 H (70-110) mg/dL Calcium (8.4-10.2) mg/dL 01/07/24 01/07/24 Range/Units 07:18 11:32 WBC (3.8-10.6) k/uL RBC (3.80-5.40) m/uL Hgb (11.4-16.0) gm/dL Hct (34.0-46.0) % RDW (11.5-15.5) % Plt Count (150-450) k/uL Neutrophils # (1.3-7.7) k/uL Lymphocytes # (1.0-4.8) k/uL Sodium 134 L (137-145) mmol/L BUN 54 H (7-17) mg/dL Glucose 145 H (74-99) mg/dL POC Glucose (mg/dL) 177 H (70-110) mg/dL Calcium 7.8 L (8.4-10.2) mg/dL
[2024-01-07 16:38] LABS: Glucose,Whole Blood 240 mg/dL (70-110)
[2024-01-07] MEDS: NYSTATIN 100,000 UNIT/ML SUSP 500,000 UNIT/5 ML CUP PO SCH (18:22)
[2024-01-07 20:11] LABS: Glucose,Whole Blood 362 mg/dL (70-110)
[2024-01-08 06:19] LABS: Glucose,Whole Blood 265 mg/dL (70-110)
--- NOTE | 2024-01-08 09:39 | P.PN ---
Subjective Progress Note Date: 01/07/24 01/07/2024: Patient was seen for a follow-up. Patient's son was also present. He states that she is not doing well, having difficulty with breathing. She appears to be in more respiratory distress. Patient has hepatic cirrhosis, CHF, fluid overload. Patient sitting in the bed, appears to be using accessory muscles of respiration, and mild to moderate respiratory distress. Patient is oxygen by nasal cannula. 01/04/2024: Patient initially seen by Dr. Clark. Please refer to his note for details. Patient was seen for a follow-up. Patient is laying in the bed, appears s omewhat in respiratory distress. Patient is being transferred to [facility]. Patient's vitals at this time his blood pressure 153/63, pulse rate 60/min, temperature 97.6 and saturation 98%. Patient at present denies any headache any problem with the vision. Patient is declining MRI of the brain with contrast. Some the other workup during this hospital visit consisted of: Ammonia is a 56, sodium is 134, BUN is 33, AST of 67 ALT 50. Total Bilitrubin is 2.6 Plasma lactic acid 2.8 and latest is 3.5 Lipid panel is triglycerides 73, cholesterol of 142, LDL 79 and HDL 48 TSH is 1.85 Hemoglobin A1c is 6.5 Carotid duplex was reported as echogenic material is seen within the right eye IVD which limits evaluation. There is suspicion for loose carotid plaque and increased risk for stroke. Suspect 50-69 stenosis at the origin of the right ICA. Vascular surgery consultation is recommended. No ultrasound evidence for hemodynamically significant stenosis of the visualized left carotid arterial system. Right vertebral artery is not visualized. 2D echo: Was reported as difficult patient management. Bubble study appears mildly positive within cardiac beats of agitation saline injection. Left ventricular ejection fraction is estimated 55-60%. Mild concentric left v entricular hypertrophy. Calcified aortic valve with mild aortic stenosis. MR the brain is reported as suspected mass with mild vasogenic edema in the inferior medial left cerebellum. Differential however does still include a 1.5 cm contusion. Finding correlate with a CT examination. Chronic appearing multiple scattered white matter ischemic type changes in deep white matter. I personally reviewed MRI brain, agree with the findings. Routine EEG is abnormal. The background slowing suggestive of severe encephalopathy. The study is limited because of the diffuse myogenic artifact. There is no epileptiform discharges or seizure on the EEG. Objective - Vital Signs Vital signs: Vital Signs Temp 98.8 F 01/07/24 08:00 Pulse 70 01/07/24 08:00 Resp 28 H 01/07/24 08:00 BP 128/65 01/07/24 08:00 Pulse Ox 93 L 01/07/24 04:00 FiO2 50 01/07/24 08:09 Intake & Output 01/06/24 01/07/24 01/07/24 18:59 06:59 18:59 Output Total 800 800 Balance -800 -800 Weight 96 kg 92 kg Output: Urine 800 800 Other: Voiding Method Indwelling Catheter Indwelling Catheter Indwelling Catheter - Exam Patient is alert and awake in no distress. She is slightly groggy. Patient appears to be in labored breathing, short of breath. Speech and language functions are normal. Visual ferris are full, face is symmetric, extraocular muscles are intact. There is no pronator drift, no myoclonic jerks. Strength is normal in the upper limbs. In the lower limbs hip flexion is 4-and ankle dorsiflexion 5 bilaterally. There is very mild tremors of outstretched hands. Sensory to touch is equal. Abdomen appears distended. - Labs CBC & Chem 7: 01/07/24 07:18 01/07/24 07:18 Labs: Abnormal Lab Results - Last 24 Hours (Table) 01/06/24 01/07/24 01/07/24 Range/Units 20:57 06:06 07:18 WBC 13.8 H (3.8-10.6) k/uL RBC 3.00 L (3.80-5.40) m/uL Hgb 9.5 L (11.4-16.0) gm/dL Hct 28.3 L (34.0-46.0) % RDW 16.5 H (11.5-15.5) % Plt Count 111 L (150-450) k/uL Neutrophils # 12.2 H (1.3-7.7) k/uL Lymphocytes # 0.8 L (1.0-4.8) k/uL Sodium (137-145) mmol/L BUN (7-17) mg/dL Glucose (74-99) mg/dL POC Glucose (mg/dL) 145 H 149 H (70-110) mg/dL Calcium (8.4-10.2) mg/dL 01/07/24 01/07/24 Range/Units 07:18 11:32 WBC (3.8-10.6) k/uL RBC (3.80-5.40) m/uL Hgb (11.4-16.0) gm/dL Hct (34.0-46.0) % RDW (11.5-15.5) % Plt Count (150-450) k/uL Neutrophils # (1.3-7.7) k/uL Lymphocytes # (1.0-4.8) k/uL Sodium 134 L (137-145) mmol/L BUN 54 H (7-17) mg/dL Glucose 145 H (74-99) mg/dL POC Glucose (mg/dL) 177 H (70-110) mg/dL Calcium 7.8 L (8.4-10.2) mg/dL Assessment and Plan Assessment: This is an 78-year-old woman who presented from [facility]CF because of altered mental status. 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 Suspected mass with mild vasogenic edema in the inferior medial left cerebellum on MRI Brain Metabolic encephalopathy due to multifactorial one of them is hepatic encephalopathy and suspected brain mass Right ICA 50-60% stenosis on carotid duplex History of cirrhosis with secondary Banegas. Patient has elevated the ammonia with the slight elevation of liver function tests Significant edema in the lower extremity with erythema Hypertension Chronic hypoxic respiratory failure on home oxygen [id number] diabetes mellitus Medication noncompliance Plan: Patient at present not able to undergo MRI of the brain with contrast because of her respiratory status. Cannot lay flat for that period of time. Oncology following. Recommending further workup however patient is refusing. And patient also not able to tolerate the testing. Patient is on Decadron, which is being tapered down, now 2 mg IV push once daily. Patient never had any history of seizures. Patient's EEG did not reveal any epileptiform activity. Patient is groggy. We will taper off Keppra. Vascular surgery team for Right ICA stated no intervention and no intervention. It seems she has possible thrombus at right IJ vein per carotid duplex. She may had previous IJ catheter per vascular. On aspirin 81 mg daily as well as Lipitor 40 mg daily. 2D echo shows possible PFO. Every 4 hours neuro checks Cardiac monitoring PT OT and [employer] are consulted We'll defer the rest of the medical measure the primary and other specialists For DVT prophylaxis the patient is on Lovenox Patient is no code. Discussed with patient's son, they want to treat as much as they can before considering hospice. Neurology will see patient sporadically. Dr. Gabe Cameron to resume neurology service from 01/10/2024.
--- NOTE | 2024-01-08 11:09 | P.PN ---
Subjective Progress Note Date: 01/08/24 78-year-old female patient who is being seen for a hypoxic and hypercapnic respiratory failure the patient is currently on a BiPAP at a pressure of 14 over 8 cm of water with an FiO2 of 40%. The patient's blood gas showed a pH of 7.49 with a pCO2 of 40 and pO2 of 56 while on the BiPAP. She was quite obtunded yesterday and she is essentially the same as yesterday with some limited improvement. She is reaching out to the mask occasionally and she tries to pull it up. I reviewed the series of chest x-ray that was done during this current admission and the patient has smaller lung volumes and evidence of increased pulmonary vascular marking and congestion and the patient is currently on diuretics and the patient is producing Adequate amount of urine output. Note that over the past 24 to 48 hours, the patient has diuresed a total of 4-1/2 to 5 L. The most recent chest x-ray from yesterday showed improvement in the volume status and cardiomegaly. The repeat chest x-ray that was done this m orning upon my request showed further improvement in the volume status although there is still persistent cardiomegaly. The chest x-ray still showing cardiomegaly with mild pulm vascular congestion. Note that the patient is known to have nonalcoholic liver cirrhosis. She also has CHF with preserved LV function. Echocardiogram that was done during this current admission of 12/29/2023 showed a preserved LV function with an EF around 55 to 60%. The patient also had mild mitral regurgitation, mild aortic sclerosis with mild tricuspid regurgitation. The patient had a repeat blood gas today that showed a pH of 7.54 with a pCO2 of 36 and pO2 of 67. The white cell count 12.2 with a hemoglobin 9.9 BUN is 48 creatinine of 0.6. On a separate note, the patient was also found to have an abnormal MRI of the brain that raise a suspicious for a metastatic lesion to her brain. The patient was found to have a 1.2 cm hypodense heterogeneous area in the left cerebellum. Carotid Dopplers showed carotid plaque and there was a 50 to 69% stenosis of the right internal carotid artery. MRI of the brain showed a 1.5 cm mass along with mild vasogenic edema in the inferior medial left cerebellum and the patient was started on Decadron. Noted the patient does not have any history of malignancy. She has history of liver cirrhosis, diabetes mellitus and hypertension. She also has history of diverticulosis and scoliosis of the spine. On today's evaluation of 01/07/2023, I am seeing the patient for a follow-up. The patient was taken off the BiPAP this morning and the patient was placed on 8 L of oxygen by nasal cannula. Earlier to that, the patient was on a BiPAP at a pressure of 14/8 with an FiO2 of 50%. The patient is opening her eyes spontaneously and doing some brief communication. She is a DNR/DNI CODE STATUS. She is not interested in further treatment. On examination, she continues to have a harsh cardiac murmur.In terms of respiratory status, the patient will be taken off the BiPAP of 14/8 with an FiO2 of 50% and earlier this morning, the patient was taken off the BiPAP and placed on oxygen nasal cannula. She is able to tolerate the nasal cannula without any major difficulties. Had previous echocardiogram was noted. The patient is responding nicely to diuretics and the patient is currently on Lasix 40 mg IV every 12 hours. For the past 72 hours, the patient has been at least 5 or 6 L negative fluid balance. Meanwhile, the blood work from today white cell count 13.8, hemoglobin 9.5 and a platelet count of 111. BUN is 54 with a creatinine of 0.7 and his sodium level is 134. The patient remains on Decadron. The patient remains on IV Lasix. Rest of the m edications remain unchanged. On today's evaluation of 01/08/2023, seen the patient for a follow-up. The patient is arousable and she is waking up without having any major difficulties and the patient accordingly was taken off the BiPAP this morning and she was placed on oxygen at 8 L/min nasal cannula. Earlier, the patient was in a BiPAP at a pressure of 14 over 8 cm of water with an FiO2 of 50%. I was told that she was confused earlier and somewhat restless and she has a sitter at the bedside. Nevertheless, at the time of my evaluation, the patient seems to be significantly more more appropriate. She is still on Lasix 40 mg IV every 12 hours. She is doing well. Blood work is still pending from today. No focal neurological deficits. Chest x-ray that was done yesterday was consistent with cardiomegaly and CHF. The patient has not made her final decision regarding her advanced directives. She is a DNR/DNI and she is considering comfort care measures and further discussion is still being done with the family. She remains on Decadron. She remains on Lasix. No antibiotic coverage at this point in time. Awaiting labs. Objective - Vital Signs Vital signs: Vital Signs Temp 97.1 F L 01/08/24 04:00 Pulse 73 01/08/24 04:00 Resp 21 01/08/24 04:00 BP 113/60 01/08/24 04:00 Pulse Ox 98 01/08/24 04:00 FiO2 50 01/08/24 04:05 Intake & Output 01/07/24 01/08/24 01/08/24 18:59 06:59 18:59 Intake Total 920 Output Total 800 300 Balance 120 -300 Weight 91 kg Intake: Oral 920 Output: Urine 800 300 Other: Voiding Method Indwelling Catheter Indwelling Catheter - Exam GENERAL EXAM: Obtunded, 78-year-old white female, frail, tolerating BiPAP. The patient was taken off the BiPAP and the patient was placed on oxygen at 8 L/min nasal cannula HEAD: Normocephalic and atraumatic EYES: Normal reaction of pupils, equal size. NOSE: Clear with pink turbinates. THROAT: No erythema or exudates. NECK: No masses, no JVD. CHEST: No chest wall deformity. LUNGS: Equal air entry with diffuse inspiratory crackles throughout the posterior thorax. CVS: S1 and S2 normal with mild systolic murmur, regular rhythm. No other extra heart sounds ABDOMEN: No hepatosplenomegaly, active bowel sounds, no guarding or rigidity. SPINE: No scoliosis or deformity SKIN: No rashes CENTRAL NERVOUS SYSTEM: No focal deficits, tone is normal in all 4 extremities. EXTREMITIES: Bilateral 2-3+ pitting edema with chronic venous stasis dermatitis. No clubbing, or cyanosis. Peripheral pulses are intact. - Labs CBC & Chem 7: 01/07/24 07:18 01/07/24 07:18 Labs: Abnormal Lab Results - Last 24 Hours (Table) 01/07/24 01/07/24 01/07/24 Range/Units 07:18 07:18 11:32 WBC 13.8 H (3.8-10.6) k/uL RBC 3.00 L (3.80-5.40) m/uL Hgb 9.5 L (11.4-16.0) gm/dL Hct 28.3 L (34.0-46.0) % RDW 16.5 H (11.5-15.5) % Plt Count 111 L (150-450) k/uL Neutrophils # 12.2 H (1.3-7.7) k/uL Lymphocytes # 0.8 L (1.0-4.8) k/uL Sodium 134 L (137-145) mmol/L BUN 54 H (7-17) mg/dL Glucose 145 H (74-99) mg/dL POC Glucose (mg/dL) 177 H (70-110) mg/dL Calcium 7.8 L (8.4-10.2) mg/dL 01/07/24 01/07/24 01/08/24 Range/Units 16:33 20:09 06:17 WBC (3.8-10.6) k/uL RBC (3.80-5.40) m/uL Hgb (11.4-16.0) gm/dL Hct (34.0-46.0) % RDW (11.5-15.5) % Plt Count (150-450) k/uL Neutrophils # (1.3-7.7) k/uL Lymphocytes # (1.0-4.8) k/uL Sodium (137-145) mmol/L BUN (7-17) mg/dL Glucose (74-99) mg/dL POC Glucose (mg/dL) 240 H 362 H 265 H (70-110) mg/dL Calcium (8.4-10.2) mg/dL Assessment and Plan Plan: Acute on chronic hypoxemic respiratory failure, currently BiPAP dependent, secondary to fluid overload state and diastolic congestive heart failure clinica lly improved and the patient has responded to diuretics. The patient was taken off the BiPAP and the patient is currently on 8 L of O2 nasal cannula. Chest x- ray showed ongoing slow improvement in the interstitial edema and volume status. The patient is still on Lasix 40 mg IV every 12 hours. The patient is clinically improved and the patient was taken off the BiPAP this morning and placed again on 8 L of oxygen by nasal cannula. Breathing is not as labored as earlier. Suspected 1.5 cm mass with mild vasogenic edema in the inferior medial left cerebellum, Brain MRA was ordered for further evaluation, but was reportedly refused. Right ICA stenosis, estimated 50 to 60% on carotid Doppler. There is also echogenic material within the right IJV concerning for possible thrombus. Vascular surgery has been asked to evaluate. Altered mental status, likely multifactorial related to above and toxic metabolic encephalopathy. Patient has multiple metabolic derangements including hepatic encephalopathy, medication effect, etc. History of liver cirrhosis secondary to Banegas Hyperammonemia, was receiving lactulose, secondary to liver cirrhosis Possible UTI, strep bovis History of heart failure with preserved ejection fraction Possible PFO, patient had an echocardiogram done this admission which had a positive bubble study. The patient is a preserved of the function. Bilateral lower extremity edema with venous stasis dermatitis Diabetes mellitus type 2, non insulin-dependent History of hypertension Plan Continue IV Lasix for another 24 hours, as the patient is responding to IV Lasix and there is further optimization of the volume status. Overall pulmonary status is stable while off the BiPAP. Monitor electrolytes and renal function Family is interested in hospice care probably at the later stage. Final decision has not been done Monitor ammonia level Rest of the medication be kept unchanged. Will continue to follow.
--- NOTE | 2024-01-08 11:38 | P.PN ---
Subjective Progress Note Date: 01/08/24 Hospital Course: 78-year-old female with history of liver cirrhosis secondary to Rodriguez, hypertension, chronic hypoxic respiratory failure on 2 L, [id number] diabetes, medication noncompliance, presenting from nursing facility with complaints of altered mentation. On initial presentation, patient was saturating 100% on 2 L, rest of the vital signs were within normal limits. EKG showed sinus rhythm, CT head without contrast revealed 1.2 cm hypodense heterogenous area within the left cerebellum, underlying mass or developing lacunar infarct cannot be ruled out. Chest x-ray showed left hemidiaphragm. CBC showed thrombocytopenia with platelet of 140. BMP showed prerenal azotemia with BUN of 33. Total bili was 2.6, AST 67, ALT 50, ammonia 56, metabolic alkalosis with pH of 7.52, bicarb 29, CO2 30. Urinalysis negative. Patient given lactulose in the ED via NG tube, which she subsequently pulled out. Patient admitted for acute encephalopathy. Neurology consulted. MRI brain show ed suspected mass with mild vasogenic edema in the inferior medial left cerebellum. EEG did not show any epileptiform discharges. Started on steroids. Oncology also consulted. Mental status improved. Patient is refusing any further workup. Also has hyponatremia, which improved with IV fluids however now has pulmonary edema. Restarted on diuretics. Patient continues to refuse multiple different medications, does not agree with any IV diuretics, only wants to take her home dose of torsemide 20 mg daily. Had extensive conversation with the patient as well as son with regards to goals of care. Talked about hospice care, patient is still adamant about doing everything, however does not want to follow physician advice. Respiratory function continues to worsen, patient now requiring BiPAP , which she refuses at times. Family decided to make her DNR/DNI, however want to continue rest of the medical treatment. Patient started on IV diuretics. Pulmonology also consulted. Subjective: Patient seen and examined at bedside. No longer on BIPAP, on 8L NC. Has no complaints of dyspnea or pain this morning. Vitals Signs Reviewed. Gen: In NAD, non-toxic HEENT: normocephalic, atraumatic, hearing acuity is intant, mucous membranes moist CVS: perfusing all extremities well, no pitting edema, Respiratory: symmetric chest expansion, no accessory muscle use, GI: soft, NTTP, ND, : no suprapubic tenderness, no CVA tenderness MSK/Derm: no rashes, cyanosis Neuro: CN II-XII intact, no motor weakness, Psych: cooperative, euthymic mood, judgment and insight is intact Data Reviewed Today: Blood sugars have been elevated in the 200s to 300s Assessment and Plan: Patient is severely ill, prognosis is very guarded. Active: Acute hypoxic respiratory failure Hypervolemia, pulmonary edema History of RODRIGUEZ cirrhosis Acute metabolic encephalopathy 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 Hyponatremia, improving Hyperbilirubinemia Hyperammonemia, resolved Metabolic alkalosis, resolved Leukocytosis, likely reactive and steroid-induced Diarrhea, resolving Lactic acidosis, likely type B, resolved -Pulmonology note reviewed, continue current management with IV Lasix and Decadron -On Seroquel 25 oral at night, which patient refused, avoid IV Ativan and IV m orphine for possible -Neurology following, if patient refusing MRI, will likely need outpatient foll ow-up -Oncology following, recommending further workup however patient is refusing. Continue to taper steroids -Patient is currently on Keppra 500 IV daily for seizure prophylaxis -Decadron 2 mg IV daily -Currently on IV Lasix 40 twice daily, monitor electrolytes -Continue lactulose 30 g 3 times daily -Repeat CBC and BMP tomorrow Type 2 diabetes Hyperglycemia, also steroid induced -Sliding scale insulin, monitor for hypoglycemia -Levemir 15 units, has refused a few times during this admission Chronic: Hypertension Dyslipidemia DVT ppx: lovenox Code status: Anticipated discharge place: pending clinical course Anticipated discharge time: pending clinical course Objective - Vital Signs Vital signs: Vital Signs Temp 97.6 F 01/08/24 09:01 Pulse 86 01/08/24 09:01 Resp 16 01/08/24 09:01 BP 116/61 01/08/24 09:01 Pulse Ox 93 L 01/08/24 09:01 FiO2 50 01/08/24 08:21 Intake & Output 01/07/24 01/08/24 01/08/24 18:59 06:59 18:59 Intake Total 920 10 Output Total 800 300 Balance 120 -300 10 Weight 91 kg Intake: IV 10 Invasive Line 5 10 Oral 920 Output: Urine 800 300 Other: Voiding Method Indwelling Catheter Indwelling Catheter Indwelling Catheter - Labs CBC & Chem 7: 02/09/24 07:18 01/07/24 07:18 Labs: Abnormal Lab Results - Last 24 Hours (Table) 01/07/24 01/07/24 01/07/24 Range/Units 11:32 16:33 20:09 POC Glucose (mg/dL) 177 H 240 H 362 H (70-110) mg/dL 01/08/24 Range/Units 06:17 POC Glucose (mg/dL) 265 H (70-110) mg/dL
[2024-01-08 11:41] LABS: Glucose,Whole Blood 264 mg/dL (70-110)
[2024-01-08 12:08] LABS: Anisocytosis Slight; Basophils % (A) 0 %; Eosinophils % (A) 0 %; HGB 9.8 gm/dL (11.4-16.0); Hypochromasia Slight; Lymphocytes # (A) 0.4 k/uL (1.0-4.8); Lymphocytes % (A) 3 %; MCH 31.3 pg (25.0-35.0); MCHC 32.7 g/dL (31.0-37.0); MCV 95.7 fL (80.0-100.0); Macrocytosis Slight; Mean Platelet Volume 8.4; Monocytes # (A) 0.6 k/uL (0-1.0); Monocytes % (A) 4 %; Neutrophils # (A) 13.8 k/uL (1.3-7.7); Neutrophils % (A) 92 %; Platelet Count 121 k/uL (150-450); Poikilocytosis Slight; RBC 3.14 m/uL (3.80-5.40); RDW 16.7 % (11.5-15.5); WBC 14.9 k/uL (3.8-10.6)
[2024-01-08 12:26] LABS: ALT 55 U/L (4-34); AST 55 U/L (14-36); African American GFR (CKD) 81 (>60 ml/min/1.73 sqM); Albumin 2.3 g/dL (3.5-5.0); Alkaline Phosphatase 90 U/L (38-126); Anion Gap 6 mmol/L; Blood Urea Nitrogen 54 mg/dL (7-17); Calcium 7.7 mg/dL (8.4-10.2); Carbon Dioxide 25 mmol/L (22-30); Chloride 95 mmol/L (98-107); Glucose 251 mg/dL (74-99); Non-African American GFR(CKD) 70 (>60 ml/min/1.73 sqM); Sodium 126 mmol/L (137-145); Total Bilirubin 3.9 mg/dL (0.2-1.3); Total Protein 5.7 g/dL (6.3-8.2)
[2024-01-08 17:01] LABS: Glucose,Whole Blood 299 mg/dL (70-110)
[2024-01-08 20:05] LABS: Glucose,Whole Blood 397 mg/dL (70-110)
[2024-01-08] MEDS: LORazepam 2 MG/ML INJ IV STA (23:50)
[2024-01-09 06:04] LABS: Glucose,Whole Blood 222 mg/dL (70-110)
--- NOTE | 2024-01-09 06:41 | XR ---
EXAMINATION TYPE: XR chest 1V DATE OF EXAM: 01/09/2024 COMPARISON: 01/07/2024 HISTORY: CHF, evaluate for progression TECHNIQUE: Single frontal view of the chest is obtained. FINDINGS: There is been no change in the diffuse alveolar and interstitial infiltrates. Is no change in the moderate elevation right hemidiaphragm. There is no pneumothorax. The osseous structures are intact IMPRESSION: Marked acute cardiopulmonary disease with no significant interval change.
--- NOTE | 2024-01-09 10:54 | P.PN ---
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 On initial presentation, patient was saturating 100% on 2 L, rest of the vital signs were within normal limits. EKG showed sinus rhythm, CT head without contrast revealed 1.2 cm hypodense heterogenous area within the left cerebellum, underlying mass or developing lacunar infarct cannot be ruled out. Chest x-ray showed left hemidiaphragm. CBC showed thrombocytopenia with platelet of 140. BMP showed prerenal azotemia with BUN of 33. Total bili was 2.6, AST 67, ALT 50, ammonia 56, metabolic alkalosis with pH of 7.52, bicarb 29, CO2 30. Urinalysis negative. Patient given lactulose in the ED via NG tube, which she subsequently pulled out. Patient admitted for acute encephalopathy. Neurology consulted. MRI brain show ed suspected mass with mild vasogenic edema in the inferior medial left cerebellum. EEG did not show any epileptiform discharges. Started on steroids. Oncology also consulted. Mental status improved. Patient is refusing any further workup. Also has hyponatremia, which improved with IV fluids however now has pulmonary edema. Restarted on diuretics. Patient continues to refuse multiple different medications, does not agree with any IV diuretics, only wants to take her home dose of torsemide 20 mg daily. Had extensive conversation with the patient as well as son with regards to goals of care. Talked about hospice care, patient is still adamant about doing everything, however does not want to follow physician advice. Respiratory function continues to worsen, patient now requiring BiPAP , which she refuses at times. Family decided to make her DNR/DNI, however want to continue rest of the medical treatment. Patient started on IV diuretics. Pulmonology also consulted. Subjective: Patient seen and examined at bedside. Pt seemed sleepy and did not participate in my interview. Vitals Signs Reviewed. Gen: In NAD, non-toxic HEENT: normocephalic, atraumatic, hearing acuity is intant, mucous membranes moist CVS: perfusing all extremities well, no pitting edema, Respiratory: symmetric chest expansion, no accessory muscle use, GI: soft, NTTP, ND, : no suprapubic tenderness, no CVA tenderness MSK/Derm: no rashes, cyanosis Neuro: CN II-XII intact, no motor weakness, Psych: cooperative, euthymic mood, judgment and insight is intact Data Reviewed Today: Blood sugars have been elevated in the 200s to 300s Assessment and Plan: Patient is severely ill, prognosis is very guarded. 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 Continue to taper steroids -Patient is currently on Keppra 500 IV daily for seizure prophylaxis -Decadron 2 mg IV daily -Currently on IV Lasix 40 twice daily, monitor electrolytes -Continue lactulose 30 g 3 times daily -Repeat CBC and BMP tomorrow Type 2 diabetes Hyperglycemia, also steroid induced -Sliding scale insulin, monitor for hypoglycemia -Levemir 15 units, has refused a few times during this admission Chronic: Hypertension Dyslipidemia DVT ppx: lovenox Code status: Anticipated discharge place: pending clinical course Anticipated discharge time: pending clinical course Objective - Vital Signs Vital signs: Vital Signs Temp 96.5 F L 01/09/24 08:00 Pulse 59 L 01/09/24 08:00 Resp 32 H 01/09/24 08:00 BP 133/66 01/09/24 08:00 Pulse Ox 100 01/09/24 08:00 FiO2 50 01/09/24 08:06 Intake & Output 01/08/24 01/09/24 01/09/24 18:59 06:59 18:59 Intake Total 140 20 10 Output Total 900 150 Balance -760 -130 10 Weight 92.5 kg Intake: IV 20 20 10 Invasive Line 5 20 20 10 Oral 120 Output: Urine 900 150 Other: Voiding Method Indwelling Catheter Indwelling Catheter Indwelling Catheter - Labs CBC & Chem 7: 01/08/24 11:40 01/08/24 11:40 Labs: Abnormal Lab Results - Last 24 Hours (Table) 01/08/24 01/08/24 01/08/24 Range/Units 11:38 11:40 11:40 WBC 14.9 H (3.8-10.6) k/uL RBC 3.14 L (3.80-5.40) m/uL Hgb 9.8 L (11.4-16.0) gm/dL Hct 30.0 L (34.0-46.0) % RDW 16.7 H (11.5-15.5) % Plt Count 121 L (150-450) k/uL Neutrophils # 13.8 H (1.3-7.7) k/uL Lymphocytes # 0.4 L (1.0-4.8) k/uL Sodium 126 L (137-145) mmol/L Chloride 95 L (98-107) mmol/L BUN 54 H (7-17) mg/dL Glucose 251 H (74-99) mg/dL POC Glucose (mg/dL) 264 H (70-110) mg/dL Calcium 7.7 L (8.4-10.2) mg/dL Total Bilirubin 3.9 H (0.2-1.3) mg/dL AST 55 H (14-36) U/L ALT 55 H (4-34) U/L Total Protein 5.7 L (6.3-8.2) g/dL Albumin 2.3 L (3.5-5.0) g/dL 01/08/24 01/08/24 01/09/24 Range/Units 16:50 20:03 06:02 WBC (3.8-10.6) k/uL RBC (3.80-5.40) m/uL Hgb (11.4-16.0) gm/dL Hct (34.0-46.0) % RDW (11.5-15.5) % Plt Count (150-450) k/uL Neutrophils # (1.3-7.7) k/uL Lymphocytes # (1.0-4.8) k/uL Sodium (137-145) mmol/L Chloride (98-107) mmol/L BUN (7-17) mg/dL Glucose (74-99) mg/dL POC Glucose (mg/dL) 299 H 397 H 222 H (70-110) mg/dL Calcium (8.4-10.2) mg/dL Total Bilirubin (0.2-1.3) mg/dL AST (14-36) U/L ALT (4-34) U/L Total Protein (6.3-8.2) g/dL Albumin (3.5-5.0) g/dL
[2024-01-09 11:43] LABS: Glucose,Whole Blood 188 mg/dL (70-110)
--- NOTE | 2024-01-09 12:46 | P.PN ---
Subjective Progress Note Date: 01/09/24 78-year-old female patient who is being seen for a hypoxic and hypercapnic respiratory failure the patient is currently on a BiPAP at a pressure of 14 over 8 cm of water with an FiO2 of 40%. The patient's blood gas showed a pH of 7.49 with a pCO2 of 40 and pO2 of 56 while on the BiPAP. She was quite obtunded yesterday and she is essentially the same as yesterday with some limited improvement. She is reaching out to the mask occasionally and she tries to pull it up. I reviewed the series of chest x-ray that was done during this current admission and the patient has smaller lung volumes and evidence of increased pulmonary vascular marking and congestion and the patient is currently on diuretics and the patient is producing Adequate amount of urine output. Note that over the past 24 to 48 hours, the patient has diuresed a total of 4-1/2 to 5 L. The most recent chest x-ray from yesterday showed improvement in the volume status and cardiomegaly. The repeat chest x-ray that was done this m orning upon my request showed further improvement in the volume status although there is still persistent cardiomegaly. The chest x-ray still showing cardiomegaly with mild pulm vascular congestion. Note that the patient is known to have nonalcoholic liver cirrhosis. She also has CHF with preserved LV function. Echocardiogram that was done during this current admission of 12/29/2023 showed a preserved LV function with an EF around 55 to 60%. The patient also had mild mitral regurgitation, mild aortic sclerosis with mild tricuspid regurgitation. The patient had a repeat blood gas today that showed a pH of 7.54 with a pCO2 of 36 and pO2 of 67. The white cell count 12.2 with a hemoglobin 9.9 BUN is 48 creatinine of 0.6. On a separate note, the patient was also found to have an abnormal MRI of the brain that raise a suspicious for a metastatic lesion to her brain. The patient was found to have a 1.2 cm hypodense heterogeneous area in the left cerebellum. Carotid Dopplers showed carotid plaque and there was a 50 to 69% stenosis of the right internal carotid artery. MRI of the brain showed a 1.5 cm mass along with mild vasogenic edema in the inferior medial left cerebellum and the patient was started on Decadron. Noted the patient does not have any history of malignancy. She has history of liver cirrhosis, diabetes mellitus and hypertension. She also has history of diverticulosis and scoliosis of the spine. On today's evaluation of 01/07/2023, I am seeing the patient for a follow-up. The patient was taken off the BiPAP this morning and the patient was placed on 8 L of oxygen by nasal cannula. Earlier to that, the patient was on a BiPAP at a pressure of 14/8 with an FiO2 of 50%. The patient is opening her eyes spontaneously and doing some brief communication. She is a DNR/DNI CODE STATUS. She is not interested in further treatment. On examination, she continues to have a harsh cardiac murmur.In terms of respiratory status, the patient will be taken off the BiPAP of 14/8 with an FiO2 of 50% and earlier this morning, the patient was taken off the BiPAP and placed on oxygen nasal cannula. She is able to tolerate the nasal cannula without any major difficulties. Had previous echocardiogram was noted. The patient is responding nicely to diuretics and the patient is currently on Lasix 40 mg IV every 12 hours. For the past 72 hours, the patient has been at least 5 or 6 L negative fluid balance. Meanwhile, the blood work from today white cell count 13.8, hemoglobin 9.5 and a platelet count of 111. BUN is 54 with a creatinine of 0.7 and his sodium level is 134. The patient remains on Decadron. The patient remains on IV Lasix. Rest of the m edications remain unchanged. On today's evaluation of 01/08/2023, seen the patient for a follow-up. The patient is arousable and she is waking up without having any major difficulties and the patient accordingly was taken off the BiPAP this morning and she was placed on oxygen at 8 L/min nasal cannula. Earlier, the patient was in a BiPAP at a pressure of 14 over 8 cm of water with an FiO2 of 50%. I was told that she was confused earlier and somewhat restless and she has a sitter at the bedside. Nevertheless, at the time of my evaluation, the patient seems to be significantly more more appropriate. She is still on Lasix 40 mg IV every 12 hours. She is doing well. Blood work is still pending from today. No focal neurological deficits. Chest x-ray that was done yesterday was consistent with cardiomegaly and CHF. The patient has not made her final decision regarding her advanced directives. She is a DNR/DNI and she is considering comfort care measures and further discussion is still being done with the family. She remains on Decadron. She remains on Lasix. No antibiotic coverage at this point in time. Awaiting labs. On 01/09/2024, the patient still doing poor. On and off, she gets confused and agitated. She has a sitter at the bedside. She was on a BiPAP throughout the night at a pressure of 14/8 and the patient is currently on a "nasal cannula. She is refusing to eat. At times she reaches out to her mask/nasal cannula then tries to pull. She remains on Decadron. She does have a [employer] lesion that is thought to be metastatic in nature. She remains on Lasix 40 mg IV every 12 hours. Her current pulse ox is lower than 94%. Awaiting labs from today. Yesterday's labs were all stable. She did have some hepatic dysfunction. There was some mild elevation of the LFTs. She remains on Levemir insulin 15 units and she is also on NovoLog/scale coverage. She remains on Decadron and Keppra. She is quite debilitated. Family is interested in hospice care and a final decision has not been made yet. Record status remains DNR/DNI. Repeat chest x- ray was done today and this shows some mild progressive congestion and is essentially unchanged compared to yesterday and we decided to continue with with the diuretics. The patient also has some elevation of the right hemidiaphragm. Note that her chest x-ray initially improved and over the past 24 to 48 hours, no further improvement with persistent pulm vascular congestion. . Declines to eat. Objective - Vital Signs Vital signs: Vital Signs Temp 96.5 F L 01/09/24 08:00 Pulse 59 L 01/09/24 08:00 Resp 32 H 01/09/24 08:00 BP 133/66 01/09/24 08:00 Pulse Ox 100 01/09/24 08:00 FiO2 50 01/09/24 08:06 Intake & Output 01/08/24 01/09/24 01/09/24 18:59 06:59 18:59 Intake Total 140 20 10 Output Total 900 150 Balance -760 -130 10 Weight 92.5 kg Intake: IV 20 20 10 Invasive Line 5 20 20 10 Oral 120 Output: Urine 900 150 Other: Voiding Method Indwelling Catheter Indwelling Catheter - Exam GENERAL EXAM: Obtunded, 78-year-old white female, frail, tolerating BiPAP. The patient was taken off the BiPAP and the patient was placed on oxygen at 8 L/min nasal cannula HEAD: Normocephalic and atraumatic EYES: Normal reaction of pupils, equal size. NOSE: Clear with pink turbinates. THROAT: No erythema or exudates. NECK: No masses, no JVD. CHEST: No chest wall deformity. LUNGS: Equal air entry with diffuse inspiratory crackles throughout the posterior thorax. CVS: S1 and S2 normal with mild systolic murmur, regular rhythm. No other extra heart sounds ABDOMEN: No hepatosplenomegaly, active bowel sounds, no guarding or rigidity. SPINE: No scoliosis or deformity SKIN: No rashes CENTRAL NERVOUS SYSTEM: No focal deficits, tone is normal in all 4 extremities. EXTREMITIES: Bilateral 2-3+ pitting edema with chronic venous stasis dermatitis. No clubbing, or cyanosis. Peripheral pulses are intact. - Labs CBC & Chem 7: 01/08/24 11:40 01/08/24 11:40 Labs: Abnormal Lab Results - Last 24 Hours (Table) 01/08/24 01/08/24 01/08/24 Range/Units 11:38 11:40 11:40 WBC 14.9 H (3.8-10.6) k/uL RBC 3.14 L (3.80-5.40) m/uL Hgb 9.8 L (11.4-16.0) gm/dL Hct 30.0 L (34.0-46.0) % RDW 16.7 H (11.5-15.5) % Plt Count 121 L (150-450) k/uL Neutrophils # 13.8 H (1.3-7.7) k/uL Lymphocytes # 0.4 L (1.0-4.8) k/uL Sodium 126 L (137-145) mmol/L Chloride 95 L (98-107) mmol/L BUN 54 H (7-17) mg/dL Glucose 251 H (74-99) mg/dL POC Glucose (mg/dL) 264 H (70-110) mg/dL Calcium 7.7 L (8.4-10.2) mg/dL Total Bilirubin 3.9 H (0.2-1.3) mg/dL AST 55 H (14-36) U/L ALT 55 H (4-34) U/L Total Protein 5.7 L (6.3-8.2) g/dL Albumin 2.3 L (3.5-5.0) g/dL 01/08/24 01/08/24 01/09/24 Range/Units 16:50 20:03 06:02 WBC (3.8-10.6) k/uL RBC (3.80-5.40) m/uL Hgb (11.4-16.0) gm/dL Hct (34.0-46.0) % RDW (11.5-15.5) % Plt Count (150-450) k/uL Neutrophils # (1.3-7.7) k/uL Lymphocytes # (1.0-4.8) k/uL Sodium (137-145) mmol/L Chloride (98-107) mmol/L BUN (7-17) mg/dL Glucose (74-99) mg/dL POC Glucose (mg/dL) 299 H 397 H 222 H (70-110) mg/dL Calcium (8.4-10.2) mg/dL Total Bilirubin (0.2-1.3) mg/dL AST (14-36) U/L ALT (4-34) U/L Total Protein (6.3-8.2) g/dL Albumin (3.5-5.0) g/dL Assessment and Plan Plan: Acute on chronic hypoxemic respiratory failure, currently BiPAP dependent, secondary to fluid overload state and diastolic congestive heart failure cli nically improved and the patient has responded to diuretics. The patient was taken off the BiPAP and the patient is currently on 8 L of O2 nasal cannula. Chest x-ray showed ongoing slow improvement in the interstitial edema and volume status. The patient is still on Lasix 40 mg IV every 12 hours. The patient is clinically improved and the patient was taken off the BiPAP this morning and placed again on 8 L of oxygen by nasal cannula. The overall respiratory status is stable and the chest x-ray showing some stable pulmonary vessel congestion. Encephalopathy, Suspected 1.5 cm mass with mild vasogenic edema in the inferior medial left cerebellum, Brain MRA was ordered for further evaluation, but was reportedly refused. Right ICA stenosis, estimated 50 to 60% on carotid Doppler. There is also echogenic material within the right IJV concerning for possible thrombus. Vascular surgery has been asked to evaluate. Altered mental status, likely multifactorial related to above and toxic metabolic encephalopathy. Patient has multiple metabolic derangements including hepatic encephalopathy, medication effect, etc. History of liver cirrhosis secondary to [place] Hyperammonemia, was receiving lactulose, secondary to liver cirrhosis, level improved and is currently down to 17 Possible UTI, strep bovis History of heart failure with preserved ejection fraction Possible PFO, patient had an echocardiogram done this admission which had a positive bubble study. The patient is a preserved of the function. Bilateral lower extremity edema with venous stasis dermatitis Diabetes mellitus type 2, non insulin-dependent History of hypertension Plan Patient is currently on 8 L O2 nasal cannula Chest x-ray findings are unchanged compared to earlier Continue IV Lasix for another 24 hours, as the patient is responding to IV Lasix and there is further optimization of the volume status. Overall pulmonary status is stable while off the BiPAP. Monitor electrolytes and renal function, awaiting labs from today Ammonia level is improved Family is interested in hospice care probably at the later stage. Final decision has not been done Rest of the medication be kept unchanged. Will continue to follow. The patient remains severely ill and prognosis is poor based above-mentioned co morbidities. Continue Keppra Continue Decadron Continue lactulose Possible hospice
[2024-01-09 16:48] LABS: Glucose,Whole Blood 216 mg/dL (70-110)
[2024-01-09 20:53] LABS: Glucose,Whole Blood 215 mg/dL (70-110)
[2024-01-10 06:33] LABS: Glucose,Whole Blood 158 mg/dL (70-110)
[2024-01-10 11:44] LABS: Glucose,Whole Blood 167 mg/dL (70-110)
--- NOTE | 2024-01-10 12:06 | P.PN ---
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 On initial presentation, patient was saturating 100% on 2 L, rest of the vital signs were within normal limits. EKG showed sinus rhythm, CT head without contrast revealed 1.2 cm hypodense heterogenous area within the left cerebellum, underlying mass or developing lacunar infarct cannot be ruled out. Chest x-ray showed left hemidiaphragm. CBC showed thrombocytopenia with platelet of 140. BMP showed prerenal azotemia with BUN of 33. Total bili was 2.6, AST 67, ALT 50, ammonia 56, metabolic alkalosis with pH of 7.52, bicarb 29, CO2 30. Urinalysis negative. Patient given lactulose in the ED via NG tube, which she subsequently pulled out. Patient admitted for acute encephalopathy. Neurology consulted. MRI brain show ed suspected mass with mild vasogenic edema in the inferior medial left cerebellum. EEG did not show any epileptiform discharges. Started on steroids. Oncology also consulted. Mental status improved. Patient is refusing any further workup. Also has hyponatremia, which improved with IV fluids however now has pulmonary edema. Restarted on diuretics. Patient continues to refuse multiple different medications, does not agree with any IV diuretics, only wants to take her home dose of torsemide 20 mg daily. Had extensive conversation with the patient as well as son with regards to goals of care. Talked about hospice care, patient is still adamant about doing everything, however does not want to follow physician advice. Respiratory function continues to worsen, patient now requiring BiPAP , which she refuses at times. Family decided to make her DNR/DNI, however want to continue rest of the medical treatment. Patient started on IV diuretics. Pulmonology also consulted. Subjective: Patient seen and examined at bedside. Pt is back on nasal cannula, more awake today. Vitals Signs Reviewed. Gen: In NAD, non-toxic HEENT: normocephalic, atraumatic, hearing acuity is intant, mucous membranes moist CVS: perfusing all extremities well, no pitting edema, Respiratory: symmetric chest expansion, no accessory muscle use, GI: soft, NTTP, ND, : no suprapubic tenderness, no CVA tenderness MSK/Derm: no rashes, cyanosis Neuro: CN II-XII intact, no motor weakness, Psych: cooperative, euthymic mood, judgment and insight is intact Data Reviewed Today: Blood sugars have been elevated in the 200s to 300s Assessment and Plan: Patient is severely ill, prognosis is very guarded. 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 Continue to taper steroids -Patient is currently on Keppra 500 IV daily for seizure prophylaxis -Decadron 2 mg IV daily -Currently on IV Lasix 40 twice daily, monitor electrolytes -Continue lactulose 30 g 3 times daily -Repeat CBC and BMP tomorrow Type 2 diabetes Hyperglycemia, also steroid induced -Sliding scale insulin, monitor for hypoglycemia -Levemir 15 units, has refused a few times during this admission Chronic: Hypertension Dyslipidemia DVT ppx: lovenox Code status: Anticipated discharge place: pending clinical course Anticipated discharge time: pending clinical course Objective - Vital Signs Vital signs: Vital Signs Temp 96.4 F L 01/10/24 08:32 Pulse 55 L 01/10/24 08:32 Resp 16 01/10/24 08:32 BP 103/60 01/10/24 08:32 Pulse Ox 99 01/10/24 12:03 FiO2 50 01/10/24 04:20 Intake & Output 01/09/24 01/10/24 01/10/24 18:59 06:59 18:59 Intake Total 500 550 10 Output Total 560 Balance 500 -10 10 Weight 92 kg Intake: IV 20 10 10 Invasive Line 5 20 10 10 Oral 480 540 Output: Urine 560 Other: Voiding Method Indwelling Catheter Indwelling Catheter Indwelling Catheter - Labs CBC & Chem 7: 01/08/24 11:40 01/08/24 11:40 Labs: Abnormal Lab Results - Last 24 Hours (Table) 01/09/24 01/09/24 01/10/24 Range/Units 16:32 20:52 06:31 POC Glucose (mg/dL) 216 H 215 H 158 H (70-110) mg/dL 01/10/24 Range/Units 11:41 POC Glucose (mg/dL) 167 H (70-110) mg/dL
[2024-01-10] MEDS: MORPHINE SULFATE 2 MG/ML SYRINGE IVP STA (13:07)
[2024-01-10] MEDS: HYDROcodone/APAP 5-325MG 1 EACH TAB PO PRN (13:40)
--- NOTE | 2024-01-10 15:05 | P.PN ---
Subjective Progress Note Date: 01/10/24 Principal diagnosis: Acute on chronic hypoxic respiratory failure secondary to acute on chronic diastolic congestive heart failure 78-year-old female patient who is being seen for a hypoxic and hypercapnic respiratory failure the patient is currently on a BiPAP at a pressure of 14 over 8 cm of water with an FiO2 of 40%. The patient's blood gas showed a pH of 7.49 with a pCO2 of 40 and pO2 of 56 while on the BiPAP. She was quite obtunded yesterday and she is essentially the same as yesterday with some limited improvement. She is reaching out to the mask occasionally and she tries to pull it up. I reviewed the series of chest x-ray that was done during this current admission and the patient has smaller lung volumes and evidence of increased pulmonary vascular marking and congestion and the patient is currently on diuretics and the patient is producing Adequate amount of urine output. Note that over the past 24 to 48 hours, the patient has diuresed a total of 4-1/2 to 5 L. The most recent chest x-ray from yesterday showed improvement in the volume status and cardiomegaly. The repeat chest x-ray that was done this morning upon my request showed further improvement in the volume status although there is still persistent cardiomegaly. The chest x-ray still showing cardiomegaly with mild pulm vascular congestion. Note that the patient is known to have nonalcoholic liver cirrhosis. She also has CHF with preserved LV function. Echocardiogram that was done during this current admission of 12/29/2023 showed a preserved LV function with an EF around 55 to 60%. The patient also had mild mitral regurgitation, mild aortic sclerosis with mild tricuspid regurgitation. The patient had a repeat blood gas today that showed a pH of 7.54 with a pCO2 of 36 and pO2 of 67. The white cell count 12.2 with a hemoglobin 9.9 BUN is 48 creatinine of 0.6. On a separate note, the patient was also found to have an abnormal MRI of the brain that raise a suspicious for a metastatic lesion to her brain. The patient was found to have a 1.2 cm hypodense heterogeneous area in the left cerebellum. Carotid Dopplers showed carotid plaque and there was a 50 to 69% stenosis of the right internal carotid artery. MRI of the brain showed a 1.5 cm mass along with mild vasogenic edema in the inferior medial left cerebellum and the patient was started on Decadron. Noted the patient does not have any history of malignancy. She has history of liver cirrhosis, diabetes mellitus and hypertension. She also has history of diverticulosis and scoliosis of the spine. On today's evaluation of 01/07/2023, I am seeing the patient for a follow-up. The patient was taken off the BiPAP this morning and the patient was placed on 8 L of oxygen by nasal cannula. Earlier to that, the patient was on a BiPAP at a pressure of 14/8 with an FiO2 of 50%. The patient is opening her eyes spontaneously and doing some brief communication. She is a DNR/DNI CODE STATUS. She is not interested in further treatment. On examination, she continues to have a harsh cardiac murmur.In terms of respiratory status, the patient will be taken off the BiPAP of 14/8 with an FiO2 of 50% and earlier this morning, the patient was taken off the BiPAP and placed on oxygen nasal cannula. She is able to tolerate the nasal cannula without any major difficulties. Had previous echocardiogram was noted. The patient is responding nicely to diuretics and the patient is currently on Lasix 40 mg IV every 12 hours. For the past 72 hours, the patient has been at least 5 or 6 L negative fluid balance. Meanwhile, the blood work from today white cell count 13.8, hemoglobin 9.5 and a platelet count of 111. BUN is 54 with a creatinine of 0.7 and his sodium level is 134. The patient remains on Decadron. The patient remains on IV Lasix. Rest of the medications remain unchanged. On today's evaluation of 01/08/2023, seen the patient for a follow-up. The patient is arousable and she is waking up without having any major difficulties and the patient accordingly was taken off the BiPAP this morning and she was placed on oxygen at 8 L/min nasal cannula. Earlier, the patient was in a BiPAP at a pressure of 14 over 8 cm of water with an FiO2 of 50%. I was told that she was confused earlier and somewhat restless and she has a sitter at the bedside. Nevertheless, at the time of my evaluation, the patient seems to be significantly more more appropriate. She is still on Lasix 40 mg IV every 12 hours. She is doing well. Blood work is still pending from today. No focal neurological deficits. Chest x-ray that was done yesterday was consistent with cardiomegaly and CHF. The patient has not made her final decision regarding her advanced directives. She is a DNR/DNI and she is considering comfort care measures and further discussion is still being done with the family. She remai ns on Decadron. She remains on Lasix. No antibiotic coverage at this point in time. Awaiting labs. On 01/09/2024, the patient still doing poor. On and off, she gets confused and agitated. She has a sitter at the bedside. She was on a BiPAP throughout the night at a pressure of 14/8 and the patient is currently on a "nasal cannula. She is refusing to eat. At times she reaches out to her mask/nasal cannula then tries to pull. She remains on Decadron. She does have a [employer] [address] lesion that is th ought to be metastatic in nature. She remains on Lasix 40 mg IV every 12 hours. Her current pulse ox is lower than 94%. Awaiting labs from today. Yesterday's labs were all stable. She did have some hepatic dysfunction. There was some mild elevation of the LFTs. She remains on Levemir insulin 15 units and she is also on NovoLog/scale coverage. She remains on Decadron and Keppra. She is quite debilitated. Family is interested in hospice care and a final decision has not been made yet. Record status remains DNR/DNI. Repeat chest x-ray was done today and this shows some mild progressive congestion and is essentially unchanged compared to yesterday and we decided to continue with with the diuretics. The patient also has some elevation of the right hemidiaphragm. Note that her chest x-ray initially improved and over the past 24 to 48 hours, no further improvement with persistent pulm vascular congestion. . Declines to eat. Reevaluated today on 01/10/2024, patient is less confused today, intermittently agitated, on BiPAP through the night, currently on nasal cannula, At 8 L high flow with O2 sats of 98% last chest x-ray on 01/09 clearly showed evidence of congestive heart failure/pulmonary edema. Patient remains on diuretics. Patient remains on Keppra she is also on Decadron, I believe family is considering hospice on this patient. According to the note from Dr. Artinian yesterday. WBC count is 14.9 hemoglobin 9.8. Sodium is low at 126 potassium 4.0 chloride 95 BUN is 54 creatinine 0.80 Objective - Vital Signs Vital signs: Vital Signs Temp 96.4 F L 01/10/24 08:32 Pulse 57 L 01/10/24 12:07 Resp 16 01/10/24 12:07 BP 105/56 01/10/24 12:07 Pulse Ox 98 01/10/24 12:07 FiO2 50 01/10/24 04:20 Intake & Output 01/09/24 01/10/24 01/10/24 18:59 06:59 18:59 Intake Total 500 550 140 Output Total 560 Balance 500 -10 140 Weight 92 kg Intake: IV 20 10 20 Invasive Line 5 20 10 20 Oral 480 540 120 Output: Urine 560 Other: Voiding Method Indwelling Catheter Indwelling Catheter Indwelling Catheter - Exam GENERAL EXAM: Obtunded, 78-year-old white female, frail, on 8 L high flow nasal cannula HEAD: Normocephalic and atraumatic EYES: Normal reaction of pupils, equal size. NOSE: Clear with pink turbinates. THROAT: No erythema or exudates. NECK: No masses, no JVD. CHEST: No chest wall deformity. LUNGS: Crackles and rhonchi noted bilaterally. CVS: S1 and S2 normal with mild systolic murmur, regular rhythm. No other extra heart sounds ABDOMEN: No hepatosplenomegaly, active bowel sounds, no guarding or rigidity. SKIN: No rashes CENTRAL NERVOUS SYSTEM: Patient seems to be slow and confused. EXTREMITIES: Bilateral 2-3+ pitting edema with chronic venous stasis dermatitis. No clubbing, or cyanosis. Peripheral pulses are intact. - Labs CBC & Chem 7: 01/08/24 11:40 01/08/24 11:40 Labs: Abnormal Lab Results - Last 24 Hours (Table) 01/09/24 01/09/24 01/10/24 Range/Units 16:32 20:52 06:31 POC Glucose (mg/dL) 216 H 215 H 158 H (70-110) mg/dL 01/10/24 Range/Units 11:41 POC Glucose (mg/dL) 167 H (70-110) mg/dL Assessment and Plan Assessment: Impression: Acute on chronic hypoxemic respiratory failure, secondary to fluid overload st ate and diastolic congestive heart failure improving with diuretics Encephalopathy, Suspected 1.5 cm mass with mild vasogenic edema in the inferior medial left cerebellum, Brain MRA was ordered for further evaluation, but was reportedly refused. Right ICA stenosis, estimated 50 to 60% on carotid Doppler. There is also echogenic material within the right IJV concerning for possible thrombus. Vas cular surgery has been asked to evaluate. Acute toxic metabolic encephalopathy History of liver cirrhosis secondary to [place] Hyperammonemia, was receiving lactulose, secondary to liver cirrhosis Possible PFO, patient had an echocardiogram done this admission which had a positive bubble study. Bilateral lower extremity edema with venous stasis dermatitis Diabetes mellitus type 2, non insulin-dependent Benign essential hypertension Recommendation: Continue oxygen and titrate accordingly Continue Decadron lactulose and Miguelina Family is considering hospice Overall prognosis seems to be extremely poor and guarded Will continue to follow. Continue diuretics. Use BiPAP as needed and at night. Time with Patient: Less than 30
[2024-01-10 17:02] LABS: Glucose,Whole Blood 291 mg/dL (70-110)
[2024-01-10] MEDS: MORPHINE SULFATE 4 MG/ML SYRINGE IVP PRN (18:36)
[2024-01-10 20:39] LABS: Glucose,Whole Blood 235 mg/dL (70-110)
[2024-01-11 05:27] LABS: Glucose,Whole Blood 182 mg/dL (70-110)
[2024-01-11 09:32] LABS: African American GFR (CKD) 84 (>60 ml/min/1.73 sqM); Anion Gap 3 mmol/L; Blood Urea Nitrogen 49 mg/dL (7-17); Carbon Dioxide 29 mmol/L (22-30); Chloride 92 mmol/L (98-107); Glucose 147 mg/dL (74-99); Non-African American GFR(CKD) 73 (>60 ml/min/1.73 sqM); Potassium 4.6 mmol/L (3.5-5.1); Sodium 124 mmol/L (137-145)
[2024-01-11 12:00] LABS: Glucose,Whole Blood 144 mg/dL (70-110)
--- NOTE | 2024-01-11 13:55 | P.PN ---
Subjective Progress Note Date: 01/11/24 Principal diagnosis: Acute on chronic hypoxic respiratory failure secondary to acute on chronic diastolic congestive heart failure 78-year-old female patient who is being seen for a hypoxic and hypercapnic respiratory failure the patient is currently on a BiPAP at a pressure of 14 over 8 cm of water with an FiO2 of 40%. The patient's blood gas showed a pH of 7.49 with a pCO2 of 40 and pO2 of 56 while on the BiPAP. She was quite obtunded yesterday and she is essentially the same as yesterday with some limited improvement. She is reaching out to the mask occasionally and she tries to pull it up. I reviewed the series of chest x-ray that was done during this current admission and the patient has smaller lung volumes and evidence of increased pulmonary vascular marking and congestion and the patient is currently on diuretics and the patient is producing Adequate amount of urine output. Note that over the past 24 to 48 hours, the patient has diuresed a total of 4-1/2 to 5 L. The most recent chest x-ray from yesterday showed improvement in the volume status and cardiomegaly. The repeat chest x-ray that was done this morning upon my request showed further improvement in the volume status although there is still persistent cardiomegaly. The chest x-ray still showing cardiomegaly with mild pulm vascular congestion. Note that the patient is known to have nonalcoholic liver cirrhosis. She also has CHF with preserved LV function. Echocardiogram that was done during this current admission of 12/29/2023 showed a preserved LV function with an EF around 55 to 60%. The patient also had mild mitral regurgitation, mild aortic sclerosis with mild tricuspid regurgitation. The patient had a repeat blood gas today that showed a pH of 7.54 with a pCO2 of 36 and pO2 of 67. The white cell count 12.2 with a hemoglobin 9.9 BUN is 48 creatinine of 0.6. On a separate note, the patient was also found to have an abnormal MRI of the brain that raise a suspicious for a metastatic lesion to her brain. The patient was found to have a 1.2 cm hypodense heterogeneous area in the left cerebellum. Carotid Dopplers showed carotid plaque and there was a 50 to 69% stenosis of the right internal carotid artery. MRI of the brain showed a 1.5 cm mass along with mild vasogenic edema in the inferior medial left cerebellum and the patient was started on Decadron. Noted the patient does not have any history of malignancy. She has history of liver cirrhosis, diabetes mellitus and hypertension. She also has history of diverticulosis and scoliosis of the spine. On today's evaluation of 01/07/2023, I am seeing the patient for a follow-up. The patient was taken off the BiPAP this morning and the patient was placed on 8 L of oxygen by nasal cannula. Earlier to that, the patient was on a BiPAP at a pressure of 14/8 with an FiO2 of 50%. The patient is opening her eyes spontaneously and doing some brief communication. She is a DNR/DNI CODE STATUS. She is not interested in further treatment. On examination, she continues to have a harsh cardiac murmur.In terms of respiratory status, the patient will be taken off the BiPAP of 14/8 with an FiO2 of 50% and earlier this morning, the patient was taken off the BiPAP and placed on oxygen nasal cannula. She is able to tolerate the nasal cannula without any major difficulties. Had previous echocardiogram was noted. The patient is responding nicely to diuretics and the patient is currently on Lasix 40 mg IV every 12 hours. For the past 72 hours, the patient has been at least 5 or 6 L negative fluid balance. Meanwhile, the blood work from today white cell count 13.8, hemoglobin 9.5 and a platelet count of 111. BUN is 54 with a creatinine of 0.7 and his sodium level is 134. The patient remains on Decadron. The patient remains on IV Lasix. Rest of the medications remain unchanged. On today's evaluation of 01/08/2023, seen the patient for a follow-up. The patient is arousable and she is waking up without having any major difficulties and the patient accordingly was taken off the BiPAP this morning and she was placed on oxygen at 8 L/min nasal cannula. Earlier, the patient was in a BiPAP at a pressure of 14 over 8 cm of water with an FiO2 of 50%. I was told that she was confused earlier and somewhat restless and she has a sitter at the bedside. Nevertheless, at the time of my evaluation, the patient seems to be significantly more more appropriate. She is still on Lasix 40 mg IV every 12 hours. She is doing well. Blood work is still pending from today. No focal neurological deficits. Chest x-ray that was done yesterday was consistent with cardiomegaly and CHF. The patient has not made her final decision regarding her advanced directives. She is a DNR/DNI and she is considering comfort care measures and further discussion is still being done with the family. She remai ns on Decadron. She remains on Lasix. No antibiotic coverage at this point in time. Awaiting labs. On 01/09/2024, the patient still doing poor. On and off, she gets confused and agitated. She has a sitter at the bedside. She was on a BiPAP throughout the night at a pressure of 14/8 and the patient is currently on a "nasal cannula. She is refusing to eat. At times she reaches out to her mask/nasal cannula then tries to pull. She remains on Decadron. She does have a [employer] lesion that is th ought to be metastatic in nature. She remains on Lasix 40 mg IV every 12 hours. Her current pulse ox is lower than 94%. Awaiting labs from today. Yesterday's labs were all stable. She did have some hepatic dysfunction. There was some mild elevation of the LFTs. She remains on Levemir insulin 15 units and she is also on NovoLog/scale coverage. She remains on Decadron and Keppra. She is quite debilitated. Family is interested in hospice care and a final decision has not been made yet. Record status remains DNR/DNI. Repeat chest x-ray was done today and this shows some mild progressive congestion and is essentially unchanged compared to yesterday and we decided to continue with with the diuretics. The patient also has some elevation of the right hemidiaphragm. Note that her chest x-ray initially improved and over the past 24 to 48 hours, no further improvement with persistent pulm vascular congestion. . Declines to eat. Reevaluated today on 01/10/2024, patient is less confused today, intermittently agitated, on BiPAP through the night, currently on nasal cannula, At 8 L high flow with O2 sats of 98% last chest x-ray on 01/09 clearly showed evidence of congestive heart failure/pulmonary edema. Patient remains on diuretics. Patient remains on Keppra she is also on Decadron, I believe family is considering hospice on this patient. According to the note from Dr. Artinian yesterday. WBC count is 14.9 hemoglobin 9.8. Sodium is low at 126 potassium 4.0 chloride 95 BUN is 54 creatinine 0.80 Patient was reevaluated today on 01/11/24, patient is doing better today, remains on BiPAP, alternating with high flow nasal cannula at 3 L. Patient remains on diuretics, her left chest x-ray showed evidence of congestive heart failure, sodium is rather low 124 potassium 4.6 BUN is 49 creatinine 0.77. Objective - Vital Signs Vital signs: Vital Signs Temp 97.5 F L 01/11/24 08:45 Pulse 61 01/11/24 12:03 Resp 16 01/11/24 12:40 BP 113/60 01/11/24 12:03 Pulse Ox 95 01/11/24 12:40 FiO2 50 01/11/24 04:04 Intake & Output 01/10/24 01/11/24 01/11/24 18:59 06:59 18:59 Intake Total 140 20 10 Output Total 650 Balance 140 -630 10 Weight 95.5 kg Intake: IV 20 20 10 Invasive Line 5 20 20 10 Oral 120 Output: Urine 650 Other: Voiding Method Indwelling Catheter Indwelling Catheter Indwelling Catheter - Exam GENERAL EXAM: Obtunded, 78-year-old white female, frail, on BiPAP. HEAD: Normocephalic and atraumatic EYES: Normal reaction of pupils, equal size. NOSE: Clear with pink turbinates. THROAT: No erythema or exudates. NECK: No masses, no JVD. CHEST: No chest wall deformity. LUNGS: Crackles and rhonchi noted bilaterally. CVS: S1 and S2 normal with mild systolic murmur, regular rhythm. No other extra heart sounds ABDOMEN: No hepatosplenomegaly, active bowel sounds, no guarding or rigidity. SKIN: No rashes CENTRAL NERVOUS SYSTEM: Patient seems to be slow and confused. EXTREMITIES: Bilateral 2-3+ pitting edema with chronic venous stasis dermatitis. No clubbing, or cyanosis. Peripheral pulses are intact. - Labs CBC & Chem 7: 01/08/24 11:40 01/11/24 08:36 Labs: Abnormal Lab Results - Last 24 Hours (Table) 01/10/24 01/10/24 01/11/24 Range/Units 17:01 20:38 05:25 Sodium (137-145) mmol/L Chloride (98-107) mmol/L BUN (7-17) mg/dL Glucose (74-99) mg/dL POC Glucose (mg/dL) 291 H 235 H 182 H (70-110) mg/dL Calcium (8.4-10.2) mg/dL 01/11/24 01/11/24 Range/Units 08:36 11:58 Sodium 124 L (137-145) mmol/L Chloride 92 L (98-107) mmol/L BUN 49 H (7-17) mg/dL Glucose 147 H (74-99) mg/dL POC Glucose (mg/dL) 144 H (70-110) mg/dL Calcium 8.0 L (8.4-10.2) mg/dL Assessment and Plan Assessment: Impression: Acute on chronic hypoxemic respiratory failure, secondary to fluid overload state and diastolic congestive heart failure improving with diuretics Hypovolemic hyponatremia Encephalopathy, Suspected 1.5 cm mass with mild vasogenic edema in the inferior medial left cerebellum, Brain MRA was ordered for further evaluation, but was reportedly refused. Right ICA stenosis, estimated 50 to 60% on carotid Doppler. There is also echogenic material within the right IJV concerning for possible thrombus. Vascular surgery has been asked to evaluate. Acute toxic metabolic encephalopathy History of liver cirrhosis secondary to [place] Hyperammonemia, was receiving lactulose, secondary to liver cirrhosis Possible PFO, patient had an echocardiogram done this admission which had a positive bubble study. Bilateral lower extremity edema with venous stasis dermatitis Diabetes mellitus type 2, non insulin-dependent Benign essential hypertension Recommendation: Continue oxygen and titrate accordingly Continue Decadron lactulose and Keppra Continue diuretics Overall prognosis seems to be extremely poor and guarded Continue diuretics. Use BiPAP as needed and at night. Will continue to follow Time with Patient: Less than 30
--- NOTE | 2024-01-11 13:59 | P.PN ---
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 On initial presentation, patient was saturating 100% on 2 L, rest of the vital signs were within normal limits. EKG showed sinus rhythm, CT head without contrast revealed 1.2 cm hypodense heterogenous area within the left cerebellum, underlying mass or developing lacunar infarct cannot be ruled out. Chest x-ray showed left hemidiaphragm. CBC showed thrombocytopenia with platelet of 140. BMP showed prerenal azotemia with BUN of 33. Total bili was 2.6, AST 67, ALT 50, ammonia 56, metabolic alkalosis with pH of 7.52, bicarb 29, CO2 30. Urinalysis negative. Patient given lactulose in the ED via NG tube, which she subsequently pulled out. Patient admitted for acute encephalopathy. Neurology consulted. MRI brain show ed suspected mass with mild vasogenic edema in the inferior medial left cerebellum. EEG did not show any epileptiform discharges. Started on steroids. Oncology also consulted. Mental status improved. Patient is refusing any further workup. Also has hyponatremia, which improved with IV fluids however now has pulmonary edema. Restarted on diuretics. Patient continues to refuse multiple different medications, does not agree with any IV diuretics, only wants to take her home dose of torsemide 20 mg daily. Had extensive conversation with the patient as well as son with regards to goals of care. Talked about hospice care, patient is still adamant about doing everything, however does not want to follow physician advice. Respiratory function continues to worsen, patient now requiring BiPAP , which she refuses at times. Family decided to make her DNR/DNI, however want to continue rest of the medical treatment. Patient started on IV diuretics. Pulmonology also consulted. Subjective: Patient seen and examined at bedside. Pt is back on nasal cannula, more awake today. Vitals Signs Reviewed. Gen: In NAD, non-toxic HEENT: normocephalic, atraumatic, hearing acuity is intant, mucous membranes moist CVS: perfusing all extremities well, no pitting edema, Respiratory: symmetric chest expansion, no accessory muscle use, GI: soft, NTTP, ND, : no suprapubic tenderness, no CVA tenderness MSK/Derm: no rashes, cyanosis Neuro: CN II-XII intact, no motor weakness, Psych: cooperative, euthymic mood, judgment and insight is intact Data Reviewed Today: Sodium 124, creatinine 0.77, glucose range between 144-235 Assessment and Plan: Patient is severely ill, prognosis is very guarded. 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 Continue to taper steroids -Patient is currently on Keppra 500 IV daily for seizure prophylaxis -Decadron 2 mg IV daily -Currently on IV Lasix 40 twice daily, monitor electrolytes -Continue lactulose 30 g 3 times daily -Repeat BMP tomorrow Type 2 diabetes Hyperglycemia, also steroid induced -Sliding scale insulin, monitor for hypoglycemia -Levemir 15 units, has refused a few times during this admission Chronic: Hypertension Dyslipidemia DVT ppx: lovenox Code status: Anticipated discharge place: pending clinical course Anticipated discharge time: pending clinical course Objective - Vital Signs Vital signs: Vital Signs Temp 97.5 F L 01/11/24 08:45 Pulse 61 01/11/24 12:03 Resp 16 01/11/24 12:40 BP 113/60 01/11/24 12:03 Pulse Ox 95 01/11/24 12:40 FiO2 50 01/11/24 04:04 Intake & Output 01/10/24 01/11/24 01/11/24 18:59 06:59 18:59 Intake Total 140 20 10 Output Total 650 Balance 140 -630 10 Weight 95.5 kg Intake: IV 20 20 10 Invasive Line 5 20 20 10 Oral 120 Output: Urine 650 Other: Voiding Method Indwelling Catheter Indwelling Catheter Indwelling Catheter - Labs CBC & Chem 7: 01/08/24 11:40 01/11/24 08:36 Labs: Abnormal Lab Results - Last 24 Hours (Table) 01/10/24 01/10/24 01/11/24 Range/Units 17:01 20:38 05:25 Sodium (137-145) mmol/L Chloride (98-107) mmol/L BUN (7-17) mg/dL Glucose (74-99) mg/dL POC Glucose (mg/dL) 291 H 235 H 182 H (70-110) mg/dL Calcium (8.4-10.2) mg/dL 01/11/24 01/11/24 Range/Units 08:36 11:58 Sodium 124 L (137-145) mmol/L Chloride 92 L (98-107) mmol/L BUN 49 H (7-17) mg/dL Glucose 147 H (74-99) mg/dL POC Glucose (mg/dL) 144 H (70-110) mg/dL Calcium 8.0 L (8.4-10.2) mg/dL
[2024-01-11 16:48] LABS: Glucose,Whole Blood 140 mg/dL (70-110)
[2024-01-11 19:44] LABS: Glucose,Whole Blood 142 mg/dL (70-110)
[2024-01-12 06:06] LABS: Glucose,Whole Blood 125 mg/dL (70-110)
[2024-01-12 08:40] LABS: HGB 10.5 gm/dL (11.4-16.0); RBC 3.33 m/uL (3.80-5.40); WBC 16.3 k/uL (3.8-10.6)
[2024-01-12 08:41] LABS: Anisocytosis Slight; Basophils % (A) 0 %; Eosinophils # (A) 0.1 k/uL (0-0.7); Eosinophils % (A) 1 %; HCT 31.2 % (34.0-46.0); Lymphocytes # (A) 1.2 k/uL (1.0-4.8); Lymphocytes % (A) 7 %; MCH 31.7 pg (25.0-35.0); MCHC 33.8 g/dL (31.0-37.0); MCV 93.9 fL (80.0-100.0); Monocytes # (A) 0.7 k/uL (0-1.0); Monocytes % (A) 5 %; Neutrophils % (A) 86 %; Poikilocytosis Slight; RDW 17.2 % (11.5-15.5)
[2024-01-12 08:55] LABS: African American GFR (CKD) 62 (>60 ml/min/1.73 sqM); Anion Gap 5 mmol/L; Blood Urea Nitrogen 50 mg/dL (7-17); Calcium 7.9 mg/dL (8.4-10.2); Carbon Dioxide 29 mmol/L (22-30); Chloride 90 mmol/L (98-107); Glucose 85 mg/dL (74-99); Magnesium 2.1 mg/dL (1.6-2.3); Non-African American GFR(CKD) 54 (>60 ml/min/1.73 sqM); Potassium 4.8 mmol/L (3.5-5.1); Sodium 124 mmol/L (137-145)
[2024-01-12] MEDS ORDERED: POTASSIUM CHLORIDE ER 20 MEQ TAB.ER PO SCH (11:00)
[2024-01-12 11:03] LABS: Platelet Count 161 k/uL (150-450)
[2024-01-12 11:55] LABS: Glucose,Whole Blood 132 mg/dL (70-110)
--- NOTE | 2024-01-12 12:56 | P.PN ---
Subjective Progress Note Date: 01/12/24 Principal diagnosis: Acute on chronic hypoxic respiratory failure secondary to acute on chronic diastolic congestive heart failure 78-year-old female patient who is being seen for a hypoxic and hypercapnic respiratory failure the patient is currently on a BiPAP at a pressure of 14 over 8 cm of water with an FiO2 of 40%. The patient's blood gas showed a pH of 7.49 with a pCO2 of 40 and pO2 of 56 while on the BiPAP. She was quite obtunded yesterday and she is essentially the same as yesterday with some limited improvement. She is reaching out to the mask occasionally and she tries to pull it up. I reviewed the series of chest x-ray that was done during this current admission and the patient has smaller lung volumes and evidence of increased pulmonary vascular marking and congestion and the patient is currently on diuretics and the patient is producing Adequate amount of urine output. Note that over the past 24 to 48 hours, the patient has diuresed a total of 4-1/2 to 5 L. The most recent chest x-ray from yesterday showed improvement in the volume status and cardiomegaly. The repeat chest x-ray that was done this morning upon my request showed further improvement in the volume status although there is still persistent cardiomegaly. The chest x-ray still showing cardiomegaly with mild pulm vascular congestion. Note that the patient is known to have nonalcoholic liver cirrhosis. She also has CHF with preserved LV function. Echocardiogram that was done during this current admission of 12/29/2023 showed a preserved LV function with an EF around 55 to 60%. The patient also had mild mitral regurgitation, mild aortic sclerosis with mild tricuspid regurgitation. The patient had a repeat blood gas today that showed a pH of 7.54 with a pCO2 of 36 and pO2 of 67. The white cell count 12.2 with a hemoglobin 9.9 BUN is 48 creatinine of 0.6. On a separate note, the patient was also found to have an abnormal MRI of the brain that raise a suspicious for a metastatic lesion to her brain. The patient was found to have a 1.2 cm hypodense heterogeneous area in the left cerebellum. Carotid Dopplers showed carotid plaque and there was a 50 to 69% stenosis of the right internal carotid artery. MRI of the brain showed a 1.5 cm mass along with mild vasogenic edema in the inferior medial left cerebellum and the patient was started on Decadron. Noted the patient does not have any history of malignancy. She has history of liver cirrhosis, diabetes mellitus and hypertension. She also has history of diverticulosis and scoliosis of the spine. On today's evaluation of 01/07/2023, I am seeing the patient for a follow-up. The patient was taken off the BiPAP this morning and the patient was placed on 8 L of oxygen by nasal cannula. Earlier to that, the patient was on a BiPAP at a pressure of 14/8 with an FiO2 of 50%. The patient is opening her eyes spontaneously and doing some brief communication. She is a DNR/DNI CODE STATUS. She is not interested in further treatment. On examination, she continues to have a harsh cardiac murmur.In terms of respiratory status, the patient will be taken off the BiPAP of 14/8 with an FiO2 of 50% and earlier this morning, the patient was taken off the BiPAP and placed on oxygen nasal cannula. She is able to tolerate the nasal cannula without any major difficulties. Had previous echocardiogram was noted. The patient is responding nicely to diuretics and the patient is currently on Lasix 40 mg IV every 12 hours. For the past 72 hours, the patient has been at least 5 or 6 L negative fluid balance. Meanwhile, the blood work from today white cell count 13.8, hemoglobin 9.5 and a platelet count of 111. BUN is 54 with a creatinine of 0.7 and his sodium level is 134. The patient remains on Decadron. The patient remains on IV Lasix. Rest of the medications remain unchanged. On today's evaluation of 01/08/2023, seen the patient for a follow-up. The patient is arousable and she is waking up without having any major difficulties and the patient accordingly was taken off the BiPAP this morning and she was placed on oxygen at 8 L/min nasal cannula. Earlier, the patient was in a BiPAP at a pressure of 14 over 8 cm of water with an FiO2 of 50%. I was told that she was confused earlier and somewhat restless and she has a sitter at the bedside. Nevertheless, at the time of my evaluation, the patient seems to be significantly more more appropriate. She is still on Lasix 40 mg IV every 12 hours. She is doing well. Blood work is still pending from today. No focal neurological deficits. Chest x-ray that was done yesterday was consistent with cardiomegaly and CHF. The patient has not made her final decision regarding her advanced directives. She is a DNR/DNI and she is considering comfort care measures and further discussion is still being done with the family. She remai ns on Decadron. She remains on Lasix. No antibiotic coverage at this point in time. Awaiting labs. On 01/09/2024, the patient still doing poor. On and off, she gets confused and agitated. She has a sitter at the bedside. She was on a BiPAP throughout the night at a pressure of 14/8 and the patient is currently on a "nasal cannula. She is refusing to eat. At times she reaches out to her mask/nasal cannula then tries to pull. She remains on Decadron. She does have a [employer] EXECUT[employer] lesion that is th ought to be metastatic in nature. She remains on Lasix 40 mg IV every 12 hours. Her current pulse ox is lower than 94%. Awaiting labs from today. Yesterday's labs were all stable. She did have some hepatic dysfunction. There was some mild elevation of the LFTs. She remains on Levemir insulin 15 units and she is also on NovoLog/scale coverage. She remains on Decadron and Keppra. She is quite debilitated. Family is interested in hospice care and a final decision has not been made yet. Record status remains DNR/DNI. Repeat chest x-ray was done today and this shows some mild progressive congestion and is essentially unchanged compared to yesterday and we decided to continue with with the diuretics. The patient also has some elevation of the right hemidiaphragm. Note that her chest x-ray initially improved and over the past 24 to 48 hours, no further improvement with persistent pulm vascular congestion. . Declines to eat. Reevaluated today on 01/10/2024, patient is less confused today, intermittently agitated, on BiPAP through the night, currently on nasal cannula, At 8 L high flow with O2 sats of 98% last chest x-ray on 01/09 clearly showed evidence of congestive heart failure/pulmonary edema. Patient remains on diuretics. Patient remains on Keppra she is also on Decadron, I believe family is considering hospice on this patient. According to the note from Dr. Artinian yesterday. WBC count is 14.9 hemoglobin 9.8. Sodium is low at 126 potassium 4.0 chloride 95 BUN is 54 creatinine 0.80 Patient was reevaluated today on 01/11/24, patient is doing better today, remains on BiPAP, alternating with high flow nasal cannula at 3 L. Patient remains on diuretics, her left chest x-ray showed evidence of congestive heart failure, sodium is rather low 124 potassium 4.6 BUN is 49 creatinine 0.77. Patient was reevaluated today on 01/12/2024, patient is on nasal cannula, O2 saturation is 97% on 3 L, patient is yelling loud, could be heard all the way down the hallway stating I cannot breathe but when evaluated she seemed to be fine and not in any distress. Seems to be confused, her blood pressure is stable 104/51 heart rate is 65, and again the patient does not seem to be in any form of respiratory distress. BiPAP is at bedside, but does not seem to be needed. WBC count is 16.3 hemoglobin is 10.5 sodium is low today at 124, BUN is 50 creatinine 1.0. Her sodium has been low all along, I believe the patient may benefit from more fluid restrictions last chest x-ray continues to show evidence of interstitial edema Objective - Vital Signs Vital signs: Vital Signs Temp 98.7 F 01/12/24 08:00 Pulse 63 01/12/24 12:00 Resp 16 01/12/24 12:00 BP 104/51 01/12/24 12:00 Pulse Ox 97 01/12/24 12:00 FiO2 50 01/12/24 03:37 Intake & Output 01/11/24 01/12/24 01/12/24 18:59 06:59 18:59 Intake Total 140 30 10 Output Total 1500 1500 Balance 140 -1470 -1490 Weight 95.5 kg 94 kg Intake: IV 20 30 10 Invasive Line 5 20 30 10 Oral 120 0 Output: Urine 1500 1500 Other: Voiding Method Indwelling Catheter Indwelling Catheter Indwelling Catheter # Voids 2 - Exam GENERAL EXAM: Obtunded, 78-year-old white female, frail, on 3 L nasal cannula confused. HEAD: Normocephalic and atraumatic EYES: Normal reaction of pupils, equal size. NOSE: Clear with pink turbinates. THROAT: No erythema or exudates. NECK: No masses, no JVD. CHEST: No chest wall deformity. LUNGS: Crackles and rhonchi noted bilaterally. CVS: S1 and S2 normal with mild systolic murmur, regular rhythm. No other extra heart sounds ABDOMEN: No hepatosplenomegaly, active bowel sounds, no guarding or rigidity. SKIN: No rashes CENTRAL NERVOUS SYSTEM: Confused today, moaning and groaning and yelling loudly EXTREMITIES: Bilateral 2-3+ pitting edema with chronic venous stasis dermatitis. No clubbing, or cyanosis. Peripheral pulses are intact. - Labs CBC & Chem 7: 01/12/24 07:36 01/12/24 07:36 Labs: Abnormal Lab Results - Last 24 Hours (Table) 01/11/24 01/11/24 01/12/24 Range/Units 16:43 19:42 06:02 WBC (3.8-10.6) k/uL RBC (3.80-5.40) m/uL Hgb (11.4-16.0) gm/dL Hct (34.0-46.0) % RDW (11.5-15.5) % Neutrophils # (1.3-7.7) k/uL Sodium (137-145) mmol/L Chloride (98-107) mmol/L BUN (7-17) mg/dL POC Glucose (mg/dL) 140 H 142 H 125 H (70-110) mg/dL Calcium (8.4-10.2) mg/dL 01/12/24 01/12/24 01/12/24 Range/Units 07:36 07:36 11:52 WBC 16.3 H (3.8-10.6) k/uL RBC 3.33 L (3.80-5.40) m/uL Hgb 10.5 L (11.4-16.0) gm/dL Hct 31.2 L (34.0-46.0) % RDW 17.2 H (11.5-15.5) % Neutrophils # 14.0 H (1.3-7.7) k/uL Sodium 124 L (137-145) mmol/L Chloride 90 L (98-107) mmol/L BUN 50 H (7-17) mg/dL POC Glucose (mg/dL) 132 H (70-110) mg/dL Calcium 7.9 L (8.4-10.2) mg/dL Assessment and Plan Assessment: Impression: Acute on chronic hypoxemic respiratory failure, secondary to fluid overload state and diastolic congestive heart failure improving with diuretics Hypovolemic hyponatremia Encephalopathy, Suspected 1.5 cm mass with mild vasogenic edema in the inferior medial left cerebellum, Brain MRA was ordered for further evaluation, but was reportedly refused. Right ICA stenosis, estimated 50 to 60% on carotid Doppler. There is also echogenic material within the right IJV concerning for possible thrombus. Vascular surgery has been asked to evaluate. Acute toxic metabolic encephalopathy History of liver cirrhosis secondary to Banegas Hyperammonemia, was receiving lactulose, secondary to liver cirrhosis Possible PFO, patient had an echocardiogram done this admission which had a positive bubble study. Bilateral lower extremity edema with venous stasis dermatitis Diabetes mellitus type 2, non insulin-dependent Benign essential hypertension Hypervolemic hyponatremia Recommendation: Continue oxygen and titrate accordingly Continue Decadron lactulose and Keppra Continue diuretics, presently on Lasix 40 mg twice daily. Overall prognosis seems to be extremely poor and guarded Use BiPAP as needed Patient may eventually need placement in ECF Will continue to follow Time with Patient: Less than 30
--- NOTE | 2024-01-12 13:24 | P.PN ---
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 On initial presentation, patient was saturating 100% on 2 L, rest of the vital signs were within normal limits. EKG showed sinus rhythm, CT head without contrast revealed 1.2 cm hypodense heterogenous area within the left cerebellum, underlying mass or developing lacunar infarct cannot be ruled out. Chest x-ray showed left hemidiaphragm. CBC showed thrombocytopenia with platelet of 140. BMP showed prerenal azotemia with BUN of 33. Total bili was 2.6, AST 67, ALT 50, ammonia 56, metabolic alkalosis with pH of 7.52, bicarb 29, CO2 30. Urinalysis negative. Patient given lactulose in the ED via NG tube, which she subsequently pulled out. Patient admitted for acute encephalopathy. Neurology consulted. MRI brain show ed suspected mass with mild vasogenic edema in the inferior medial left cerebellum. EEG did not show any epileptiform discharges. Started on steroids. Oncology also consulted. Mental status improved. Patient is refusing any further workup. Also has hyponatremia, which improved with IV fluids however now has pulmonary edema. Restarted on diuretics. Patient continues to refuse multiple different medications, does not agree with any IV diuretics, only wants to take her home dose of torsemide 20 mg daily. Had extensive conversation with the patient as well as son with regards to goals of care. Talked about hospice care, patient is still adamant about doing everything, however does not want to follow physician advice. Respiratory function continues to worsen, patient now requiring BiPAP , which she refuses at times. Family decided to make her DNR/DNI, however want to continue rest of the medical treatment. Patient started on IV diuretics. Pulmonology also consulted. Subjective: Patient seen and examined at bedside. Pt is back on nasal cannula, more awake today. Complaining of significant lower extremity pain. Vitals Signs Reviewed. Gen: In NAD, non-toxic HEENT: normocephalic, atraumatic, hearing acuity is intant, mucous membranes moist CVS: perfusing all extremities well, no pitting edema, Respiratory: symmetric chest expansion, no accessory muscle use, GI: soft, NTTP, ND, : no suprapubic tenderness, no CVA tenderness MSK/Derm: no rashes, cyanosis Neuro: CN II-XII intact, no motor weakness, Psych: cooperative, euthymic mood, judgment and insight is intact Data Reviewed Today: WBC 16.3, hemoglobin 10.5, sodium 124, creatinine 1, blood sugars range between 1 25-1 44 Assessment and Plan: Patient is severely ill, prognosis is very guarded. 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 Continue to taper steroids -Patient is currently on Keppra 500 IV daily for seizure prophylaxis -Decadron 2 mg IV daily -Currently on IV Lasix 40 twice daily, monitor electrolytes -Continue lactulose 30 g 3 times daily -Repeat BMP tomorrow Type 2 diabetes Hyperglycemia, also steroid induced -Sliding scale insulin, monitor for hypoglycemia -Levemir 15 units, has refused a few times during this admission Chronic: Hypertension Dyslipidemia DVT ppx: lovenox Code status: Anticipated discharge place: pending clinical course Anticipated discharge time: pending clinical course Objective - Vital Signs Vital signs: Vital Signs Temp 98.7 F 01/12/24 08:00 Pulse 63 01/12/24 12:00 Resp 16 01/12/24 12:00 BP 104/51 01/12/24 12:00 Pulse Ox 97 01/12/24 12:00 FiO2 50 01/12/24 03:37 Intake & Output 01/11/24 01/12/24 01/12/24 18:59 06:59 18:59 Intake Total 140 30 20 Output Total 1500 1900 Balance 140 -1470 -1880 Weight 95.5 kg 94 kg Intake: IV 20 30 20 Invasive Line 5 20 30 20 Oral 120 0 Output: Urine 1500 1900 Other: Voiding Method Indwelling Catheter Indwelling Catheter Indwelling Catheter # Voids 2 - Labs CBC & Chem 7: 01/12/24 07:36 01/12/24 07:36 Labs: Abnormal Lab Results - Last 24 Hours (Table) 01/11/24 01/11/24 01/12/24 Range/Units 16:43 19:42 06:02 WBC (3.8-10.6) k/uL RBC (3.80-5.40) m/uL Hgb (11.4-16.0) gm/dL Hct (34.0-46.0) % RDW (11.5-15.5) % Neutrophils # (1.3-7.7) k/uL Sodium (137-145) mmol/L Chloride (98-107) mmol/L BUN (7-17) mg/dL POC Glucose (mg/dL) 140 H 142 H 125 H (70-110) mg/dL Calcium (8.4-10.2) mg/dL 01/12/24 01/12/24 01/12/24 Range/Units 07:36 07:36 11:52 WBC 16.3 H (3.8-10.6) k/uL RBC 3.33 L (3.80-5.40) m/uL Hgb 10.5 L (11.4-16.0) gm/dL Hct 31.2 L (34.0-46.0) % RDW 17.2 H (11.5-15.5) % Neutrophils # 14.0 H (1.3-7.7) k/uL Sodium 124 L (137-145) mmol/L Chloride 90 L (98-107) mmol/L BUN 50 H (7-17) mg/dL POC Glucose (mg/dL) 132 H (70-110) mg/dL Calcium 7.9 L (8.4-10.2) mg/dL
[2024-01-12 16:22] LABS: Glucose,Whole Blood 128 mg/dL (70-110)
[2024-01-12 20:11] LABS: Glucose,Whole Blood 127 mg/dL (70-110)
[2024-01-12] MEDS: LORazepam 2 MG/ML INJ IV PRN (22:24)
[2024-01-13 05:56] LABS: Glucose,Whole Blood 92 mg/dL (70-110)
[2024-01-13 11:30] LABS: Glucose,Whole Blood 102 mg/dL (70-110)
--- NOTE | 2024-01-13 12:49 | P.PN ---
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 On initial presentation, patient was saturating 100% on 2 L, rest of the vital signs were within normal limits. EKG showed sinus rhythm, CT head without contrast revealed 1.2 cm hypodense heterogenous area within the left cerebellum, underlying mass or developing lacunar infarct cannot be ruled out. Chest x-ray showed left hemidiaphragm. CBC showed thrombocytopenia with platelet of 140. BMP showed prerenal azotemia with BUN of 33. Total bili was 2.6, AST 67, ALT 50, ammonia 56, metabolic alkalosis with pH of 7.52, bicarb 29, CO2 30. Urinalysis negative. Patient given lactulose in the ED via NG tube, which she subsequently pulled out. Patient admitted for acute encephalopathy. Neurology consulted. MRI brain show ed suspected mass with mild vasogenic edema in the inferior medial left cerebellum. EEG did not show any epileptiform discharges. Started on steroids. Oncology also consulted. Mental status improved. Patient is refusing any further workup. Also has hyponatremia, which improved with IV fluids however now has pulmonary edema. Restarted on diuretics. Patient continues to refuse multiple different medications, does not agree with any IV diuretics, only wants to take her home dose of torsemide 20 mg daily. Had extensive conversation with the patient as well as son with regards to goals of care. Talked about hospice care, patient is still adamant about doing everything, however does not want to follow physician advice. Respiratory function continues to worsen, patient now requiring BiPAP , which she refuses at times. Family decided to make her DNR/DNI, however want to continue rest of the medical treatment. Patient started on IV diuretics. Pulmonology also consulted. Patient's overall function continue to decline. Family decided for hospice. Patient on comfort care measures only. Pending discharge to hospice home. Subjective: Patient seen and examined at bedside. No acute events overnight. Vitals Signs Reviewed. Gen: In NAD, chronically ill-appearing HEENT: normocephalic, atraumatic, mucous membranes moist CVS: perfusing all extremities well, lower extremity edema Respiratory: symmetric chest expansion, no accessory muscle use, supplemental oxygen GI: soft, NTTP, ND, : no suprapubic tenderness, no CVA tenderness MSK/Derm: no rashes, cyanosis Neuro: Somnolent Psych: Unable to assess Data Reviewed Today: No new labs Assessment and Plan: Patient is now comfort care measures only. 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 -Continue Lasix 40 IV twice daily -Continue supplemental oxygen for comfort -Continue atenolol 25 twice daily -[place] 5 every 4 hours as needed, IV morphine for milligram every 4 hours as needed -Ativan 1 mg IV every 6 hours as needed -Seroquel 25 nightly -Pantoprazole 40 IV daily -Current plan is to get patient discharged to hospice home Code status: DNR/DNI Anticipated discharge place: hospice home vs [facility] hospice Anticipated discharge time: pending clinical course Objective - Vital Signs Vital signs: Vital Signs Temp 97.9 F 01/13/24 08:00 Pulse 54 L 01/13/24 08:00 Resp 20 01/13/24 08:00 BP 99/50 01/13/24 08:00 Pulse Ox 100 01/13/24 08:00 FiO2 50 01/13/24 12:42 Intake & Output 01/12/24 01/13/24 01/13/24 18:59 06:59 18:59 Intake Total 20 20 10 Output Total 1900 100 600 Balance -1880 -80 -590 Weight 91 kg Intake: IV 20 20 10 Invasive Line 5 20 20 10 Oral 0 Output: Urine 1900 100 600 Other: Voiding Method Indwelling Catheter Indwelling Catheter Indwelling Catheter # Voids 2 - Labs CBC & Chem 7: 01/12/24 07:36 01/12/24 07:36 Labs: Abnormal Lab Results - Last 24 Hours (Table) 01/12/24 01/12/24 Range/Units 16:21 20:10 POC Glucose (mg/dL) 128 H 127 H (70-110) mg/dL
--- NOTE | 2024-01-13 13:50 | P.PN ---
Subjective Progress Note Date: 01/13/24 Principal diagnosis: Acute on chronic hypoxic respiratory failure secondary to acute on chronic diastolic congestive heart failure 78-year-old female patient who is being seen for a hypoxic and hypercapnic respiratory failure the patient is currently on a BiPAP at a pressure of 14 over 8 cm of water with an FiO2 of 40%. The patient's blood gas showed a pH of 7.49 with a pCO2 of 40 and pO2 of 56 while on the BiPAP. She was quite obtunded yesterday and she is essentially the same as yesterday with some limited improvement. She is reaching out to the mask occasionally and she tries to pull it up. I reviewed the series of chest x-ray that was done during this current admission and the patient has smaller lung volumes and evidence of increased pulmonary vascular marking and congestion and the patient is currently on diuretics and the patient is producing Adequate amount of urine output. Note that over the past 24 to 48 hours, the patient has diuresed a total of 4-1/2 to 5 L. The most recent chest x-ray from yesterday showed improvement in the volume status and cardiomegaly. The repeat chest x-ray that was done this morning upon my request showed further improvement in the volume status although there is still persistent cardiomegaly. The chest x-ray still showing cardiomegaly with mild pulm vascular congestion. Note that the patient is known to have nonalcoholic liver cirrhosis. She also has CHF with preserved LV function. Echocardiogram that was done during this current admission of 12/29/2023 showed a preserved LV function with an EF around 55 to 60%. The patient also had mild mitral regurgitation, mild aortic sclerosis with mild tricuspid regurgitation. The patient had a repeat blood gas today that showed a pH of 7.54 with a pCO2 of 36 and pO2 of 67. The white cell count 12.2 with a hemoglobin 9.9 BUN is 48 creatinine of 0.6. On a separate note, the patient was also found to have an abnormal MRI of the brain that raise a suspicious for a metastatic lesion to her brain. The patient was found to have a 1.2 cm hypodense heterogeneous area in the left cerebellum. Carotid Dopplers showed carotid plaque and there was a 50 to 69% stenosis of the right internal carotid artery. MRI of the brain showed a 1.5 cm mass along with mild vasogenic edema in the inferior medial left cerebellum and the patient was started on Decadron. Noted the patient does not have any history of malignancy. She has history of liver cirrhosis, diabetes mellitus and hypertension. She also has history of diverticulosis and scoliosis of the spine. On today's evaluation of 01/07/2023, I am seeing the patient for a follow-up. The patient was taken off the BiPAP this morning and the patient was placed on 8 L of oxygen by nasal cannula. Earlier to that, the patient was on a BiPAP at a pressure of 14/8 with an FiO2 of 50%. The patient is opening her eyes spontaneously and doing some brief communication. She is a DNR/DNI CODE STATUS. She is not interested in further treatment. On examination, she continues to have a harsh cardiac murmur.In terms of respiratory status, the patient will be taken off the BiPAP of 14/8 with an FiO2 of 50% and earlier this morning, the patient was taken off the BiPAP and placed on oxygen nasal cannula. She is able to tolerate the nasal cannula without any major difficulties. Had previous echocardiogram was noted. The patient is responding nicely to diuretics and the patient is currently on Lasix 40 mg IV every 12 hours. For the past 72 hours, the patient has been at least 5 or 6 L negative fluid balance. Meanwhile, the blood work from today white cell count 13.8, hemoglobin 9.5 and a platelet count of 111. BUN is 54 with a creatinine of 0.7 and his sodium level is 134. The patient remains on Decadron. The patient remains on IV Lasix. Rest of the medications remain unchanged. On today's evaluation of 01/08/2023, seen the patient for a follow-up. The patient is arousable and she is waking up without having any major difficulties and the patient accordingly was taken off the BiPAP this morning and she was placed on oxygen at 8 L/min nasal cannula. Earlier, the patient was in a BiPAP at a pressure of 14 over 8 cm of water with an FiO2 of 50%. I was told that she was confused earlier and somewhat restless and she has a sitter at the bedside. Nevertheless, at the time of my evaluation, the patient seems to be significantly more more appropriate. She is still on Lasix 40 mg IV every 12 hours. She is doing well. Blood work is still pending from today. No focal neurological deficits. Chest x-ray that was done yesterday was consistent with cardiomegaly and CHF. The patient has not made her final decision regarding her advanced directives. She is a DNR/DNI and she is considering comfort care measures and further discussion is still being done with the family. She remai ns on Decadron. She remains on Lasix. No antibiotic coverage at this point in time. Awaiting labs. On 01/09/2024, the patient still doing poor. On and off, she gets confused and agitated. She has a sitter at the bedside. She was on a BiPAP throughout the night at a pressure of 14/8 and the patient is currently on a "nasal cannula. She is refusing to eat. At times she reaches out to her mask/nasal cannula then tries to pull. She remains on Decadron. She does have a [employer] lesion that is th ought to be metastatic in nature. She remains on Lasix 40 mg IV every 12 hours. Her current pulse ox is lower than 94%. Awaiting labs from today. Yesterday's labs were all stable. She did have some hepatic dysfunction. There was some mild elevation of the LFTs. She remains on Levemir insulin 15 units and she is also on NovoLog/scale coverage. She remains on Decadron and Keppra. She is quite debilitated. Family is interested in hospice care and a final decision has not been made yet. Record status remains DNR/DNI. Repeat chest x-ray was done today and this shows some mild progressive congestion and is essentially unchanged compared to yesterday and we decided to continue with with the diuretics. The patient also has some elevation of the right hemidiaphragm. Note that her chest x-ray initially improved and over the past 24 to 48 hours, no further improvement with persistent pulm vascular congestion. . Declines to eat. Reevaluated today on 01/10/2024, patient is less confused today, intermittently agitated, on BiPAP through the night, currently on nasal cannula, At 8 L high flow with O2 sats of 98% last chest x-ray on 01/09 clearly showed evidence of congestive heart failure/pulmonary edema. Patient remains on diuretics. Patient remains on Keppra she is also on Decadron, I believe family is considering hospice on this patient. According to the note from Dr. Mendez yesterday. WBC count is 14.9 hemoglobin 9.8. Sodium is low at 126 potassium 4.0 chloride 95 BUN is 54 creatinine 0.80 Patient was reevaluated today on 01/11/24, patient is doing better today, remains on BiPAP, alternating with high flow nasal cannula at 3 L. Patient remains on diuretics, her left chest x-ray showed evidence of congestive heart failure, sodium is rather low 124 potassium 4.6 BUN is 49 creatinine 0.77. Patient was reevaluated today on 01/12/2024, patient is on nasal cannula, O2 saturation is 97% on 3 L, patient is yelling loud, could be heard all the way down the hallway stating I cannot breathe but when evaluated she seemed to be fine and not in any distress. Seems to be confused, her blood pressure is stable 104/51 heart rate is 65, and again the patient does not seem to be in any form of respiratory distress. BiPAP is at bedside, but does not seem to be needed. WBC count is 16.3 hemoglobin is 10.5 sodium is low today at 124, BUN is 50 creatinine 1.0. Her sodium has been low all along, I believe the patient may benefit from more fluid restrictions last chest x-ray continues to show evidence of interstitial edema Reevaluate today on 01/13/2024, patient is basically about the same, seems to be comfortable today on BiPAP not in any distress, apparently family has decided to consider sending the patient to hospice. I think that is very appropriate Objective - Vital Signs Vital signs: Vital Signs Temp 97.9 F 01/13/24 08:00 Pulse 54 L 01/13/24 08:00 Resp 20 01/13/24 08:00 BP 99/50 01/13/24 08:00 Pulse Ox 100 01/13/24 08:00 FiO2 50 01/13/24 12:42 Intake & Output 01/12/24 01/13/24 01/13/24 18:59 06:59 18:59 Intake Total 20 20 10 Output Total 1900 100 600 Balance -1880 -80 -590 Weight 91 kg Intake: IV 20 20 10 Invasive Line 5 20 20 10 Oral 0 Output: Urine 1900 100 600 Other: Voiding Method Indwelling Catheter Indwelling Catheter Indwelling Catheter # Voids 2 - Exam GENERAL EXAM: Obtunded, 78-year-old white female, frail, on BiPAP, calm. HEAD: Normocephalic and atraumatic EYES: Normal reaction of pupils, equal size. NOSE: Clear with pink turbinates. THROAT: No erythema or exudates. NECK: No masses, no JVD. CHEST: No chest wall deformity. LUNGS: Crackles and rhonchi noted bilaterally. CVS: S1 and S2 normal with mild systolic murmur, regular rhythm. No other extra heart sounds ABDOMEN: No hepatosplenomegaly, active bowel sounds, no guarding or rigidity. SKIN: No rashes CENTRAL NERVOUS SYSTEM: Could not assess, patient is confused EXTREMITIES: Bilateral 2-3+ pitting edema with chronic venous stasis dermatitis. No clubbing, or cyanosis. Peripheral pulses are intact. - Labs CBC & Chem 7: 01/12/24 07:36 01/12/24 07:36 Labs: Abnormal Lab Results - Last 24 Hours (Table) 01/12/24 01/12/24 Range/Units 16:21 20:10 POC Glucose (mg/dL) 128 H 127 H (70-110) mg/dL Assessment and Plan Assessment: Impression: Acute on chronic hypoxemic respiratory failure, secondary to fluid overload state and diastolic congestive heart failure improving with diuretics Hypovolemic hyponatremia Encephalopathy, Suspected 1.5 cm mass with mild vasogenic edema in the inferior medial left cerebellum, Brain MRA was ordered for further evaluation, but was reportedly refused. Right ICA stenosis, estimated 50 to 60% on carotid Doppler. There is also echogenic material within the right IJV concerning for possible thrombus. Vascular surgery has been asked to evaluate. Acute toxic metabolic encephalopathy History of liver cirrhosis secondary to Banegas Hyperammonemia, was receiving lactulose, secondary to liver cirrhosis Possible PFO, patient had an echocardiogram done this admission which had a positive bubble study. Bilateral lower extremity edema with venous stasis dermatitis Diabetes mellitus type 2, non insulin-dependent Benign essential hypertension Hypervolemic hyponatremia Recommendation: Continue oxygen and titrate accordingly Continue Decadron lactulose and Keppra Continue diuretics, presently on Lasix 40 mg twice daily. Overall prognosis seems to be extremely poor and guarded Use BiPAP as needed Agree with hospice. Time with Patient: Less than 30
[2024-01-13 16:47] LABS: Glucose,Whole Blood 160 mg/dL (70-110)
[2024-01-13 19:54] LABS: Glucose,Whole Blood 182 mg/dL (70-110)
[2024-01-14 05:55] LABS: Glucose,Whole Blood 208 mg/dL (70-110)
[2024-01-14 09:20] VITALS: BP 96/51; PULSE 60; RESP 18; TEMP 97.7
[2024-01-14 11:48] LABS: Glucose,Whole Blood 259 mg/dL (70-110)
--- NOTE | 2024-01-14 12:20 | P.PN ---
Progress Note - Text Progress Note Date: 01/14/24 The patient is hospice. Please refer to our prior notes for further details. There is no further neurological work-up. Will sign off. Please reconsult if needed.
--- NOTE | 2024-01-14 12:52 | P.DS ---
Providers Date of admission: 12/28/23 15:44 Expected date of discharge: 01/14/24 Attending physician: Calli Erazo DO Consults: 12/28/23 15:39 Consult Physician Routine Consulting Provider: Gabe Cameron Consult Reason/Comments: CVA Do you want consulting provider notified?: Yes 12/29/23 18:55 Consult Physician Urgent Consulting Provider: Markus Kim Consult Reason/Comments: left cerebellar mass. 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 On initial presentation, patient was saturating 100% on 2 L, rest of the vital signs were within normal limits. EKG showed sinus rhythm, CT head without contrast revealed 1.2 cm hypodense heterogenous area within the left cerebellum, underlying mass or developing lacunar infarct cannot be ruled out. Chest x-ray showed left hemidiaphragm. CBC showed thrombocytopenia with platelet of 140. BMP showed prerenal azotemia with BUN of 33. Total bili was 2.6, AST 67, ALT 50, ammonia 56, metabolic alkalosis with pH of 7.52, bicarb 29, CO2 30. Urinalysis negative. Patient given lactulose in the ED via NG tube, which she subsequently pulled out. Patient admitted for acute encephalopathy. Neurology consulted. MRI brain showed suspected mass with mild vasogenic edema in the inferior medial left cerebellum. EEG did not show any epileptiform discharges. Started on steroids. Oncology also consulted. Mental status improved. Patient is refusing any further workup. Also has hyponatremia, which improved with IV fluids however now has pulmonary edema. Restarted on diuretics. Patient continues to refuse multiple different medications, does not agree with any IV diuretics, only wants to take her home dose of torsemide 20 mg daily. Hospice conversation was initiated. Respiratory function continues to worsen, patient now requiring BiPAP , which she refuses at times. Mental status worsened. Patient started on IV diuretics. Pulmonology also consulted. Patient's overall function continue to decline. Family decided for hospice. Patient being discharged to hospice home. Patient seen and examined at bedside. Vital signs reviewed and stable. Gen: In NAD, chronically ill-appearing HEENT: normocephalic, atraumatic, mucous membranes moist CVS: perfusing all extremities well, lower extremity edema Respiratory: symmetric chest expansion, no accessory muscle use, supplemental oxygen GI: soft, NTTP, ND, : no suprapubic tenderness, no CVA tenderness MSK/Derm: no rashes, cyanosis Neuro: Somnolent Psych: Unable to assess A total of 33 minutes of time were spent preparing this complex discharge summary. Patient was discharged on 01/14/2024 at 1217. Plan - Discharge Summary New Discharge Prescriptions: New Magnesium Hydroxide [Milk of Magnesia] 2,400 mg PO BID PRN ml PRN Reason: Constipation Nystatin 100,000 Unit/ml Susp [Mycostatin Oral Susp] 500,000 unit PO QID ml QUEtiapine [SEROquel] 25 mg PO HS tab Continue atenoloL [Tenormin] 25 mg PO BID Omeprazole [PriLOSEC] 20 mg PO DAILY Discontinued Magnesium 200 mg PO DAILY Torsemide [Demadex] 20 mg PO DAILY #90 tab Lanolin/Mineral Oil [Eucerin Original Lotion] 1 applic TOPICAL BID Multivitamins, Thera [Multivitamin (formulary)] 1 tab PO PC-SUPPER Montelukast [Singulair] 10 mg PO HS metFORMIN HCL [Glucophage] 1,000 mg PO HS Ibuprofen [Motrin Ib] 200 mg PO DAILY LORazepam [Ativan] 0.25 mg PO DAILY #2 tab LORazepam [Ativan] 0.5 mg PO HS #2 tab INSULIN ASPART (NovoLOG) [NovoLOG (formulary)] See Protocol SQ ACHS Discharge Medication List atenoloL [Tenormin] 25 mg PO BID 04/20/22 [History] Omeprazole [PriLOSEC] 20 mg PO DAILY 12/28/23 [History] Magnesium Hydroxide [Milk of Magnesia] 2,400 mg PO BID PRN ml 01/14/24 [Rx] Nystatin 100,000 Unit/ml Susp [Mycostatin Oral Susp] 500,000 unit PO QID ml 01/14/24 [Rx] QUEtiapine [SEROquel] 25 mg PO HS tab 01/14/24 [Rx] Discharge Disposition: DISCH TO HOSPICE MED FACILTY
[2024-01-14 14:04] VITALS: BMI 34.9
--- NOTE | 2024-01-14 14:33 | P.PN ---
Subjective Progress Note Date: 01/14/24 Principal diagnosis: Acute on chronic hypoxic respiratory failure secondary to acute on chronic diastolic congestive heart failure 78-year-old female patient who is being seen for a hypoxic and hypercapnic respiratory failure the patient is currently on a BiPAP at a pressure of 14 over 8 cm of water with an FiO2 of 40%. The patient's blood gas showed a pH of 7.49 with a pCO2 of 40 and pO2 of 56 while on the BiPAP. She was quite obtunded yesterday and she is essentially the same as yesterday with some limited improvement. She is reaching out to the mask occasionally and she tries to pull it up. I reviewed the series of chest x-ray that was done during this current admission and the patient has smaller lung volumes and evidence of increased pulmonary vascular marking and congestion and the patient is currently on diuretics and the patient is producing Adequate amount of urine output. Note that over the past 24 to 48 hours, the patient has diuresed a total of 4-1/2 to 5 L. The most recent chest x-ray from yesterday showed improvement in the volume status and cardiomegaly. The repeat chest x-ray that was done this morning upon my request showed further improvement in the volume status although there is still persistent cardiomegaly. The chest x-ray still showing cardiomegaly with mild pulm vascular congestion. Note that the patient is known to have nonalcoholic liver cirrhosis. She also has CHF with preserved LV function. Echocardiogram that was done during this current admission of 12/29/2023 showed a preserved LV function with an EF around 55 to 60%. The patient also had mild mitral regurgitation, mild aortic sclerosis with mild tricuspid regurgitation. The patient had a repeat blood gas today that showed a pH of 7.54 with a pCO2 of 36 and pO2 of 67. The white cell count 12.2 with a hemoglobin 9.9 BUN is 48 creatinine of 0.6. On a separate note, the patient was also found to have an abnormal MRI of the brain that raise a suspicious for a metastatic lesion to her brain. The patient was found to have a 1.2 cm hypodense heterogeneous area in the left cerebellum. Carotid Dopplers showed carotid plaque and there was a 50 to 69% stenosis of the right internal carotid artery. MRI of the brain showed a 1.5 cm mass along with mild vasogenic edema in the inferior medial left cerebellum and the patient was started on Decadron. Noted the patient does not have any history of malignancy. She has history of liver cirrhosis, diabetes mellitus and hypertension. She also has history of diverticulosis and scoliosis of the spine. On today's evaluation of 01/07/2023, I am seeing the patient for a follow-up. The patient was taken off the BiPAP this morning and the patient was placed on 8 L of oxygen by nasal cannula. Earlier to that, the patient was on a BiPAP at a pressure of 14/8 with an FiO2 of 50%. The patient is opening her eyes spontaneously and doing some brief communication. She is a DNR/DNI CODE STATUS. She is not interested in further treatment. On examination, she continues to have a harsh cardiac murmur.In terms of respiratory status, the patient will be taken off the BiPAP of 14/8 with an FiO2 of 50% and earlier this morning, the patient was taken off the BiPAP and placed on oxygen nasal cannula. She is able to tolerate the nasal cannula without any major difficulties. Had previous echocardiogram was noted. The patient is responding nicely to diuretics and the patient is currently on Lasix 40 mg IV every 12 hours. For the past 72 hours, the patient has been at least 5 or 6 L negative fluid balance. Meanwhile, the blood work from today white cell count 13.8, hemoglobin 9.5 and a platelet count of 111. BUN is 54 with a creatinine of 0.7 and his sodium level is 134. The patient remains on Decadron. The patient remains on IV Lasix. Rest of the medications remain unchanged. On today's evaluation of 01/08/2023, seen the patient for a follow-up. The patient is arousable and she is waking up without having any major difficulties and the patient accordingly was taken off the BiPAP this morning and she was placed on oxygen at 8 L/min nasal cannula. Earlier, the patient was in a BiPAP at a pressure of 14 over 8 cm of water with an FiO2 of 50%. I was told that she was confused earlier and somewhat restless and she has a sitter at the bedside. Nevertheless, at the time of my evaluation, the patient seems to be significantly more more appropriate. She is still on Lasix 40 mg IV every 12 hours. She is doing well. Blood work is still pending from today. No focal neurological deficits. Chest x-ray that was done yesterday was consistent with cardiomegaly and CHF. The patient has not made her final decision regarding her advanced directives. She is a DNR/DNI and she is considering comfort care measures and further discussion is still being done with the family. She remai ns on Decadron. She remains on Lasix. No antibiotic coverage at this point in time. Awaiting labs. On 01/09/2024, the patient still doing poor. On and off, she gets confused and agitated. She has a sitter at the bedside. She was on a BiPAP throughout the night at a pressure of 14/8 and the patient is currently on a "nasal cannula. She is refusing to eat. At times she reaches out to her mask/nasal cannula then tries to pull. She remains on Decadron. 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 She remains on Lasix 40 mg IV every 12 hours. Her current pulse ox is lower than 94%. Awaiting labs from today. Yesterday's labs were all stable. She did have some hepatic dysfunction. There was some mild elevation of the LFTs. She remains on Levemir insulin 15 units and she is also on NovoLog/scale coverage. She remains on Decadron and Keppra. She is quite debilitated. Family is interested in hospice care and a final decision has not been made yet. Record status remains DNR/DNI. Repeat chest x-ray was done today and this shows some mild progressive congestion and is essentially unchanged compared to yesterday and we decided to continue with with the diuretics. The patient also has some elevation of the right hemidiaphragm. Note that her chest x-ray initially improved and over the past 24 to 48 hours, no further improvement with persistent pulm vascular congestion. . Declines to eat. Reevaluated today on 01/10/2024, patient is less confused today, intermittently agitated, on BiPAP through the night, currently on nasal cannula, At 8 L high flow with O2 sats of 98% last chest x-ray on 01/09 clearly showed evidence of congestive heart failure/pulmonary edema. Patient remains on diuretics. Patient remains on Keppra she is also on Decadron, I believe family is considering hospice on this patient. According to the note from Dr. Mendez yesterday. WBC count is 14.9 hemoglobin 9.8. Sodium is low at 126 potassium 4.0 chloride 95 BUN is 54 creatinine 0.80 Patient was reevaluated today on 01/11/24, patient is doing better today, remains on BiPAP, alternating with high flow nasal cannula at 3 L. Patient remains on diuretics, her left chest x-ray showed evidence of congestive heart failure, sodium is rather low 124 potassium 4.6 BUN is 49 creatinine 0.77. Patient was reevaluated today on 01/12/2024, patient is on nasal cannula, O2 saturation is 97% on 3 L, patient is yelling loud, could be heard all the way down the hallway stating I cannot breathe but when evaluated she seemed to be fine and not in any distress. Seems to be confused, her blood pressure is stable 104/51 heart rate is 65, and again the patient does not seem to be in any form of respiratory distress. BiPAP is at bedside, but does not seem to be needed. WBC count is 16.3 hemoglobin is 10.5 sodium is low today at 124, BUN is 50 creatinine 1.0. Her sodium has been low all along, I believe the patient may benefit from more fluid restrictions last chest x-ray continues to show evidence of interstitial edema Reevaluate today on 01/13/2024, patient is basically about the same, seems to be comfortable today on BiPAP not in any distress, apparently family has decided to consider sending the patient to hospice. I think that is very appropriate Reevaluated today on 01/14/2024, patient is on nasal cannula today, not in any distress, seems to be comfortable, confused however. I believe plans are in progress to send the patient today to hospice. Objective - Vital Signs Vital signs: Vital Signs Temp 97.7 F 01/14/24 08:00 Pulse 60 01/14/24 08:00 Resp 18 01/14/24 08:00 BP 96/51 01/14/24 08:00 Pulse Ox 96 01/14/24 09:32 FiO2 50 01/14/24 04:26 Intake & Output 01/13/24 01/14/24 01/14/24 18:59 06:59 18:59 Intake Total 20 360 Output Total 1250 Balance -1230 360 Weight 92.5 kg 92.5 kg Intake: IV 20 Invasive Line 5 20 Oral 360 Output: Urine 1250 Other: Voiding Method Indwelling Catheter Indwelling Catheter Indwelling Catheter - Exam GENERAL EXAM: Obtunded, 78-year-old white female, frail, on nasal cannula HEAD: Normocephalic and atraumatic EYES: Normal reaction of pupils, equal size. NOSE: Clear with pink turbinates. THROAT: No erythema or exudates. NECK: No masses, no JVD. CHEST: No chest wall deformity. LUNGS: Crackles and rhonchi noted bilaterally. CVS: S1 and S2 normal with mild systolic murmur, regular rhythm. No other extra heart sounds ABDOMEN: No hepatosplenomegaly, active bowel sounds, no guarding or rigidity. SKIN: No rashes CENTRAL NERVOUS SYSTEM: Awake, follows simple instructions but confused EXTREMITIES: Bilateral 2-3+ pitting edema with chronic venous stasis dermatitis. No clubbing, or cyanosis. Peripheral pulses are intact. - Labs CBC & Chem 7: 01/12/24 07:36 01/12/24 07:36 Labs: Abnormal Lab Results - Last 24 Hours (Table) 01/13/24 01/13/24 01/14/24 Range/Units 16:46 19:52 05:53 POC Glucose (mg/dL) 160 H 182 H 208 H (70-110) mg/dL 01/14/24 Range/Units 11:47 POC Glucose (mg/dL) 259 H (70-110) mg/dL Assessment and Plan Assessment: Impression: Acute on chronic hypoxemic respiratory failure, secondary to fluid overload state and diastolic congestive heart failure improving with diuretics Hypovolemic hyponatremia Encephalopathy, Suspected 1.5 cm mass with mild vasogenic edema in the inferior medial left cerebellum, Brain MRA was ordered for further evaluation, but was reportedly refused. Right ICA stenosis, estimated 50 to 60% on carotid Doppler. There is also echogenic material within the right IJV concerning for possible thrombus. Vascular surgery has been asked to evaluate. Acute toxic metabolic encephalopathy History of liver cirrhosis secondary to [place] Hyperammonemia, was receiving lactulose, secondary to liver cirrhosis Possible PFO, patient had an echocardiogram done this admission which had a positive bubble study. Bilateral lower extremity edema with venous stasis dermatitis Diabetes mellitus type 2, non insulin-dependent Benign essential hypertension Hypervolemic hyponatremia Recommendation: Agree with plans to go to hospice Will follow as needed Time with Patient: Less than 30
[2024-01-14 16:49] LABS: Glucose,Whole Blood 335 mg/dL (70-110)
== END 2024-01-14 17:10 | disposition hospice, inpatient (51) | DRG 80 ==
LOC: EC 13:01 → 3SCARD 15:44 → 5NMEDONC 01-01 17:57 → 3SCARD 01-04 12:37
PROVIDERS: ADMIT Internal Medicine; ATTEND Internal Medicine
PROC: 0D9670Z Drainage of Stomach with Drainage Device, Via Natural or Artificial Opening (ICD-10-PCS; principal; 2023-12-28)
PROC: 5A09357 Assistance with Respiratory Ventilation, Less than 24 Consecutive Hours, Continuous Positive Airway Pressure (ICD-10-PCS; 2024-01-06)
PROC: 5A0935A Assistance with Respiratory Ventilation, Less than 24 Consecutive Hours, High Flow/Velocity Cannula (ICD-10-PCS; 2024-01-10)
DX: G93.6 Cerebral edema (principal); G92.8 Other toxic encephalopathy; J96.21 Acute and chronic respiratory failure with hypoxia; J96.22 Acute and chronic respiratory failure with hypercapnia; I50.33 Acute on chronic diastolic (congestive) heart failure; E72.20 Disorder of urea cycle metabolism, unspecified; E87.20 Acidosis, unspecified; R18.8 Other ascites; E87.3 Alkalosis; E87.1 Hypo-osmolality and hyponatremia; I87.333 Chronic venous hypertension (idiopathic) with ulcer and inflammation of bilateral lower extremity; L97.921 Non-pressure chronic ulcer of unspecified part of left lower leg limited to breakdown of skin; L97.911 Non-pressure chronic ulcer of unspecified part of right lower leg limited to breakdown of skin; Q21.12 Patent foramen ovale; N39.0 Urinary tract infection, site not specified; G93.89 Other specified disorders of brain; Z51.5 Encounter for palliative care; Z66 Do not resuscitate; D69.6 Thrombocytopenia, unspecified; K72.10 Chronic hepatic failure without coma; E11.622 Type 2 diabetes mellitus with other skin ulcer; I11.0 Hypertensive heart disease with heart failure; Z99.81 Dependence on supplemental oxygen; K75.81 Nonalcoholic steatohepatitis (NASH); E11.65 Type 2 diabetes mellitus with hyperglycemia; Z53.29 Procedure and treatment not carried out because of patient's decision for other reasons; Z91.148 Patient's other noncompliance with medication regimen for other reason; K74.69 Other cirrhosis of liver; I65.21 Occlusion and stenosis of right carotid artery; I08.3 Combined rheumatic disorders of mitral, aortic and tricuspid valves; Z79.84 Long term (current) use of oral hypoglycemic drugs; Z87.891 Personal history of nicotine dependence; E80.6 Other disorders of bilirubin metabolism; M41.9 Scoliosis, unspecified; E78.5 Hyperlipidemia, unspecified; R53.81 Other malaise; T38.0X5A Adverse effect of glucocorticoids and synthetic analogues, initial encounter; B95.4 Other streptococcus as the cause of diseases classified elsewhere; E86.0 Dehydration; E86.1 Hypovolemia; R19.7 Diarrhea, unspecified; E87.5 Hyperkalemia; Z28.311 Partially vaccinated for COVID-19; Z79.899 Other long term (current) drug therapy; Z91.041 Radiographic dye allergy status; Z88.1 Allergy status to other antibiotic agents; Z91.013 Allergy to seafood; Z88.7 Allergy status to serum and vaccine; Z88.0 Allergy status to penicillin; Z88.5 Allergy status to narcotic agent; Z88.8 Allergy status to other drugs, medicaments and biological substances; Z87.19 Personal history of other diseases of the digestive system
CPT/HCPCS: 36415; 36600; 51702; 70450; 70551; 71045; 76705; 80048; 80053; 80061; 81001; 82140; 82805; 83036; 83605; 83735; 83880; 83930; 83935; 84300; 84443; 84484; 85025; 85610; 85730; 87040; 87077; 87086; 87186; 87324; 87636; 93005; 93306; 93880; 94660; 94760; 95816; 96365; 96366; 96372; 96375; 99285